=== PATIENT | male | born 1950 | race Caucasian/White ===

== ENCOUNTER → 2016-05-03 | Outpatient (CLI) | payer MEDICARE, OTHER ==
[~2016-05-03] MED LIST: DOCU-143 PO; HYDR-3812 PO; LORA2TAB PO; SILD100T PO
--- OUTSIDE RECORDS SUMMARY | 2016-05-03 10:06 | XMS REPORT | Continuity of Care Document ---
Author Author [facility] Organization [facility] Address Unknown Phone Unavailable Care Team Providers Care Electrical Helper Name Role Phone KEN DELEON MD PCP Insurance Providers Payer Name Policy Number Subscriber Name Relationship [employer] [id number] Demetri Cali 18 Self / Same As Patient Enter Insurance Name [id number] Demetri Cali 18 Self / Same As Patient Advance Directives Directive Response Recorded Date/Time Advance Directives No 10/06/15 12:44pm Health Care Power of Video Producer No 10/06/15 12:44pm Organ Donor No 10/06/15 12:44pm Resuscitation Status Full Code 10/06/15 12:44pm Problems No problem information available. Medications Current Home Medications Medication Dose Units Route Directions Days/Qty Instructions Start Date Lorazepam 2 Mg 3 Mg Oral Bedtime 10/06/15 Sildenafil Citrate 100 Mg 100 Mg Oral As Needed 10/06/15 Social History Social History Problem Response Recorded Date/Time Alcohol Use Occasionally Uses 10/06/2015 12:44pm Recreational Drug Use No 10/06/2015 12:44pm Recent Foreign Travel No 10/06/2015 12:44pm Recent Infectious Disease Exposure No 10/06/2015 12:44pm Hospitalization with Isolation Denies 10/06/2015 12:44pm Sexually Transmitted Disease No 10/06/2015 12:44pm HIV/AIDS No 10/06/2015 12:44pm Smoking Status Never a Smoker 10/06/2015 12:44pm Do you dip or chew tobacco? No 04/26/2015 7:47am Sexually Transmitted Disease No 10/06/2015 12:44pm Hospitalization with Isolation Denies 10/06/2015 12:44pm Query Response Start Date Stop Date Smoking Status Never a Smoker Hospital Discharge Instructions No hospital discharge instructions. Plan of Care Discharge Date 10/06/15 1:13pm Prescriptions See Medication Section Functional Status No functional status results. Allergies, Adverse Reactions, Alerts Allergen Type Severity Reaction Status Last Updated Penicillins ([id number]) Allergy Unknown EXTREME FEVER Active 10/06/15 Immunizations No immunization records. Vital Signs Acute Vital Signs Vital Response Date/Time Pulse Rate (adult) 64 bpm (60 - 90) 10/06/2015 12:44pm Respiratory Rate 16 bpm (12 - 24) 10/06/2015 12:44pm O2 Sat by Pulse Oximetry 97 % (88 - 100) 10/06/2015 12:44pm Blood Pressure 123/63 mm Hg 10/06/2015 12:44pm Blood Pressure Mean 83 mm Hg 10/06/2015 12:44pm Pain Numeric Pain Scale 2 10/06/2015 12:44pm Height (Feet) 6 feet 10/06/2015 12:44pm Height (Inches) 2.00 inches 10/06/2015 12:44pm Height (Calculated Centimeters) 187.878060 cm 10/06/2015 12:44pm Weight (Pounds) 163 pounds 10/06/2015 12:44pm Weight (Ounces) 3.0 oz 10/06/2015 12:44pm Weight (Calculated Grams) 64434.606 gm 10/06/2015 12:44pm Weight (Calculated Kilograms) 74.797390 kilograms 10/06/2015 12:44pm Calculated BMI 18.83 10/06/2015 12:44pm Results No known relevant diagnostic tests, laboratory data and/or discharge summary. Procedures No known history of procedures. Encounters Encounter Location Arrival/Admit Date Discharge/Depart Date Attending Provider Registered Clinic [facility] 10/06/15 12:36pm JORGE BAILEY DO
--- NOTE | 2016-05-04 08:10 | ECHOCARDIOGRAPHY REPORT ---
PROCEDURE PHYSICIAN: MEME ARAUJO DATE OF PROCEDURE: 05/03/2016 TWO DIMENSIONAL ECHOCARDIOGRAM REPORT PRIMARY PHYSICIAN: OTHER PHYSICIAN: REFERRING PHYSICIAN: Dr. Mendoza ORDERING PHYSICIAN: INDICATION FOR THE PROCEDURE: 1. Abnormal EKG. 2. Hypertension. MEASUREMENTS DERIVED VALUES LV DIAMETER (LAX) NORMALS NORMALS Diastolic 5 (3.6-5.2) Eject. Fract. 60% (60%+/-6%) Systolic (2.3-3.9) Diastolic Vol. % Shortening (0.22-0.42) Systolic Vol. Aortic Root IVS THICKNESS Diastolic 1.1 (0.6-1.1) LVPW THICKNESS Diastolic 1 (0.6-1.1) LA DIAMETER Systolic 3.2 (2.1-3.7) FINDINGS: 1. Technical quality is good. 2. The left ventricle is normal in size with normal contractility. Systolic function appeared to be normal. Estimated ejection fraction 60%. 3. The left atrium is normal in size. No clot or thrombus were seen within the left atrium. 4. The right atrium and right ventricle are normal in size. No clot or thrombus were seen within the right side. 5. Mitral valve is normal in morphology with mild mitral regurgitation noted by color Doppler flow. No mitral valve prolapse. No mitral valve stenosis. 6. Aortic valve is trileaflet with normal opening and closing pattern. 7. No significant aortic stenosis or regurgitation was seen. 8. Tricuspid valve is normal in morphology with mild tricuspid regurgitation noted by color Doppler flow. Doppler across tricuspid valve estimated pulmonary artery pressure of 33+ right atrial pressure. 9. Pulmonic valve is functioning normally. 10. No pericardial effusion. IN CONCLUSION: 1. Normal left ventricular size and systolic function. Estimated ejection fraction 60%. 2. Mild mitral and tricuspid regurgitation. 3. Estimated pulmonary artery pressure of 40 mmHg. Job ID: [id number] Dictated Date: 05/03/2016 17:02:43 Physician Office Nurse Date: 05/04/2016 08:07:25 / [email or web address]
== END ==
LOC: CARD 10:03
PROVIDERS: ATTEND Internal Medicine Cardiovascular Disease
DX: I10 Essential (primary) hypertension (principal); R94.31 Abnormal electrocardiogram [ECG] [EKG]; N52.9 Male erectile dysfunction, unspecified; Z82.49 Family history of ischemic heart disease and other diseases of the circulatory system; Z87.891 Personal history of nicotine dependence
CPT/HCPCS: 93017; 93306

== ENCOUNTER → 2016-06-08 | Outpatient (CLI) | payer MEDICARE, OTHER ==
--- NOTE | 2016-06-08 18:14 | Diagnostic Imaging Report ---
INDICATION: Right inguinal pain. COMPARISON: None. DISCUSSION: Limited targeted sonographic evaluation of the right inguinal region was performed. No underlying sonographic abnormality identified. No abnormal mass or fluid collection. No evidence of an inguinal hernia. IMPRESSION: 1. No sonographic abnormality identified within the right inguinal region. Dictated by: Dictated on workstation # [id number]
== END ==
LOC: RAD 14:02
PROVIDERS: ATTEND Nurse Practitioner Family
DX: R10.9 Unspecified abdominal pain (principal)
CPT/HCPCS: 76881

== ENCOUNTER 2016-06-26 17:47 | Emergency (ER) | payer MEDICARE, OTHER ==
[~2016-06-26] VITALS: Ht 188 cm; Wt 74.8 kg
--- NOTE | 2016-06-26 18:07 | ED Upper Extremity ---
General Chief Complaint: Upper Extremity Stated Complaint: R HAND INJ Source: patient, RN notes reviewed Exam Limitations: no limitations History of Present Illness Time seen by provider: 18:07 Initial Comments Patient slipped on a wet step and tried to catch himself and wound up catching his hand on a nail in the wall inflicting a 5 cm laceration to the medial border of his right hand. Denies any other injuries. Onset: just prior to arrival Pain/Injury Location: right hand Method of Injury: incised Modifying Factors: Improves With Other (none) Allergies and Home Medications Allergies Coded Allergies: Penicillins (Verified Allergy, Unknown, EXTREME FEVER, 10/06/15) Home Medications Lorazepam 2 Mg Tablet, 3 MG PO HS, (Reported) Constitutional: see HPI Skin: see HPI, other (laceration right hand) All Other Systems Reviewed Negative Unless Noted: Yes (Negative excepted noted.) Past Fezulth-Pvgtan-Rtanva Hx Patient Social History Type Used: Cigarettes Recent Foreign Travel: No Contact w/Someone Who Travel: No Surgeries HX Surgeries: Yes (BILAT ING HERNIA, CYSTS REMOVED) Respiratory Hx Respiratory Disorders: No Cardiovascular Hx Cardiac Disorders: No Neurological Hx Neurological Disorders: No Reproductive System Sexually Transmitted Disease: No HIV/AIDS: No Genitourinary Hx Genitourinary Disorders: Yes (PROSTATE SWELLING-TAKING HOMEOPATHIC REMEDY) Genitourinary Disorders: Prostate Problems Gastrointestinal Hx Gastrointestinal Disorders: Yes (INGUINAL HERNIA) Musculoskeletal Hx Musculoskeletal Disorders: No Endocrine Hx Endocrine Disorders: No HEENT HX ENT Disorders: Yes (READING GLASSES) Loss of Vision: Bilateral Hearing Impairment: Denies Cancer Hx Cancer: No Psychosocial Hx Psychiatric Problems: Yes (INSOMNIA) Behavioral Health Disorders: Anxiety Integumentary HX Skin/Integumentary Disorder: No Blood Transfusions Hx Blood Disorders: No Adverse Reaction to a Blood Tr: No Physical Exam Vital Signs Vital Sign - Last 12Hours 06/26/16 18:00 Temp 98.1 Pulse 75 Resp 18 B/P (MAP) 159/75 Pulse Ox 96 Capillary Refill : General Appearance: WD/WN Cardiovascular: regular rate, rhythm Respiratory: no respiratory distress Hand: normal ROM, Right, laceration Neurologic/Tendon: normal sensation, normal motor functions, normal tendon functions Neurologic/Psychiatric: no motor/sensory deficits, alert, normal mood/affect, oriented x 3 Skin: warm/dry, other (5 cm subq, linear laceration to the lateral border of his right hand. Bleeding controlled.) Laceration Repair : Wound Location: Upper Extremities (right hand) Wound's Depth, Shape: linear, sub Q Wound Explored: no foreign body removed Betadine Prep?: No Anesthesia: 1% Lidocaine Volume Anesthetic (ccs): 5 Suture: Ethlion Suture Size: 4-0 Number of Sutures: 7 Sterile Dressing Applied?: Yes Progress/Results/Core Measures Results/Orders My Orders Orders - SHAMA DUNBAR DO Lidocaine 1% Injection (Xylocaine 1% Inj (06/26/16 18:15) Tetanus/Diphtheria Inj (Adult) (Tenivac (06/26/16 18:15) Lidocaine 1% Injection (Xylocaine 1% Inj (06/26/16 18:09) Dipht,Pertuss(Acell),Tet Adult (Boostrix (06/26/16 18:09) Wound Dressing-Ed (06/26/16 18:34) Medications Given in ED Current Medications Medications Dose Ordered Sig/Lenin Route Start Time Stop Time Status Last Admin Dose Admin Diphtheria/ Tetanus/Acell Pertussis 0.5 ml STK-MED ONCE IM 06/26/16 18:09 06/26/16 18:13 DC 06/26/16 18:17 0.5 ML Lidocaine HCl 20 ml STK-MED ONCE .ROUTE 06/26/16 18:09 06/26/16 18:13 DC 06/26/16 18:17 20 ML Vital Signs/I&O Vital Sign - Last 12Hours 06/26/16 18:00 Temp 98.1 Pulse 75 Resp 18 B/P (MAP) 159/75 Pulse Ox 96 Departure Impression Impression: Primary Impression: Laceration of hand Disposition: 01 HOME, SELF-CARE Condition: Improved Departure-Patient Inst. Decision time for Depature: 18:35 Referrals: KEN DELEON MD (PCP/Family) Primary Care Physician Patient Instructions: Laceration Repair With Stitches (DC) Add. Discharge Instructions: All discharge instructions reviewed with patient and/or family. Voiced understanding. NEED TO HAVE YOUR SUTURES REMOVED IN 10 DAYS. SHAMA DUNBAR DO June 26, 2016 18:07
[2016-06-26] MEDS ORDERED: LIDOCAINE 1% INJ 20 ML (XYLOCAINE) VIAL ONE (18:09)
[2016-06-26] MEDS ORDERED: TETANUS,DIPTH,PERTUSS P/F (BOOSTRIX) 0.5 ML VIAL IM ONE (18:09)
[2016-06-26] MEDS ORDERED: TETANUS & DIPHTHERIA TOX,ADULT 0.5 ML (TENIVAC) IM ONE (18:15)
[2016-06-26] MEDS ORDERED: LIDOCAINE 1% INJ 20 ML (XYLOCAINE) VIAL INJ ONE (18:15)
[2016-06-26 18:59] VITALS: BP 159/75
== END 2016-06-26 18:58 | disposition home or self-care (01) ==
LOC: EDUNIT# 17:47 → ER 17:48
DX: S61.411A Laceration without foreign body of right hand, initial encounter (principal); Z23 Encounter for immunization; W45.0XXA Nail entering through skin, initial encounter; Y99.8 Other external cause status
CPT/HCPCS: 12002; 90471; 90715

== ENCOUNTER 2016-07-07 00:44 | Emergency (ER) | payer MEDICARE, OTHER ==
[~2016-07-07] VITALS: Ht 188 cm; Wt 72.6 kg
[2016-07-07] MEDS ORDERED: ASPIRIN 81 MG CHEW (CHILDREN'S ASA) PO ONE (01:00)
[2016-07-07] MEDS ORDERED: RX-NITROGLYCERIN 0.4 MG TAB BTL 25'S SL PRN (01:00)
[2016-07-07 01:03] LABS: BASOPHILS % (AUTO) 0 % (0-10); EOSINOPHILS # (AUTO) 0.1 10^3/uL (0.0-0.3); EOSINOPHILS % (AUTO) 2 % (0-10); LYMPHOCYTES # (AUTO) 0.7 X 10^3 (1.0-4.0); LYMPHOCYTES % (AUTO) 10 % (12-44); MEAN CORPUSCULAR HEMOGLOBIN 31 PG (25-34); MEAN CORPUSCULAR HGB CONC 32 G/DL (32-36); MEAN CORPUSCULAR VOLUME 97 FL (80-99); MEAN PLATELET VOLUME 9.3 FL (7.4-10.4); MONOCYTES # (AUTO) 0.7 X 10^3 (0.0-1.0); MONOCYTES % (AUTO) 10 % (0-12); NEUTROPHILS # (AUTO) 5.5 X 10^3 (1.8-7.8); NEUTROPHILS % (AUTO) 78 % (42-75); PLATELET COUNT 184 10^3/uL (130-400); RED BLOOD COUNT 4.43 10^6/uL (4.35-5.85); RED CELL DISTRIBUTION WIDTH 13.1 % (10.0-14.5)
[2016-07-07 01:11] LABS: INR 1.1 (0.8-1.4); PROTHROMBIN TIME PATIENT 14.2 SEC (12.2-14.7)
[2016-07-07 01:14] VITALS: BP 127/60
[2016-07-07 01:22] LABS: ALANINE AMINOTRANSFERASE 10 U/L (0-55); ALBUMIN 3.8 G/DL (3.2-4.5); ANION GAP 9 MMOL/L (5-14); ASPARTATE AMINO TRANSFERASE 12 U/L (5-34); BILIRUBIN,TOTAL 1.3 MG/DL (0.1-1.0); BLOOD UREA NITROGEN 21 MG/DL (7-18); BUN/CREATININE RATIO 23; CALCIUM 8.5 MG/DL (8.5-10.1); CARBON DIOXIDE 26 MMOL/L (21-32); CHLORIDE 109 MMOL/L (98-107); CREATININE SERUM 0.93 MG/DL (0.60-1.30); GFR ESTIMATED > 60; GLUCOSE 106 MG/DL (70-105); MAGNESIUM 2.3 MG/DL (1.8-2.4); POTASSIUM 3.4 MMOL/L (3.6-5.0); SODIUM 144 MMOL/L (135-145); TOTAL PROTEIN 5.9 G/DL (6.4-8.2)
--- NOTE | 2016-07-07 01:24 | ED Chest Pain ---
General Chief Complaint: Chest Pain Stated Complaint: CHEST PAIN Nursing Triage Note: substernal chest pain x45min. Nursing Sepsis Screen: No Definite Risk Source: patient, old records Exam Limitations: no limitations History of Present Illness Time seen by provider: 00:48 Initial Comments This 65-year-old gentleman presents to the emergency room with complaints of chest pain that woke him around midnight. The pain is described as an aching across his mid chest. It was initially 8/10 at home and has now subsided to about 4/10. He reports recent problems with vomiting over the last few days, presumably from a viral gastroenteritis. Today he primarily rested and drink plenty of clear liquids. He slept much of the day. He reports pain is worse with lying flat. He notes a recent echocardiogram and stress test performed by Dr. Milligan about 2 months ago. He denies any history of cardiopulmonary disease. He has no significant associated symptoms. He took aspirin 81 mg about 30 minutes prior to arrival. Allergies and Home Medications Allergies Coded Allergies: Penicillins (Verified Allergy, Unknown, EXTREME FEVER, 10/06/15) Home Medications Lorazepam 2 Mg Tablet, 3 MG PO HS, (Reported) Review of Systems Constitutional: no symptoms reported EENTM: No Symptoms Reported Respiratory: No Symptoms Reported Cardiovascular: See HPI Gastrointestinal: See HPI Genitourinary: No Symptoms Reported Musculoskeletal: no symptoms reported Skin: no symptoms reported Psychiatric/Neurological: No Symptoms Reported Endocrine: No Symptoms Reported Past Ffsnrtx-Ijkbmy-Wsiwvv Hx Patient Social History Alcohol Use: Rarely Uses Recreational Drug Use: No Smoking Status: Former Smoker Type Used: Cigarettes Recent Foreign Travel: No Contact w/Someone Who Travel: No Recent Infectious Disease Expo: No Recent Hopitalizations: No Immunizations Up To Date Tetanus Booster (TDap): More than 5yrs Seasonal Allergies Seasonal Allergies: No Surgeries HX Surgeries: Yes (BILAT ING HERNIA, CYSTS REMOVED) Surgeries: Abdominal, Tonsillectomy Respiratory Hx Respiratory Disorders: No Cardiovascular Hx Cardiac Disorders: No Neurological Hx Neurological Disorders: No Reproductive System Sexually Transmitted Disease: No HIV/AIDS: No Genitourinary Hx Genitourinary Disorders: Yes (PROSTATE SWELLING-TAKING HOMEOPATHIC REMEDY) Genitourinary Disorders: Prostate Problems Gastrointestinal Hx Gastrointestinal Disorders: Yes (INGUINAL HERNIA) Musculoskeletal Hx Musculoskeletal Disorders: No Endocrine Hx Endocrine Disorders: No HEENT HX ENT Disorders: Yes (READING GLASSES) Loss of Vision: Bilateral Hearing Impairment: Denies, Hard of Hearing Cancer Hx Cancer: No Psychosocial Hx Psychiatric Problems: Yes (INSOMNIA) Behavioral Health Disorders: Sleep Difficulties, Anxiety Integumentary HX Skin/Integumentary Disorder: No Blood Transfusions Hx Blood Disorders: No Adverse Reaction to a Blood Tr: No Physical Exam Vital Signs Vital Sign - Last 12Hours 07/07/16 07/07/16 00:57 01:00 Temp 97.1 Pulse 56 Resp 18 B/P (MAP) 143/65 Pulse Ox 97 O2 Delivery Room Air Capillary Refill : Less Than 3 Seconds General Appearance: No Apparent Distress, WD/WN, Thin HEENT: PERRL/EOMI, Normal ENT Inspection, Pharynx Normal Neck: Normal Inspection Respiratory: Chest Non Tender, Lungs Clear, Normal Breath Sounds, No Accessory Muscle Use, No Respiratory Distress Cardiovascular: Regular Rate, Rhythm, No Edema, No Murmur Gastrointestinal: Normal Bowel Sounds, Non Tender, Soft Extremity: Normal Inspection, No Pedal Edema Neurologic/Psychiatric: Alert, Oriented x3, No Motor/Sensory Deficits, Normal Mood/Affect, regional sales engineer II-XII Norm as Tested Skin: Normal Color, Warm/Dry Laceration Repair : Suture Size: 4-0 Progress/Results/Core Measures Results/Orders Lab Results Laboratory Tests Test 07/07/16 00:50 07/07/16 04:45 Range/Units White Blood Count 7.0 4.3-11.0 10^3/uL Red Blood Count 4.43 4.35-5.85 10^6/uL Hemoglobin 13.9 13.3-17.7 G/DL Hematocrit 43 40-54 % Mean Corpuscular Volume 97 80-99 FL Mean Corpuscular Hemoglobin 31 25-34 PG Mean Corpuscular Hemoglobin Concent 32 32-36 G/DL Red Cell Distribution Width 13.1 10.0-14.5 % Platelet Count 184 130-400 10^3/uL Mean Platelet Volume 9.3 7.4-10.4 FL Neutrophils (%) (Auto) 78 H 42-75 % Lymphocytes (%) (Auto) 10 L 12-44 % Monocytes (%) (Auto) 10 0-12 % Eosinophils (%) (Auto) 2 0-10 % Basophils (%) (Auto) 0 0-10 % Neutrophils # (Auto) 5.5 1.8-7.8 X 10^3 Lymphocytes # (Auto) 0.7 L 1.0-4.0 X 10^3 Monocytes # (Auto) 0.7 0.0-1.0 X 10^3 Eosinophils # (Auto) 0.1 0.0-0.3 10^3/uL Basophils # (Auto) 0.0 0.0-0.1 10^3/uL Prothrombin Time 14.2 12.2-14.7 SEC INR Comment 1.1 0.8-1.4 Activated Partial Thromboplast Time 33 24-35 SEC Sodium Level 144 135-145 MMOL/L Potassium Level 3.4 L 3.6-5.0 MMOL/L Chloride Level 109 H 98-107 MMOL/L Carbon Dioxide Level 26 21-32 MMOL/L Anion Gap 9 5-14 MMOL/L Blood Urea Nitrogen 21 H 7-18 MG/DL Creatinine 0.93 0.60-1.30 MG/DL Estimat Glomerular Filtration Rate > 60 BUN/Creatinine Ratio 23 Glucose Level 106 H 70-105 MG/DL Calcium Level 8.5 8.5-10.1 MG/DL Magnesium Level 2.3 1.8-2.4 MG/DL Total Bilirubin 1.3 H 0.1-1.0 MG/DL Aspartate Amino Transf (AST/SGOT) 12 5-34 U/L Alanine Aminotransferase (ALT/SGPT) 10 0-55 U/L Alkaline Phosphatase 47 40-136 U/L Myoglobin 42.6 10.0-92.0 NG/ML Troponin I < 0.30 < 0.30 <0.30 NG/ML Total Protein 5.9 L 6.4-8.2 G/DL Albumin 3.8 3.2-4.5 G/DL My Orders Orders - ARNOLD BUSTILLO MD Cbc With Automated Diff (07/07/16 01:00) Magnesium (07/07/16 01:00) Chest 1 View, Ap/Pa Only (07/07/16 01:00) Ekg Tracing (07/07/16 01:00) Cardiac Profile 1 (07/07/16 01:00) Comprehensive Metabolic Panel (07/07/16 01:00) Myoglobin Serum (07/07/16 01:00) Protime With Inr (07/07/16 01:00) Partial Thromboplastin Time (07/07/16 01:00) O2 (07/07/16 01:00) Monitor-Rhythm Ecg Trace Only (07/07/16 01:00) Lipid Panel (07/08/16 06:00) Aspirin Chewable Tablet (Baby Aspirin Ch (07/07/16 01:00) Rx-Nitroglycerin Sl Tabs (Rx-Nitrostat S (07/07/16 01:00) Saline Lock/Iv-Start (07/07/16 01:00) Troponin I (07/07/16 02:13) Medications Given in ED Current Medications Medications Dose Ordered Sig/Lenin Route Start Time Stop Time Status Last Admin Dose Admin Aspirin 243 mg ONCE ONCE PO 07/07/16 01:00 07/07/16 01:02 DC 07/07/16 01:05 243 MG Nitroglycerin 0.4 mg PRN PRN SL 07/07/16 01:00 07/07/16 01:05 0.4 MG Vital Signs/I&O Vital Sign - Last 12Hours 07/07/16 07/07/16 07/07/16 07/07/16 00:57 01:00 01:05 01:10 Temp 97.1 97.1 Pulse 56 Resp 18 B/P (MAP) 143/65 Pulse Ox 97 97 O2 Delivery Room Air Room Air Room Air 07/07/16 07/07/16 07/07/16 07/07/16 01:14 02:09 03:05 04:12 Pulse 67 56 55 50 Resp 15 27 16 18 B/P (MAP) 127/60 116/60 102/56 103/45 Pulse Ox 95 96 97 96 O2 Delivery Room Air Room Air Room Air Room Air Blood Pressure Mean: 82 Progress Note #1: Time: 01:21 Progress Note Patient reports his pain at its worst was about 8/10. By the time of arrival it was about 4/10. He did receive aspirin and nitroglycerin. He reports pain was already starting to dissipate at about 2/10 when he took the nitroglycerin and completely resolved shortly after taking nitroglycerin. He now reports no pain in the chest and he has a minimal 1/10 discomfort in the epigastric area without tenderness on repeat exam. Chart was reviewed and he was found to have an exercise stress test performed in April of this year with nondiagnostic EKG changes and hypertensive response to exercise. No ischemic changes were noted. Frequent PVCs were observed. Echocardiogram was also performed in April and showed ejection fraction of 60 percent with normal contractility. Pulmonary artery pressure was 40. Progress Note #2: Time: 02:00 Progress Note Patient is pain-free. Workup is relatively unremarkable. Case was reviewed with Dr. Celaya who believes patient should at a minimum have a 4 hour troponin rule out versus admission for observation. Options discussed with patient. He prefers to do the 4 hour troponin rule out. Progress Note #3: Time: 05:49 Progress Note Repeat troponin was negative. Patient denies any further pain. ECG Initial ECG Impression Date: July 07, 2016 Initial ECG Impression Time: 00:50 Initial ECG Rate: 57 Initial ECG Rhythm: Normal Sinus Comment Normal sinus rhythm with artifact. No ST elevation or depression was observed. No abnormal intervals or axis deviation. No prior EKGs were available for comparison. Diagnostic Imaging Diagonstic Imaging: Xray Plain Films/CT/US/NM/MRI: chest Comments Chest x-ray viewed by me. Report not yet available. No acute abnormalities appreciated by the ER physician. Departure Impression Impression: Primary Impression: Atypical chest pain Disposition: HOME, SELF-CARE Condition: Improved Departure-Patient Inst. Decision time for Depature: 05:50 Referrals: KEN DELEON MD (PCP/Family) Primary Care Physician Patient Instructions: Chest Pain (DC) Add. Discharge Instructions: Call Dr. Milligan's office this morning to schedule follow-up. Return to emergency room if you have recurrent chest pain or other worsening symptoms develop. All discharge instructions reviewed with patient and/or family. Voiced understanding. Copy Copies To 1: MEME MILLIGAN MD Copies To 2: KEN DELEON MD, JOSHUA T MD July 07, 2016 01:24
[2016-07-07 01:29] LABS: MYOGLOBIN SERUM 42.6 NG/ML (10.0-92.0)
[2016-07-07 02:09] VITALS: BP 116/60
[2016-07-07 03:05] VITALS: BP 102/56
[2016-07-07 04:12] VITALS: BP 103/45
[2016-07-07 05:58] VITALS: BP 107/45
--- NOTE | 2016-07-07 07:01 | Diagnostic Imaging Report ---
INDICATION: Chest pain with onset 45 minutes ago. COMPARISON STUDIES: None FINDINGS: Frontal view of the chest demonstrates the lungs to be clear. The heart size and vascularity are normal. There are no pleural effusions. Some tiny symmetric pulmonary nodules are consistent with the patient's nipples. There is some calcification of the aorta. IMPRESSION: There are no acute findings. Dictated by: Dictated on workstation # [id number]
== END 2016-07-07 05:54 | disposition home or self-care (01) ==
LOC: EDUNIT# 00:44 → ER 00:45
DX: R07.89 Other chest pain (principal); Z87.891 Personal history of nicotine dependence
CPT/HCPCS: 36415; 71010; 80053; 83735; 83874; 84484; 85025; 85610; 85730; 93005; 93041

== ENCOUNTER → 2017-04-18 | Outpatient (CLI) | payer MEDICARE, OTHER ==
[~2017-04-18] MED LIST changes: +ACHD5005 PO; -HYDR-3812 PO
--- NOTE | 2017-04-18 12:25 | Diagnostic Imaging Report ---
INDICATION: Shoulder pain. COMPARISON: None. FINDINGS: Three views of the right shoulder were obtained. There is no fracture, dislocation, or other acute bony abnormality identified. The soft tissues appear unremarkable. No radiopaque foreign bodies identified. The visualized portions of the right lung are clear. IMPRESSION: No acute fractures or dislocations of the right shoulder. Dictated by: Dictated on workstation # [id number]
== END ==
LOC: RAD 11:47
PROVIDERS: ATTEND Nurse Practitioner Family
DX: M25.511 Pain in right shoulder (principal)
CPT/HCPCS: 73030

== ENCOUNTER → 2017-04-27 | Outpatient (CLI) | payer MEDICARE, OTHER ==
--- NOTE | 2017-04-27 12:00 | Diagnostic Imaging Report ---
PROCEDURE: MRI right joint upper extremity without contrast. Technique: Multiplanar, multisequence MR imaging of the right shoulder was performed without contrast. Comparison: Right shoulder radiographs of 04/18/2017. Indication: Shoulder pain for approximately one year. Findings: Rotator cuff: Marked tendinopathy of supraspinatus and infraspinatus. There is superimposed low-grade partial-thickness bursal sided tearing of the anterior aspect of the supraspinatus. Subscapularis tendinopathy is also present with partial-thickness tearing of the superior deep fibers. Teres minor is normal. No rotator cuff muscle atrophy. Glenoid labrum: By non-arthrogram imaging, the glenoid labrum appears intact. No para-labral cyst. Long head of biceps: Long head of biceps is dislocated medially secondary to overlying subscapularis/transverse humeral ligament tear. The intracapsular segment of the long head of biceps remains intact. Bones and cartilage: Humeral head is normal in morphology without fracture. Subcortical cysts within the greater tuberosity are compatible with overlying rotator cuff pathology. No glenohumeral chondromalacia. Mild hypertrophic degenerative change of the acromioclavicular joint including inferior projecting osteophytes into the subacromial space. Soft tissues: No glenohumeral joint effusion. No MRI findings to suggest adhesive capsulitis. No fluid or inflammatory like signal within the subacromial/subdeltoid space to indicate bursitis. IMPRESSION: 1. Tendinopathy of the supraspinatus and infraspinatus is present. There are superimposed focal low-grade partial-thickness tear of the anterior bursal fibers of supraspinatus. 2. Subscapularis tendinopathy with partial-thickness tearing of the deep insertional fibers. 3. Medial dislocation of the long head of the biceps from the bicipital groove. The intracapsular segment remains intact. Dictated by: Dictated on workstation # [id number]
== END ==
LOC: RAD 10:40
PROVIDERS: ATTEND Nurse Practitioner Family
DX: M75.111 Incomplete rotator cuff tear or rupture of right shoulder, not specified as traumatic (principal); M67.813 Other specified disorders of tendon, right shoulder
CPT/HCPCS: 73221

== ENCOUNTER 2018-04-15 10:33 | Outpatient (RCR) | payer MEDICARE, OTHER | END 2018-04-16 | disposition home or self-care (01) | LOC: CR 10:33 | PROVIDERS: ATTEND Internal Medicine Cardiovascular Disease | DX: Z48.812 Encounter for surgical aftercare following surgery on the circulatory system (principal); Z95.1 Presence of aortocoronary bypass graft | CPT/HCPCS: 93798 ==

== ENCOUNTER 2018-05-03 10:13 | Outpatient (RCR) | payer MEDICARE, OTHER ==
[~2018-05-03 10:13] MED LIST changes: +P EP PO; +QUIN324C4 PO
== END 2018-07-16 | disposition home or self-care (01) ==
LOC: CR 10:13
PROVIDERS: ATTEND Internal Medicine Cardiovascular Disease
DX: Z48.812 Encounter for surgical aftercare following surgery on the circulatory system (principal); Z95.1 Presence of aortocoronary bypass graft
CPT/HCPCS: 93798

== ENCOUNTER → 2018-12-30 | Outpatient (CLI) | payer MEDICARE, OTHER ==
[~2018-12-30] VITALS: Ht 185 cm; Wt 90.0 kg
[~2018-12-30] MED LIST changes: +CATHETER FLUSH 10 ML SYR IV PRN
[2018-12-30 09:21] VITALS: BP 142/82
[2018-12-30 09:32] VITALS: BP 197/94
--- NOTE | 2018-12-30 14:21 | STRESS TEST ---
DATE OF SERVICE: 12/30/2018 EXERCISE MYOVIEW STRESS TEST REPORT REFERRING PHYSICIAN: Dr. Mendoza. Baseline heart rate is 58, baseline blood pressure 153/82. Baseline EKG is sinus rhythm with no ischemic changes. In summary, the patient was injected with 10.36 mCi of technetium-99 Myoview and the resting images were obtained. Then, the patient started exercising with a baseline heart rate, blood pressure and EKG mentioned above. The patient was able to exercise for 10 minutes on standard Jimi protocol. At peak stress level, he was injected with 31.4 mCi of technetium-99 Myoview. With peak exercise level, EKG was showing nondiagnostic changes. Blood pressure was 206/92. During recovery, heart rate and blood pressure returned to baseline. EKG returned to baseline. The resting and stress images were reviewed and compared in the short axis, horizontal long axis, and vertical long axis views. Review of the images showed diaphragmatic attenuation with fixed defect involving the whole inferior wall with no significant reversibility. SSS is 13, SDS 1, TID value 1.14. On the gated images, the left ventricle appeared to be normal size with normal contractility. Calculated ejection fraction 53%. IN CONCLUSION: 1. Excellent exercise tolerance for a total of 10 minutes on standard Jimi protocol, total of 11.7 METS achieving 90% of maximum expected heart rate. 2. Hypertensive response to exercise with peak blood pressure 206/92 returned to baseline during recovery. 3. Minimal nondiagnostic EKG changes with exercise returned to baseline during recovery. 4. Diaphragmatic attenuation with fixed defect involving the whole inferior wall with no significant reversibility. 5. Normal left ventricular size with normal contractility, inferior wall is rosaura normally. Calculated ejection fraction 53%. Job ID: [id number] DocumentID: [id number] Dictated Date: 12/30/2018 12:05:28 Loan Servicing Officer Date: 12/30/2018 14:21:53 Dictated By: MEME ARAUJO MD
== END ==
LOC: CARD 07:17
PROVIDERS: ATTEND Physician Assistant
DX: I25.10 Atherosclerotic heart disease of native coronary artery without angina pectoris (principal); I10 Essential (primary) hypertension; E78.2 Mixed hyperlipidemia; R00.2 Palpitations
CPT/HCPCS: 78452; 93017; 93306

== ENCOUNTER → 2019-01-03 | Outpatient (CLI) | payer MEDICARE, OTHER ==
[~2019-01-03] MED LIST changes: -CATHETER FLUSH 10 ML SYR IV PRN
--- NOTE | 2019-01-03 17:22 | Diagnostic Imaging Report ---
EXAMINATION: Magnetic resonance imaging of the left shoulder without contrast. DATE: January 03, 2019. COMPARISON: None. HISTORY: 68-year-old male, left shoulder pain. TECHNIQUE: Magnetic Resonance Imaging sequences were performed of the shoulder without contrast. FINDINGS: ROTATOR CUFF, LIGAMENTS, TENDONS, AND MUSCLES: There is an 8 mm wide approximately 50% partial-thickness bursal sided tendon tear of infraspinatus at its anterior aspect with additional infraspinatus tendinopathy. There is subscapularis tendinopathy with an estimated 8 mm wide less than 25% partial articular sided tear of supraspinatus. The teres minor tendon is intact. There is an interstitial split tear of the subscapularis tendon. There is normal rotator cuff muscle bulk and signal. LONG HEAD OF BICEPS: There is long head of biceps tendinopathy. The biceps labral attachment is intact. The long head of biceps tendon is normally positioned within the bicipital groove. GLENOHUMERAL JOINT: The humeral head is well positioned relative to the glenoid. The labrum is grossly intact. There is no identified paralabral cyst. The articular cartilage is grossly intact. There is no joint effusion. ACROMIOCLAVICULAR JOINT: The acromioclavicular joint is normally aligned. The coracoclavicular and coracoacromial ligaments are intact. There are mild acromioclavicular degenerative changes without large undersurface osteophyte. BONE: The bones all have normal configuration. There is degenerative related marrow edema adjacent to the acromioclavicular joint. There is no acute fracture, bone contusion, or evidence of osteonecrosis. BURSAE AND SOFT TISSUES: The bursae and soft tissue surrounding the shoulder are unremarkable. IMPRESSION: 1. 8 mm wide approximately 25% or less partial articular sided tear of supraspinatus. 8 mm wide approximately 50% partial-thickness articular sided tear of infraspinatus. Interstitial split tear of the subscapularis tendon. No fatty muscle atrophy. 2. Long head of biceps tendinopathy. 3. Mild acromioclavicular degenerative changes without undersurface osteophyte. 4. Grossly intact labrum and unremarkable additional glenohumeral joint assessment. 5. No acute fracture, bone contusion or evidence of osteonecrosis. Dictated on workstation # [id number]
== END ==
LOC: RAD 13:05
PROVIDERS: ATTEND Family Medicine
DX: M75.112 Incomplete rotator cuff tear or rupture of left shoulder, not specified as traumatic (principal); M67.814 Other specified disorders of tendon, left shoulder; M19.012 Primary osteoarthritis, left shoulder
CPT/HCPCS: 73221

== ENCOUNTER 2019-09-22 05:34 | Outpatient (RCR) | payer MEDICARE, OTHER ==
[~2019-09-22] VITALS: Ht 187 cm; Wt 80.9 kg
[~2019-09-22 05:34] MED LIST changes: +ASPI-586 PO; +LISI2.5T PO; +LORA-407 PO; +METO100T12 PO
== END 2019-09-22 10:23 | disposition home or self-care (01) ==
LOC: PREOP 05:34
PROVIDERS: ATTEND Surgery
DX: Z01.812 Encounter for preprocedural laboratory examination (principal); K40.90 Unilateral inguinal hernia, without obstruction or gangrene, not specified as recurrent; Z20.828 Contact with and (suspected) exposure to other viral communicable diseases
CPT/HCPCS: 87635

== ENCOUNTER 2019-09-25 08:38 | Day surgery (SDC) | payer MEDICARE, OTHER ==
[~2019-09-25] VITALS: Ht 188 cm; Wt 80.9 kg
[2019-09-25] VITALS (11 sets, daily range): BP systolic 128–185; BP diastolic 63–88
[2019-09-25] MEDS ORDERED: CLINDAMYCIN 600 MG/50 ML IVPB 50 ML IV ONE (09:00)
[2019-09-25] MEDS: LACTATED RINGERS 1,000 ML IV PRN ×2 (09:03→11:23)
[2019-09-25] MEDS ORDERED: ONDANSETRON 4 MG/2 ML (SDV) Z0FRAN ONE (09:09)
[2019-09-25] MEDS ORDERED: MIDAZOLAM 2 MG/2 ML (VERSED) VIAL ONE (09:09)
[2019-09-25] MEDS ORDERED: LIDOCAINE PF 2% 5 ML (XYLOCAINE) VIAL ONE (09:09)
[2019-09-25] MEDS ORDERED: ROCURONIUM 10 MG/ML 5 ML SYRINGE IV ONE (09:09)
[2019-09-25] MEDS ORDERED: proPOfol 200 MG/20 ML (DIPRIVAN) VIAL IV ONE (09:09)
[2019-09-25] MEDS ORDERED: fentaNYL INJECTION 100 MCG/2 ML AMP ONE (09:10)
[2019-09-25] MEDS ORDERED: BUP/EPI 0.5% 1:200,000 (MARCAINE) 10ML VIAL IJ ONE ×2 (09:12→09:33)
[2019-09-25] MEDS ORDERED: NEOSTIGMINE 3 MG/3 ML VIAL ONE (09:13)
[2019-09-25] MEDS ORDERED: SEVOFLURANE (ULTANE) 15 ML INHAL SOLN ONE ×4 (09:13→11:21)
[2019-09-25] MEDS ORDERED: GLYCOPYRROLATE 0.2 MG/ML (ROBINUL) 2 ML VIAL ONE ×2 (09:13→11:21)
[2019-09-25 09:17] LABS: BASOPHILS % (AUTO) 0 % (0-10); EOSINOPHILS # (AUTO) 0.2 10^3/uL (0.0-0.3); EOSINOPHILS % (AUTO) 3 % (0-10); HEMATOCRIT 44 % (40-54); HEMOGLOBIN 14.7 G/DL (13.3-17.7); LYMPHOCYTES # (AUTO) 1.4 X 10^3 (1.0-4.0); LYMPHOCYTES % (AUTO) 21 % (12-44); MEAN CORPUSCULAR HEMOGLOBIN 32 PG (25-34); MEAN CORPUSCULAR HGB CONC 34 G/DL (32-36); MEAN CORPUSCULAR VOLUME 94 FL (80-99); MEAN PLATELET VOLUME 9.9 FL (7.4-10.4); MONOCYTES # (AUTO) 0.5 X 10^3 (0.0-1.0); MONOCYTES % (AUTO) 8 % (0-12); NEUTROPHILS # (AUTO) 4.5 X 10^3 (1.8-7.8); NEUTROPHILS % (AUTO) 68 % (42-75); PLATELET COUNT 210 10^3/uL (130-400); RED CELL DISTRIBUTION WIDTH 12.9 % (10.0-14.5); WHITE BLOOD COUNT 6.7 10^3/uL (4.3-11.0)
[2019-09-25] MEDS ORDERED: CATHETER FLUSH 10 ML SYR IV PRN (09:30)
--- NOTE | 2019-09-25 09:33 | Progress Note-Pre Operative ---
Pre-Operative Progress Note H&P Reviewed The H&P was reviewed, patient examined and no changes noted. Date Seen by Provider: Sep 25, 2019 Time Seen by Provider: 09:15 Date H&P Reviewed: Sep 25, 2019 Time H&P Reviewed: 09:15 Pre-Operative Diagnosis: recurrent right inguinal hernia JOHNIE DAVIS MD Sep 25, 2019 09:33
[2019-09-25] MEDS ORDERED: HYDR-3817 PO ×2 (09:35)
--- NOTE | 2019-09-25 09:35 | Discharge Inst-Surgical ---
D/C Lap Instructions-SUSAN New, Converted, or Re-Newed RX: RX on Chart Follow Up Appt in 2 weeks Activity as tolerated No driving for 24 hours No driving while on pain medications Incentive Spirometry use every 2 hours while awake Regular Diet Symptoms to Report: Fever over 101 degree F, Nausea/Vomiting Infection Signs and Symptoms to report: Increased redness, Foul odor of wound, Increased drainage Bathing instructions: May shower Operative Area Clean/Dry; Keep incision clean/dry If any problems/questions: Contact your physician or go to Emergency Room JOHNIE DAVIS MD Sep 25, 2019 09:35
[2019-09-25] MEDS ORDERED: ACETAMINOPHEN 325 MG TABLET PO PRN (09:45)
[2019-09-25] MEDS ORDERED: morphine INJ 10 MG/ML 1ML (SYR OR VIAL) IVP PRN ×2 (09:45)
[2019-09-25] MEDS ORDERED: ONDANSETRON 4 MG/2 ML (SDV) Z0FRAN IVP PRN ×2 (09:45→11:45)
[2019-09-25] MEDS ORDERED: oxyCODONE/APAP 5/325MG (PERCOCET 5) TABLET PO PRN (09:45)
--- OUTSIDE RECORDS SUMMARY | 2019-09-25 10:11 | XMS REPORT | CCD ---
Author Author Demetri Oconnell Organization [facility] Address [address] [place] [address] Phone Care Team Providers Care Gravity Prospecting Observer Helper Name Role Phone PP Unavailable CCM Unavailable Summary Purpose Interface Exchange Insurance Providers Payer name Policy type / Coverage type Covered libertarian ID Effective Begin Date Effective End Date WPS Medicare Part B 22 [id number] 2015 Unknown [employer] [place] [id number] 2015 Unknown Family history Sister Diagnosis Age At Onset Breast cancer Unknown Son Diagnosis Age At Onset No Known Diseases N/A Daughter Diagnosis Age At Onset No Known Diseases N/A Daughter Diagnosis Age At Onset No Known Diseases N/A Father Diagnosis Age At Onset Heart Attack Unknown Daughter Diagnosis Age At Onset No Known Diseases N/A Brother Diagnosis Age At Onset No Known Diseases N/A Mother Diagnosis Age At Onset Hypertension Unknown Cancer Unknown Arthritis Unknown Hyperlipidemia Unknown Grandmother Diagnosis Age At Onset Stroke Unknown Son Diagnosis Age At Onset No Known Diseases N/A Social History Social History Element Codes Description Effective Dates 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 ICD-10: I25.10 Active 12/31/2017 Unknown Essential (primary) hypertension ICD-9: 401.1 ICD-10: I10 Active 12/31/2017 Unknown Mixed hyperlipidemia ICD-9: 272.2 ICD-10: E78.2 Active 09/17/2018 Unknown Pain in left foot ICD-9: 729.5 ICD-10: M79.672 Active 09/17/2018 Unknown Pain in left shoulder ICD-9: 719.41 ICD-10: M25.512 Active 09/17/2018 Unknown Pain in right shoulder ICD-9: 719.41 ICD-10: M25.511 Active 04/18/2017 Unknown Encounter for genera l adult medical examination with abnormal findings ICD-9: V70.0 ICD-10: Z00.01 Active 12/06/2016 Unknown Other insomnia ICD-9: 780.52 ICD-10: G47.09 Active 03/05/2016 Unknown Restless legs syndrome ICD-9: 333.94 ICD-10: G25.81 Active 03/05/2016 Unknown Encounter for screen ing for malignant neoplasm of prostate ICD-9: V76.44 ICD-10: Z12.5 Active 04/18/2017 Unknown Encounter for screen ing for disorder due to exposure to contaminants ICD-9: V82.5 ICD-10: Z13.88 Active 12/04/2016 Unknown Other insomnia ICD-9: 327.09 ICD-10: G47.09 Active 05/19/2015 Unknown Right upper quadrant pain ICD-9: 789.01 ICD-10: R10.11 Active 12/04/2016 Unknown Unspecified jaundice ICD-9: 782.4 ICD-10: R17 Active 12/04/2016 Unknown Unilateral inguinal hernia, without obstruction or gangrene, recurrent ICD-9: 550.91 ICD-10: K40.91 Active 10/03/2015 Unknown Male erectile disorder ICD-9: 607.84 ICD-10: F52.21 Active 06/15/2015 Unknown Encounter for genera l adult medical examination without abnormal findings ICD-9: V70.0 ICD-10: Z00.00 Active 03/29/2015 Unknown Conjunctival hemorrh age, right eye ICD-9: 372.72 ICD-10: H11.31 Active 12/06/2014 Unknown Other seborrheic ker atosis ICD-9: 702.19 ICD-10: L82.1 Active 12/06/2014 Unknown Eczema, dyshidrotic ICD- 9: 705.81 Active 02/23/2014 Unknown Right hip pain ICD-9: 719.45 Active 02/23/2014 Unknown Erectile dysfunction ICD-9: 607.84 Active 09/02/2013 Unknown IMPACTED CERUMEN ICD-9: 380.4 Active 09/02/2013 Unknown INSOMNIA NOS ICD-9: 780.52 Active 09/02/2013 Unknown Erectile dysfunction Unknown Active 09/01/2013 Unknown Restless leg syndrome Unknown Active 09/01/2013 Unknown Special screening fo r malignant neoplasms, colon ICD-9: V76.51 Active 09/01/2013 Unknown Problems Condition Codes Effectiv e Dates Condition Status Atherosclerotic hear t disease of [place] coronary artery without angina pectoris ICD-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 ICD-10: I25.10 12/31/2017 Active Essential (primary) hypertension ICD-9: 401.1 ICD-10: I10 12/31/2017 Active Mixed hyperlipidemia ICD-9: 272.2 ICD-10: E78.2 09/17/2018 Active Pain in left foot ICD-9: 729.5 ICD-10: M79.672 09/17/2018 Active Pain in left shoulder ICD-9: 719.41 ICD-10: M25.512 09/17/2018 Active Pain in right shoulder ICD-9: 719.41 ICD-10: M25.511 04/18/2017 Active Encounter for genera l adult medical examination with abnormal findings ICD-9: V70.0 ICD-10: Z00.01 12/06/2016 Active Other insomnia ICD-9: 780.52 ICD-10: G47.09 03/05/2016 Active Restless legs syndrome ICD-9: 333.94 ICD-10: G25.81 03/05/2016 Active Encounter for screen ing for malignant neoplasm of prostate ICD-9: V76.44 ICD-10: Z12.5 04/18/2017 Active Encounter for screen ing for disorder due to exposure to contaminants ICD-9: V82.5 ICD-10: Z13.88 12/04/2016 Active Other insomnia ICD-9: 327.09 ICD-10: G47.09 05/19/2015 Active Right upper quadrant pain ICD-9: 789.01 ICD-10: R10.11 12/04/2016 Active Unspecified jaundice ICD-9: 782.4 ICD-10: R17 12/04/2016 Active Unilateral inguinal hernia, without obstruction or gangrene, recurrent ICD-9: 550.91 ICD-10: K40.91 10/03/2015 Active Male erectile disorder ICD-9: 607.84 ICD-10: F52.21 06/15/2015 Active Encounter for genera l adult medical examination without abnormal findings ICD-9: V70.0 ICD-10: Z00.00 03/29/2015 Active Conjunctival hemorrh age, right eye ICD-9: 372.72 ICD-10: H11.31 12/06/2014 Active Other seborrheic ker atosis ICD-9: 702.19 ICD-10: L82.1 12/06/2014 Active Eczema, dyshidrotic ICD- 9: 705.81 02/23/2014 Active Right hip pain ICD-9: 719.45 02/23/2014 Active Erectile dysfunction ICD-9: 607.84 09/02/2013 Active IMPACTED CERUMEN ICD-9: 380.4 09/02/2013 Active INSOMNIA NOS ICD-9: 780.52 09/02/2013 Active Erectile dysfunction Unknown 09/01/2013 Active Restless leg syndrome Unknown 09/01/2013 Active Special screening fo r malignant neoplasms, colon ICD-9: V76.51 09/01/2013 Active Medications Medication Codes Instruc tions Start Date Stop Date Sta tus Fill Instructions diclofenac 1 % topic al gel RxNorm: 438660 2 Gram(s) TOP TID use on left shoulder and left achilles 09/17/2018 11/15/2018 Active lorazepam 2 mg tablet RxNorm: 777894 1/2-1 Tablet(s) PO QHS as needed insomni a 05/01/2018 10/27/2018 Ac tive lorazepam 2 mg tablet RxNorm: 475991 1/2-1 Tablet(s) PO QHS as needed insomni a 09/13/2017 03/10/2018 In active lorazepam 2 mg tablet RxNorm: 889295 1/2-1 Tablet(s) PO QHS as needed insomni a 05/03/2017 12/30/2017 In active lorazepam 2 mg tablet RxNorm: 435361 1/2-1 Tablet(s) PO QHS as needed insomni a 12/04/2016 12/30/2017 In active lorazepam 2 mg tablet RxNorm: 289124 1 Tablet(s) PO as needed agitation 03/06/2016 10/29/2016 In active Ambien CR 6.25 mg ta blet,extended release RxNorm: 715582 1 Tablet(s) PO daily 03/06/2016 09/16/2018 In active Ambien CR 6.25 mg ta blet,extended release RxNorm: 387130 Tablet(s) PO 03/06/2016 05/28/2016 In active Ambien CR 6.25 mg ta blet,extended release RxNorm: 538735 1 Tablet(s) PO daily 03/06/2016 03/05/2016 In active Cialis 20 mg tablet RxNorm: 445146 1 Tablet(s) PO PRN sexual activity 02/17/2016 12/05/2016 In active ID [id number] Cialis 20 mg tablet RxNorm: 570631 1 Tablet(s) PO PRN sexual activity 12/14/2015 02/16/2016 In active ID [id number] Viagra 100 mg tablet RxNorm: 221018 Tablet(s) as needed 1 TABLET(S) PO QDAY PRN 3MONTH SUPPLY WITH 1 REFILLS TO SUZY RX 12/10/2015 12/13/2015 Inactive [PACO INGS FOR NON-COVERED DRUGS -- BIN:923991, PCN: ASPROD1, Group: XXXXX, ID# [id number], Questions: . THIS IS NOT INSURANCE.] Cialis 20 mg tablet RxNorm: 412934 1 Tablet(s) PO PRN sexual activity 10/11/2015 12/13/2015 In active lorazepam 2 mg tablet RxNorm: 072889 1 Tablet(s) PO QHS as needed insomnia 10/06/2015 02/02/2016 In active Viagra 100 mg tablet RxNorm: 303966 Tablet(s) as needed 1 TABLET(S) PO QDAY PRN 3MONTH SUPPLY WITH 3 REFILLS TO SUZY RX 06/25/2015 10/10/2015 Inactive [PACO INGS FOR NON-COVERED DRUGS -- BIN:802787, PCN: ASPROD1, Group: XXXXX, ID# [id number], Questions: . THIS IS NOT INSURANCE.] lorazepam 2 mg tablet RxNorm: 479794 Tablet(s) PO 05/20/2015 10/05/2015 Inactive Xanax 1 mg tablet RxNorm: 534505 1 Tablet(s) PO HS PRN 03/23/2015 10/03/2015 Inactive [SAVINGS FOR UNINSURED PATIENTS -- BIN:0 04020, PCN: ASPROD1, Group: [id number], ID# [id number], Process claim through [employer], for questions: . THIS IS NOT INSURANCE.] alprazolam 1 mg tablet RxNorm: 538927 1 Tablet(s) PO QHS as needed TAKE 1 TABL ET BY MOUTH EVERY NIGHT AT BEDTIME NEEDED 12/01/2014 01/28/2015 Inactive (Res ponse to an electronic controlled substance refill request - RxReferenceNumber: [id number]|1|0|1) Viagra 100 mg tablet RxNorm: 330047 Tablet(s) as needed 1 TABLET(S) PO QDAY PRN 11/19/2014 12/18/2014 In active [SAVINGS FOR NON-COVERED DRUGS -- BIN:00 3585, PCN: ASPROD1, Group: XXXXX, ID# [id number], Questions: . THIS IS NOT INSURANCE.] alprazolam 1 mg tablet RxNorm: 033738 1 Tablet(s) PO QHS as needed TAKE 1 TABL ET BY MOUTH EVERY NIGHT AT BEDTIME NEEDED 10/09/2014 11/30/2014 Inactive (Res ponse to an electronic controlled substance refill request - RxReferenceNumber: [id number]|1|0|1) alprazolam 1 mg tablet RxNorm: 941654 1 Tablet(s) PO qd PRN 06/23/2014 06/22/2014 Inactive [SAVINGS FOR NON-COVERED DRUGS -- BIN:00 3585, PCN: ASPROD1, Group: XXXXX, ID# [id number], Questions: . THIS IS NOT INSURANCE.] alprazolam 1 mg tablet RxNorm: 174733 TAKE 1 TABLET BY MOUTH EVERY NIGHT AT BE DTIME NEEDED 06/23/2014 07/22/2014 Inactive (Response to an electronic controlled substance refill request - [facility] [id number]|1|0|1) Viagra 100 mg tablet RxNorm: 655104 Tablet(s) as needed 1 TABLET(S) PO QDAY PRN 05/20/2014 06/18/2014 In active [SAVINGS FOR NON-COVERED DRUGS -- BIN:00 3585, PCN: ASPROD1, Group: XXXXX, ID# [id number], Questions: . THIS IS NOT INSURANCE.] alprazolam 1 mg tablet RxNorm: 035966 1 Tablet(s) PO qd PRN 04/27/2014 06/22/2014 Inactive [SAVINGS FOR NON-COVERED DRUGS -- BIN:00 3585, PCN: ASPROD1, Group: XXXXX, ID# [id number], Questions: . THIS IS NOT INSURANCE.] Voltaren 1 % topical gel RxNorm: 617964 4 Gram(s) TOP QID 02/23/2014 10/03/2015 Inactive [SAVINGS FOR UNINSURED PATIENTS -- BIN:660432, PCN: ASPROD1, Group: [id number], ID# [id number], Process claim through [employer], for questions: . THIS IS NOT INSURANCE.] triamcinolone aceton caty 0.1 % topical cream RxNorm: 3384747 1 Application TOP BI D 02/23/2014 03/08/2014 In active hands Xanax 1 mg tablet RxNorm: 783038 1 Tablet(s) PO HS PRN 02/23/2014 03/22/2015 Inactive [SAVINGS FOR UNINSURED PATIENTS -- BIN:0 02101, PCN: ASPROD1, Group: AME08, ID# [id number], Process claim through [employer], for questions: . THIS IS NOT INSURANCE.] Viagra 100 mg tablet RxNorm: 737359 1 TABLET(S) PO QDAY PRN 01/26/2014 05/19/2014 Inactive [SAVINGS FOR UNINSURED PATIENTS -- BIN:0 49332, PCN: ASPROD1, Group: AME08, ID# [id number], Process claim through [employer], for questions: . THIS IS NOT INSURANCE.] Viagra 100 mg tablet RxNorm: 207172 1 Tablet(s) PO QDAY PRN 01/26/2014 02/24/2014 Inactive [SAVINGS FOR UNINSURED PATIENTS -- BIN:0 40882, PCN: ASPROD1, Group: AME08, ID# [id number], Process claim through [employer], for questions: . THIS IS NOT INSURANCE.] Viagra 100 mg tablet RxNorm: 438363 1 Tablet(s) PO QDAY PRN 11/10/2013 12/08/2013 Inactive [SAVINGS FOR UNINSURED PATIENTS -- BIN:0 47676, PCN: ASPROD1, Group: AME08, ID# [id number], Process claim through [employer], for questions: . THIS IS NOT INSURANCE.] Viagra 50 mg tablet RxNorm: 402441 1-2 Tablet(s) PO QDAY PRN 11/07/2013 11/06/2013 Inactive Viagra 50 mg tablet RxNorm: 025278 1-2 Tablet(s) PO QDAY PRN 11/07/2013 11/09/2013 Inactive [SAVINGS FOR UNINSURED PATIENTS -- BIN:0 67926, PCN: ASPROD1, Group: AME08, ID# [id number], Process claim through [employer], for questions: . THIS IS NOT INSURANCE.] sildenafil 50 mg tablet RxNorm: 205520 1 Tablet(s) PO daily as needed 10/16/2013 11/14/2013 In active [SAVINGS FOR UNINSURED PATIENTS -- BIN:0 28851, PCN: ASPROD1, Group: AME08, ID# [id number], Process claim through [employer], for questions: . THIS IS NOT INSURANCE.] sildenafil 50 mg tablet RxNorm: 845725 1 Tablet(s) PO daily as needed 10/16/2013 10/15/2013 In active AndroGel 20.25 mg/1. 25 gram (1.62 %) transdermal gel pump RxNorm: 1783996 2 pumps TD daily 09/08/2013 03/06/2014 Inactive [SAVINGS FOR UNINSURED SIDNEY ENTS -- BIN:758848, PCN: ASPROD1, Group: AME08, ID# [id number], Process claim through [employer], for questions: . THIS IS NOT INSURANCE.] AndroGel 20.25 mg/1. 25 gram (1.62 %) transdermal gel pump RxNorm: 1747013 2 pumps TD daily 09/08/2013 09/07/2013 Inactive aspirin 325 mg tablet RxNorm: 826505 1 Tablet(s) PO daily No Start Date Active atorvastatin 40 mg t ablet RxNorm: 070337 1 Tablet(s) PO QHS No Start Date Active metoprolol succinate ER 25 mg tablet,extended release 24 hr RxNorm: 153142 1/2 Tablet(s) PO daily No Start Date Active lisinopril 2.5 mg ta blet RxNorm: 585835 1 Tablet(s) PO daily No Start Date Active clopidogrel 75 mg ta blet RxNorm: 338881 1 Tablet(s) PO daily No Start Date Active alprazolam 1 mg tablet RxNorm: 505622 Tablet(s) PO PRN No Start Date 04/26/2014 Inactive Benadryl 25 mg capsule RxNorm: 1386741 2 Capsule(s) PO QPM No Start Date 10/03/2015 Inactive [facility] 2.5 mg-60 mg tablet RxNorm: 1129083 1 Tablet(s) PO Q6 as needed (do not exceed 4 tablets in 24 hours No Start Date 12/30/2017 Inactive Cialis 20 mg tablet RxNorm: 020056 1 Tablet(s) PO PRN No Start Date 10/03/2015 Inactive Medication Administered No Medication Administered data Immunizations Vaccine Codes Date Status Tetanus, Diptheria, Pertussis CVX: 113 03/28/2003 completed Tetanus/Diptheria CVX: 113 03/28/2003 completed Assessments Condition Codes Effectiv e Dates Pain in left foot ICD-10: M79.672 ICD-9: 729.5 09/17/2018 Mixed hyperlipidemia ICD-10: E78.2 ICD-9: 272.2 09/17/2018 Pain in left shoulder ICD-10: M25.51 2 ICD-9: 719.41 09/17/2018 Essential (primary) hypertension ICD -10: I10 ICD-9: 401.1 09/17/2018 Atherosclerotic heart disease of [place] coronary artery without angina pectoris ICD-10: I25.10 ICD-9: 414.00 09/17/2018 Encounter for general adult medical exam ination with abnormal findings ICD-10: Z00.01 ICD-9: V70.0 01/01/2018 Other insomnia ICD-10: G47.09 ICD-9: 780.52 09/18/2017 Encounter for screening for malignant neoplasm of pros raines ICD-10: Z12.5 ICD-9: V76.44 04/18/2017 Pain in right shoulder ICD-10: M25.5 11 ICD-9: 719.41 04/18/2017 Other insomnia ICD-10: G47.09 ICD-9: 327.09 12/04/2016 Unspecified jaundice ICD-10: R17 ICD-9: 782.4 12/04/2016 Encounter for screening for disorder due to exposure to contaminants ICD-10: Z13.88 ICD-9: V82.5 12/04/2016 Right upper quadrant pain ICD-10: R1 0.11 ICD-9: 789.01 12/04/2016 Unilateral inguinal hernia, without obst ruction or gangrene, recurrent ICD-10: K40.91 ICD-9: 550.91 06/07/2016 Restless legs syndrome ICD-10: G25.8 1 ICD-9: 333.94 03/23/2016 Male erectile disorder ICD-10: F52.2 1 ICD-9: 607.84 03/23/2016 Encounter for general adult medical exam ination without abnormal findings ICD-10: Z00.00 ICD-9: V70.0 03/30/2015 Conjunctival hemorrhage, right eye I CD-10: H11.31 ICD-9: 372.72 12/07/2014 Other seborrheic keratosis ICD-10: L 82.1 ICD-9: 702.19 12/07/2014 Right hip pain ICD-9: 719.45 02/23/2014 Eczema, dyshidrotic ICD-9: 705.81 02/23/2014 Insomnia ICD-9: 780.52 1 Erectile dysfunction ICD-9: 607.84 02/23/2014 IMPACTED CERUMEN ICD-9: 380.4 09/02/2013 Special screening for malignant neoplasms, colon ICD-9: V76.51 09/01/2013 Reason For Visit Reason For Visit Effective Dates Notes earache 09/17/2018 Annual Medicare Wellness Exam 01/01/2018 Hospital Follow Up 12/31/2017 insomnia 09/18/2017 shoulder pain 04/18/2017 Annual Medicare Wellness Exam 12/06/2016 medication follow up 12/04/2016 hernia 06/07/2016 well man exam (65+ years) 03/23/2016 insomnia 03/06/2016 hernia 10/04/2015 insomnia 06/16/2015 insomnia 05/20/2015 medication follow up 05/06/2015 Annual Medicare Wellness Exam 03/30/2015 eye erythema 12/07/2014 pruritus 02/23/2014 hand s skin lesion 09/01/2013 Results Observation Observation Code Item Item Code Result Date Test(s) Not Perfromed [id number] Test(s) Not Performed Test(s) Not Performed. See Below: 09/24/2018 Test(s) Not Perfromed [id number] TEST NAME PSA, Screen 9 Test(s) Not Perfromed [id number] Rejection Reason Previous PSA 08-01-2018 09/24/2018 Test(s) Not Perfromed [id number] COMMENT Doctor's office contacted fo r new code, sample frozen 09/24/2018 Test(s) Not Perfromed UFG1160 Leather Sprayer Betito Crocker 08/28 Lipid Ord30 CHOL 123 mg/dL 03/28/2018 Lipid Ord30 HDL 44.0 mg/dl 03/28/2018 Lipid Ord30 TRIG 85 mg/dL 03/28/2018 Lipid Ord30 LDL 62 mg/dL 03/28/2018 Lipid Ord30 C/HDL 2.8 Ratio 03/28/2018 Comp Metabolic Exm480 NA 144 mEq/L 03/28/2018 Comp Metabolic Rlx202 K 4.3 mEq/L 03/28/2018 Comp Metabolic Ioj658 CL 108 mEq/L 03/28/2018 Comp Metabolic Nbo528 CO2 29.0 mEq/L 03/28/2018 Comp Metabolic Axi859 AN ION GAP 11 03/28/2018 Comp Metabolic Zpm449 GL UCOSE 91 mg/dL 03/28/2018 Comp Metabolic Hgp160 Cr eat 1.2 mg/dL 03/28/2018 Comp Metabolic Rtx501 eG FR 65 ml/min/1.73m2 03/28 Comp Metabolic Xoc652 BUN 25 mg/dL 03/28/2018 Comp Metabolic Opf570 B/ C Ratio 21.0 Ratio 03/28/2018 Comp Metabolic Puw059 CA LCIUM 9.2 mg/dL 03/28/2018 Comp Metabolic Awb316 AL K PHOS 64 U/L 03/28/2018 Comp Metabolic Zbx578 T(SGOT) 14 U/L 03/28/2018 Comp Metabolic Cck461 AL T(SGPT) 11 U/L 03/28/2018 Comp Metabolic Fqt658 BI LI T 0.6 mg/dL 03/28/2018 Comp Metabolic Oym739 AL BUMIN 4.0 g/dL 03/28/2018 Comp Metabolic Icj118 TP RO 6.2 g/dL 03/28/2018 Comp Metabolic Lpy133 GL OB 2.2 g/dL 03/28/2018 Comp Metabolic Pge964 A/ G Ratio 1.8 Ratio 03/28/2018 Comp Metabolic Adf652 Os mo 291 mOsmo 03/28/2018 Total Psa Ord10 PSA 5.71 ng/mL 04/18/2017 Heavy Metals Profile Ii Blood 186902 LEAD, BLOOD . 12/11/2016 Heavy Metals Profile Ii Blood 268810 LEAD, BLOOD <2.0 ug/dL 12/11/2016 Heavy Metals Profile Ii Blood [id number] Continued Results 12/11/2016 Heavy Metals Profile Ii Blood 983139 MERCURY, BLOOD . 12/11/2016 Heavy Metals Profile Ii Blood 645474 MERCURY, BLOOD <3 ug/L 12/11/2016 Heavy Metals Profile Ii Blood 110429 ARSENIC, BLOOD . 12/11/2016 Heavy Metals Profile Ii Blood 665638 ARSENIC, BLOOD <10.0 ug/L 12/11/2016 Comp Metabolic Acz926 NA 141 mEq/L 12/04/2016 Comp Metabolic Cnk189 K 3.7 mEq/L 12/04/2016 Comp Metabolic Fax512 CL 104 mEq/L 12/04/2016 Comp Metabolic Pyn127 CO2 29.0 mEq/L 12/04/2016 Comp Metabolic Tqx093 AN ION GAP 12 12/04/2016 Comp Metabolic Czd957 GL UCOSE 130 mg/dL 12/04/2016 Comp Metabolic Sec340 Cr eat 1.0 mg/dL 12/04/2016 Comp Metabolic Hiv081 eG FR 77 ml/min/1.73m2 12/04 Comp Metabolic Seh597 BUN 19 mg/dL 12/04/2016 Comp Metabolic Aak039 B/ C Ratio 18.4 Ratio 12/04/2016 Comp Metabolic Sfy223 CA LCIUM 9.3 mg/dL 12/04/2016 Comp Metabolic Ygv585 AL K PHOS 56 U/L 12/04/2016 Comp Metabolic Wsv873 T(SGOT) 14 U/L 12/04/2016 Comp Metabolic Tlk963 AL T(SGPT) 10 U/L 12/04/2016 Comp Metabolic Pqf139 BI LI T 1.1 mg/dL 12/04/2016 Comp Metabolic Ytu790 AL BUMIN 4.1 g/dL 12/04/2016 Comp Metabolic Sjj518 TP RO 6.3 g/dL 12/04/2016 Comp Metabolic Mnh886 GL OB 2.2 g/dL 12/04/2016 Comp Metabolic Cnx884 A/ G Ratio 1.9 Ratio 12/04/2016 Comp Metabolic Tvk859 Os mo 285 mOsmo 12/04/2016 Cbc With Differential Ord2 WBC 8.88 K/ul 12/04/2016 Cbc With Differential Ord2 RBC 4.67 M/ul 12/04/2016 Cbc With Differential Ord2 HGB 14.8 g/dl 12/04/2016 Cbc With Differential Ord2 HCT 44.8 % 12/04/2016 Cbc With Differential Ord2 Neut% 71.5 % 12/04/2016 Cbc With Differential Ord2 MCV 95.9 fl 12/04/2016 Cbc With Differential Ord2 Lymph% 19.3 % 12/04/2016 Cbc With Differential Ord2 MCH 31.7 pg 12/04/2016 Cbc With Differential Ord2 [place]% 6.1 % 12/04/2016 Cbc With Differential Ord2 MCHC 33.0 pg 12/04/2016 Cbc With Differential Ord2 Eos% 2.9 % 12/04/2016 Cbc With Differential Ord2 PLT 255 K/ul 12/04/2016 Cbc With Differential Ord2 Baso% 0.2 % 12/04/2016 Cbc With Differential Ord2 RDW 13.1 % 12/04/2016 Cbc With Differential Ord2 Neut ABS# 6.35 K/ul 12/04/2016 Cbc With Differential Ord2 Lymph ABS# 1.71 K/ul 12/04/2016 Cbc With Differential Ord2 [place] ABS# 0.5 K/ul 12/04/2016 Cbc With Differential Ord2 Eos ABS# 0.3 K/ul 12/04/2016 Cbc With Differential Ord2 Baso ABS# 0.0 K/ul 12/04/2016 B12 Izu183 B12 444.00 pg/ml 03/31/2015 Lipid Ord30 CHOL 199 mg/dL 03/31/2015 Lipid Ord30 HDL 45.0 mg/dl 03/31/2015 Lipid Ord30 TRIG 126 mg/dL 03/31/2015 Lipid Ord30 LDL 129 mg/dL 03/31/2015 Lipid Ord30 C/HDL 4.4 Ratio 03/31/2015 Testosterone Mmh428 Testo 259.94 ng/dL 03/31/2015 Tsh Ord6 hTSH II 2.18 uIU/mL 03/31/2015 Cbc With Differential Ord2 WBC 6.83 K/ul 03/31/2015 Cbc With Differential Ord2 RBC 4.68 M/ul 03/31/2015 Cbc With Differential Ord2 HGB 14.5 g/dl 03/31/2015 Cbc With Differential Ord2 HCT 45.3 % 03/31/2015 Cbc With Differential Ord2 Neut% 57.1 % 03/31/2015 Cbc With Differential Ord2 MCV 96.8 fl 03/31/2015 Cbc With Differential Ord2 Lymph% 28.4 % 03/31/2015 Cbc With Differential Ord2 MCH 31.0 pg 03/31/2015 Cbc With Differential Ord2 [place]% 10.2 % 03/31/2015 Cbc With Differential Ord2 MCHC 32.0 pg 03/31/2015 Cbc With Differential Ord2 Eos% 4.2 % 03/31/2015 Cbc With Differential Ord2 PLT 241 K/ul 03/31/2015 Cbc With Differential Ord2 Baso% 0.1 % 03/31/2015 Cbc With Differential Ord2 RDW 13.8 % 03/31/2015 Cbc With Differential Ord2 Neut ABS# 3.89 K/ul 03/31/2015 Cbc With Differential Ord2 Lymph ABS# 1.94 K/ul 03/31/2015 Cbc With Differential Ord2 [place] ABS# 0.7 K/ul 03/31/2015 Cbc With Differential Ord2 Eos ABS# 0.3 K/ul 03/31/2015 Cbc With Differential Ord2 Baso ABS# 0.0 K/ul 03/31/2015 Cbc With Differential Ord2 New Analyzer Notice Please note new ref ranges s tarting 03-10-2015 due to implemntation of new five part differential hematolgy analyzer. 03/31/2015 Comp Metabolic Too856 NA 143 mEq/L 03/31/2015 Comp Metabolic Drz928 K 3.9 mEq/L 03/31/2015 Comp Metabolic Lee498 CL 109 mEq/L 03/31/2015 Comp Metabolic Iwd513 CO2 29.0 mEq/L 03/31/2015 Comp Metabolic Cci847 AN ION GAP 9 03/31/2015 Comp Metabolic Vzj692 GL UCOSE 94 mg/dL 03/31/2015 Comp Metabolic Hlx634 Cr eat 0.9 mg/dL 03/31/2015 Comp Metabolic Omh329 eG FR 86 ml/min/1.73m2 03/31 Comp Metabolic Alm020 BUN 22 mg/dL 03/31/2015 Comp Metabolic Xre364 B/ C Ratio 23.4 Ratio 03/31/2015 Comp Metabolic Lqw895 CA LCIUM 8.8 mg/dL 03/31/2015 Comp Metabolic Esg067 AL K PHOS 54 U/L 03/31/2015 Comp Metabolic Awi248 T(SGOT) 12 U/L 03/31/2015 Comp Metabolic Jjy299 AL T(SGPT) 7 U/L 03/31/2015 Comp Metabolic Qgq231 BI LI T 0.7 mg/dL 03/31/2015 Comp Metabolic Vcv947 AL BUMIN 4.0 g/dL 03/31/2015 Comp Metabolic Izk023 TP RO 6.1 g/dL 03/31/2015 Comp Metabolic Ney050 GL OB 2.1 g/dL 03/31/2015 Comp Metabolic Tji025 A/ G Ratio 1.9 Ratio 03/31/2015 Comp Metabolic Zqw634 Os mo 288 mOsmo 03/31/2015 TESTOS TO [id number] TESTOS TO 252 NG/DL 09/03/2013 ICT OCCULT 4522068 ICT O CCULT NEG 09/02/2013 CBC 5806758 WBC 7.2 10e9/L 09/02/2013 CBC 5809624 RBC 4.74 10e12/L 09/02/2013 CBC 8163348 HGB 14.8 g/dL 09/02/2013 CBC 1966500 HCT DET 44.2 % 09/02/2013 CBC 4275059 MCV 93.2 fL 09/02/2013 CBC 2548173 MCH 31.2 pg 09/02/2013 CBC 7579577 MCHC 33.5 g/dL 09/02/2013 CBC 6485474 PLT 224 10e9/L 09/02/2013 CBC 0443751 MPV 9.9 fL 09/02/2013 CBC 5630926 HAYDE % 60.5 % 09/02/2013 CBC 7146305 LY % 26.8 % 09/02/2013 CBC [id number] MON % 9.0 % 09/02/2013 CBC [id number] EOS % 3.3 % 09/02/2013 CBC [id number] BASO % 0.4 % 09/02/2013 CBC [id number] RDW 13.1 % 09/02/2013 CBC [id number] ABS HAYDE 4.36 10e9/L 09/02/2013 CBC [id number] ABS LYMPH 1.93 10e9/L 09/02/2013 CBC [id number] ABS MONO 0.65 10e9/L 09/02/2013 CBC [id number] ABS EOS 0.24 10e9/L 09/02/2013 CBC [id number] ABS BASO 0.03 10e9/L 09/02/2013 CBC [id number] RDW-SD 43.1 fL 09/02/2013 GFR CALC [id number] GFR AA >60 ML/MIN 09/02/2013 GFR CALC [id number] GFR NON -AA >60 ML/MIN 09/02/2013 LIPID GRP HDL TE ST 48 MG/DL 09/02/2013 LIPID GRP TRIG 134 MG/DL 09/02/2013 LIPID GRP TEST L DL 151 MG/DL 09/02/2013 LIPID GRP CHOL 226 MG/DL 09/02/2013 LIPID GRP RCHOL/ HDL 4.71 RATIO 09/02/2013 CHEM 14 [id number] AST 13 U/L 09/02/2013 CHEM 14 [id number] ALT 9 IU/L 09/02/2013 CHEM 14 [id number] BUN 23 MG/DL 09/02/2013 CHEM 14 [id number] ALBUMIN 4.1 GM/DL 09/02/2013 CHEM 14 [id number] CHLORIDE 109 MMOL/L 09/02/2013 CHEM 14 [id number] BILI TOT 1.0 MG/DL 09/02/2013 CHEM 14 [id number] ALK PHOS 55 U/L 09/02/2013 CHEM 14 [id number] SODIUM 142 MMOL/L 09/02/2013 CHEM 14 [id number] CREATINI NE 0.91 MG/DL 09/02/2013 CHEM 14 [id number] CALCIUM 9.3 MG/DL 09/02/2013 CHEM 14 [id number] POTASSIUM 3.9 MMOL/L 09/02/2013 CHEM 14 [id number] PROT TOT 6.2 GM/DL 09/02/2013 CHEM 14 [id number] GLUCOSE 95 MG/DL 09/02/2013 CHEM 14 [id number] BICARB 28 MMOL/L 09/02/2013 CHEM 14 [id number] ANION GAP 5 MEQ/L 09/02/2013 TSH [id number] TSH 2.262 uIU/ML 09/02/2013 PSA EQ [id number] PSA EQ 3.20 NG/ML 09/02/2013 Review of Systems System Result Effective Dates Constitutional No recent illness 09/17/2018 Constitutional No night sweats 09/17/2018 Constitutional No chills 09/17/2018 Constitutional No diaphoresis 09/17/2018 Constitutional No fatigue 09/17/2018 Constitutional No fever 09/17/2018 Constitutional insomnia 09/17/2018 Constitutional No malaise 09/17/2018 Eyes No eye discharge Eyes No eye erythema Ears/Nose/Throat/Neck No dizziness 09/17/2018 Ears/Nose/Throat/Neck No dysphagia 09/17/2018 Ears/Nose/Throat/Neck No headache 09/17/2018 Ears/Nose/Throat/Neck No nasal allergies 09/17/2018 Ears/Nose/Throat/Neck No nasal discharge 09/17/2018 Cardiovascular No chest pain/pressure 09/17/2018 Cardiovascular No dyspnea 09/17/2018 Cardiovascular No edema 09/17/2018 Respiratory No productive sputum 09/17/2018 Respiratory No chest congestion 09/17/2018 Respiratory No cough Respiratory No dyspnea 0 09/17/2018 Gastrointestinal No abdominal pain 09/17/2018 Gastrointestinal No constipation 09/17/2018 Gastrointestinal No diarrhea 09/17/2018 Genitourinary/Nephrology No dysuria 09/17/2018 Dermatologic No rash Dermatologic sores 09/17 Neurologic No alteration of consciousness 09/17/2018 Psychiatric No anxiety 0 09/17/2018 Psychiatric No depression 09/17/2018 Musculoskeletal shoulder pain 09/17/2018 Musculoskeletal stiffness 09/17/2018 Musculoskeletal arthralgia(s) 09/17/2018 Musculoskeletal joint complaint 09/17/2018 Constitutional No recent illness 01/01/2018 Constitutional No night sweats 01/01/2018 Constitutional No chills 01/01/2018 Constitutional No diaphoresis 01/01/2018 Constitutional No fatigue 01/01/2018 Constitutional No fever 01/01/2018 Constitutional insomnia 01/01/2018 Constitutional No malaise 01/01/2018 Eyes No eye discharge Eyes No eye erythema 07/2017 Ears/Nose/Throat/Neck No dizziness 01/01/2018 Ears/Nose/Throat/Neck No dysphagia 01/01/2018 Ears/Nose/Throat/Neck No headache 01/01/2018 Ears/Nose/Throat/Neck No nasal allergies 01/01/2018 Ears/Nose/Throat/Neck No nasal discharge 01/01/2018 Cardiovascular No chest pain/pressure 01/01/2018 Cardiovascular No dyspnea 01/01/2018 Cardiovascular No edema 01/01/2018 Respiratory No productive sputum 01/01/2018 Respiratory No chest congestion 01/01/2018 Respiratory No cough 07/2017 Respiratory No dyspnea 1 03/03/2017 Gastrointestinal No abdominal pain 01/01/2018 Gastrointestinal No constipation 01/01/2018 Gastrointestinal No diarrhea 01/01/2018 Genitourinary/Nephrology No dysuria 01/01/2018 Neurologic No alteration of consciousness 01/01/2018 Psychiatric No anxiety 1 03/03/2017 Psychiatric No depression 01/01/2018 Musculoskeletal No joint complaint 01/01/2018 Dermatologic No rash 07/2017 Constitutional No recent illness 12/31/2017 Constitutional No night sweats 12/31/2017 Constitutional No chills 12/31/2017 Constitutional No diaphoresis 12/31/2017 Constitutional No fatigue 12/31/2017 Constitutional No fever 12/31/2017 Constitutional insomnia 12/31/2017 Constitutional No malaise 12/31/2017 Eyes No eye discharge Eyes No eye erythema 06/2017 Ears/Nose/Throat/Neck No dizziness 12/31/2017 Ears/Nose/Throat/Neck No dysphagia 12/31/2017 Ears/Nose/Throat/Neck No headache 12/31/2017 Ears/Nose/Throat/Neck No nasal allergies 12/31/2017 Ears/Nose/Throat/Neck No nasal discharge 12/31/2017 Cardiovascular No chest pain/pressure 12/31/2017 Cardiovascular No dyspnea 12/31/2017 Cardiovascular No edema 12/31/2017 Respiratory No productive sputum 12/31/2017 Respiratory No chest congestion 12/31/2017 Respiratory No cough 06/2017 Respiratory No dyspnea 1 03/02/2017 Gastrointestinal No abdominal pain 12/31/2017 Gastrointestinal No constipation 12/31/2017 Gastrointestinal No diarrhea 12/31/2017 Genitourinary/Nephrology No dysuria 12/31/2017 Dermatologic No rash 06/2017 Dermatologic sores 12/31 Neurologic No alteration of consciousness 12/31/2017 Psychiatric No anxiety 1 03/02/2017 Psychiatric No depression 12/31/2017 Constitutional No recent illness 09/18/2017 Constitutional No chills 09/18/2017 Constitutional No diaphoresis 09/18/2017 Constitutional No fever 09/18/2017 Constitutional insomnia 09/18/2017 Eyes No eye discharge Eyes No eye erythema Ears/Nose/Throat/Neck No nasal allergies 09/18/2017 Ears/Nose/Throat/Neck No nasal discharge 09/18/2017 Cardiovascular No chest pain/pressure 09/18/2017 Cardiovascular No dyspnea 09/18/2017 Respiratory No cough Respiratory No dyspnea 0 09/18/2017 Gastrointestinal No abdominal pain 09/18/2017 Gastrointestinal No constipation 09/18/2017 Gastrointestinal No diarrhea 09/18/2017 Dermatologic No rash Neurologic No alteration of consciousness 09/18/2017 Neurologic No mental status change 09/18/2017 Musculoskeletal joint complaint 09/18/2017 Constitutional No recent illness 04/18/2017 Constitutional No chills 04/18/2017 Constitutional No fever 04/18/2017 Eyes No eye erythema Ears/Nose/Throat/Neck No nasal discharge 04/18/2017 Cardiovascular No chest pain/pressure 04/18/2017 Cardiovascular No dyspnea 04/18/2017 Respiratory No cough Respiratory No dyspnea 0 04/18/2017 Neurologic No alteration of consciousness 04/18/2017 Neurologic No mental status change 04/18/2017 Musculoskeletal shoulder pain 04/18/2017 Constitutional insomnia 04/18/2017 Constitutional No recent illness 12/06/2016 Constitutional No chills 12/06/2016 Constitutional No diaphoresis 12/06/2016 Constitutional No fever 12/06/2016 Eyes No eye erythema 12/2016 Ears/Nose/Throat/Neck No nasal discharge 12/06/2016 Cardiovascular No chest pain/pressure 12/06/2016 Cardiovascular No dyspnea 12/06/2016 Respiratory No cough 12/2016 Respiratory No dyspnea 1 Neurologic No alteration of consciousness 12/06/2016 Neurologic No mental status change 12/06/2016 Constitutional No recent illness 12/04/2016 Constitutional No night sweats 12/04/2016 Constitutional No chills 12/04/2016 Constitutional No diaphoresis 12/04/2016 Constitutional No fatigue 12/04/2016 Constitutional No fever 12/04/2016 Constitutional insomnia 12/04/2016 Constitutional No malaise 12/04/2016 Eyes No eye discharge Eyes No eye erythema 10/2016 Ears/Nose/Throat/Neck No dental pain 12/04/2016 Ears/Nose/Throat/Neck No dizziness 12/04/2016 Ears/Nose/Throat/Neck No dysphagia 12/04/2016 Ears/Nose/Throat/Neck No headache 12/04/2016 Ears/Nose/Throat/Neck No hoarseness 12/04/2016 Ears/Nose/Throat/Neck No nasal allergies 12/04/2016 Ears/Nose/Throat/Neck No nasal discharge 12/04/2016 Ears/Nose/Throat/Neck No postnasal drip 12/04/2016 Cardiovascular No chest pain/pressure 12/04/2016 Cardiovascular No dyspnea 12/04/2016 Cardiovascular No edema 12/04/2016 Respiratory No productive sputum 12/04/2016 Respiratory No chest congestion 12/04/2016 Respiratory No cough 10/2016 Respiratory No dyspnea 1 Gastrointestinal No abdominal pain 12/04/2016 Gastrointestinal No constipation 12/04/2016 Gastrointestinal No diarrhea 12/04/2016 Gastrointestinal No gastroesophageal reflu x 12/04/2016 Gastrointestinal No nausea 12/04/2016 Genitourinary/Nephrology No dysuria 12/04/2016 Dermatologic No rash 10/2016 Dermatologic No sores Neurologic No alteration of consciousness 12/04/2016 Psychiatric No anxiety 1 Psychiatric No depression 12/04/2016 Constitutional No recent illness 06/07/2016 Constitutional No chills 06/07/2016 Constitutional No diaphoresis 06/07/2016 Constitutional fatigue 0 06/07/2016 Constitutional No fever 06/07/2016 Constitutional insomnia 06/07/2016 Eyes No eye discharge Eyes No eye erythema 01/2017 Cardiovascular No chest pain/pressure 06/07/2016 Gastrointestinal abdominal pain 06/07/2016 Gastrointestinal No constipation 06/07/2016 Gastrointestinal No diarrhea 06/07/2016 Musculoskeletal No joint complaint 06/07/2016 Neurologic No alteration of consciousness 06/07/2016 Ears/Nose/Throat/Neck No nasal discharge 06/07/2016 Respiratory No dyspnea 0 06/07/2016 Neurologic No mental status change 06/07/2016 Constitutional No recent illness 03/23/2016 Constitutional No night sweats 03/23/2016 Constitutional No chills 03/23/2016 Constitutional No diaphoresis 03/23/2016 Constitutional No fatigue 03/23/2016 Constitutional No fever 03/23/2016 Constitutional insomnia 03/23/2016 Constitutional No malaise 03/23/2016 Eyes No eye discharge Eyes No eye erythema Ears/Nose/Throat/Neck No dental pain 03/23/2016 Ears/Nose/Throat/Neck No dizziness 03/23/2016 Ears/Nose/Throat/Neck No dysphagia 03/23/2016 Ears/Nose/Throat/Neck No headache 03/23/2016 Ears/Nose/Throat/Neck No hoarseness 03/23/2016 Ears/Nose/Throat/Neck No nasal allergies 03/23/2016 Ears/Nose/Throat/Neck No nasal discharge 03/23/2016 Ears/Nose/Throat/Neck No postnasal drip 03/23/2016 Cardiovascular No chest pain/pressure 03/23/2016 Cardiovascular No dyspnea 03/23/2016 Cardiovascular No edema 03/23/2016 Respiratory No productive sputum 03/23/2016 Respiratory No chest congestion 03/23/2016 Respiratory No cough Respiratory No dyspnea 0 03/23/2016 Gastrointestinal No abdominal pain 03/23/2016 Gastrointestinal No constipation 03/23/2016 Gastrointestinal No diarrhea 03/23/2016 Gastrointestinal No gastroesophageal reflu x 03/23/2016 Gastrointestinal No nausea 03/23/2016 Genitourinary/Nephrology No dysuria 03/23/2016 Dermatologic No rash Dermatologic No sores Neurologic No alteration of consciousness 03/23/2016 Psychiatric No anxiety 0 03/23/2016 Psychiatric No depression 03/23/2016 Constitutional No chills 03/06/2016 Constitutional No diaphoresis 03/06/2016 Constitutional No fever 03/06/2016 Constitutional insomnia 03/06/2016 Eyes No eye discharge Eyes No eye erythema 10/2016 Ears/Nose/Throat/Neck No nasal allergies 03/06/2016 Ears/Nose/Throat/Neck No nasal discharge 03/06/2016 Cardiovascular No chest pain/pressure 03/06/2016 Cardiovascular No dyspnea 03/06/2016 Respiratory No cough 10/2016 Respiratory No dyspnea 0 03/06/2016 Gastrointestinal No abdominal pain 03/06/2016 Gastrointestinal No constipation 03/06/2016 Gastrointestinal No diarrhea 03/06/2016 Dermatologic No rash 10/2016 Neurologic No alteration of consciousness 03/06/2016 Constitutional No recent illness 03/06/2016 Neurologic No mental status change 03/06/2016 Gastrointestinal abdominal pain 10/04/2015 Gastrointestinal No constipation 10/04/2015 Gastrointestinal No diarrhea 10/04/2015 Constitutional No recent illness 10/04/2015 Constitutional No anorexia 10/04/2015 Constitutional No night sweats 10/04/2015 Constitutional No diaphoresis 10/04/2015 Constitutional No chills 10/04/2015 Constitutional fatigue 0 10/04/2015 Constitutional No fever 10/04/2015 Constitutional insomnia 10/04/2015 Constitutional No malaise 10/04/2015 Constitutional No weight gain 10/04/2015 Constitutional weight loss 10/04/2015 Eyes No eye discharge Eyes No eye erythema 09/2015 Ears/Nose/Throat/Neck No dizziness 10/04/2015 Ears/Nose/Throat/Neck No headache 10/04/2015 Cardiovascular No chest pain/pressure 10/04/2015 Respiratory No productive sputum 10/04/2015 Genitourinary/Nephrology No dysuria 10/04/2015 Musculoskeletal No joint complaint 10/04/2015 Dermatologic No rash 09/2015 Dermatologic No sores Neurologic No alteration of consciousness 10/04/2015 Constitutional No chills 06/16/2015 Constitutional No diaphoresis 06/16/2015 Constitutional fatigue 0 06/16/2015 Constitutional No fever 06/16/2015 Constitutional insomnia 06/16/2015 Constitutional No malaise 06/16/2015 Eyes No eye discharge Eyes No eye erythema Ears/Nose/Throat/Neck No nasal allergies 06/16/2015 Ears/Nose/Throat/Neck No nasal discharge 06/16/2015 Ears/Nose/Throat/Neck No postnasal drip 06/16/2015 Cardiovascular No chest pain/pressure 06/16/2015 Cardiovascular No dyspnea 06/16/2015 Cardiovascular No edema 06/16/2015 Respiratory No productive sputum 06/16/2015 Respiratory No chest congestion 06/16/2015 Respiratory No cough Gastrointestinal No abdominal pain 06/16/2015 Gastrointestinal No constipation 06/16/2015 Gastrointestinal No diarrhea 06/16/2015 Gastrointestinal No nausea 06/16/2015 Gastrointestinal No vomiting 06/16/2015 Genitourinary/Nephrology No dysuria 06/16/2015 Neurologic No alteration of consciousness 06/16/2015 Psychiatric anxiety 05/28 Psychiatric depression 0 06/16/2015 Dermatologic No rash Constitutional No chills 05/20/2015 Constitutional No diaphoresis 05/20/2015 Constitutional No fatigue 05/20/2015 Constitutional No fever 05/20/2015 Constitutional No malaise 05/20/2015 Eyes No eye discharge Eyes No eye erythema Ears/Nose/Throat/Neck No nasal allergies 05/20/2015 Ears/Nose/Throat/Neck No nasal discharge 05/20/2015 Ears/Nose/Throat/Neck No postnasal drip 05/20/2015 Cardiovascular No chest pain/pressure 05/20/2015 Cardiovascular No dyspnea 05/20/2015 Cardiovascular No edema 05/20/2015 Respiratory No productive sputum 05/20/2015 Respiratory No chest congestion 05/20/2015 Respiratory No cough Respiratory No dyspnea 0 05/20/2015 Gastrointestinal No abdominal pain 05/20/2015 Gastrointestinal No constipation 05/20/2015 Gastrointestinal No diarrhea 05/20/2015 Gastrointestinal No nausea 05/20/2015 Genitourinary/Nephrology No dysuria 05/20/2015 Dermatologic No rash Dermatologic No sores Neurologic No alteration of consciousness 05/20/2015 Psychiatric No anxiety 0 05/20/2015 Psychiatric No depression 05/20/2015 Constitutional insomnia 05/20/2015 Gastrointestinal No vomiting 05/20/2015 Constitutional No chills 05/06/2015 Constitutional No diaphoresis 05/06/2015 Constitutional No fatigue 05/06/2015 Constitutional No fever 05/06/2015 Constitutional insomnia 05/06/2015 Constitutional No malaise 05/06/2015 Eyes No eye discharge Eyes No eye erythema 11/2015 Ears/Nose/Throat/Neck No nasal allergies 05/06/2015 Ears/Nose/Throat/Neck No nasal discharge 05/06/2015 Ears/Nose/Throat/Neck No postnasal drip 05/06/2015 Cardiovascular No chest pain/pressure 05/06/2015 Cardiovascular No dyspnea 05/06/2015 Cardiovascular No edema 05/06/2015 Respiratory No productive sputum 05/06/2015 Respiratory No cough 11/2015 Respiratory No dyspnea 0 05/06/2015 Gastrointestinal No abdominal pain 05/06/2015 Gastrointestinal No constipation 05/06/2015 Gastrointestinal No diarrhea 05/06/2015 Gastrointestinal No nausea 05/06/2015 Gastrointestinal No vomiting 05/06/2015 Genitourinary/Nephrology No dysuria 05/06/2015 Dermatologic No rash 11/2015 Dermatologic No sores Neurologic No alteration of consciousness 05/06/2015 Respiratory No chest congestion 05/06/2015 Neurologic No mental status change 05/06/2015 Constitutional No recent illness 03/30/2015 Constitutional No night sweats 03/30/2015 Constitutional No chills 03/30/2015 Constitutional No diaphoresis 03/30/2015 Constitutional No malaise 03/30/2015 Constitutional insomnia 03/30/2015 Constitutional No fever 03/30/2015 Constitutional No fatigue 03/30/2015 Eyes No eye discharge Eyes No eye erythema 03/2015 Ears/Nose/Throat/Neck No dizziness 03/30/2015 Ears/Nose/Throat/Neck No headache 03/30/2015 Ears/Nose/Throat/Neck No dysphagia 03/30/2015 Ears/Nose/Throat/Neck No dental pain 03/30/2015 Ears/Nose/Throat/Neck No hoarseness 03/30/2015 Ears/Nose/Throat/Neck No nasal allergies 03/30/2015 Ears/Nose/Throat/Neck No nasal discharge 03/30/2015 Ears/Nose/Throat/Neck No postnasal drip 03/30/2015 Cardiovascular No chest pain/pressure 03/30/2015 Cardiovascular No dyspnea 03/30/2015 Cardiovascular No edema 03/30/2015 Respiratory No chest congestion 03/30/2015 Respiratory No cough 03/2015 Respiratory No productive sputum 03/30/2015 Respiratory No dyspnea 0 03/30/2015 Gastrointestinal No abdominal pain 03/30/2015 Gastrointestinal No constipation 03/30/2015 Gastrointestinal No diarrhea 03/30/2015 Gastrointestinal No gastroesophageal reflu x 03/30/2015 Gastrointestinal No nausea 03/30/2015 Genitourinary/Nephrology No dysuria 03/30/2015 Dermatologic No rash 03/2015 Dermatologic No sores Neurologic No alteration of consciousness 03/30/2015 Psychiatric No anxiety 0 03/30/2015 Psychiatric No depression 03/30/2015 Constitutional No recent illness 12/07/2014 Constitutional No anorexia 12/07/2014 Constitutional No night sweats 12/07/2014 Constitutional No chills 12/07/2014 Constitutional No diaphoresis 12/07/2014 Constitutional No fatigue 12/07/2014 Constitutional No fever 12/07/2014 Constitutional No malaise 12/07/2014 Constitutional No weight loss 12/07/2014 Constitutional No weight gain 12/07/2014 Eyes No eye discharge Eyes No eye erythema 01/2015 Ears/Nose/Throat/Neck No dizziness 12/07/2014 Ears/Nose/Throat/Neck No headache 12/07/2014 Cardiovascular No chest pain/pressure 12/07/2014 Respiratory No cough 01/2015 Gastrointestinal No abdominal pain 12/07/2014 Gastrointestinal No constipation 12/07/2014 Gastrointestinal No diarrhea 12/07/2014 Genitourinary/Nephrology No dysuria 12/07/2014 Neurologic No alteration of consciousness 12/07/2014 Psychiatric No depression 12/07/2014 Constitutional No recent illness 02/23/2014 Constitutional No anorexia 02/23/2014 Constitutional No diaphoresis 02/23/2014 Constitutional No chills 02/23/2014 Constitutional No night sweats 02/23/2014 Constitutional No fatigue 02/23/2014 Constitutional No fever 02/23/2014 Constitutional insomnia 02/23/2014 Constitutional No weight loss 02/23/2014 Constitutional No malaise 02/23/2014 Constitutional No weight gain 02/23/2014 Eyes No eye discharge Eyes No eye erythema Ears/Nose/Throat/Neck No dizziness 02/23/2014 Ears/Nose/Throat/Neck No headache 02/23/2014 Cardiovascular No chest pain/pressure 02/23/2014 Respiratory No cough Gastrointestinal No abdominal pain 02/23/2014 Gastrointestinal No constipation 02/23/2014 Gastrointestinal No diarrhea 02/23/2014 Genitourinary/Nephrology No dysuria 02/23/2014 Musculoskeletal joint complaint 02/23/2014 Dermatologic rash 2013 Dermatologic sores 02/23 Neurologic No alteration of consciousness 02/23/2014 Psychiatric No depression 02/23/2014 Psychiatric anxiety 01/27 Constitutional No recent illness 09/01/2013 Constitutional No anorexia 09/01/2013 Constitutional No night sweats 09/01/2013 Constitutional No chills 09/01/2013 Constitutional No diaphoresis 09/01/2013 Constitutional fatigue 0 09/01/2013 Constitutional No fever 09/01/2013 Constitutional insomnia 09/01/2013 Constitutional No malaise 09/01/2013 Constitutional No weight loss 09/01/2013 Constitutional No weight gain 09/01/2013 Eyes No eye discharge Eyes No eye erythema 08/2013 Ears/Nose/Throat/Neck No dizziness 09/01/2013 Ears/Nose/Throat/Neck No headache 09/01/2013 Ears/Nose/Throat/Neck No nasal discharge 09/01/2013 Ears/Nose/Throat/Neck nasal allergies 09/01/2013 Cardiovascular No chest pain/pressure 09/01/2013 Cardiovascular No dyspnea 09/01/2013 Cardiovascular No edema 09/01/2013 Respiratory No productive sputum 09/01/2013 Respiratory No cough 08/2013 Respiratory No chest congestion 09/01/2013 Gastrointestinal No abdominal pain 09/01/2013 Gastrointestinal No vomiting 09/01/2013 Gastrointestinal No nausea 09/01/2013 Gastrointestinal No constipation 09/01/2013 Gastrointestinal No diarrhea 09/01/2013 Genitourinary/Nephrology No dysuria 09/01/2013 Genitourinary/Nephrology urinary ret ention/hesitancy 09/01/2013 Musculoskeletal No joint complaint 09/01/2013 Dermatologic No rash 08/2013 Genitourinary/Nephrology nocturia 09/01/2013 Neurologic No alteration of consciousness 09/01/2013 Psychiatric anxiety /0 08/2013 Psychiatric No depression 09/01/2013 Endocrine No weight gain 09/01/2013 Endocrine No weakness Hematologic/Lymphatic No abnormal bl eeding and bruising 09/01/2013 Allergy/Immunology No food allergy 09/01/2013 Physical Exam Exam Name System Name It em Name Status Result Effective Dates Notes Full Exam - General 1994 Constitutional general appearance Overall: well developed 09/17/2018 None Full Exam - General 1994 Constitutional general appearance Overall: in no acute distress 09/17/2018 None Full Exam - General 1994 Constitutional general appearance Overall: well nourished 09/17/2018 None Full Exam - General 1994 Eyes conjunctiva/eyelids Overall: conjunctiva clear 09/17/2018 None Full Exam - General 1994 Eyes conjunctiva/eyelids Overall: cornea clear 09/17/2018 None Full Exam - General 1994 Eyes conjunctiva/eyelids Overall: eyelids normal 09/17/2018 None Full Exam - General 1994 Eyes pupils and irises Overall: pupils equal, round, reactive to light and accomodation 09/17/2018 None Full Exam - General 1994 Ears/Nose/Throat otoscopic exam Overall: external auditory canals clear 09/17/2018 None Full Exam - General 1994 Ears/Nose/Throat otoscopic exam Overall: tympanic membranes clear 09/17/2018 None Full Exam - General 1994 Ears/Nose/Throat oral cavity/pharynx/larynx Overall: oral mucosa clear 09/17/2018 None Full Exam - General 1994 Ears/Nose/Throat oral cavity/pharynx/larynx Overall: oropharyngeal mucosa clear 09/17/2018 None Full Exam - General 1994 Ears/Nose/Throat oral cavity/pharynx/larynx Overall: no masses 09/17/2018 None Full Exam - General 1994 Respiratory auscultation Overall: breath sounds clear bilaterally 09/17/2018 None Full Exam - General 1994 Respiratory respiratory effort/rhythm Overall: no retractions 09/17/2018 None Full Exam - General 1994 Respiratory respiratory effort/rhythm Overall: normal rate 09/17/2018 None Full Exam - General 1994 Cardiovascular extremities Overall: no clubbing 09/17/2018 None Full Exam - General 1994 Cardiovascular auscultation of heart Overall: regular rate 09/17/2018 None Full Exam - General 1994 Cardiovascular auscultation of heart Overall: normal heart sounds 09/17/2018 None Full Exam - General 1994 Abdomen abdominal exam Overall: no tenderness 09/17/2018 None Full Exam - General 1994 Abdomen abdominal exam Overall: normal bowel sounds 09/17/2018 None Full Exam - General 1994 Musculoskeletal gait and station Overall: normal gait 09/17/2018 None Full Exam - General 1994 Musculoskeletal gait and station Overall: normal station 09/17/2018 None Full Exam - General 1994 Integument inspection of skin Location: chest 09/17/2018 in center of chest - heal ing skin lesion Full Exam - General 1994 Integument inspection of skin Location: right leg 09/17/2018 harvest sites on right me dial leg - healing well except for lowest apex of scar with small open site Full Exam - General 1994 Neurologic cranial nerves Overall: crainial nerves 2 - 12 grossly intact 09/17/2018 None Full Exam - General 1994 Psychiatric orientation/consciousness Overall: oriented to person, place and time 09/17/2018 None Full Exam - General 1994 Musculoskeletal lower extremity Overall: knee benign 09/17/2018 None Full Exam - General 1994 Musculoskeletal lower extremity Overall: ankle benign 09/17/2018 None Full Exam - General 1994 Musculoskeletal lower extremity Overall: foot benign 09/17/2018 None Full Exam - General 1994 Constitutional general appearance Overall: well developed 01/01/2018 None Full Exam - General 1994 Constitutional general appearance Overall: in no acute distress 01/01/2018 None Full Exam - General 1994 Constitutional general appearance Overall: well nourished 01/01/2018 None Full Exam - General 1994 Eyes conjunctiva/eyelids Overall: conjunctiva clear 01/01/2018 None Full Exam - General 1994 Eyes conjunctiva/eyelids Overall: cornea clear 01/01/2018 None Full Exam - General 1994 Eyes conjunctiva/eyelids Overall: eyelids normal 01/01/2018 None Full Exam - General 1994 Eyes pupils and irises Overall: pupils equal, round, reactive to light and accomodation 01/01/2018 None Full Exam - General 1994 Respiratory auscultation Overall: breath sounds clear bilaterally 01/01/2018 None Full Exam - General 1994 Respiratory respiratory effort/rhythm Overall: no retractions 01/01/2018 None Full Exam - General 1994 Respiratory respiratory effort/rhythm Overall: normal rate 01/01/2018 None Full Exam - General 1994 Cardiovascular extremities Overall: no clubbing 01/01/2018 None Full Exam - General 1994 Cardiovascular auscultation of heart Overall: regular rate 01/01/2018 None Full Exam - General 1994 Cardiovascular auscultation of heart Overall: normal heart sounds 01/01/2018 None Full Exam - General 1994 Abdomen abdominal exam Overall: no tenderness 01/01/2018 None Full Exam - General 1994 Abdomen abdominal exam Overall: normal bowel sounds 01/01/2018 None Full Exam - General 1994 Musculoskeletal gait and station Overall: normal gait 01/01/2018 None Full Exam - General 1994 Musculoskeletal gait and station Overall: normal station 01/01/2018 None Full Exam - General 1994 Integument inspection of skin Location: chest 01/01/2018 in center of chest - heal ing skin lesion Full Exam - General 1994 Neurologic cranial nerves Overall: crainial nerves 2 - 12 grossly intact 01/01/2018 None Full Exam - General 1994 Psychiatric orientation/consciousness Overall: oriented to person, place and time 01/01/2018 None Full Exam - General 1994 Constitutional general appearance Overall: well developed 12/31/2017 None Full Exam - General 1994 Constitutional general appearance Overall: in no acute distress 12/31/2017 None Full Exam - General 1994 Constitutional general appearance Overall: well nourished 12/31/2017 None Full Exam - General 1994 Eyes conjunctiva/eyelids Overall: conjunctiva clear 12/31/2017 None Full Exam - General 1994 Eyes conjunctiva/eyelids Overall: cornea clear 12/31/2017 None Full Exam - General 1994 Eyes conjunctiva/eyelids Overall: eyelids normal 12/31/2017 None Full Exam - General 1994 Eyes pupils and irises Overall: pupils equal, round, reactive to light and accomodation 12/31/2017 None Full Exam - General 1994 Ears/Nose/Throat otoscopic exam Overall: external auditory canals clear 12/31/2017 None Full Exam - General 1994 Ears/Nose/Throat otoscopic exam Overall: tympanic membranes clear 12/31/2017 None Full Exam - General 1994 Ears/Nose/Throat oral cavity/pharynx/larynx Overall: oral mucosa clear 12/31/2017 None Full Exam - General 1994 Ears/Nose/Throat oral cavity/pharynx/larynx Overall: oropharyngeal mucosa clear 12/31/2017 None Full Exam - General 1994 Ears/Nose/Throat oral cavity/pharynx/larynx Overall: no masses 12/31/2017 None Full Exam - General 1994 Respiratory auscultation Overall: breath sounds clear bilaterally 12/31/2017 None Full Exam - General 1994 Respiratory respiratory effort/rhythm Overall: no retractions 12/31/2017 None Full Exam - General 1994 Respiratory respiratory effort/rhythm Overall: normal rate 12/31/2017 None Full Exam - General 1994 Cardiovascular extremities Overall: no clubbing 12/31/2017 None Full Exam - General 1994 Cardiovascular auscultation of heart Overall: regular rate 12/31/2017 None Full Exam - General 1994 Cardiovascular auscultation of heart Overall: normal heart sounds 12/31/2017 None Full Exam - General 1994 Abdomen abdominal exam Overall: no tenderness 12/31/2017 None Full Exam - General 1994 Abdomen abdominal exam Overall: normal bowel sounds 12/31/2017 None Full Exam - General 1994 Musculoskeletal gait and station Overall: normal gait 12/31/2017 None Full Exam - General 1994 Musculoskeletal gait and station Overall: normal station 12/31/2017 None Full Exam - General 1994 Neurologic cranial nerves Overall: crainial nerves 2 - 12 grossly intact 12/31/2017 None Full Exam - General 1994 Psychiatric orientation/consciousness Overall: oriented to person, place and time 12/31/2017 None Full Exam - General 1994 Integument inspection of skin Location: chest 12/31/2017 in center of chest - heal ing skin lesion Full Exam - General 1994 Integument inspection of skin Location: right leg 12/31/2017 harvest sites on right me dial leg - healing well except for lowest apex of scar with small open site Full Exam - General 1994 Constitutional general appearance Overall: well developed 09/18/2017 None Full Exam - General 1994 Constitutional general appearance Overall: in no acute distress 09/18/2017 None Full Exam - General 1994 Constitutional general appearance Overall: well nourished 09/18/2017 None Full Exam - General 1994 Eyes conjunctiva/eyelids Overall: conjunctiva clear 09/18/2017 None Full Exam - General 1994 Eyes conjunctiva/eyelids Overall: eyelids normal 09/18/2017 None Full Exam - General 1994 Ears/Nose/Throat lips/teeth/gingiva Overall: benign lips 09/18/2017 None Full Exam - General 1994 Respiratory respiratory effort/rhythm Overall: no retractions 09/18/2017 None Full Exam - General 1994 Respiratory respiratory effort/rhythm Overall: normal rate 09/18/2017 None Full Exam - General 1994 Cardiovascular extremities Overall: no clubbing 09/18/2017 None Full Exam - General 1994 Musculoskeletal gait and station Overall: normal gait 09/18/2017 None Full Exam - General 1994 Musculoskeletal gait and station Overall: normal station 09/18/2017 None Full Exam - General 1994 Musculoskeletal head and neck Overall: head atraumatic 09/18/2017 None Full Exam - General 1994 Neurologic cranial nerves Overall: crainial nerves 2 - 12 grossly intact 09/18/2017 None Full Exam - General 1994 Psychiatric orientation/consciousness Overall: oriented to person, place and time 09/18/2017 None Full Exam - General 1994 Psychiatric mood and affect Overall: normal mood and affect 09/18/2017 None Full Exam - General 1994 Psychiatric appearance Overall: well-groomed, good eye contact 09/18/2017 None Full Exam - General 1994 Eyes conjunctiva/eyelids Overall: cornea clear 09/18/2017 None Full Exam - General 1994 Respiratory auscultation Overall: breath sounds clear bilaterally 09/18/2017 None Full Exam - General 1994 Cardiovascular auscultation of heart Overall: regular rate 09/18/2017 None Full Exam - General 1994 Cardiovascular auscultation of heart Overall: normal heart sounds 09/18/2017 None Full Exam - Orthopedics Constitutional general appearance Overall: well nourished 04/18/2017 None Full Exam - Orthopedics Constitutional general appearance Overall: well developed 04/18/2017 None Full Exam - Orthopedics Constitutional general appearance Overall: in no acute distress 04/18/2017 None Full Exam - Orthopedics Eyes conjunctiva/eyelids Overall: conjunctiva clear 04/18/2017 None Full Exam - Orthopedics Eyes conjunctiva/eyelids Overall: eyelids normal 04/18/2017 None Full Exam - Orthopedics Ears/Nose/Throat lips/teeth/gingiva Overall: benign lips 04/18/2017 None Full Exam - Orthopedics Ears/Nose/Throat oral cavity/pharynx/larynx Overall: oral mucosa clear 04/18/2017 None Full Exam - Orthopedics Respiratory respiratory effort/rhythm Overall: no retractions 04/18/2017 None Full Exam - Orthopedics Respiratory respiratory effort/rhythm Overall: normal rate 04/18/2017 None Full Exam - Orthopedics Psychiatric orientation/consciousness Overall: oriented to person, place and time 04/18/2017 None Full Exam - Orthopedics Psychiatric mood and affect Overall: normal mood and affect 04/18/2017 None Full Exam - Orthopedics Psychiatric appearance Overall: well-groomed, good eye contact 04/18/2017 None Full Exam - Orthopedics MS: head/neck insp & palp - H/N Overall: head atraumatic 04/18/2017 None Full Exam - Orthopedics MS: right up per extremity insp & palp - RUE Shoulder: normal appearance 04/18/2017 None Full Exam - Orthopedics MS: right up per extremity insp & palp - RUE Shoulder: tenderness @ subacromial space 04/18/2017 None Full Exam - Orthopedics MS: right up per extremity insp & palp - RUE Shoulder: tenderness @ biceps tendon 04/18/2017 None Full Exam - Orthopedics MS: right up per extremity range of motion - RUE Shoulder: pain with flexion 04/18/2017 None Full Exam - Orthopedics MS: right up per extremity range of motion - RUE Shoulder: pain with extension 04/18/2017 None Full Exam - Orthopedics MS: right up per extremity range of motion - RUE Shoulder: pain with abduction 04/18/2017 None Full Exam - Orthopedics MS: right up per extremity range of motion - RUE Shoulder: pain with adduction 04/18/2017 None Full Exam - General 1994 Constitutional general appearance Overall: well developed 12/06/2016 None Full Exam - General 1994 Constitutional general appearance Overall: in no acute distress 12/06/2016 None Full Exam - General 1994 Constitutional general appearance Overall: well nourished 12/06/2016 None Full Exam - General 1994 Eyes conjunctiva/eyelids Overall: conjunctiva clear 12/06/2016 None Full Exam - General 1994 Eyes conjunctiva/eyelids Overall: eyelids normal 12/06/2016 None Full Exam - General 1994 Ears/Nose/Throat lips/teeth/gingiva Overall: benign lips 12/06/2016 None Full Exam - General 1994 Respiratory respiratory effort/rhythm Overall: no retractions 12/06/2016 None Full Exam - General 1994 Respiratory respiratory effort/rhythm Overall: normal rate 12/06/2016 None Full Exam - General 1994 Musculoskeletal head and neck Overall: head atraumatic 12/06/2016 None Full Exam - General 1994 Neurologic cranial nerves Overall: crainial nerves 2 - 12 grossly intact 12/06/2016 None Full Exam - General 1994 Psychiatric orientation/consciousness Overall: oriented to person, place and time 12/06/2016 None Full Exam - General 1994 Psychiatric mood and affect Overall: normal mood and affect 12/06/2016 None Full Exam - General 1994 Psychiatric appearance Overall: well-groomed, good eye contact 12/06/2016 None Full Exam - General 1994 Constitutional general appearance Overall: well developed 12/04/2016 None Full Exam - General 1994 Constitutional general appearance Overall: in no acute distress 12/04/2016 None Full Exam - General 1994 Constitutional general appearance Overall: well nourished 12/04/2016 None Full Exam - General 1994 Eyes conjunctiva/eyelids Overall: conjunctiva clear 12/04/2016 None Full Exam - General 1994 Eyes conjunctiva/eyelids Overall: cornea clear 12/04/2016 None Full Exam - General 1994 Eyes conjunctiva/eyelids Overall: eyelids normal 12/04/2016 None Full Exam - General 1994 Eyes pupils and irises Overall: pupils equal, round, reactive to light and accomodation 12/04/2016 None Full Exam - General 1994 Ears/Nose/Throat otoscopic exam Overall: external auditory canals clear 12/04/2016 None Full Exam - General 1994 Ears/Nose/Throat otoscopic exam Overall: tympanic membranes clear 12/04/2016 None Full Exam - General 1994 Ears/Nose/Throat oral cavity/pharynx/larynx Overall: oral mucosa clear 12/04/2016 None Full Exam - General 1994 Ears/Nose/Throat oral cavity/pharynx/larynx Overall: oropharyngeal mucosa clear 12/04/2016 None Full Exam - General 1994 Ears/Nose/Throat oral cavity/pharynx/larynx Overall: no masses 12/04/2016 None Full Exam - General 1994 Respiratory auscultation Overall: breath sounds clear bilaterally 12/04/2016 None Full Exam - General 1994 Respiratory respiratory effort/rhythm Overall: no retractions 12/04/2016 None Full Exam - General 1994 Respiratory respiratory effort/rhythm Overall: normal rate 12/04/2016 None Full Exam - General 1994 Cardiovascular extremities Overall: no clubbing 12/04/2016 None Full Exam - General 1994 Cardiovascular auscultation of heart Overall: regular rate 12/04/2016 None Full Exam - General 1994 Cardiovascular auscultation of heart Overall: normal heart sounds 12/04/2016 None Full Exam - General 1994 Abdomen abdominal exam Overall: no tenderness 12/04/2016 None Full Exam - General 1994 Abdomen abdominal exam Overall: normal bowel sounds 12/04/2016 None Full Exam - General 1994 Lymphatic neck nodes Overall: anterior cervical chain benign 12/04/2016 None Full Exam - General 1994 Lymphatic neck nodes Overall: posterior cervical chain benign 12/04/2016 None Full Exam - General 1994 Musculoskeletal gait and station Overall: normal gait 12/04/2016 None Full Exam - General 1994 Musculoskeletal gait and station Overall: normal station 12/04/2016 None Full Exam - General 1994 Integument inspection of skin Overall: few scattered moles, no gross abnormalities 12/04/2016 None Full Exam - General 1994 Neurologic deep tendon reflexes Overall: deep tendon reflexes intact 12/04/2016 None Full Exam - General 1994 Neurologic cranial nerves Overall: crainial nerves 2 - 12 grossly intact 12/04/2016 None Full Exam - General 1994 Psychiatric orientation/consciousness Overall: oriented to person, place and time 12/04/2016 None Full Exam - General 1994 Constitutional general appearance Overall: well developed 06/07/2016 None Full Exam - General 1994 Constitutional general appearance Overall: in no acute distress 06/07/2016 None Full Exam - General 1994 Constitutional general appearance Overall: well nourished 06/07/2016 None Full Exam - General 1994 Eyes conjunctiva/eyelids Overall: conjunctiva clear 06/07/2016 None Full Exam - General 1994 Eyes conjunctiva/eyelids Overall: eyelids normal 06/07/2016 None Full Exam - General 1994 Ears/Nose/Throat lips/teeth/gingiva Overall: benign lips 06/07/2016 None Full Exam - General 1994 Respiratory respiratory effort/rhythm Overall: no retractions 06/07/2016 None Full Exam - General 1994 Respiratory respiratory effort/rhythm Overall: normal rate 06/07/2016 None Full Exam - General 1994 Abdomen abdominal exam Overall: no tenderness 06/07/2016 None Full Exam - General 1994 Abdomen abdominal exam Overall: normal bowel sounds 06/07/2016 None Full Exam - General 1994 Abdomen hernia exam Inguinal hernia present: tender 06/07/2016 no obvious hernia, patien t mildly tender to palpation Full Exam - General 1994 Musculoskeletal gait and station Overall: normal gait 06/07/2016 None Full Exam - General 1994 Musculoskeletal gait and station Overall: normal station 06/07/2016 None Full Exam - General 1994 Neurologic cranial nerves Overall: crainial nerves 2 - 12 grossly intact 06/07/2016 None Full Exam - General 1994 Psychiatric orientation/consciousness Overall: oriented to person, place and time 06/07/2016 None Full Exam - General 1994 Psychiatric mood and affect Overall: normal mood and affect 06/07/2016 None Full Exam - General 1994 Constitutional general appearance Overall: well developed 03/23/2016 None Full Exam - General 1994 Constitutional general appearance Overall: in no acute distress 03/23/2016 None Full Exam - General 1994 Constitutional general appearance Overall: well nourished 03/23/2016 None Full Exam - General 1994 Eyes conjunctiva/eyelids Overall: conjunctiva clear 03/23/2016 None Full Exam - General 1994 Eyes conjunctiva/eyelids Overall: cornea clear 03/23/2016 None Full Exam - General 1994 Eyes conjunctiva/eyelids Overall: eyelids normal 03/23/2016 None Full Exam - General 1994 Eyes pupils and irises Overall: pupils equal, round, reactive to light and accomodation 03/23/2016 None Full Exam - General 1994 Ears/Nose/Throat otoscopic exam Overall: external auditory canals clear 03/23/2016 None Full Exam - General 1994 Ears/Nose/Throat otoscopic exam Overall: tympanic membranes clear 03/23/2016 None Full Exam - General 1994 Ears/Nose/Throat oral cavity/pharynx/larynx Overall: oral mucosa clear 03/23/2016 None Full Exam - General 1994 Ears/Nose/Throat oral cavity/pharynx/larynx Overall: oropharyngeal mucosa clear 03/23/2016 None Full Exam - General 1994 Ears/Nose/Throat oral cavity/pharynx/larynx Overall: no masses 03/23/2016 None Full Exam - General 1994 Respiratory auscultation Overall: breath sounds clear bilaterally 03/23/2016 None Full Exam - General 1994 Respiratory respiratory effort/rhythm Overall: no retractions 03/23/2016 None Full Exam - General 1994 Respiratory respiratory effort/rhythm Overall: normal rate 03/23/2016 None Full Exam - General 1994 Cardiovascular extremities Overall: no clubbing 03/23/2016 None Full Exam - General 1994 Cardiovascular auscultation of heart Overall: regular rate 03/23/2016 None Full Exam - General 1994 Cardiovascular auscultation of heart Overall: normal heart sounds 03/23/2016 None Full Exam - General 1994 Abdomen abdominal exam Overall: no tenderness 03/23/2016 None Full Exam - General 1994 Abdomen abdominal exam Overall: normal bowel sounds 03/23/2016 None Full Exam - General 1994 Lymphatic neck nodes Overall: anterior cervical chain benign 03/23/2016 None Full Exam - General 1994 Lymphatic neck nodes Overall: posterior cervical chain benign 03/23/2016 None Full Exam - General 1994 Musculoskeletal gait and station Overall: normal gait 03/23/2016 None Full Exam - General 1995 Musculoskeletal gait and station Overall: normal station 03/23/2016 None Full Exam - General 1994 Integument inspection of skin Overall: few scattered moles, no gross abnormalities 03/23/2016 None Full Exam - General 1995 Neurologic deep tendon reflexes Overall: deep tendon reflexes intact 03/23/2016 None Full Exam - General 1995 Neurologic cranial nerves Overall: crainial nerves 2 - 12 grossly intact 03/23/2016 None Full Exam - General 1994 Psychiatric orientation/consciousness Overall: oriented to person, place and time 03/23/2016 None Full Exam - General 1995 Constitutional general appearance Overall: well developed 03/06/2016 None Full Exam - General 1995 Constitutional general appearance Overall: in no acute distress 03/06/2016 None Full Exam - General 1995 Constitutional general appearance Overall: well nourished 03/06/2016 None Full Exam - General 1994 Eyes conjunctiva/eyelids Overall: conjunctiva clear 03/06/2016 None Full Exam - General 1994 Eyes conjunctiva/eyelids Overall: eyelids normal 03/06/2016 None Full Exam - General 1994 Eyes pupils and irises Overall: pupils equal, round, reactive to light and accomodation 03/06/2016 None Full Exam - General 1994 Ears/Nose/Throat lips/teeth/gingiva Overall: benign lips 03/06/2016 None Full Exam - General 1994 Respiratory respiratory effort/rhythm Overall: no retractions 03/06/2016 None Full Exam - General 1994 Respiratory respiratory effort/rhythm Overall: normal rate 03/06/2016 None Full Exam - General 1994 Cardiovascular extremities Overall: no clubbing 03/06/2016 None Full Exam - General 1994 Musculoskeletal gait and station Overall: normal gait 03/06/2016 None Full Exam - General 1994 Musculoskeletal gait and station Overall: normal station 03/06/2016 None Full Exam - General 1994 Neurologic cranial nerves Overall: crainial nerves 2 - 12 grossly intact 03/06/2016 None Full Exam - General 1994 Psychiatric orientation/consciousness Overall: oriented to person, place and time 03/06/2016 None Full Exam - General 1994 Psychiatric mood and affect Overall: normal mood and affect 03/06/2016 None Full Exam - General 1994 Musculoskeletal head and neck Overall: head atraumatic 03/06/2016 None Full Exam - General 1994 Psychiatric appearance Overall: well-groomed, good eye contact 03/06/2016 None Full Exam - General 1994 Constitutional general appearance Overall: well developed 10/04/2015 None Full Exam - General 1994 Constitutional general appearance Overall: in no acute distress 10/04/2015 None Full Exam - General 1994 Constitutional general appearance Overall: well nourished 10/04/2015 None Full Exam - General 1994 Eyes conjunctiva/eyelids Overall: conjunctiva clear 10/04/2015 None Full Exam - General 1994 Eyes conjunctiva/eyelids Overall: cornea clear 10/04/2015 None Full Exam - General 1994 Eyes conjunctiva/eyelids Overall: eyelids normal 10/04/2015 None Full Exam - General 1994 Eyes pupils and irises Overall: pupils equal, round, reactive to light and accomodation 10/04/2015 None Full Exam - General 1994 Ears/Nose/Throat lips/teeth/gingiva Overall: benign lips 10/04/2015 None Full Exam - General 1994 Respiratory respiratory effort/rhythm Overall: no retractions 10/04/2015 None Full Exam - General 1994 Respiratory respiratory effort/rhythm Overall: normal rate 10/04/2015 None Full Exam - General 1994 Musculoskeletal gait and station Overall: normal gait 10/04/2015 None Full Exam - General 1994 Musculoskeletal gait and station Overall: normal station 10/04/2015 None Full Exam - General 1994 Neurologic cranial nerves Overall: crainial nerves 2 - 12 grossly intact 10/04/2015 None Full Exam - General 1994 Psychiatric orientation/consciousness Overall: oriented to person, place and time 10/04/2015 None Full Exam - General 1994 Psychiatric mood and affect Overall: normal mood and affect 10/04/2015 None Full Exam - General 1994 Abdomen abdominal exam Overall: no tenderness 10/04/2015 None Full Exam - General 1994 Abdomen abdominal exam Overall: normal bowel sounds 10/04/2015 None Full Exam - General 1994 Abdomen hernia exam Inguinal hernia present: tender 10/04/2015 small defect palpated, no obvious hernia, patient tender to palpation Full Exam - General 1994 Constitutional general appearance Overall: well developed 06/16/2015 None Full Exam - General 1994 Constitutional general appearance Overall: in no acute distress 06/16/2015 None Full Exam - General 1994 Constitutional general appearance Overall: well nourished 06/16/2015 None Full Exam - General 1994 Eyes conjunctiva/eyelids Overall: conjunctiva clear 06/16/2015 None Full Exam - General 1994 Eyes conjunctiva/eyelids Overall: cornea clear 06/16/2015 None Full Exam - General 1994 Eyes conjunctiva/eyelids Overall: eyelids normal 06/16/2015 None Full Exam - General 1994 Eyes pupils and irises Overall: pupils equal, round, reactive to light and accomodation 06/16/2015 None Full Exam - General 1994 Ears/Nose/Throat lips/teeth/gingiva Overall: benign lips 06/16/2015 None Full Exam - General 1994 Respiratory respiratory effort/rhythm Overall: no retractions 06/16/2015 None Full Exam - General 1994 Respiratory respiratory effort/rhythm Overall: normal rate 06/16/2015 None Full Exam - General 1994 Musculoskeletal gait and station Overall: normal gait 06/16/2015 None Full Exam - General 1994 Musculoskeletal gait and station Overall: normal station 06/16/2015 None Full Exam - General 1994 Neurologic cranial nerves Overall: crainial nerves 2 - 12 grossly intact 06/16/2015 None Full Exam - General 1994 Psychiatric orientation/consciousness Overall: oriented to person, place and time 06/16/2015 None Full Exam - General 1994 Psychiatric mood and affect Overall: normal mood and affect 06/16/2015 None Full Exam - General 1994 Constitutional general appearance Overall: well developed 05/20/2015 None Full Exam - General 1994 Constitutional general appearance Overall: in no acute distress 05/20/2015 None Full Exam - General 1994 Constitutional general appearance Overall: well nourished 05/20/2015 None Full Exam - General 1994 Eyes conjunctiva/eyelids Overall: conjunctiva clear 05/20/2015 None Full Exam - General 1994 Eyes conjunctiva/eyelids Overall: cornea clear 05/20/2015 None Full Exam - General 1994 Eyes conjunctiva/eyelids Overall: eyelids normal 05/20/2015 None Full Exam - General 1994 Eyes pupils and irises Overall: pupils equal, round, reactive to light and accomodation 05/20/2015 None Full Exam - General 1994 Respiratory respiratory effort/rhythm Overall: no retractions 05/20/2015 None Full Exam - General 1994 Respiratory respiratory effort/rhythm Overall: normal rate 05/20/2015 None Full Exam - General 1994 Cardiovascular extremities Overall: no clubbing 05/20/2015 None Full Exam - General 1994 Musculoskeletal gait and station Overall: normal gait 05/20/2015 None Full Exam - General 1994 Musculoskeletal gait and station Overall: normal station 05/20/2015 None Full Exam - General 1994 Integument inspection of skin Overall: few scattered moles, no gross abnormalities 05/20/2015 None Full Exam - General 1994 Neurologic cranial nerves Overall: crainial nerves 2 - 12 grossly intact 05/20/2015 None Full Exam - General 1994 Psychiatric orientation/consciousness Overall: oriented to person, place and time 05/20/2015 None Full Exam - General 1994 Ears/Nose/Throat lips/teeth/gingiva Overall: benign lips 05/20/2015 None Full Exam - General 1994 Psychiatric mood and affect Overall: normal mood and affect 05/20/2015 None Full Exam - General 1994 Constitutional general appearance Overall: well developed 05/06/2015 None Full Exam - General 1994 Constitutional general appearance Overall: in no acute distress 05/06/2015 None Full Exam - General 1994 Constitutional general appearance Overall: well nourished 05/06/2015 None Full Exam - General 1994 Eyes conjunctiva/eyelids Overall: conjunctiva clear 05/06/2015 None Full Exam - General 1994 Eyes conjunctiva/eyelids Overall: cornea clear 05/06/2015 None Full Exam - General 1994 Eyes conjunctiva/eyelids Overall: eyelids normal 05/06/2015 None Full Exam - General 1994 Eyes pupils and irises Overall: pupils equal, round, reactive to light and accomodation 05/06/2015 None Full Exam - General 1994 Ears/Nose/Throat lips/teeth/gingiva Overall: benign lips 05/06/2015 None Full Exam - General 1994 Respiratory respiratory effort/rhythm Overall: no retractions 05/06/2015 None Full Exam - General 1994 Respiratory respiratory effort/rhythm Overall: normal rate 05/06/2015 None Full Exam - General 1994 Cardiovascular extremities Overall: no clubbing 05/06/2015 None Full Exam - General 1994 Musculoskeletal gait and station Overall: normal gait 05/06/2015 None Full Exam - General 1994 Musculoskeletal gait and station Overall: normal station 05/06/2015 None Full Exam - General 1994 Integument inspection of skin Overall: few scattered moles, no gross abnormalities 05/06/2015 None Full Exam - General 1994 Neurologic cranial nerves Overall: crainial nerves 2 - 12 grossly intact 05/06/2015 None Full Exam - General 1994 Psychiatric orientation/consciousness Overall: oriented to person, place and time 05/06/2015 None Full Exam - General 1994 Psychiatric mood and affect Overall: normal mood and affect 05/06/2015 None Full Exam - General 1994 Constitutional general appearance Overall: well developed 03/30/2015 None Full Exam - General 1994 Constitutional general appearance Overall: in no acute distress 03/30/2015 None Full Exam - General 1994 Constitutional general appearance Overall: well nourished 03/30/2015 None Full Exam - General 1994 Eyes pupils and irises Overall: pupils equal, round, reactive to light and accomodation 03/30/2015 None Full Exam - General 1994 Ears/Nose/Throat otoscopic exam Overall: external auditory canals clear 03/30/2015 None Full Exam - General 1994 Ears/Nose/Throat otoscopic exam Overall: tympanic membranes clear 03/30/2015 None Full Exam - General 1994 Ears/Nose/Throat oral cavity/pharynx/larynx Overall: oral mucosa clear 03/30/2015 None Full Exam - General 1994 Ears/Nose/Throat oral cavity/pharynx/larynx Overall: oropharyngeal mucosa clear 03/30/2015 None Full Exam - General 1994 Ears/Nose/Throat oral cavity/pharynx/larynx Overall: no masses 03/30/2015 None Full Exam - General 1994 Respiratory auscultation Overall: breath sounds clear bilaterally 03/30/2015 None Full Exam - General 1994 Respiratory respiratory effort/rhythm Overall: no retractions 03/30/2015 None Full Exam - General 1994 Respiratory respiratory effort/rhythm Overall: normal rate 03/30/2015 None Full Exam - General 1994 Cardiovascular extremities Overall: no clubbing 03/30/2015 None Full Exam - General 1994 Cardiovascular auscultation of heart Overall: regular rate 03/30/2015 None Full Exam - General 1994 Cardiovascular auscultation of heart Overall: normal heart sounds 03/30/2015 None Full Exam - General 1994 Abdomen abdominal exam Overall: no tenderness 03/30/2015 None Full Exam - General 1994 Abdomen abdominal exam Overall: normal bowel sounds 03/30/2015 None Full Exam - General 1994 Musculoskeletal gait and station Overall: normal gait 03/30/2015 None Full Exam - General 1994 Musculoskeletal gait and station Overall: normal station 03/30/2015 None Full Exam - General 1994 Neurologic deep tendon reflexes Overall: deep tendon reflexes intact 03/30/2015 None Full Exam - General 1994 Neurologic cranial nerves Overall: crainial nerves 2 - 12 grossly intact 03/30/2015 None Full Exam - General 1994 Psychiatric orientation/consciousness Overall: oriented to person, place and time 03/30/2015 None Full Exam - General 1994 Eyes conjunctiva/eyelids Overall: conjunctiva clear 03/30/2015 None Full Exam - General 1994 Eyes conjunctiva/eyelids Overall: cornea clear 03/30/2015 None Full Exam - General 1994 Eyes conjunctiva/eyelids Overall: eyelids normal 03/30/2015 None Full Exam - General 1994 Lymphatic neck nodes Overall: anterior cervical chain benign 03/30/2015 None Full Exam - General 1994 Lymphatic neck nodes Overall: posterior cervical chain benign 03/30/2015 None Full Exam - General 1994 Integument inspection of skin Overall: few scattered moles, no gross abnormalities 03/30/2015 None Full Exam - General 1994 Constitutional general appearance Overall: well developed 12/07/2014 None Full Exam - General 1994 Constitutional general appearance Overall: in no acute distress 12/07/2014 None Full Exam - General 1994 Constitutional general appearance Overall: well nourished 12/07/2014 None Full Exam - General 1994 Eyes pupils and irises Overall: pupils equal, round, reactive to light and accomodation 12/07/2014 None Full Exam - General 1994 Ears/Nose/Throat otoscopic exam Overall: external auditory canals clear 12/07/2014 None Full Exam - General 1994 Ears/Nose/Throat otoscopic exam Overall: tympanic membranes clear 12/07/2014 None Full Exam - General 1994 Ears/Nose/Throat oral cavity/pharynx/larynx Overall: oral mucosa clear 12/07/2014 None Full Exam - General 1994 Ears/Nose/Throat oral cavity/pharynx/larynx Overall: oropharyngeal mucosa clear 12/07/2014 None Full Exam - General 1994 Ears/Nose/Throat oral cavity/pharynx/larynx Overall: no masses 12/07/2014 None Full Exam - General 1994 Respiratory auscultation Overall: breath sounds clear bilaterally 12/07/2014 None Full Exam - General 1994 Respiratory respiratory effort/rhythm Overall: no retractions 12/07/2014 None Full Exam - General 1994 Respiratory respiratory effort/rhythm Overall: normal rate 12/07/2014 None Full Exam - General 1994 Cardiovascular extremities Overall: no clubbing 12/07/2014 None Full Exam - General 1994 Cardiovascular auscultation of heart Overall: regular rate 12/07/2014 None Full Exam - General 1994 Cardiovascular auscultation of heart Overall: normal heart sounds 12/07/2014 None Full Exam - General 1994 Cardiovascular auscultation of heart Overall: no murmurs 12/07/2014 None Full Exam - General 1994 Abdomen abdominal exam Overall: no tenderness 12/07/2014 None Full Exam - General 1994 Abdomen abdominal exam Overall: normal bowel sounds 12/07/2014 None Full Exam - General 1994 Musculoskeletal gait and station Overall: normal gait 12/07/2014 None Full Exam - General 1994 Musculoskeletal gait and station Overall: normal station 12/07/2014 None Full Exam - General 1994 Neurologic deep tendon reflexes Overall: deep tendon reflexes intact 12/07/2014 None Full Exam - General 1994 Neurologic cranial nerves Overall: crainial nerves 2 - 12 grossly intact 12/07/2014 None Full Exam - General 1994 Psychiatric orientation/consciousness Overall: oriented to person, place and time 12/07/2014 None Full Exam - General 1994 Eyes conjunctiva/eyelids Conjunctiva: subconjunctival hemorrhage 12/07/2014 Visual Acuity normal. Full Exam - General 1994 Eyes conjunctiva/eyelids Eyelid: benign 12/07/2014 None Full Exam - General 1994 Constitutional general appearance Overall: well developed 02/23/2014 None Full Exam - General 1994 Constitutional general appearance Overall: in no acute distress 02/23/2014 None Full Exam - General 1994 Constitutional general appearance Overall: well nourished 02/23/2014 None Full Exam - General 1994 Eyes conjunctiva/eyelids Overall: conjunctiva clear 02/23/2014 None Full Exam - General 1994 Eyes conjunctiva/eyelids Overall: cornea clear 02/23/2014 None Full Exam - General 1994 Eyes conjunctiva/eyelids Overall: eyelids normal 02/23/2014 None Full Exam - General 1994 Eyes pupils and irises Overall: pupils equal, round, reactive to light and accomodation 02/23/2014 None Full Exam - General 1994 Ears/Nose/Throat otoscopic exam Overall: external auditory canals clear 02/23/2014 None Full Exam - General 1994 Ears/Nose/Throat otoscopic exam Overall: tympanic membranes clear 02/23/2014 None Full Exam - General 1994 Ears/Nose/Throat oral cavity/pharynx/larynx Overall: oral mucosa clear 02/23/2014 None Full Exam - General 1994 Ears/Nose/Throat oral cavity/pharynx/larynx Overall: oropharyngeal mucosa clear 02/23/2014 None Full Exam - General 1994 Ears/Nose/Throat oral cavity/pharynx/larynx Overall: no masses 02/23/2014 None Full Exam - General 1994 Respiratory auscultation Overall: breath sounds clear bilaterally 02/23/2014 None Full Exam - General 1994 Respiratory respiratory effort/rhythm Overall: no retractions 02/23/2014 None Full Exam - General 1994 Respiratory respiratory effort/rhythm Overall: normal rate 02/23/2014 None Full Exam - General 1994 Cardiovascular extremities Overall: no clubbing 02/23/2014 None Full Exam - General 1994 Cardiovascular auscultation of heart Overall: regular rate 02/23/2014 None Full Exam - General 1994 Cardiovascular auscultation of heart Overall: normal heart sounds 02/23/2014 None Full Exam - General 1994 Cardiovascular auscultation of heart Overall: no murmurs 02/23/2014 None Full Exam - General 1994 Abdomen abdominal exam Overall: no tenderness 02/23/2014 None Full Exam - General 1994 Abdomen abdominal exam Overall: normal bowel sounds 02/23/2014 None Full Exam - General 1994 Musculoskeletal gait and station Overall: normal gait 02/23/2014 None Full Exam - General 1994 Musculoskeletal gait and station Overall: normal station 02/23/2014 None Full Exam - General 1994 Neurologic deep tendon reflexes Overall: deep tendon reflexes intact 02/23/2014 None Full Exam - General 1994 Neurologic cranial nerves Overall: crainial nerves 2 - 12 grossly intact 02/23/2014 None Full Exam - General 1994 Psychiatric orientation/consciousness Overall: oriented to person, place and time 02/23/2014 None Full Exam - General 1994 Integument inspection of skin Location: left hand 02/23/2014 None Full Exam - General 1994 Integument inspection of skin Location: right hand 02/23/2014 excoriation Full Exam - General 1994 Constitutional general appearance Overall: well developed 09/01/2013 None Full Exam - General 1994 Constitutional general appearance Overall: in no acute distress 09/01/2013 None Full Exam - General 1994 Constitutional general appearance Overall: well nourished 09/01/2013 None Full Exam - General 1994 Psychiatric orientation/consciousness Overall: oriented to person, place and time 09/01/2013 None Full Exam - General 1994 Neurologic cranial nerves Overall: crainial nerves 2 - 12 grossly intact 09/01/2013 None Full Exam - General 1994 Neurologic deep tendon reflexes Overall: deep tendon reflexes intact 09/01/2013 None Full Exam - General 1994 Integument inspection of skin Location: face 09/01/2013 above left eyebrow Full Exam - General 1994 Integument inspection of skin Rash/Lesions: papule 09/01/2013 None Full Exam - General 1994 Musculoskeletal gait and station Overall: normal gait 09/01/2013 None Full Exam - General 1994 Musculoskeletal gait and station Overall: normal station 09/01/2013 None Full Exam - General 1994 Abdomen abdominal exam Overall: no tenderness 09/01/2013 None Full Exam - General 1994 Abdomen abdominal exam Overall: normal bowel sounds 09/01/2013 None Full Exam - General 1994 Cardiovascular extremities Overall: no clubbing 09/01/2013 None Full Exam - General 1994 Cardiovascular auscultation of heart Overall: regular rate 09/01/2013 None Full Exam - General 1994 Cardiovascular auscultation of heart Overall: normal heart sounds 09/01/2013 None Full Exam - General 1994 Cardiovascular auscultation of heart Overall: no murmurs 09/01/2013 None Full Exam - General 1994 Respiratory auscultation Overall: breath sounds clear bilaterally 09/01/2013 None Full Exam - General 1994 Respiratory respiratory effort/rhythm Overall: normal rate 09/01/2013 None Full Exam - General 1994 Respiratory respiratory effort/rhythm Overall: no retractions 09/01/2013 None Full Exam - General 1994 Ears/Nose/Throat otoscopic exam Overall: tympanic membranes clear 09/01/2013 None Full Exam - General 1994 Ears/Nose/Throat otoscopic exam Overall: external auditory canals clear 09/01/2013 None Full Exam - General 1994 Ears/Nose/Throat oral cavity/pharynx/larynx Overall: oropharyngeal mucosa clear 09/01/2013 None Full Exam - General 1994 Ears/Nose/Throat oral cavity/pharynx/larynx Overall: no masses 09/01/2013 None Full Exam - General 1994 Ears/Nose/Throat oral cavity/pharynx/larynx Overall: oral mucosa clear 09/01/2013 None Full Exam - General 1994 Eyes conjunctiva/eyelids Overall: conjunctiva clear 09/01/2013 None Full Exam - General 1994 Eyes conjunctiva/eyelids Overall: eyelids normal 09/01/2013 None Full Exam - General 1994 Eyes conjunctiva/eyelids Overall: cornea clear 09/01/2013 None Full Exam - General 1994 Eyes pupils and irises Overall: pupils equal, round, reactive to light and accomodation 09/01/2013 None Procedures Procedure Codes Date PPPS, SUBSEQ VISIT CPT- 4: G0439 01/01/2018 PPPS, SUBSEQ VISIT CPT- 4: G0439 12/06/2016 INITIAL PREVENTIVE EXAM CPT-4: G0402 03/30/2015 PSA EQ (ASSAY OF PSA TOTAL) CPT-4: 33949 09/02/2013 TSH (ASSAY THYROID S MARIELENA HORMONE) CPT-4: 61146 09/02/2013 CBC (COMPLETE CBC W/ AUTO DIFF WBC) CPT-4: 60793 09/02/2013 CHEM 14 (COMPREHEN M ETABOLIC PANEL) CPT-4: 64141 09/02/2013 LIPID GRP (LIPID PANEL) CPT-4: 61389 09/02/2013 REMOVE IMPACTED EAR WAX UNI CPT-4: 84491 09/02/2013 Vital Signs Date Vital 09/17/2018 Blood Pressure 1: 140/80 Code: 8480-6 BMI: 26.1 Code: 61920-1 Heart Rate 1: 62 bpm Height: 6'1" SpO2: 98% Weight: 198 lbs 01/01/2018 Blood Pressure 1: 140/66 Code: 8480-6 BMI: 23.4 Code: 03821-4 Heart Rate 1: 68 bpm Height: 6'1" SpO2: 98% Waist Measure (cm): 81 cm Weight: 177 lbs 12/31/2017 Blood Pressure 1: 142/76 Code: 8480-6 BMI: 23.9 Code: 94479-1 Heart Rate 1: 68 bpm Height: 6'1" SpO2: 99% Weight: 181 lbs 09/18/2017 Blood Pressure 1: 128/72 Code: 8480-6 Heart Rate 1: 86 bpm Height: SpO2: 98% Weight: 04/18/2017 Blood Pressure 1: 148/78 Code: 8480-6 BMI: 23.4 Code: 99847-0 Heart Rate 1: 87 bpm Height: 6'1" SpO2: 98% Weight: 177 lbs 12/06/2016 Blood Pressure 1: 134/72 Code: 8480-6 BMI: 22.0 Code: 92909-0 Heart Rate 1: 60 bpm Height: 6'1" SpO2: 98% Waist Measure (cm): 81 cm Weight: 167 lbs 12/04/2016 Blood Pressure 1: 136/70 Code: 8480-6 BMI: 22.0 Code: 30867-0 Heart Rate 1: 59 bpm Height: 6'1" SpO2: 97% Weight: 167 lbs 06/07/2016 Blood Pressure 1: 126/64 Code: 8480-6 BMI: 20.4 Code: 58205-2 Heart Rate 1: 57 bpm Height: 6'1" SpO2: 97% Temperature: 37.1 (C ) / 98.8 (F) Weight: 155 lbs 03/23/2016 Blood Pressure 1: 132/74 Code: 8480-6 BMI: 22.0 Code: 68976-2 Heart Rate 1: 63 bpm Height: 6'1" SpO2: 98% Weight: 167 lbs 03/06/2016 Blood Pressure 1: 148/86 Code: 8480-6 BMI: 22.0 Code: 74315-5 Heart Rate 1: 62 bpm Height: 6'1" SpO2: 97% Weight: 167 lbs 10/04/2015 Blood Pressure 1: 150/82 Code: 8480-6 BMI: 22.2 Code: 42554-0 Heart Rate 1: 55 bpm Height: 6'1" SpO2: 98% Weight: 168 lbs 06/16/2015 Blood Pressure 1: 152/80 Code: 8480-6 BMI: 24.0 Code: 45417-1 Heart Rate 1: 60 bpm Height: 6'1" SpO2: 97% Weight: 182 lbs 05/20/2015 Blood Pressure 1: 152/78 Code: 8480-6 BMI: 24.3 Code: 65104-5 Heart Rate 1: 68 bpm Height: 6'1" SpO2: 98% Weight: 184 lbs 05/06/2015 Blood Pressure 1: 142/60 Code: 8480-6 BMI: 23.9 Code: 00646-4 Heart Rate 1: 58 bpm Height: 6'1" SpO2: 96% Weight: 181 lbs 03/30/2015 Blood Pressure 1: 138/52 Code: 8480-6 BMI: 24.4 Code: 48208-8 Heart Rate 1: 71 bpm Height: 6'1" SpO2: 95% Weight: 185 lbs 12/07/2014 Blood Pressure 1: 132/68 Code: 8480-6 Heart Rate 1: 60 bpm SpO2: 98% Weight: 185 lbs 02/23/2014 Blood Pressure 1: 128/68 Code: 8480-6 BMI: 25.6 Code: 07414-4 Heart Rate 1: 84 bpm Height: 6'1" Weight: 194 lbs 09/01/2013 Blood Pressure 1: 124/62 Code: 8480-6 BMI: 24.2 Code: 06406-7 Heart Rate 1: 64 bpm Height: 6'1" Weight: 183 lbs 6 oz Functional Status No Functional Status data History of Present Illness Symptom Name Status Resu lt Effective Date Notes Location left ear 09/17/2018 None Onset of Symptom _ day s ago 09/17/2018 None Location on the left s [place]oulder 09/17/2018 None Quality intermittent 09/17/2018 None Pertinent Findings los s of range of motion 09/17/2018 None Pertinent Findings los s of strength 09/17/2018 None Annual Medicare Wellness Exam Alcohol Use drinks <1 days per week 01/01/2018 None Annual Medicare Wellness Exam Alcohol Use drinks 1 drinks per day 01/01/2018 None Annual Medicare Wellness Exam Alcohol Use more than 5 drinks on one occasion no 01/01/2018 None Annual Medicare Wellness Exam Aspirin Use yes 01/01/2018 None Annual Medicare Wellness Exam Blood Glucose (self reported) don't know 01/01/2018 No ne Annual Medicare Wellness Exam Blood Glucose (self reported) desireable (below 100) 01/01/2018 None Annual Medicare Wellness Exam Blood Pressure (self reported) borderline (120/80 - 139/89) 018 None Annual Medicare Wellness Exam Choles terol (self reported) desireable (below 200) 01/01/2018 None Annual Medicare Wellness Exam Hemagl obin A-1C (self reported) never checked 01/01/2018 None Annual Medicare Wellness Exam Descri be Your Health excellent 01/01/2018 Non e Annual Medicare Wellness Exam Exerci se Habits exercises 6-7 days per week 01/01/2018 None Annual Medicare Wellness Exam Exerci se Habits exercises 30-40 minutes per day 01/01/2018 None Annual Medicare Wellness Exam Hours of Sleep 8 01/01/2018 None Annual Medicare Wellness Exam Intera ction with Friends yes 01/01/2018 None Annual Medicare Wellness Exam Life S atisfaction very satisfied 01/01/2018 None Annual Medicare Wellness Exam Motor Vehicle Safety always fastens seat belt: yes 2017 None Annual Medicare Wellness Exam Motor Vehicle Safety drives after drinking: no 01/01/2018 None Annual Medicare Wellness Exam Motor Vehicle Safety rides with someone who has been drinking: no 01/01/2018 None Annual Medicare Wellness Exam Smokin g and Tobacco Use non smoker 01/01/2018 No ne Annual Medicare Wellness Exam Sun Exposure protects skin when outdoors: no 01/01/2018 None Annual Medicare Wellness Exam Depres megan (last 6 months) almost never 01/01/2018 None Annual Medicare Wellness Exam Depres megan or Hopelessness almost never 01/01/2018 None Annual Medicare Wellness Exam Intere sts & Pleasure almost never 01/01/2018 None Annual Medicare Wellness Exam Mike taylor Stress usually rommel effectively 01/01/2018 None Annual Medicare Wellness Exam Stress almost never 01/01/2018 None Annual Medicare Wellness Exam Social & Emotional Support always 01/01/2018 None Annual Medicare Wellness Exam Nutrition servings of fried food / high fat foods per day: 0-1 01/01/2018 None Annual Medicare Wellness Exam Nutrition servings of high fiber / whole grain per day: 2 01/01/2018 None Annual Medicare Wellness Exam Nutrition servings of vegetables / fruit per day: 2 01/01/2018 None Hospital Follow Up _ 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 Hospital Follow Up Quality acute 12/31/2017 None Hospital Follow Up Quality improving 12/31/2017 None Hospital Follow Up Pertinent Findings pain 12/31/2017 None Hospital Follow Up Severity moderate 12/31/2017 None insomnia Quality chronic 09/18/2017 None insomnia Quality worseni ng 09/18/2017 None insomnia Onset and Resolution ongoing 09/18/2017 None insomnia Alleviating Factors medication 09/18/2017 None insomnia Pertinent Findings Denies dyspnea 09/18/2017 None insomnia Pertinent Findings Denies fever 09/18/2017 None shoulder pain Location d iffusely 04/18/2017 None shoulder pain Quality ac shahnaz 04/18/2017 None shoulder pain Quality co nstant 04/18/2017 None shoulder pain Quality sh yann 04/18/2017 None shoulder pain Quality wo rsening 04/18/2017 None shoulder pain Onset and Resolution ongoing 04/18/2017 None shoulder pain Onset of Symptom 1 years ago 04/18/2017 None shoulder pain Frequency of Episodes daily 04/18/2017 None shoulder pain Frequency of Episodes non- positional night pain 04/18/2017 None Annual Medicare Wellness Exam Alcohol Use does not drink any alcohol 12/06/2016 None Annual Medicare Wellness Exam Aspirin Use no 12/06/2016 None Annual Medicare Wellness Exam Blood Glucose (self reported) don't know 12/06/2016 No ne Annual Medicare Wellness Exam Blood Pressure (self reported) borderline (120/80 - 139/89) 017 None Annual Medicare Wellness Exam Choles terol (self reported) desireable (below 200) 12/06/2016 None Annual Medicare Wellness Exam Depres megan (last 6 months) almost never 12/06/2016 None Annual Medicare Wellness Exam Depres megan or Hopelessness almost never 12/06/2016 None Annual Medicare Wellness Exam Descri be Your Health good 12/06/2016 None Annual Medicare Wellness Exam Exerci se Habits exercises 5 days per week 12/06/2016 None Annual Medicare Wellness Exam Exerci se Habits exercises 30 minutes per day 12/06/2016 None Annual Medicare Wellness Exam Handli ng Stress usually rommel effectively 12/06/2016 None Annual Medicare Wellness Exam Hemagl obin A-1C (self reported) don't know 12/06/2016 No ne Annual Medicare Wellness Exam Hours of Sleep 6 12/06/2016 None Annual Medicare Wellness Exam Intera ction with Friends yes 12/06/2016 None Annual Medicare Wellness Exam Intere sts & Pleasure some of the time 12/06/2016 None Annual Medicare Wellness Exam Life S atisfaction satisfied 12/06/2016 Non e Annual Medicare Wellness Exam Motor Vehicle Safety always fastens seat belt: y 12/07/19 17 None Annual Medicare Wellness Exam Motor Vehicle Safety drives after drinking: n 12/06/2016 None Annual Medicare Wellness Exam Motor Vehicle Safety rides with someone who has been drinking: n 12/06/2016 None Annual Medicare Wellness Exam Nutrition servings of fried food / high fat foods per day: 1 12/06/2016 None Annual Medicare Wellness Exam Nutrition servings of high fiber / whole grain per day: 2 12/06/2016 None Annual Medicare Wellness Exam Nutrition servings of vegetables / fruit per day: 5 12/06/2016 None Annual Medicare Wellness Exam Smokin g and Tobacco Use non smoker 12/06/2016 No ne Annual Medicare Wellness Exam Social & Emotional Support always 12/06/2016 None Annual Medicare Wellness Exam Stress some of the time 12/06/2016 None Annual Medicare Wellness Exam Sun Exposure protects skin when outdoors: y 12/06/2016 None medication follow up Location oral intake 12/04/2016 None jaundice Location in the sclera 12/04/2016 None jaundice Quality acute 12/04/2016 None jaundice Onset and Resolution sudden in onset 12/04/2016 None jaundice Severity mild 12/04/2016 None jaundice Pertinent Findings Denies bloating 12/04/2016 None jaundice Pertinent Findings Denies dark urine 12/04/2016 None jaundice Pertinent Findings Denies early satiety 12/04/2016 None jaundice Pertinent Findings feeding well 12/04/2016 None jaundice Pertinent Findings Denies feeding poorly 12/04/2016 None jaundice Pertinent Findings Denies lethargy 12/04/2016 None jaundice Pertinent Findings good urine output 12/04/2016 None jaundice Pertinent Findings normal stooling pattern 12/04/2016 None jaundice Pertinent Findings Denies nausea 12/04/2016 None jaundice Pertinent Findings Denies weight loss 12/04/2016 None hernia Location in the r ight inguinal canal 06/07/2016 None hernia Onset and Resolution sudden in onset 06/07/2016 None hernia Onset of Symptom 1 days ago 06/07/2016 None hernia Severity mild 06/07/2016 None hernia Frequency of Episodes decreasing 06/07/2016 None hernia Alleviating Factors rest 06/07/2016 and pushing it back in hernia Pertinent Findings Denies has bloody stools 06/07/2016 None hernia Pertinent Findings Denies decreased energy 06/07/2016 None hernia Pertinent Findings Denies emesis 06/07/2016 None hernia Pertinent Findings Denies fever 06/07/2016 None hernia Pertinent Findings pelvic pain 06/07/2016 None hernia Pertinent Findings Denies back pain 06/07/2016 None hernia Pertinent Findings Denies bladder pain 06/07/2016 None hernia Triggers activity 06/07/2016 None well man exam (65+ years) Control none 03/23/2016 None well man exam (65+ years) Nutrition and Exercise normal weight 03/23/2016 None well man exam (65+ years) Nutrition and Exercise balanced nutrition 03/23/2016 None well man exam (65+ years) Lifestyle satisfactory work/custodial experience 03/23/2016 None well man exam (65+ years) Lifestyle normal sleep patterns 03/23/2016 None insomnia Quality chronic 03/06/2016 None insomnia Quality worseni ng 03/06/2016 None insomnia Onset and Resolution ongoing 03/06/2016 None insomnia Alleviating Factors medication 03/06/2016 None insomnia Pertinent Findings Denies dyspnea 03/06/2016 None insomnia Pertinent Findings Denies fever 03/06/2016 None hernia Location in the r ight inguinal canal 10/04/2015 None hernia Onset and Resolution ongoing 10/04/2015 None hernia Onset and Resolution sudden in onset 10/04/2015 None hernia Onset of Symptom 1 days ago 10/04/2015 None hernia Severity mild 10/04/2015 None hernia Frequency of Episodes decreasing 10/04/2015 None hernia Triggers no known associated factors 10/04/2015 has been lifting hernia Alleviating Factors rest 10/04/2015 and pushing it back in hernia Pertinent Findings Denies has bloody stools 10/04/2015 None hernia Pertinent Findings Denies decreased energy 10/04/2015 None hernia Pertinent Findings Denies emesis 10/04/2015 None hernia Pertinent Findings Denies fever 10/04/2015 None insomnia Quality constant 06/16/2015 None insomnia Quality difficu lty falling asleep 06/16/2015 None insomnia Quality disrupt ed sleep 06/16/2015 None insomnia Onset and Resolution ongoing 06/16/2015 None insomnia Frequency of Episodes daily 06/16/2015 None insomnia Quality chronic 05/20/2015 None insomnia Quality disrupt ed sleep 05/20/2015 None insomnia Quality early a wakening 05/20/2015 None insomnia Quality difficu lty falling asleep 05/20/2015 None insomnia Onset and Resolution ongoing 05/20/2015 None insomnia Severity modera te 05/20/2015 None insomnia Severity severe 05/20/2015 None insomnia Triggers no kno wn associated factors 05/20/2015 None insomnia Alleviating Factors medication 05/20/2015 None insomnia Pertinent Findings Denies dyspnea 05/20/2015 None insomnia Pertinent Findings Denies fever 05/20/2015 None insomnia Pertinent Findings Denies nocturia 05/20/2015 None medication follow up Additional Comments medication use 05/06/2015 None medication follow up Location oral intake 05/06/2015 None Annual Medicare Wellness Exam Alcohol Use drinks 1 days per week 03/30/2015 None Annual Medicare Wellness Exam Aspirin Use no 03/30/2015 None Annual Medicare Wellness Exam Blood Glucose (self reported) don't know 03/30/2015 No ne Annual Medicare Wellness Exam Blood Pressure (self reported) don't know 03/30/2015 No ne Annual Medicare Wellness Exam Choles terol (self reported) desireable (below 200) 03/30/2015 None Annual Medicare Wellness Exam Depres megan (last 6 months) almost never 03/30/2015 None Annual Medicare Wellness Exam Depres megan or Hopelessness almost never 03/30/2015 None Annual Medicare Wellness Exam Descri be Your Health very good 03/30/2015 Non e Annual Medicare Wellness Exam Exerci se Habits exercises 7 days per week 03/30/2015 None Annual Medicare Wellness Exam Exerci se Habits exercises 30 minutes per day 03/30/2015 None Annual Medicare Wellness Exam Handli ng Stress usually rommel effectively 03/30/2015 None Annual Medicare Wellness Exam Hemagl obin A-1C (self reported) don't know 03/30/2015 No ne Annual Medicare Wellness Exam Hours of Sleep 6 03/30/2015 None Annual Medicare Wellness Exam Intera ction with Friends yes 03/30/2015 None Annual Medicare Wellness Exam Intere sts & Pleasure daily 03/30/2015 None Annual Medicare Wellness Exam Life S atisfaction very satisfied 03/30/2015 None Annual Medicare Wellness Exam Motor Vehicle Safety always fastens seat belt: _ 03/30/19 16 None Annual Medicare Wellness Exam Nutrition servings of fried food / high fat foods per day: 1 03/30/2015 None Annual Medicare Wellness Exam Nutrition servings of high fiber / whole grain per day: 3 03/30/2015 None Annual Medicare Wellness Exam Nutrition servings of vegetables / fruit per day: 2 03/30/2015 None Annual Medicare Wellness Exam Smokin g and Tobacco Use non smoker 03/30/2015 No ne Annual Medicare Wellness Exam Social & Emotional Support always 03/30/2015 None Annual Medicare Wellness Exam Stress some of the time 03/30/2015 None Annual Medicare Wellness Exam Sun Exposure protects skin when outdoors: no 03/30/2015 None eye erythema Triggers no known associated factors 12/07/2014 None eye erythema Pertinent Findings Denies fever 12/07/2014 None eye erythema Pertinent Findings Denies eye swelling 12/07/2014 None eye erythema Location in the right conjunctiva 12/07/2014 None eye erythema Quality acu te 12/07/2014 None eye erythema Onset and Resolution sudden in onset 12/07/2014 None eye erythema Timing of Episodes upon awakening 12/07/2014 None eye erythema Pertinent Findings Denies eye discharge 12/07/2014 None eye erythema Pertinent Findings Denies eye pressure 12/07/2014 None eye erythema Pertinent Findings Denies eye tearing 12/07/2014 None eye erythema Pertinent Findings Denies eyelid erythema 12/07/2014 None eye erythema Pertinent Findings Denies eyelid swelling 12/07/2014 None eye erythema Pertinent Findings Denies periorbital erythema 12/07/2014 None eye erythema Pertinent Findings Denies photophobia 12/07/2014 None eye erythema Pertinent Findings Denies use of eye drops 12/07/2014 None eye erythema Pertinent Findings Denies vomiting 12/07/2014 None eye erythema Pertinent Findings Denies extremity swelling 12/07/2014 None pruritus Onset of Symptom 2 months ago 02/23/2014 None pruritus Location-Extremities on both hands 02/23/2014 None pruritus Pertinent Findings itching 02/23/2014 None back pain Location lumba r-sacral spine 02/23/2014 None back pain Quality aching 02/23/2014 None back pain Onset of Symptom 1 days ago 02/23/2014 None back pain Pertinent Findings Denies extremity numbness 02/23/2014 None back pain Pertinent Findings Denies extremity weakness 02/23/2014 None insomnia Quality disrupt ed sleep 02/23/2014 None pruritus Location-Major on the hands 02/23/2014 None pruritus Quality acute 02/23/2014 None pruritus Onset and Resolution ongoing 02/23/2014 None pruritus Limitation on Activities does not limit activities 02/23/2014 None pruritus Severity modera te 02/23/2014 None pruritus Severity mild 02/23/2014 None pruritus Prior Treatments previously untreated 02/23/2014 None pruritus Triggers no kno wn triggers 02/23/2014 None pruritus Alleviating Factors no alleviating factors 02/23/2014 None skin lesion Quality scab bed 09/01/2013 None skin lesion Quality non- tender 09/01/2013 None skin lesion Location in multiple areas 09/01/2013 left eyebrow and top of s calp sexual dysfunction Quality chronic 09/01/2013 erectile dysfunction skin lesion Onset and Resolution ongoing 09/01/2013 None skin lesion Onset of Symptom during adulthood 09/01/2013 None skin lesion Severity mild 09/01/2013 None skin lesion Frequency of Episodes unchanged 09/01/2013 None sexual dysfunction Onset and Resolution ongoing 09/01/2013 None sexual dysfunction Onset of Symptom _ years ago 09/01/2013 None sexual dysfunction Severity moderate 09/01/2013 None sexual dysfunction Limitation on Activitie s moderately limits activities 09/01/2013 None sexual dysfunction Frequency of Episodes increasing 09/01/2013 None sexual dysfunction Alleviating Factors medication 09/01/2013 tried cialis as needed but didn't help long enough Advance Directives No Advance Directive data Encounters Encounter Performer Loca tion Codes Date [phone]) [id number] EST. 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 PATIENT, LEVEL IV Diagnosis: Other insomnia[ICD10: G47.09] Melissa Mendoza MD, [facility] CPT-4: 98564 09/18/2017 23880 EST. PATIENT, LEVEL III Diagnosis: Pain in right shoulder[ICD10: M25.511] Diagnosis: Encounter for screening for malignant neoplasm of prostate[ICD10: Z12.5] Melissa Mendoza MD, [facility] CPT-4: 02351 04/18/2017 ([id number]) [id number] EST. P ATIENT, LEVEL III Diagnosis: Other insomnia[ICD10: G47.09] Diagnosis: Encounter for screening for disorder due to exposure to contaminants[ICD10: Z13.88] Diagnosis: Unspecified jaundice[ICD10: R17] Diagnosis: Right upper quadrant pain[ICD10: R10.11] Kathie Mendoza MD, [facility] CPT-4: 78585 12/04/2016 74962 EST. PATIENT, LEVEL IV Diagnosis: Unilateral inguinal hernia, without obstruction or gangrene, recurrent[ICD10: K40.91] Melissa Mendoza MD, [facility] CPT-4: 01336 06/07/2016 ([id number]) 29525 EST. P ATIENT, LEVEL III Diagnosis: Male erectile disorder[ICD10: F52.21] Diagnosis: Restless legs syndrome[ICD10: G25.81] Gloria Mendoza MD, [facility] CPT-4: 00400 03/23/2016 43586 EST. PATIENT, LEVEL IV Diagnosis: Other insomnia[ICD10: G47.09] Diagnosis: Restless legs syndrome[ICD10: G25.81] Melissa Mendoza MD, [facility] CPT- 4: 62771 03/06/2016 ([id number] EST. P ATIENT, LEVEL III Diagnosis: Unilateral inguinal hernia, without obstruction or gangrene, recurrent[ICD10: K40.91] Kathie Mendoza MD, [facility] CPT-4: 93653 10/04/2015 [id number] EST. PATIENT, LEVEL III Diagnosis: Other insomnia[ICD10: G47.09] Diagnosis: Male erectile disorder[ICD10: F52.21] Melissa Mendoza MD, [facility] CPT- 4: 86141 06/16/2015 [id number] EST. PATIENT, LEVEL IV Diagnosis: Other insomnia[ICD10: G47.09] Melissa Mendoza MD, [facility] CPT-4: 68915 05/20/2015 [id number] EST. PATIENT, LEVEL III Diagnosis: Other insomnia[ICD10: G47.09] Melissa Mendoza MD, [facility] CPT-4: 31414 05/06/2015 11907 EST. PATIENT, LEVEL III Diagnosis: Conjunctival hemorrhage, right eye[ICD10: H11.31] Diagnosis: Other seborrheic keratosis[ICD10: L82.1] Gloria Mendoza MD, [facility] CPT-4: 81472 12/07/2014 ([id number]) 66630 EST. P ATIENT, LEVEL IV Diagnosis: Eczema, dyshidrotic[ICD9: 705.81] Diagnosis: Right hip pain[ICD9: 719.45] Diagnosis: Insomnia[ICD9: 780.52] Diagnosis: Erectile dysfunction[ICD9: 607.84] Kathie Mendoza MD, [facility] CPT-4: 79555 02/23/2014 Office outpatient ne w 30 minutes Diagnosis: Erectile dysfunction[ICD9: 607.84] Diagnosis: INSOMNIA NOS[ICD9: 780.52] Diagnosis: Special screening for malignant neoplasms, colon[ICD9: V76.51] Kathie Mendoza MD, [facility] CPT-4: 06402 09/01/2013 Plan of Care Planned Activity Notes C odes Status Date Visit Plan: Hypertension - well con trolled - continue with current medications, continue with no added salt diet. Pt has been encouraged to exercise daily. The pt has been advised to call the office if there are any acute concerns about change in blood pressure readings at home. Hyperlipidemia - pt has been counseled about appropriate diet, exercise, and need for low fat food choices. I have discussed the need for the patient to take medications as prescribed. If the patient has negative side effects from the medication, they are to CALL the office and not abruptly discontinue the medication without discussion with a practitioner in the office. We will check labs in 3-6 months for follow up on the patient's chronic medical problem and to assure normal liver response to medications. Left shoulder pain, Left heel and ankle/Achilles pain - rx for voltaren gel sent to the pharmacy. CAD - keep appts with cardiology for routine testing/stress testing. Hx of Elevated PSA - he was referred to Dr. Hernandez - He reports that he has been seeing an naturopathic doctor - and his PSA is over 6 - he states that he is to have repeat labs soon - I have requested a copy [place] [facility] [place] to be sent to the office so t hat we can review. 09/17/2018 Appointment: Gloria Mendoza WPtel: [address] [place], [place] [id number] (15 min) Moderate 09/17/2018 Patient Education: Patient Medication Summary Completed 09/17/2018 Patient Education: Cholesterol Management Completed 09/17/2018 Visit Plan: Medicare Exam - today w e discussed the patients past history, immunizations, preventative exams/evaluations - colonoscopy, fecal occult blood testing, routine labs for renal function, glucose, cholesterol, osteoporosis evaluations, cardiovascular testing and cancer screenings. We have also discussed mental health and the signs/symptoms of depression. The patient was advised of home safety evaluations and the need to make sure that as the aging process continues, we need to be aware of different ways to make the home a safer place to reside. The patient has also been counseled that exercise is necessary - and of utmost importance as we age to help decrease fall risk and to maintain independence in the home. Today we discussed the need for the patient to create paperwork for Advanced directives as well as for the patient to provide this office with a copy of her DOPA paperwork for health care surrogate. 01/01/2018 Appointment: [facility]connell [facility]el[facility] [address] [phone] [facility] - Annual Wellness Visit 01/01/2018 Patient Education: Patient Medication Summary Completed 01/01/2018 Visit Plan: Hypertension - corby love - continue with current medications, continue with no added salt diet. Pt has been encouraged to exercise daily. The pt has been advised to call the office if there are any acute concerns about change in blood pressure readings at home. CAD - continue with plavix, aspirin and statin therapy. Pt reports that he had an episode of afib while in the hospital in [place] - continue with amiodarone at this time. 12/31/2017 Appointment: Gloria Mendoza WPtel: [facility] (15 min) Moderate 12/31/2017 Patient Education: Patient Medication Summary Completed 12/31/2017 Appointment: Melissa Johnson WPtel: [facility] [facility] - Annual Wellness Visit 12/12/2017 Visit Plan: Insomnia - Pt has been advised to increase the light in the house during the day, and start dimming the lights during the evening hours. Pt has been advised to cut out caffeine after 5pm. Daytime nap ping worsens night time insomnia. 09/18/2017 Patient Education: Patient Medication Summary Completed 09/18/2017 Visit Plan: Right shoulder pain - o ngoing x 1 year - will order x-ray - The pt is to use prn antiinflammatories to manage acute pain. The patient is to call the office if the pain is worsening or does not improve. 04/18/2017 Appointment: Melissa Johnson [facility]Ptel[facility] [address] [facility] (15 min) Moderate 04/18/2017 Patient Education: Patient Medication Summary Completed 04/18/2017 Visit Plan: Medicare Exam - today w e discussed the patients past history, immunizations, preventative exams/evaluations - colonoscopy, fecal occult blood testing, routine labs for renal function, glucose, cholesterol, osteoporosis evaluations, cardiovascular testing and cancer screenings. We have also discussed mental health and the signs/symptoms of depression. The patient was advised of home safety evaluations and the need to make sure that as the aging process continues, we need to be aware of different ways to make the home a safer place to reside. The patient has also been counseled that exercise is necessary - and of utmost importance as we age to help decrease fall risk and to maintain independece in the home. Today we discussed the need for the patient to create paperwork for Advanced directives as well as for the patient to provide this office with a copy of her DOPA paperwork for health care surrogate. 12/06/2016 Visit Plan: Medicare Exam - today w e discussed the patients past history, immunizations, preventative exams/evaluations - colonoscopy, fecal occult blood testing, routine labs for renal function, glucose, cholesterol, osteoporosis evaluations, cardiovascular testing and cancer screenings. We have also discussed mental health and the signs/symptoms of depression. The patient was advised of home safety evaluations and the need to make sure that as the aging process continues, we need to be aware of different ways to make the home a safer place to reside. The patient has also been counseled that exercise is necessary - and of utmost importance as we age to help decrease fall risk and to maintain independece in the home. Today we discussed the need for the patient to create paperwork for Advanced directives as well as for the patient to provide this office with a copy of her DOPA paperwork for health care surrogate. 12/06/2016 Visit Plan: Medicare Exam - today w e discussed the patients past history, immunizations, preventative exams/evaluations - colonoscopy, fecal occult blood testing, routine labs for renal function, glucose, cholesterol, osteoporosis evaluations, cardiovascular testing and cancer screenings. We have also discussed mental health and the signs/symptoms of depression. The patient was advised of home safety evaluations and the need to make sure that as the aging process continues, we need to be aware of different ways to make the home a safer place to reside. The patient has also been counseled that exercise is necessary - and of utmost importance as we age to help decrease fall risk and to maintain independece in the home. Today we discussed the need for the patient to create paperwork for Advanced directives as well as for the patient to provide this office with a copy of her DOPA paperwork for health care surrogate. 12/06/2016 Appointment: Melissa Johnson WPtel: [address] [place], [place] [id number] [facility] - Annual Wellness Visit 12/06/2016 Patient Education: Patient Medication Summary Completed 12/06/2016 Visit Plan: Rdqgpcts-sosnmpv-rvmnpw lorazepam for prn use History of exposure to heavy metals-possible slight yellowing of the eyes- intermittent RUQ pain-will check labs -consider hepatitis panel/liver/gallbladd er ultrasound if symptoms persist or worsen 12/04/2016 Appointment: Kathie Oconnell WPtel: [address] [phone] [place] (30 min) Complex 12/04/2016 Patient Education: Patient Medication Summary Completed 12/04/2016 Appointment: Gloria Mendoza WPtel: [facility] [place] (15 min) Moderate 11/08/2016 Visit Plan: Right inguinal pain - p ost hernia repair - will order US - pt is to notify clinic if symptoms change, or with any acute concerns. 06/07/2016 Appointment: Melissa Johnson WPtel: [facility] [place] (30 min) Complex 06/07/2016 Patient Education: Patient Medication Summary Completed 06/07/2016 Visit Plan: Restless Leg Syndrome - improved symptoms - I have recommended pt to start on a low dose of iron two to three times a week - to take with orange juice. Pt is to alert me if the symptoms do not improve. Impotence - refilled cialis 03/23/2016 Appointment: Gloria Mendoza WPtel: [facility] [place] (15 min) Moderate 03/23/2016 Appointment: Gloria Mendoza WPtel: [facility] [place] (15 min) Moderate 03/23/2016 Patient Education: Patient Medication Summary Completed 03/23/2016 Visit Plan: Insomnia - Pt has been advised to increase the light in the house during the day, and start dimming the lights during the evening hours. Pt has been advised to cut out caffeine after 5pm. Daytime nappin g worsens night time insomnia. Restless Leg Syndrome - Pt is to alert me if the symptoms do not improve and we will start on a medication such as mirapex or requip. 03/06/2016 Appointment: Melissa Johnson WPtel: [address] [place], [place] [id number] (30 min) Complex 03/06/2016 Patient Education: Patient Medication Summary Completed 03/06/2016 Visit Plan: Inguinal hernia-refer t o Dr Esteban for evaluation 10/04/2015 Appointment: Kathie Oconnell WPtel: [phone] (30 min) Complex 10/04/2015 Patient Education: Patient Medication Summary Completed 10/04/2015 Care Plan: Referral Order SNOMED-CT : [id number] Pending 10/04/2015 Referral: Tremaine Hernandez WPtel[facility] [address] [id number] [place] Referral Initiated 06/28/2015 Visit Plan: Insomnia - Pt has been advised to increase the light in the house during the day, and start dimming the lights during the evening hours. Pt has been advised to cut out caffeine after 5pm. Daytime nappin g worsens night time insomnia. Chronic Depression and anxiety - the pt has symptoms of chronic anxiety and depression that have been fairly well controlled since the last office visit. The pt has expected periods of exacerbation with abatement of the symptoms with change in situational exposure. No change in current medications. 06/16/2015 Appointment: Kathie Oconnell WPtel: [phone] (30 min) Complex 06/16/2015 Patient Education: Patient Medication Summary Completed 06/16/2015 Care Plan: Referral Order SNOMED-CT : [id number] Pending 06/16/2015 Visit Plan: Insomnia - Pt has been advised to increase the light in the house during the day, and start dimming the lights during the evening hours. Pt has been advised to cut out caffeine after 5pm. Daytime nap ping worsens night time insomnia. 05/20/2015 Appointment: (15 min) Moderate 05/20/2015 Patient Education: Patient Medication Summary Completed 05/20/2015 Visit Plan: Insomnia - Will send RX , Pt has been advised to increase the light in the house during the day, and start dimming the lights during the evening hours. Pt has been advised to cut out caffeine after 5pm. Daytime napping worsens night time insomnia. 05/06/2015 Appointment: (30 min) Complex 05/06/2015 Patient Education: Patient Medication Summary Completed 05/06/2015 Visit Plan: Welcome to Medicare Exa m - today we discussed the patients past history, immunizations, preventative exams/evaluations - colonoscopy, fecal occult blood testing, routine labs for renal function, gluc ose, cholesterol, osteoporosis evaluations, cardiovascular testing and cancer screenings. We have also discussed mental health and the signs/symptoms of depression. The patient was advised of home safety evaluations and the need to make sure that as the aging process continues, we need to be aware of different ways to make the home a safer place to reside. The patient has also been counseled that exercise is necessary - and of utmost importance as we age to help decrease fall risk and to maintain independece in the home. 03/30/2015 Patient Education: Patient Medication Summary Completed 03/30/2015 Visit Plan: subconjunctival hemmorh age - Stop supplements and herbals remedies for at least 7 days. Seborrheic keratosis - use neosporin on and wash with wash cloth daily. Notify clinic if other symptoms, vision changes, pain or other concerns. 12/07/2014 Appointment: (15 min) Moderate 12/07/2014 Patient Education: Patient Medication Summary Completed 12/07/2014 Visit Plan: Dyshidrotic eczema-disc ussed natural and expected course of this diagnosis and to alert me if symptoms do not follow expected course, or if any worse. Rx sent to patient's pharmacy and instructed on use. Patient verbalized understanding of plan. Insomnia - Pt has been advised to increase the light in the house during the day, and start dimming the lights during the evening hours. Pt has been advised to cut out caffeine after 5pm. Daytime napping worsens night time insomnia. ED-refill viagra Right hip/pelvic pain-xray hip and pelvis-start voltaren gel QID-okay to use tylenol as needed. 02/23/2014 Patient Education: Patient Medication Summary Completed 02/23/2014 Appointment: [id number] [facility]/02/2013 Patient Education: Patient Medication Summary Completed 09/02/2013 Visit Plan: Erectile dysfunction-di scussed with patient-plan to check labs including testosterone-samples of viagra provided and instructed on use. Insomnia - Pt has been advised to increase the light in the house during the day, and start dimming the lights during the evening hours. Pt has been advised to cut out caffeine after 5pm. Daytime napping worsens night time insomnia. Cvfepc-enynuwva-qsxxryhfl removal if becomes irritated 09/01/2013 Appointment: New Patient 09/01/2013 Patient Education: Patient Medication Summary Completed 09/01/2013 Referral: Tremaine Hernandez WPtel: [id number] [id number] Initiated Instructions Comment Pt has been advised to increase the light in the house during the day, and start dimming the lights during the evening hours. Pt has been advised to cut out caffeine after 5pm. Daytime napping worsens night time insomnia. . Insomnia - Pt has been advised to incr ease the light in the house during the day, and start dimming the lights during the evening hours. Pt has been advised to cut out caffeine after 5pm. Daytime napping worsens night time insomnia. . Insomnia - Pt has been advised to increase the light in the house during the day, and start dimming the lights during the evening hours. Pt has been advised to cut out caffeine after 5pm. Daytime napping worsens night time insomnia. Restless Leg Syndrome - Pt is to alert me if the symptoms do not improve and we will start on a medication such as mirapex or requip. . Welcome to Medicar e Exam - today we discussed the patients past history, immunizations, preventative exams/evaluations - colonoscopy, fecal occult blood testing, routine labs for renal function, glucose, cholesterol, osteoporosis evaluations, cardiovascular testing and cancer screenings. We have also discussed mental health and the signs/symptoms of depression. The patient was advised of home safety evaluations and the need to make sure that as the aging process continues, we need to be aware of different ways to make the home a safer place to reside. The patient has also been counseled that exercise is necessary - and of utmost importance as we age to help decrease fall risk and to maintain independece in the home. . Hypertension - wel l controlled - continue with current medications, continue with no added salt diet. Pt has been encouraged to exercise daily. The pt has been advised to call the office if there are any acute concerns about change in blood pressure readings at home. Hyperlipidemia - pt has been counseled about appropriate diet, exercise, and need for low fat food choices. I have discussed the need for the patient to take medications as prescribed. If the patient has negative side effects from the medication, they are to CALL the office and not abruptly discontinue the medication without discussion with a practitioner in the office. We will check labs in 3-6 months for follow up on the patient's chronic medical problem and to assure normal liver response to medications. Left shoulder pain, Left heel and ankle/Achilles pain - rx for voltaren gel sent to the pharmacy. CAD - keep appts with cardiology for routine testing/stress testing. Hx of Elevated PSA - he was referred to Dr. Hernandez - He reports that he has been seeing an naturopathic doctor - and his PSA is over 6 - he states that he is to have repeat labs soon - I have requested a copy [place] [facility] [place] to be sent to the office so that we can review. . Medicare Exam - to day we discussed the patients past history, immunizations, preventative exams/evaluations - colonoscopy, fecal occult blood testing, routine labs for renal function, glucose, cholesterol, osteoporosis evaluations, cardiovascular testing and cancer screenings. We have also discussed mental health and the signs/symptoms of depression. The patient was advised of home safety evaluations and the need to make sure that as the aging process continues, we need to be aware of different ways to make the home a safer place to reside. The patient has also been counseled that exercise is necessary - and of utmost importance as we age to help decrease fall risk and to maintain independece in the home. Today we discussed the need for the patient to create paperwork for Advanced directives as well as for the patient to provide this office with a copy of her DOPA paperwork for health care surrogate. . Medicare Exam - to day we discussed the patients past history, immunizations, preventative exams/evaluations - colonoscopy, fecal occult blood testing, routine labs for renal function, glucose, cholesterol, osteoporosis evaluations, cardiovascular testing and cancer screenings. We have also discussed mental health and the signs/symptoms of depression. The patient was advised of home safety evaluations and the need to make sure that as the aging process continues, we need to be aware of different ways to make the home a safer place to reside. The patient has also been counseled that exercise is necessary - and of utmost importance as we age to help decrease fall risk and to maintain independece in the home. Today we discussed the need for the patient to create paperwork for Advanced directives as well as for the patient to provide this office with a copy of her DOPA paperwork for health care surrogate. . Medicare Exam - to day we discussed the patients past history, immunizations, preventative exams/evaluations - colonoscopy, fecal occult blood testing, routine labs for renal function, glucose, cholesterol, osteoporosis evaluations, cardiovascular testing and cancer screenings. We have also discussed mental health and the signs/symptoms of depression. The patient was advised of home safety evaluations and the need to make sure that as the aging process continues, we need to be aware of different ways to make the home a safer place to reside. The patient has also been counseled that exercise is necessary - and of utmost importance as we age to help decrease fall risk and to maintain independece in the home. Today we discussed the need for the patient to create paperwork for Advanced directives as well as for the patient to provide this office with a copy of her DOPA paperwork for health care surrogate. . Medicare Exam - to day we discussed the patients past history, immunizations, preventative exams/evaluations - colonoscopy, fecal occult blood testing, routine labs for renal function, glucose, cholesterol, osteoporosis evaluations, cardiovascular testing and cancer screenings. We have also discussed mental health and the signs/symptoms of depression. The patient was advised of home safety evaluations and the need to make sure that as the aging process continues, we need to be aware of different ways to make the home a safer place to reside. The patient has also been counseled that exercise is necessary - and of utmost importance as we age to help decrease fall risk and to maintain independence in the home. Today we discussed the need for the patient to create paperwork for Advanced directives as well as for the patient to provide this office with a copy of her DOPA paperwork for health care surrogate. . Restless Leg Syndr ome - improved symptoms - I have recommended pt to start on a low dose of iron two to three times a week - to take with orange juice. Pt is to alert me if the symptoms do not improve. Impotence - refilled cialis Pt has been advised to increase the light in the house during the day, and start dimming the lights during the evening hours. Pt has been advised to cut out caffeine after 5pm. Daytime napping worsens night time insomnia. . Insomnia - Will send RX, Pt has been a dvised to increase the light in the house during the day, and start dimming the lights during the evening hours. Pt has been advised to cut out caffeine after 5pm. Daytime napping worsens night time insomnia. [facility] . Dyshidrotic eczema-discussed natural a nd expected course of this diagnosis and to alert me if symptoms do not follow expected course, or if any worse. Rx sent to patient's pharmacy and instructed on use. Patient verbalized understanding of plan. Insomnia - Pt has been advised to increase the light in the house during the day, and start dimming the lights during the evening hours. Pt has been advised to cut out caffeine after 5pm. Daytime napping worsens night time insomnia. ED-refill viagra Right hip/pelvic pain-xray hip and pelvis-start voltaren gel QID-okay to use tylenol as needed. . Insomnia - Pt has been advised to increase the light in the house during the day, and start dimming the lights during the evening hours. Pt has been advised to cut out caffeine after 5pm. Daytime napping worsens night time insomnia. . Insomnia - Pt has been advised to increase the light in the house during the day, and start dimming the lights during the evening hours. Pt has been advised to cut out caffeine after 5pm. Daytime napping worsens night time insomnia. Chronic Depression and anxiety - the pt has symptoms of chronic anxiety and depression that have been fairly well controlled since the last office visit. The pt has expected periods of exacerbation with abatement of the symptoms with change in situational exposure. No change in current medications. . Erectile dysfuncti on-discussed with patient-plan to check labs including testosterone-samples of viagra provided and instructed on use. Insomnia - Pt has been advised to increase the light in the house during the day, and start dimming the lights during the evening hours. Pt has been advised to cut out caffeine after 5pm. Daytime napping worsens night time insomnia. Mebfqd-wgfyrecu-ywwhaqagb removal if becomes irritated Refer to Dr Esteban Appt October 05 at 9:00am . Inguinal hernia-refer to Dr Esteban for evaluation if the blood pressur e is below 110 on the top number - hold the lisinopril for that morning dose. sternal wires are not magnetic make sure you have coated aspirin you will be on the aspirin for at least 6 months - cardiology will determine final length of time on aspirin let Dr. Milligan decide if he wants you to stop the amiodarone . Hypertension - well controlled - boo nue with current medications, continue with no added salt diet. Pt has been encouraged to exercise daily. The pt has been advised to call the office if there are any acute concerns about change in blood pressure readings at home. CAD - continue with plavix, aspirin and statin therapy. Pt reports that he had an episode of afib while in the hospital in [place] - continue with amiodarone at this time. ibuprofen 800mg thre e times a day x 4 days - take with food get x-ray - after x-ray will order MRI . Right shoulder pain - ongoing x 1 year - will order x-ray - The pt is to use prn antiinflammatories to manage acute pain. The patient is to call the office if the pain is worsening or does not improve. . subconjunctival he mmorhage - Stop supplements and herbals remedies for at least 7 days. Seborrheic keratosis - use neosporin on and wash with wash cloth daily. Notify clinic if other symptoms, vision changes, pain or other concerns. . Right inguinal navdeep n - post hernia repair - will order US - pt is to notify clinic if symptoms change, or with any acute concerns. . Cqpvqbym-edrlepi-h efill lorazepam for prn use History of exposure to heavy metals-possible slight yellowing of the eyes- intermittent RUQ pain-will check labs -consider hepatitis panel/liver/gallbladder ultrasound if symptoms persist or worsen
--- OUTSIDE RECORDS SUMMARY | 2019-09-25 10:12 | XMS REPORT | CCD ---
Author Author Demetri Oconnell Organization [facility] Address [address] [place] [address] Phone Care Team Providers Care Mortgage Loan Coordinator Name Role Phone PP Unavailable CCM Unavailable Summary Purpose Interface Exchange Insurance Providers Payer name Policy type / Coverage type Covered alliance party ID Effective Begin Date Effective End Date WPS Medicare Part B 22 [id number] 2015 Unknown [employer] [id number] 2015 Unknown Family history Sister Diagnosis Age [...] Unknown Curre ntly employed Re[employer] at [employer] 10/04/2015 Marital status Unknown D ivorced 09/01/[address]: 8558567 Former smoker quit 1972 09/01/2013 Alcohol history [...] Resolved Date 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 [...] Condition Status 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 [...] diclofenac 1 % topic al gel RxNorm: 814337 2 Gram(s) TOP TID use on left shoulder and left achilles 09/17/2018 11/15/2018 Active lorazepam 2 mg tablet RxNorm: 181565 1/2-1 Tablet(s) PO QHS as needed insomni a 05/01/2018 10/27/2018 Ac tive lorazepam 2 mg tablet RxNorm: 866015 1/2-1 Tablet(s) PO QHS as needed insomni a 09/13/2017 03/10/2018 In active lorazepam 2 mg tablet RxNorm: 176193 1/2-1 Tablet(s) PO QHS as needed insomni a 05/03/2017 12/30/2017 In active lorazepam 2 mg tablet RxNorm: 535785 1/2-1 Tablet(s) PO QHS as needed insomni a 12/04/2016 12/30/2017 In active lorazepam 2 mg tablet RxNorm: 145905 1 Tablet(s) PO as needed agitation 03/06/2016 10/29/2016 In active Ambien CR 6.25 mg ta blet,extended release RxNorm: 322763 1 Tablet(s) PO daily 03/06/2016 09/16/2018 In active Ambien CR 6.25 mg ta blet,extended release RxNorm: 015821 Tablet(s) PO 03/06/2016 05/28/2016 In active Ambien CR 6.25 mg ta blet,extended release RxNorm: 810874 1 Tablet(s) PO daily 03/06/2016 03/05/2016 In active Cialis 20 mg tablet RxNorm: 294085 1 Tablet(s) PO PRN sexual activity 02/17/2016 12/05/2016 In active ID [id number] Cialis 20 mg tablet RxNorm: 153986 1 Tablet(s) PO PRN sexual activity 12/14/2015 02/16/2016 In active ID [id number] Viagra 100 mg tablet RxNorm: 790074 Tablet(s) as needed 1 TABLET(S) PO QDAY PRN 3MONTH SUPPLY WITH 1 REFILLS TO [facility]ZY RX 12/10/2015 12/13/2015 Inactive [PACO INGS FOR NON-COVERED DRUGS -- BIN:569171, PCN: ASPROD1, Group: XXXXX, ID# [id number], Questions: . THIS IS NOT INSURANCE.] Cialis 20 mg tablet RxNorm: 616585 1 Tablet(s) PO PRN sexual activity 10/11/2015 12/13/2015 In active lorazepam 2 mg tablet RxNorm: 121771 1 Tablet(s) PO QHS as needed insomnia 10/06/2015 02/02/2016 In active Viagra 100 mg tablet RxNorm: 273766 Tablet(s) as needed 1 TABLET(S) PO QDAY PRN 3MONTH SUPPLY WITH 3 REFILLS TO SUZY RX 06/25/2015 10/10/2015 Inactive [PACO INGS FOR NON-COVERED DRUGS -- BIN:554655, PCN: ASPROD1, Group: XXXXX, ID# [id number], Questions: . THIS IS NOT INSURANCE.] lorazepam 2 mg tablet RxNorm: 893645 Tablet(s) PO 05/20/2015 10/05/2015 Inactive Xanax 1 mg tablet RxNorm: 352116 1 Tablet(s) PO HS PRN 03/23/2015 10/03/2015 Inactive [SAVINGS FOR UNINSURED PATIENTS -- BIN:0 98408, PCN: ASPROD1, Group: AME08, ID# [id number], Process claim through [employer], for questions: . THIS IS NOT INSURANCE.] alprazolam 1 mg tablet RxNorm: 840646 1 Tablet(s) PO QHS as needed TAKE 1 TABL ET BY MOUTH EVERY NIGHT AT BEDTIME NEEDED 12/01/2014 01/28/2015 Inactive (Res ponse to an electronic controlled substance refill request - RxReferenceNumber: [id number]|1|0|1) Viagra 100 mg tablet RxNorm: 456240 Tablet(s) as needed 1 TABLET(S) PO QDAY PRN 11/19/2014 12/18/2014 In active [SAVINGS FOR NON-COVERED DRUGS -- BIN:00 3585, PCN: ASPROD1, Group: XXXXX, ID# [id number], Questions: . THIS IS NOT INSURANCE.] alprazolam 1 mg tablet RxNorm: 965009 1 Tablet(s) PO QHS as needed TAKE 1 TABL ET BY MOUTH EVERY NIGHT AT BEDTIME NEEDED 10/09/2014 11/30/2014 Inactive (Res ponse to an electronic controlled substance refill request - RxReferenceNumber: [id number]|1|0|1) alprazolam 1 mg tablet RxNorm: 131462 1 Tablet(s) PO qd PRN 06/23/2014 06/22/2014 Inactive [SAVINGS FOR NON-COVERED DRUGS -- BIN:00 3585, PCN: ASPROD1, Group: XXXXX, ID# [id number], Questions: . THIS IS NOT INSURANCE.] alprazolam 1 mg tablet RxNorm: 007517 TAKE 1 TABLET BY MOUTH EVERY NIGHT AT BE DTIME NEEDED 06/23/2014 07/22/2014 Inactive (Response to an electronic controlled substance refill request - [id number]|1|0|1) Viagra 100 mg tablet RxNorm: 889938 Tablet(s) as needed 1 TABLET(S) PO QDAY PRN 05/20/2014 06/18/2014 In active [SAVINGS FOR NON-COVERED DRUGS -- BIN:00 3585, PCN: ASPROD1, Group: XXXXX, ID# [id number], Questions: . THIS IS NOT INSURANCE.] alprazolam 1 mg tablet RxNorm: 543786 1 Tablet(s) PO qd PRN 04/27/2014 06/22/2014 Inactive [SAVINGS FOR NON-COVERED DRUGS -- BIN:00 3585, PCN: ASPROD1, Group: XXXXX, ID# [id number], Questions: . THIS IS NOT INSURANCE.] Voltaren 1 % topical gel RxNorm: 402903 4 Gram(s) TOP QID 02/23/2014 10/03/2015 Inactive [SAVINGS FOR UNINSURED PATIENTS -- BIN:933127, PCN: ASPROD1, Group: AME08, ID# [id number], Process claim through [employer], for questions: . THIS IS NOT INSURANCE.] triamcinolone aceton caty 0.1 % topical cream RxNorm: 9374705 1 Application TOP BI D 02/23/2014 03/08/2014 In active hands Xanax 1 mg tablet RxNorm: 377516 1 Tablet(s) PO HS PRN 02/23/2014 03/22/2015 Inactive [SAVINGS FOR UNINSURED PATIENTS -- BIN:0 63418, PCN: ASPROD1, Group: AME08, ID# [id number], Process claim through [employer], for questions: . THIS IS NOT INSURANCE.] Viagra 100 mg tablet RxNorm: 698409 1 TABLET(S) PO QDAY PRN 01/26/2014 05/19/2014 Inactive [SAVINGS FOR UNINSURED PATIENTS -- BIN:0 11772, PCN: ASPROD1, Group: AME08, ID# [id number], Process claim through [employer], for questions: . THIS IS NOT INSURANCE.] Viagra 100 mg tablet RxNorm: 128691 1 Tablet(s) PO QDAY PRN 01/26/2014 02/24/2014 Inactive [SAVINGS FOR UNINSURED PATIENTS -- BIN:0 09874, PCN: ASPROD1, Group: AME08, ID# [id number], Process claim through [employer], for questions: . THIS IS NOT INSURANCE.] Viagra 100 mg tablet RxNorm: 571776 1 Tablet(s) PO QDAY PRN 11/10/2013 12/08/2013 Inactive [SAVINGS FOR UNINSURED PATIENTS -- BIN:0 10738, PCN: ASPROD1, Group: AME08, ID# [id number], Process claim through [employer], for questions: . THIS IS NOT INSURANCE.] Viagra 50 mg tablet RxNorm: 375749 1-2 Tablet(s) PO QDAY PRN 11/07/2013 11/06/2013 Inactive Viagra 50 mg tablet RxNorm: 474587 1-2 Tablet(s) PO QDAY PRN 11/07/2013 11/09/2013 Inactive [SAVINGS FOR UNINSURED PATIENTS -- BIN:0 79898, PCN: ASPROD1, Group: AME08, ID# [id number], Process claim through [employer], for questions: . THIS IS NOT INSURANCE.] sildenafil 50 mg tablet RxNorm: 949833 1 Tablet(s) PO daily as needed 10/16/2013 11/14/2013 In active [SAVINGS FOR UNINSURED PATIENTS -- BIN:0 88075, PCN: ASPROD1, Group: AME08, ID# [id number], Process claim through [employer], for questions: . THIS IS NOT INSURANCE.] sildenafil 50 mg tablet RxNorm: 003053 1 Tablet(s) PO daily as needed 10/16/2013 10/15/2013 In active AndroGel 20.25 mg/1. 25 gram (1.62 %) transdermal gel pump RxNorm: 4855361 2 pumps TD daily 09/08/2013 03/06/2014 Inactive [SAVINGS FOR UNINSURED SIDNEY ENTS -- BIN:376231, PCN: ASPROD1, Group: AME08, ID# [id number], Process claim through [employer], for questions: . THIS IS NOT INSURANCE.] AndroGel 20.25 mg/1. 25 gram (1.62 %) transdermal gel pump RxNorm: 1493511 2 pumps TD daily 09/08/2013 09/07/2013 Inactive aspirin 325 mg tablet RxNorm: 395715 1 Tablet(s) PO daily No Start Date Active atorvastatin 40 mg t ablet RxNorm: 512750 1 Tablet(s) PO QHS No Start Date Active metoprolol succinate ER 25 mg tablet,extended release 24 hr RxNorm: 631441 1/2 Tablet(s) PO daily No Start Date Active lisinopril 2.5 mg ta blet RxNorm: 824835 1 Tablet(s) PO daily No Start Date Active clopidogrel 75 mg ta blet RxNorm: 672260 1 Tablet(s) PO daily No Start Date Active alprazolam 1 mg tablet RxNorm: 986792 Tablet(s) PO PRN No Start Date 04/26/2014 Inactive Benadryl 25 mg capsule RxNorm: 8961475 2 Capsule(s) PO QPM No Start Date 10/03/2015 Inactive [facility] 2.5 mg-60 mg tablet RxNorm: 7986305 1 Tablet(s) PO Q6 as needed (do not exceed 4 tablets in 24 hours No Start Date 12/30/2017 Inactive Cialis 20 mg tablet RxNorm: 287666 1 Tablet(s) PO PRN No Start Date [...] ICD-9: 401.1 09/17/2018 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 [...] Observation Code Item Item Code Result Date Lipid Ord30 CHOL 123 mg/dL 03/28/2018 Lipid Ord30 HDL 44.0 mg/dl 03/28/2018 Lipid Ord30 TRIG 85 mg/dL 03/28/2018 Lipid Ord30 LDL 62 mg/dL 03/28/2018 Lipid Ord30 C/HDL 2.8 Ratio 03/28/2018 Comp Metabolic Nbc830 NA 144 mEq/L 03/28/2018 Comp Metabolic Voi973 K 4.3 mEq/L 03/28/2018 Comp Metabolic Dwk909 CL 108 mEq/L 03/28/2018 Comp Metabolic Xpf502 CO2 29.0 mEq/L 03/28/2018 Comp Metabolic Int291 AN ION GAP 11 03/28/2018 Comp Metabolic Kdc750 GL UCOSE 91 mg/dL 03/28/2018 Comp Metabolic Bnn207 Cr eat 1.2 mg/dL 03/28/2018 Comp Metabolic Vjb585 eG FR 65 ml/min/1.73m2 03/28 Comp Metabolic Apl091 BUN 25 mg/dL 03/28/2018 Comp Metabolic Tho649 B/ C Ratio 21.0 Ratio 03/28/2018 Comp Metabolic Pjd837 CA LCIUM 9.2 mg/dL 03/28/2018 Comp Metabolic Are850 AL K PHOS 64 U/L 03/28/2018 Comp Metabolic Dtb087 T(SGOT) 14 U/L 03/28/2018 Comp Metabolic Jrp376 AL T(SGPT) 11 U/L 03/28/2018 Comp Metabolic Gjs111 BI LI T 0.6 mg/dL 03/28/2018 Comp Metabolic Vkv184 AL BUMIN 4.0 g/dL 03/28/2018 Comp Metabolic Nts359 TP RO 6.2 g/dL 03/28/2018 Comp Metabolic Bhk473 GL OB 2.2 g/dL 03/28/2018 Comp Metabolic Ypu397 A/ G Ratio 1.8 Ratio 03/28/2018 Comp Metabolic Wld346 Os mo 291 mOsmo 03/28/2018 Total Psa Ord10 PSA 5.71 ng/mL 04/18/2017 Heavy Metals Profile Ii Blood 596423 LEAD, BLOOD . 12/11/2016 Heavy Metals Profile Ii Blood 042063 LEAD, BLOOD <2.0 ug/dL 12/11/2016 Heavy Metals Profile Ii Blood 517523 Continued Results 12/11/2016 Heavy Metals Profile Ii Blood 072391 MERCURY, BLOOD . 12/11/2016 Heavy Metals Profile Ii Blood 492811 MERCURY, BLOOD <3 ug/L 12/11/2016 Heavy Metals Profile Ii Blood 817042 ARSENIC, BLOOD . 12/11/2016 Heavy Metals Profile Ii Blood 188820 ARSENIC, BLOOD <10.0 ug/L 12/11/2016 Comp Metabolic Kdj012 NA 141 mEq/L 12/04/2016 Comp Metabolic Ill561 K 3.7 mEq/L 12/04/2016 Comp Metabolic Fai599 CL 104 mEq/L 12/04/2016 Comp Metabolic Dym639 CO2 29.0 mEq/L 12/04/2016 Comp Metabolic Yrp025 AN ION GAP 12 12/04/2016 Comp Metabolic Ysy195 GL UCOSE 130 mg/dL 12/04/2016 Comp Metabolic Hks172 Cr eat 1.0 mg/dL 12/04/2016 Comp Metabolic Hxc134 eG FR 77 ml/min/1.73m2 12/04 Comp Metabolic Zwu914 BUN 19 mg/dL 12/04/2016 Comp Metabolic Puw911 B/ C Ratio 18.4 Ratio 12/04/2016 Comp Metabolic Fqd273 CA LCIUM 9.3 mg/dL 12/04/2016 Comp Metabolic Tfm880 AL K PHOS 56 U/L 12/04/2016 Comp Metabolic Ohm804 T(SGOT) 14 U/L 12/04/2016 Comp Metabolic Xqk188 AL T(SGPT) 10 U/L 12/04/2016 Comp Metabolic Zoi091 BI LI T 1.1 mg/dL 12/04/2016 Comp Metabolic Dbd434 AL BUMIN 4.1 g/dL 12/04/2016 Comp Metabolic Wkv970 TP RO 6.3 g/dL 12/04/2016 Comp Metabolic Psj419 GL OB 2.2 g/dL 12/04/2016 Comp Metabolic Qdl402 A/ G Ratio 1.9 Ratio 12/04/2016 Comp Metabolic Srm665 Os mo 285 mOsmo 12/04/2016 Cbc With [...] 31.7 pg 12/04/2016 Cbc With Differential Ord2 [place]% 6.1 % 12/04/2016 Cbc With Differential Ord2 [...] 1.71 K/ul 12/04/2016 Cbc With Differential Ord2 [place] ABS# 0.5 K/ul 12/04/2016 Cbc With Differential Ord2 Eos ABS# 0.3 K/ul 12/04/2016 Cbc With Differential Ord2 Baso ABS# 0.0 K/ul 12/04/2016 B12 Has719 B12 444.00 pg/ml 03/31/2015 Lipid Ord30 CHOL 199 mg/dL 03/31/2015 Lipid Ord30 HDL 45.0 mg/dl 03/31/2015 Lipid Ord30 TRIG 126 mg/dL 03/31/2015 Lipid Ord30 LDL 129 mg/dL 03/31/2015 Lipid Ord30 C/HDL 4.4 Ratio 03/31/2015 Testosterone Kvy639 Testo 259.94 ng/dL 03/31/2015 Tsh Ord6 hTSH [...] 31.0 pg 03/31/2015 Cbc With Differential Ord2 [place]% 10.2 % 03/31/2015 Cbc With Differential Ord2 [...] 1.94 K/ul 03/31/2015 Cbc With Differential Ord2 [place] ABS# 0.7 K/ul 03/31/2015 Cbc With Differential Ord2 Eos ABS# 0.3 K/ul 03/31/2015 Cbc With Differential Ord2 Baso ABS# 0.0 K/ul 03/31/2015 Cbc With Differential Ord2 New Analyzer Notice Please note new ref ranges s tarting 03-10-2015 due to implemntation of new five part differential hematolgy analyzer. 03/31/2015 Comp Metabolic Txc596 NA 143 mEq/L 03/31/2015 Comp Metabolic Ueb272 K 3.9 mEq/L 03/31/2015 Comp Metabolic Xsx024 CL 109 mEq/L 03/31/2015 Comp Metabolic Ccl532 CO2 29.0 mEq/L 03/31/2015 Comp Metabolic Mef279 AN ION GAP 9 03/31/2015 Comp Metabolic Mox962 GL UCOSE 94 mg/dL 03/31/2015 Comp Metabolic Uru189 Cr eat 0.9 mg/dL 03/31/2015 Comp Metabolic Obn655 eG FR 86 ml/min/1.73m2 03/31 Comp Metabolic Xxu249 BUN 22 mg/dL 03/31/2015 Comp Metabolic Zmv684 B/ C Ratio 23.4 Ratio 03/31/2015 Comp Metabolic Ewm668 CA LCIUM 8.8 mg/dL 03/31/2015 Comp Metabolic Zpk878 AL K PHOS 54 U/L 03/31/2015 Comp Metabolic Frp559 T(SGOT) 12 U/L 03/31/2015 Comp Metabolic Qmg373 AL T(SGPT) 7 U/L 03/31/2015 Comp Metabolic Npb091 BI LI T 0.7 mg/dL 03/31/2015 Comp Metabolic Pvy222 AL BUMIN 4.0 g/dL 03/31/2015 Comp Metabolic Skz472 TP RO 6.1 g/dL 03/31/2015 Comp Metabolic Pen874 GL OB 2.1 g/dL 03/31/2015 Comp Metabolic Rkj876 A/ G Ratio 1.9 Ratio 03/31/2015 Comp Metabolic Wuu402 Os mo 288 mOsmo 03/31/2015 TESTOS TO 8336319 TESTOS TO 252 NG/DL 09/03/2013 ICT OCCULT 2514014 ICT O CCULT NEG 09/02/2013 CBC 8948060 WBC 7.2 10e9/L 09/02/2013 CBC 4158834 RBC 4.74 10e12/L 09/02/2013 CBC 1472467 HGB 14.8 g/dL 09/02/2013 CBC 0270874 HCT DET 44.2 % 09/02/2013 CBC 7368183 MCV 93.2 fL 09/02/2013 CBC 3697918 MCH 31.2 pg 09/02/2013 CBC 4123289 MCHC 33.5 g/dL 09/02/2013 CBC 2824547 PLT 224 10e9/L 09/02/2013 CBC 7539950 MPV 9.9 fL 09/02/2013 CBC 3318330 HAYDE % 60.5 % 09/02/2013 CBC 9385308 LY % 26.8 % 09/02/2013 CBC 3438155 MON % 9.0 % 09/02/2013 CBC 3264251 EOS % 3.3 % 09/02/2013 CBC 3325267 BASO % 0.4 % 09/02/2013 CBC 6993903 RDW 13.1 % 09/02/2013 CBC 2900497 ABS HAYDE 4.36 10e9/L 09/02/2013 CBC 2810174 ABS LYMPH 1.93 10e9/L 09/02/2013 CBC 8888843 ABS MONO 0.65 10e9/L 09/02/2013 CBC 1225447 ABS EOS 0.24 10e9/L 09/02/2013 CBC 3586502 ABS BASO 0.03 10e9/L 09/02/2013 CBC 7278348 RDW-SD 43.1 fL 09/02/2013 GFR CALC 7505690 GFR AA >60 ML/MIN 09/02/2013 GFR CALC 3984972 GFR NON -AA >60 ML/MIN 09/02/2013 LIPID GRP HDL TE ST 48 MG/DL 09/02/2013 LIPID GRP TRIG 134 MG/DL 09/02/2013 LIPID GRP 2012733 TEST L DL 151 MG/DL 09/02/2013 LIPID GRP CHOL 226 MG/DL 09/02/2013 LIPID GRP RCHOL/ HDL 4.71 RATIO 09/02/2013 CHEM 14 7331966 AST 13 U/L 09/02/2013 CHEM 14 0259276 ALT 9 IU/L 09/02/2013 CHEM 14 9066708 BUN 23 MG/DL 09/02/2013 CHEM 14 8561764 ALBUMIN 4.1 GM/DL 09/02/2013 CHEM 14 9981860 CHLORIDE 109 MMOL/L 09/02/2013 CHEM 14 0740376 BILI TOT 1.0 MG/DL 09/02/2013 CHEM 14 5077461 ALK PHOS 55 U/L 09/02/2013 CHEM 14 0858127 SODIUM 142 MMOL/L 09/02/2013 CHEM 14 7386549 CREATINI NE 0.91 MG/DL 09/02/2013 CHEM 14 9970761 CALCIUM 9.3 MG/DL 09/02/2013 CHEM 14 1055240 POTASSIUM 3.9 MMOL/L 09/02/2013 CHEM 14 6656453 PROT TOT 6.2 GM/DL 09/02/2013 CHEM 14 2618504 GLUCOSE 95 MG/DL 09/02/2013 CHEM 14 2168296 BICARB 28 MMOL/L 09/02/2013 CHEM 14 8627830 ANION GAP 5 MEQ/L 09/02/2013 TSH 2449490 TSH 2.262 uIU/ML 09/02/2013 PSA EQ 20110422 [...] No alteration of consciousness 09/01/2013 Psychiatric anxiety 08/2013 Psychiatric No depression 09/01/2013 Endocrine No [...] gait 03/23/2016 None Full Exam - General 1994 Musculoskeletal gait and station Overall: normal station 03/23/2016 None Full Exam - General 1994 Integument inspection of skin Overall: few scattered moles, no gross abnormalities 03/23/2016 None Full Exam - General 1994 Neurologic deep tendon reflexes Overall: deep tendon reflexes intact 03/23/2016 None Full Exam - General 1994 Neurologic cranial nerves Overall: crainial nerves 2 - 12 grossly intact 03/23/2016 None Full Exam - General 1994 Psychiatric orientation/consciousness Overall: oriented to person, place and time 03/23/2016 None Full Exam - General 1994 Constitutional general appearance Overall: well developed 03/06/2016 None Full Exam - General 1994 Constitutional general appearance Overall: in no acute distress 03/06/2016 None Full Exam - General 1995 Constitutional general appearance Overall: well nourished 03/06/2016 None Full Exam - General 1995 Eyes conjunctiva/eyelids Overall: conjunctiva clear 03/06/2016 None Full Exam - General 1995 Eyes conjunctiva/eyelids Overall: eyelids normal 03/06/2016 None Full Exam - General 1994 Eyes pupils and irises Overall: pupils equal, round, reactive to light and accomodation 03/06/2016 None Full Exam - General 1994 Ears/Nose/Throat lips/teeth/gingiva Overall: benign lips 03/06/2016 None Full Exam - General 1994 Respiratory respiratory effort/rhythm Overall: no retractions 03/06/2016 None Full Exam - General 1995 Respiratory respiratory effort/rhythm Overall: normal rate 03/06/2016 [...] murmurs 02/23/2014 None Full Exam - General 1995 Abdomen abdominal exam Overall: no tenderness 02/23/2014 None Full Exam - General 1995 Abdomen abdominal exam Overall: normal bowel sounds 02/23/2014 None Full Exam - General 1995 Musculoskeletal gait and station Overall: normal gait 02/23/2014 None Full Exam - General 1995 Musculoskeletal gait and station Overall: normal station 02/23/2014 None Full Exam - General 1995 Neurologic deep tendon reflexes Overall: deep tendon reflexes intact 02/23/2014 None Full Exam - General 1994 Neurologic cranial nerves Overall: crainial nerves 2 - 12 grossly intact 02/23/2014 None Full Exam - General 1994 Psychiatric orientation/consciousness Overall: oriented to person, place and time 02/23/2014 None Full Exam - General 1995 Integument inspection of skin Location: left hand 02/23/2014 None Full Exam - General 1995 Integument inspection of skin Location: right hand [...] PSA EQ (ASSAY OF PSA TOTAL) CPT-4: 34459 09/02/2013 TSH (ASSAY THYROID S MARIELENA HORMONE) CPT-4: 56626 09/02/2013 CBC (COMPLETE CBC W/ AUTO DIFF WBC) CPT-4: 75926 09/02/2013 CHEM 14 (COMPREHEN M ETABOLIC PANEL) CPT-4: 59590 09/02/2013 LIPID GRP (LIPID PANEL) CPT-4: 13901 09/02/2013 REMOVE IMPACTED EAR WAX UNI CPT-4: 17748 09/02/2013 Vital Signs Date Vital 09/17/2018 Blood Pressure 1: 140/80 Code: 8480-6 BMI: 26.1 Code: 22671-0 Heart Rate 1: 62 bpm Height: 6'1" SpO2: 98% Weight: 198 lbs 01/01/2018 Blood Pressure 1: 140/66 Code: 8480-6 BMI: 23.4 Code: 66220-8 Heart Rate 1: 68 bpm Height: 6'1" SpO2: 98% Waist Measure (cm): 81 cm Weight: 177 lbs 12/31/2017 Blood Pressure 1: 142/76 Code: 8480-6 BMI: 23.9 Code: 17378-0 Heart Rate 1: 68 bpm Height: 6'1" SpO2: 99% Weight: 181 lbs 09/18/2017 Blood Pressure 1: 128/72 Code: 8480-6 Heart Rate 1: 86 bpm Height: SpO2: 98% Weight: 04/18/2017 Blood Pressure 1: 148/78 Code: 8480-6 BMI: 23.4 Code: 22433-5 Heart Rate 1: 87 bpm Height: 6'1" SpO2: 98% Weight: 177 lbs 12/06/2016 Blood Pressure 1: 134/72 Code: 8480-6 BMI: 22.0 Code: 52640-2 Heart Rate 1: 60 bpm Height: 6'1" SpO2: 98% Waist Measure (cm): 81 cm Weight: 167 lbs 12/04/2016 Blood Pressure 1: 136/70 Code: 8480-6 BMI: 22.0 Code: 40268-6 Heart Rate 1: 59 bpm Height: 6'1" SpO2: 97% Weight: 167 lbs 06/07/2016 Blood Pressure 1: 126/64 Code: 8480-6 BMI: 20.4 Code: 60305-3 Heart Rate 1: 57 bpm Height: 6'1" SpO2: 97% Temperature: 37.1 (C ) / 98.8 (F) Weight: 155 lbs 03/23/2016 Blood Pressure 1: 132/74 Code: 8480-6 BMI: 22.0 Code: 18233-8 Heart Rate 1: 63 bpm Height: 6'1" SpO2: 98% Weight: 167 lbs 03/06/2016 Blood Pressure 1: 148/86 Code: 8480-6 BMI: 22.0 Code: 96164-5 Heart Rate 1: 62 bpm Height: 6'1" SpO2: 97% Weight: 167 lbs 10/04/2015 Blood Pressure 1: 150/82 Code: 8480-6 BMI: 22.2 Code: 16789-5 Heart Rate 1: 55 bpm Height: 6'1" SpO2: 98% Weight: 168 lbs 06/16/2015 Blood Pressure 1: 152/80 Code: 8480-6 BMI: 24.0 Code: 22413-4 Heart Rate 1: 60 bpm Height: 6'1" SpO2: 97% Weight: 182 lbs 05/20/2015 Blood Pressure 1: 152/78 Code: 8480-6 BMI: 24.3 Code: 47741-4 Heart Rate 1: 68 bpm Height: 6'1" SpO2: 98% Weight: 184 lbs 05/06/2015 Blood Pressure 1: 142/60 Code: 8480-6 BMI: 23.9 Code: 69765-5 Heart Rate 1: 58 bpm Height: 6'1" SpO2: 96% Weight: 181 lbs 03/30/2015 Blood Pressure 1: 138/52 Code: 8480-6 BMI: 24.4 Code: 45907-9 Heart Rate 1: 71 bpm Height: 6'1" SpO2: 95% Weight: 185 lbs 12/07/2014 Blood Pressure 1: 132/68 Code: 8480-6 Heart Rate 1: 60 bpm SpO2: 98% Weight: 185 lbs 02/23/2014 Blood Pressure 1: 128/68 Code: 8480-6 BMI: 25.6 Code: 43975-2 Heart Rate 1: 84 bpm Height: 6'1" Weight: 194 lbs 09/01/2013 Blood Pressure 1: 124/62 Code: 8480-6 BMI: 24.2 Code: 58480-7 Heart Rate 1: 64 bpm Height: 6'1" [...] never 01/01/2018 None Annual Medicare Wellness Exam Handli ng Stress usually rommel effectively 01/01/2018 None Annual [...] well man exam (65+ years) Lifestyle satisfactory work/fdc experience 03/23/2016 None well man exam (65+ [...] Encounters Encounter Performer Loca tion Codes Date ([id number]) 38988 EST. 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 PATIENT, LEVEL IV Diagnosis: Other insomnia[ICD10: G47.09] Melissa Mendoza MD, [facility] CPT-4: 77166 09/18/2017 76830 EST. PATIENT, LEVEL III Diagnosis: Pain in right shoulder[ICD10: M25.511] Diagnosis: Encounter for screening for malignant neoplasm of prostate[ICD10: Z12.5] Melissa Mendoza MD, [facility] CPT-4: 52715 04/18/2017 ([id number]) 65019 EST. P ATIENT, LEVEL III Diagnosis: Other insomnia[ICD10: G47.09] Diagnosis: Encounter for screening for disorder due to exposure to contaminants[ICD10: Z13.88] Diagnosis: Unspecified jaundice[ICD10: R17] Diagnosis: Right upper quadrant pain[ICD10: R10.11] Kathie Mendoza MD, [facility] CPT-4: 00307 12/04/2016 20839 EST. PATIENT, LEVEL IV Diagnosis: Unilateral inguinal hernia, without obstruction or gangrene, recurrent[ICD10: K40.91] Melissa Mendoza MD, [facility] CPT-4: 19270 06/07/2016 ([id number]) 70332 EST. P ATIENT, LEVEL III Diagnosis: Male erectile disorder[ICD10: F52.21] Diagnosis: Restless legs syndrome[ICD10: G25.81] Gloria Mendoza MD, [facility] CPT-4: 71338 03/23/2016 55806 EST. PATIENT, LEVEL IV Diagnosis: Other insomnia[ICD10: G47.09] Diagnosis: Restless legs syndrome[ICD10: G25.81] Melissa Mendoza MD, [facility] CPT- 4: 10087 03/06/2016 ([id number]) [id number] EST. P ATIENT, LEVEL III Diagnosis: Unilateral inguinal hernia, without obstruction or gangrene, recurrent[ICD10: K40.91] Kathie Mendoza MD, [facility] CPT-4: 17161 10/04/2015 [id number] EST. PATIENT, LEVEL III Diagnosis: Other insomnia[ICD10: G47.09] Diagnosis: Male erectile disorder[ICD10: F52.21] Melissa Mendoza MD, [facility] CPT- 4: 84022 06/16/2015 [id number] EST. PATIENT, LEVEL IV Diagnosis: Other insomnia[ICD10: G47.09] Melissa Mendoza MD, [facility] CPT-4: 49337 05/20/2015 [id number] EST. PATIENT, LEVEL III Diagnosis: Other insomnia[ICD10: G47.09] Melissa Mendoza MD, [facility] CPT-4: 17857 05/06/2015 40590 EST. PATIENT, LEVEL III Diagnosis: Conjunctival hemorrhage, right eye[ICD10: H11.31] Diagnosis: Other seborrheic keratosis[ICD10: L82.1] Gloria Mendoza MD, [facility] CPT-4: 30658 12/07/2014 ([id number]) 70941 EST. P ATIENT, LEVEL IV Diagnosis: Eczema, dyshidrotic[ICD9: 705.81] Diagnosis: Right hip pain[ICD9: 719.45] Diagnosis: Insomnia[ICD9: 780.52] Diagnosis: Erectile dysfunction[ICD9: 607.84] Kathie Mendoza MD, M [facility] CPT-4: 59078 02/23/2014 Office outpatient ne w 30 minutes Diagnosis: Erectile dysfunction[ICD9: 607.84] Diagnosis: INSOMNIA NOS[ICD9: 780.52] Diagnosis: Special screening for malignant neoplasms, colon[ICD9: V76.51] Kathie Mendoza MD, [facility] CPT-4: 00342 09/01/2013 Plan of Care Planned Activity Notes [...] requested a copy of his labs from [facility] lab to be sent to the office so t hat we can review. 09/17/2018 Patient Education: Patient Medication Summary Completed [...] care surrogate. 01/01/2018 Appointment: Kathie Oconnell WPtel: [phone] [facility] - Annual Wellness Visit 01/01/2018 Patient Education: Patient Medication Summary Completed 01/01/2018 Visit Plan: Hypertension - well con trolled [...] of afib while in the hospital in [place] - continue with amiodarone at this time. 12/31/2017 Appointment: [facility]endo[facility]el[phone] [facility] (15 min) Moderate 12/31/2017 Patient Education: Patient Medication Summary Completed 12/31/2017 Appointment: Melissa Johnson WPtel: [phone] [facility] [facility] - Annual Wellness Visit 12/12/2017 Visit Plan: [...] not improve. 04/18/2017 Appointment: Melissa Johnson WPtel: [phone] [facility] (15 min) Moderate 04/18/2017 Patient Education: Patient [...] care surrogate. 12/06/2016 Appointment: Melissa Johnson WPtel: [facility] [facility] - Annual Wellness Visit 12/06/2016 Patient Education: Patient Medication Summary Completed 12/06/2016 Visit Plan: Foxzpdfv-rmqrtcc-xozwmq lorazepam for prn use History of exposure to heavy metals-possible slight yellowing of the eyes- intermittent RUQ pain-will check labs -consider hepatitis panel/liver/gallbladd er ultrasound if symptoms persist or worsen 12/04/2016 Appointment: Kathie Oconnell WPtel[facility] [phone] [facility] [place] (30 min) Complex 12/04/2016 Patient Education: Patient Medication Summary Completed 12/04/2016 Appointment: Gloria Mendoza WPtel: [address] [place] [address] [place] (15 min) Moderate 11/08/2016 Visit Plan: Right inguinal pain - p ost hernia repair - will order US - pt is to notify clinic if symptoms change, or with any acute concerns. 06/07/2016 Appointment: Melissa Johnson [facility]Ptel: [phone] [facility] [place] (30 min) Complex 06/07/2016 Patient [...] refilled cialis 03/23/2016 Appointment: [facility]endoza [facility]el: [phone] [facility] [place] (15 min) Moderate 03/23/2016 Appointment: Gloria Mendoza WPtel: [facility]5 [facility] [place] (15 min) Moderate 03/23/2016 Patient Education: [...] or requip. 03/06/2016 Appointment: Melissa Johnson [facility]Ptel: [phone] [facility] [place] (30 min) Complex 03/06/2016 Patient Education: Patient Medication Summary Completed 03/06/2016 Visit Plan: Inguinal hernia-refer t josé miguel Esteban for evaluation 10/04/2015 Appointment: Kathie Oconnell WPtel: [phone] [phone] [place] (30 min) Complex 10/04/2015 Patient Education: Patient Medication Summary Completed 10/04/2015 Care Plan: Referral Order SNOMED-CT : [id number] Pending 10/04/2015 Referral: Tremaine Hernandez [phone] Referral Initiated 06/28/2015 Visit Plan: Insomnia - [...] current medications. 06/16/2015 Appointment: Kathie Oconnell WPtel: [phone] [facility] (30 min) Complex 06/16/2015 Patient Education: Patient Medication Summary Completed 06/16/2015 Care Plan: Referral Order SNOMED-CT : [id number] Pending 06/16/2015 Visit Plan: Insomnia - Pt [...] Completed 05/06/2015 Visit Plan: Welcome to Medicare Beny m - today we discussed the patients [...] Summary Completed 02/23/2014 Appointment: Gloria Mendoza [facility]Ptel: [phone] [facility] [place] Lab Draw 09/02/2013 Patient Education: Patient Medication [...] 5pm. Daytime napping worsens night time insomnia. Uptskv-avxyvyjj-ohmirbogv removal if becomes irritated 09/01/2013 Appointment: New Patient 09/01/2013 Patient Education: Patient Medication Summary Completed 09/01/2013 Referral: Tremaine Hernandez WPtel: [phone] [facility] [place] Referral Initiated Instructions Comment Pt has been [...] requested a copy of his labs from [facility] lab to be sent to the office [...] 5pm. Daytime napping worsens night time insomnia. Xiivji-soqqmebi-facivcdxu removal if becomes irritated Refer to Dr [...] of afib while in the hospital in [place] - continue with amiodarone at this time. [...] change, or with any acute concerns. . Ljacrxzl-nlljszh-q efill lorazepam for prn use History of exposure to heavy metals-possible slight yellowing of the eyes- intermittent RUQ pain-will check labs -consider hepatitis panel/liver/gallbladder ultrasound if symptoms persist or worsen
--- OUTSIDE RECORDS SUMMARY | 2019-09-25 10:14 | XMS REPORT | CCD ---
Author Author Demetri Oconnell Organization [facility] Address [address] [place] [address] Phone Care Team Providers Care Wad Impregnator Name Role Phone PP Unavailable CCM Unavailable Summary Purpose Interface Exchange Insurance Providers Payer name Policy type / Coverage type Covered republican ID Effective Begin Date Effective End Date WPS Medicare Part B 22 [id number] 2015 Unknown [employer] [place] [id number] 2015 Unknown Family history Sister Diagnosis Age [...] Unknown Curre ntly employed Re[employer] at [employer] 10/04/2015 Marital status Unknown D ivorced 09/01/[address]: 0119520 Former smoker quit 1972 09/01/2013 Alcohol history [...] Codes Condition Status Onset Date Resolved Date Encounter for lobito l adult medical examination with abnormal findings ICD-9: V70.0 ICD-10: Z00.01 Active 12/06/2016 Unknown 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 ICD-10: I25.10 Active 12/31/2017 Unknown Essential (primary) hypertension ICD-9: 401.1 ICD-10: I10 Active 12/31/2017 Unknown Other insomnia ICD-9: 780.52 ICD-10: G47.09 Active 03/05/2016 Unknown Restless legs syndrome ICD-9: 333.94 ICD-10: G25.81 Active 03/05/2016 Unknown Encounter for screen ing for malignant neoplasm of prostate ICD-9: V76.44 ICD-10: Z12.5 Active 04/18/2017 Unknown Pain in right shoulder ICD-9: 719.41 ICD-10: M25.511 Active 04/18/2017 Unknown Encounter for screen ing [...] Condition Codes Effectiv e Dates Condition Status Encounter for genera l adult medical examination with abnormal findings ICD-9: V70.0 ICD-10: Z00.01 12/06/2016 Active 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 ICD-10: I25.10 12/31/2017 Active Essential (primary) hypertension ICD-9: 401.1 ICD-10: I10 12/31/2017 Active Other insomnia ICD-9: 780.52 ICD-10: G47.09 03/05/2016 Active Restless legs syndrome ICD-9: 333.94 ICD-10: G25.81 03/05/2016 Active Encounter for screen ing for malignant neoplasm of prostate ICD-9: V76.44 ICD-10: Z12.5 04/18/2017 Active Pain in right shoulder ICD-9: 719.41 ICD-10: M25.511 04/18/2017 Active Encounter for screen ing for [...] Date Stop Date Sta tus Fill Instructions lorazepam 2 mg tablet RxNorm: 055588 1/2-1 Tablet(s) PO QHS as needed insomni a 05/01/2018 10/27/2018 Ac tive lorazepam 2 mg tablet RxNorm: 993450 1/2-1 Tablet(s) PO QHS as needed insomni a 09/13/2017 03/10/2018 In active lorazepam 2 mg tablet RxNorm: 173342 1/2-1 Tablet(s) PO QHS as needed insomni a 05/03/2017 12/30/2017 In active lorazepam 2 mg tablet RxNorm: 432135 1/2-1 Tablet(s) PO QHS as needed insomni a 12/04/2016 12/30/2017 In active Ambien CR 6.25 mg ta blet,extended release RxNorm: 325148 1 Tablet(s) PO daily 03/06/2016 04/04/2016 In active lorazepam 2 mg tablet RxNorm: 398625 1 Tablet(s) PO as needed agitation 03/06/2016 10/29/2016 In active Ambien CR 6.25 mg ta blet,extended release RxNorm: 915603 Tablet(s) PO 03/06/2016 05/28/2016 In active Ambien CR 6.25 mg ta blet,extended release RxNorm: 453072 1 Tablet(s) PO daily 03/06/2016 03/05/2016 In active Cialis 20 mg tablet RxNorm: 597359 1 Tablet(s) PO PRN sexual activity 02/17/2016 12/05/2016 In active ID [id number] Cialis 20 mg tablet RxNorm: 496294 1 Tablet(s) PO PRN sexual activity 12/14/2015 02/16/2016 In active ID [id number] Viagra 100 mg tablet RxNorm: 412955 Tablet(s) as needed 1 TABLET(S) PO QDAY PRN 3MONTH SUPPLY WITH 1 REFILLS TO [facility] RX 12/10/2015 12/13/2015 Inactive [PACO INGS FOR NON-COVERED DRUGS -- BIN:279529, PCN: ASPROD1, Group: XXXXX, ID# [id number], Questions: . THIS IS NOT INSURANCE.] Cialis 20 mg tablet RxNorm: 218803 1 Tablet(s) PO PRN sexual activity 10/11/2015 12/13/2015 In active lorazepam 2 mg tablet RxNorm: 703848 1 Tablet(s) PO QHS as needed insomnia 10/06/2015 02/02/2016 In active Viagra 100 mg tablet RxNorm: 455521 Tablet(s) as needed 1 TABLET(S) PO QDAY PRN 3MONTH SUPPLY WITH 3 REFILLS TO SUZ[facility] RX 06/25/2015 10/10/2015 Inactive [PACO INGS FOR NON-COVERED DRUGS -- BIN:473318, PCN: ASPROD1, Group: XXXXX, ID# [id number], Questions: . THIS IS NOT INSURANCE.] lorazepam 2 mg tablet RxNorm: 948484 Tablet(s) PO 05/20/2015 10/05/2015 Inactive Xanax 1 mg tablet RxNorm: 903099 1 Tablet(s) PO HS PRN 03/23/2015 10/03/2015 Inactive [SAVINGS FOR UNINSURED PATIENTS -- BIN:0 83788, PCN: ASPROD1, Group: AME08, ID# [id number], Process claim through [employer], for questions: . THIS IS NOT INSURANCE.] alprazolam 1 mg tablet RxNorm: 099753 1 Tablet(s) PO QHS as needed TAKE 1 TABL ET BY MOUTH EVERY NIGHT AT BEDTIME NEEDED 12/01/2014 01/28/2015 Inactive (Res ponse to an electronic controlled substance refill request - RxReferenceNumber: [id number]|1|0|1) Viagra 100 mg tablet RxNorm: 495969 Tablet(s) as needed 1 TABLET(S) PO QDAY PRN 11/19/2014 12/18/2014 In active [SAVINGS FOR NON-COVERED DRUGS -- BIN:00 3585, PCN: ASPROD1, Group: XXXXX, ID# [id number], Questions: . THIS IS NOT INSURANCE.] alprazolam 1 mg tablet RxNorm: 465087 1 Tablet(s) PO QHS as needed TAKE 1 TABL ET BY MOUTH EVERY NIGHT AT BEDTIME NEEDED 10/09/2014 11/30/2014 Inactive (Res ponse to an electronic controlled substance refill request - RxReferenceNumber: [id number]|1|0|1) alprazolam 1 mg tablet RxNorm: 013046 1 Tablet(s) PO qd PRN 06/23/2014 06/22/2014 Inactive [SAVINGS FOR NON-COVERED DRUGS -- BIN:00 3585, PCN: ASPROD1, Group: XXXXX, ID# [id number], Questions: . THIS IS NOT INSURANCE.] alprazolam 1 mg tablet RxNorm: 057033 TAKE 1 TABLET BY MOUTH EVERY NIGHT AT BE DTIME NEEDED 06/23/2014 07/22/2014 Inactive (Response to an electronic controlled substance refill request - RxReferenceNumber: [id number]|1|0|1) Viagra 100 mg tablet RxNorm: 245988 Tablet(s) as needed 1 TABLET(S) PO QDAY PRN 05/20/2014 06/18/2014 In active [SAVINGS FOR NON-COVERED DRUGS -- BIN:00 3585, PCN: ASPROD1, Group: XXXXX, ID# [id number], Questions: . THIS IS NOT INSURANCE.] alprazolam 1 mg tablet RxNorm: 449941 1 Tablet(s) PO qd PRN 04/27/2014 06/22/2014 Inactive [SAVINGS FOR NON-COVERED DRUGS -- BIN:00 3585, PCN: ASPROD1, Group: XXXXX, ID# [id number], Questions: . THIS IS NOT INSURANCE.] Voltaren 1 % topical gel RxNorm: 581461 4 Gram(s) TOP QID 02/23/2014 10/03/2015 Inactive [SAVINGS FOR UNINSURED PATIENTS -- BIN:335018, PCN: ASPROD1, Group: AME08, ID# [id number], Process claim through [employer], for questions: . THIS IS NOT INSURANCE.] triamcinolone aceton caty 0.1 % topical cream RxNorm: 6216033 1 Application TOP BI D 02/23/2014 03/08/2014 In active hands Xanax 1 mg tablet RxNorm: 966112 1 Tablet(s) PO HS PRN 02/23/2014 03/22/2015 Inactive [SAVINGS FOR UNINSURED PATIENTS -- BIN:0 36716, PCN: ASPROD1, Group: AME08, ID# [id number], Process claim through [employer], for questions: . THIS IS NOT INSURANCE.] Viagra 100 mg tablet RxNorm: 793274 1 TABLET(S) PO QDAY PRN 01/26/2014 05/19/2014 Inactive [SAVINGS FOR UNINSURED PATIENTS -- BIN:0 98733, PCN: ASPROD1, Group: AME08, ID# [id number], Process claim through [employer], for questions: . THIS IS NOT INSURANCE.] Viagra 100 mg tablet RxNorm: 907930 1 Tablet(s) PO QDAY PRN 01/26/2014 02/24/2014 Inactive [SAVINGS FOR UNINSURED PATIENTS -- BIN:0 63064, PCN: ASPROD1, Group: AME08, ID# [id number], Process claim through [employer], for questions: . THIS IS NOT INSURANCE.] Viagra 100 mg tablet RxNorm: 885664 1 Tablet(s) PO QDAY PRN 11/10/2013 12/08/2013 Inactive [SAVINGS FOR UNINSURED PATIENTS -- BIN:0 91764, PCN: ASPROD1, Group: AME08, ID# [id number], Process claim through [employer], for questions: . THIS IS NOT INSURANCE.] Viagra 50 mg tablet RxNorm: 533532 1-2 Tablet(s) PO QDAY PRN 11/07/2013 11/06/2013 Inactive Viagra 50 mg tablet RxNorm: 115188 1-2 Tablet(s) PO QDAY PRN 11/07/2013 11/09/2013 Inactive [SAVINGS FOR UNINSURED PATIENTS -- BIN:0 60476, PCN: ASPROD1, Group: AME08, ID# [id number], Process claim through [employer], for questions: . THIS IS NOT INSURANCE.] sildenafil 50 mg tablet RxNorm: 916061 1 Tablet(s) PO daily as needed 10/16/2013 11/14/2013 In active [SAVINGS FOR UNINSURED PATIENTS -- BIN:0 93984, PCN: ASPROD1, Group: AME08, ID# [id number], Process claim through [employer], for questions: . THIS IS NOT INSURANCE.] sildenafil 50 mg tablet RxNorm: 235975 1 Tablet(s) PO daily as needed 10/16/2013 10/15/2013 In active AndroGel 20.25 mg/1. 25 gram (1.62 %) transdermal gel pump RxNorm: 5669462 2 pumps TD daily 09/08/2013 03/06/2014 Inactive [SAVINGS FOR UNINSURED SIDNEY ENTS -- BIN:648206, PCN: ASPROD1, Group: AME08, ID# [id number], Process claim through [employer], for questions: . THIS IS NOT INSURANCE.] AndroGel 20.25 mg/1. 25 gram (1.62 %) transdermal gel pump RxNorm: 6066481 2 pumps TD daily 09/08/2013 09/07/2013 Inactive aspirin 325 mg tablet RxNorm: 054532 1 Tablet(s) PO daily No Start Date Active atorvastatin 40 mg t ablet RxNorm: 115450 1 Tablet(s) PO QHS No Start Date Active metoprolol succinate ER 25 mg tablet,extended release 24 hr RxNorm: 557616 1/2 Tablet(s) PO daily No Start Date Active lisinopril 2.5 mg ta blet RxNorm: 434666 1 Tablet(s) PO daily No Start Date Active clopidogrel 75 mg ta blet RxNorm: 990980 1 Tablet(s) PO daily No Start Date Active alprazolam 1 mg tablet RxNorm: 275534 Tablet(s) PO PRN No Start Date 04/26/2014 Inactive Benadryl 25 mg capsule RxNorm: 7141217 2 Capsule(s) PO QPM No Start Date 10/03/2015 Inactive [facility] 2.5 mg-60 mg tablet RxNorm: 5502674 1 Tablet(s) PO Q6 as needed (do not exceed 4 tablets in 24 hours No Start Date 12/30/2017 Inactive Cialis 20 mg tablet RxNorm: 694532 1 Tablet(s) PO PRN No Start Date 10/03/2015 Inactive Medication Administered No Medication Administered data Immunizations Vaccine Codes Date Status Tetanus, Diptheria, Pertussis CVX: 113 03/28/2003 completed Tetanus/Diptheria CVX: 113 03/28/2003 completed Assessments Condition Codes Effectiv e Dates Encounter for general adult medical exam ination with abnormal findings ICD-10: Z00.01 ICD-9: V70.0 01/01/2018 Essential (primary) hypertension ICD -10: I10 ICD-9: 401.1 12/31/2017 Atherosclerotic heart disease of [place] coronary artery without angina pectoris ICD-10: I25.10 ICD-9: 414.00 12/31/2017 Other insomnia ICD-10: G47.09 ICD-9: 780.52 09/18/2017 [...] Visit Reason For Visit Effective Dates Notes Annual Medicare Wellness Exam 01/01/2018 Hospital Follow [...] Ord30 C/HDL 2.8 Ratio 03/28/2018 Comp Metabolic Mnb879 NA 144 mEq/L 03/28/2018 Comp Metabolic Amk482 K 4.3 mEq/L 03/28/2018 Comp Metabolic Lau673 CL 108 mEq/L 03/28/2018 Comp Metabolic Ilw819 CO2 29.0 mEq/L 03/28/2018 Comp Metabolic Oyp813 AN ION GAP 11 03/28/2018 Comp Metabolic Mbd755 GL UCOSE 91 mg/dL 03/28/2018 Comp Metabolic Rsd839 Cr eat 1.2 mg/dL 03/28/2018 Comp Metabolic Awv729 eG FR 65 ml/min/1.73m2 03/28 Comp Metabolic Tfe145 BUN 25 mg/dL 03/28/2018 Comp Metabolic Akj720 B/ C Ratio 21.0 Ratio 03/28/2018 Comp Metabolic Pis136 CA LCIUM 9.2 mg/dL 03/28/2018 Comp Metabolic Ycs451 AL K PHOS 64 U/L 03/28/2018 Comp Metabolic Dzr568 T(SGOT) 14 U/L 03/28/2018 Comp Metabolic Rnr927 AL T(SGPT) 11 U/L 03/28/2018 Comp Metabolic Fvc051 BI LI T 0.6 mg/dL 03/28/2018 Comp Metabolic Bya924 AL BUMIN 4.0 g/dL 03/28/2018 Comp Metabolic Pys907 TP RO 6.2 g/dL 03/28/2018 Comp Metabolic Hsl786 GL OB 2.2 g/dL 03/28/2018 Comp Metabolic Rxk821 A/ G Ratio 1.8 Ratio 03/28/2018 Comp Metabolic Mgu698 Os mo 291 mOsmo 03/28/2018 Total Psa Ord10 PSA 5.71 ng/mL 04/18/2017 Heavy Metals Profile Ii Blood 703148 LEAD, BLOOD . 12/11/2016 Heavy Metals Profile Ii Blood 221407 LEAD, BLOOD <2.0 ug/dL 12/11/2016 Heavy Metals Profile Ii Blood 472615 Continued Results 12/11/2016 Heavy Metals Profile Ii Blood 932097 MERCURY, BLOOD . 12/11/2016 Heavy Metals Profile Ii Blood 654134 MERCURY, BLOOD <3 ug/L 12/11/2016 Heavy Metals Profile Ii Blood 080152 ARSENIC, BLOOD . 12/11/2016 Heavy Metals Profile Ii Blood 330561 ARSENIC, BLOOD <10.0 ug/L 12/11/2016 Comp Metabolic Nzu819 NA 141 mEq/L 12/04/2016 Comp Metabolic Xfq788 K 3.7 mEq/L 12/04/2016 Comp Metabolic Tmd024 CL 104 mEq/L 12/04/2016 Comp Metabolic Sgm614 CO2 29.0 mEq/L 12/04/2016 Comp Metabolic Mve087 AN ION GAP 12 12/04/2016 Comp Metabolic Jbf307 GL UCOSE 130 mg/dL 12/04/2016 Comp Metabolic Men573 Cr eat 1.0 mg/dL 12/04/2016 Comp Metabolic Hlx808 eG FR 77 ml/min/1.73m2 12/04 Comp Metabolic Sit312 BUN 19 mg/dL 12/04/2016 Comp Metabolic Vxb185 B/ C Ratio 18.4 Ratio 12/04/2016 Comp Metabolic Qkz267 CA LCIUM 9.3 mg/dL 12/04/2016 Comp Metabolic Sbb289 AL K PHOS 56 U/L 12/04/2016 Comp Metabolic Omo761 T(SGOT) 14 U/L 12/04/2016 Comp Metabolic Ziu867 AL T(SGPT) 10 U/L 12/04/2016 Comp Metabolic Xex866 BI LI T 1.1 mg/dL 12/04/2016 Comp Metabolic Wyi255 AL BUMIN 4.1 g/dL 12/04/2016 Comp Metabolic Ccf711 TP RO 6.3 g/dL 12/04/2016 Comp Metabolic Tan839 GL OB 2.2 g/dL 12/04/2016 Comp Metabolic Xfs836 A/ G Ratio 1.9 Ratio 12/04/2016 Comp Metabolic Yqw549 Os mo 285 mOsmo 12/04/2016 Cbc With [...] 31.7 pg 12/04/2016 Cbc With Differential Ord2 Frontier% 6.1 % 12/04/2016 Cbc With Differential Ord2 [...] 1.71 K/ul 12/04/2016 Cbc With Differential Ord2 Frontier ABS# 0.5 K/ul 12/04/2016 Cbc With Differential Ord2 Eos ABS# 0.3 K/ul 12/04/2016 Cbc With Differential Ord2 Baso ABS# 0.0 K/ul 12/04/2016 B12 Owm879 B12 444.00 pg/ml 03/31/2015 Lipid Ord30 CHOL 199 mg/dL 03/31/2015 Lipid Ord30 HDL 45.0 mg/dl 03/31/2015 Lipid Ord30 TRIG 126 mg/dL 03/31/2015 Lipid Ord30 LDL 129 mg/dL 03/31/2015 Lipid Ord30 C/HDL 4.4 Ratio 03/31/2015 Testosterone Xyz634 Testo 259.94 ng/dL 03/31/2015 Tsh Ord6 hTSH [...] 31.0 pg 03/31/2015 Cbc With Differential Ord2 Frontier% 10.2 % 03/31/2015 Cbc With Differential Ord2 [...] 1.94 K/ul 03/31/2015 Cbc With Differential Ord2 Frontier ABS# 0.7 K/ul 03/31/2015 Cbc With Differential Ord2 Eos ABS# 0.3 K/ul 03/31/2015 Cbc With Differential Ord2 Baso ABS# 0.0 K/ul 03/31/2015 Cbc With Differential Ord2 New Analyzer Notice Please note new ref ranges s tarting 03-10-2015 due to implemntation of new five part differential hematolgy analyzer. 03/31/2015 Comp Metabolic Hoj643 NA 143 mEq/L 03/31/2015 Comp Metabolic Qlr660 K 3.9 mEq/L 03/31/2015 Comp Metabolic Apa209 CL 109 mEq/L 03/31/2015 Comp Metabolic Kse921 CO2 29.0 mEq/L 03/31/2015 Comp Metabolic Bbg277 AN ION GAP 9 03/31/2015 Comp Metabolic Rdr063 GL UCOSE 94 mg/dL 03/31/2015 Comp Metabolic Hom416 Cr eat 0.9 mg/dL 03/31/2015 Comp Metabolic Dae223 eG FR 86 ml/min/1.73m2 03/31 Comp Metabolic Jjk864 BUN 22 mg/dL 03/31/2015 Comp Metabolic Qbq563 B/ C Ratio 23.4 Ratio 03/31/2015 Comp Metabolic Oyt027 CA LCIUM 8.8 mg/dL 03/31/2015 Comp Metabolic Kho863 AL K PHOS 54 U/L 03/31/2015 Comp Metabolic Hfr298 T(SGOT) 12 U/L 03/31/2015 Comp Metabolic Zxm372 AL T(SGPT) 7 U/L 03/31/2015 Comp Metabolic Fvd369 BI LI T 0.7 mg/dL 03/31/2015 Comp Metabolic Pql559 AL BUMIN 4.0 g/dL 03/31/2015 Comp Metabolic Luh389 TP RO 6.1 g/dL 03/31/2015 Comp Metabolic Eki764 GL OB 2.1 g/dL 03/31/2015 Comp Metabolic Xee906 A/ G Ratio 1.9 Ratio 03/31/2015 Comp Metabolic Iii024 Os mo 288 mOsmo 03/31/2015 TESTOS TO 5800180 TESTOS TO 252 NG/DL 09/03/2013 ICT OCCULT 0259612 ICT O CCULT NEG 09/02/2013 CBC 2996567 WBC 7.2 10e9/L 09/02/2013 CBC 6144416 RBC 4.74 10e12/L 09/02/2013 CBC 9181940 HGB 14.8 g/dL 09/02/2013 CBC 1560128 HCT DET 44.2 % 09/02/2013 CBC 8053482 MCV 93.2 fL 09/02/2013 CBC 6459440 MCH 31.2 pg 09/02/2013 CBC 8634838 MCHC 33.5 g/dL 09/02/2013 CBC 8042316 PLT 224 10e9/L 09/02/2013 CBC 6593307 MPV 9.9 fL 09/02/2013 CBC 3012888 HAYDE % 60.5 % 09/02/2013 CBC 4233896 LY % 26.8 % 09/02/2013 CBC 2763941 MON % 9.0 % 09/02/2013 CBC 4973587 EOS % 3.3 % 09/02/2013 CBC 0950552 BASO % 0.4 % 09/02/2013 CBC 9103732 RDW 13.1 % 09/02/2013 CBC 7075691 ABS HAYDE 4.36 10e9/L 09/02/2013 CBC 0303629 ABS LYMPH 1.93 10e9/L 09/02/2013 CBC 5684529 ABS MONO 0.65 10e9/L 09/02/2013 CBC 8695959 ABS EOS 0.24 10e9/L 09/02/2013 CBC 6861422 ABS BASO 0.03 10e9/L 09/02/2013 CBC 5879194 RDW-SD 43.1 fL 09/02/2013 GFR CALC 6105338 GFR AA >60 ML/MIN 09/02/2013 GFR CALC 3850048 GFR NON -AA >60 ML/MIN 09/02/2013 LIPID GRP HDL TE ST 48 MG/DL 09/02/2013 LIPID GRP TRIG 134 MG/DL 09/02/2013 LIPID GRP TEST L DL 151 MG/DL 09/02/2013 LIPID GRP CHOL 226 MG/DL 09/02/2013 LIPID GRP RCHOL/ HDL 4.71 RATIO 09/02/2013 CHEM 14 5127700 AST 13 U/L 09/02/2013 CHEM 14 3524136 ALT 9 IU/L 09/02/2013 CHEM 14 2743480 BUN 23 MG/DL 09/02/2013 CHEM 14 1475322 ALBUMIN 4.1 GM/DL 09/02/2013 CHEM 14 6611311 CHLORIDE 109 MMOL/L 09/02/2013 CHEM 14 8354856 BILI TOT 1.0 MG/DL 09/02/2013 CHEM 14 1445990 ALK PHOS 55 U/L 09/02/2013 CHEM 14 4091056 SODIUM 142 MMOL/L 09/02/2013 CHEM 14 0084312 CREATINI NE 0.91 MG/DL 09/02/2013 CHEM 14 8486956 CALCIUM 9.3 MG/DL 09/02/2013 CHEM 14 5901720 POTASSIUM 3.9 MMOL/L 09/02/2013 CHEM 14 1935390 PROT TOT 6.2 GM/DL 09/02/2013 CHEM 14 4739311 GLUCOSE 95 MG/DL 09/02/2013 CHEM 14 6550563 BICARB 28 MMOL/L 09/02/2013 CHEM 14 7082135 ANION GAP 5 MEQ/L 09/02/2013 TSH 1912345 TSH 2.262 uIU/ML 09/02/2013 PSA EQ 20110422 PSA EQ 3.20 NG/ML 09/02/2013 Review of Systems System Result Effective Dates Constitutional No recent illness 01/01/2018 Constitutional No [...] distress 03/06/2016 None Full Exam - General 1994 Constitutional general appearance Overall: well nourished 03/06/2016 [...] clear 09/01/2013 None Full Exam - General 1995 Eyes pupils and irises Overall: pupils equal, round, reactive to light and accomodation 09/01/2013 None Procedures Procedure Codes Date PPPS, SUBSEQ VISIT CPT- 4: G0439 01/01/2018 PPPS, SUBSEQ VISIT CPT- 4: G0439 12/06/2016 INITIAL PREVENTIVE EXAM CPT-4: G0402 03/30/2015 PSA EQ (ASSAY OF PSA TOTAL) CPT-4: 50625 09/02/2013 TSH (ASSAY THYROID S MARIELENA HORMONE) CPT-4: 64006 09/02/2013 CBC (COMPLETE CBC W/ AUTO DIFF WBC) CPT-4: 92011 09/02/2013 CHEM 14 (COMPREHEN M ETABOLIC PANEL) CPT-4: 36622 09/02/2013 LIPID GRP (LIPID PANEL) CPT-4: 13157 09/02/2013 REMOVE IMPACTED EAR WAX UNI CPT-4: 06976 09/02/2013 Vital Signs Date Vital 01/01/2018 Blood Pressure 1: 140/66 Code: 8480-6 BMI: 23.4 Code: 02301-7 Heart Rate 1: 68 bpm Height: 6'1" SpO2: 98% Waist Measure (cm): 81 cm Weight: 177 lbs 12/31/2017 Blood Pressure 1: 142/76 Code: 8480-6 BMI: 23.9 Code: 09223-4 Heart Rate 1: 68 bpm Height: 6'1" SpO2: 99% Weight: 181 lbs 09/18/2017 Blood Pressure 1: 128/72 Code: 8480-6 Heart Rate 1: 86 bpm Height: SpO2: 98% Weight: 04/18/2017 Blood Pressure 1: 148/78 Code: 8480-6 BMI: 23.4 Code: 90646-7 Heart Rate 1: 87 bpm Height: 6'1" SpO2: 98% Weight: 177 lbs 12/06/2016 Blood Pressure 1: 134/72 Code: 8480-6 BMI: 22.0 Code: 73015-0 Heart Rate 1: 60 bpm Height: 6'1" SpO2: 98% Waist Measure (cm): 81 cm Weight: 167 lbs 12/04/2016 Blood Pressure 1: 136/70 Code: 8480-6 BMI: 22.0 Code: 38481-9 Heart Rate 1: 59 bpm Height: 6'1" SpO2: 97% Weight: 167 lbs 06/07/2016 Blood Pressure 1: 126/64 Code: 8480-6 BMI: 20.4 Code: 99619-9 Heart Rate 1: 57 bpm Height: 6'1" SpO2: 97% Temperature: 37.1 (C ) / 98.8 (F) Weight: 155 lbs 03/23/2016 Blood Pressure 1: 132/74 Code: 8480-6 BMI: 22.0 Code: 49879-4 Heart Rate 1: 63 bpm Height: 6'1" SpO2: 98% Weight: 167 lbs 03/06/2016 Blood Pressure 1: 148/86 Code: 8480-6 BMI: 22.0 Code: 66206-4 Heart Rate 1: 62 bpm Height: 6'1" SpO2: 97% Weight: 167 lbs 10/04/2015 Blood Pressure 1: 150/82 Code: 8480-6 BMI: 22.2 Code: 23027-2 Heart Rate 1: 55 bpm Height: 6'1" SpO2: 98% Weight: 168 lbs 06/16/2015 Blood Pressure 1: 152/80 Code: 8480-6 BMI: 24.0 Code: 27324-5 Heart Rate 1: 60 bpm Height: 6'1" SpO2: 97% Weight: 182 lbs 05/20/2015 Blood Pressure 1: 152/78 Code: 8480-6 BMI: 24.3 Code: 25503-4 Heart Rate 1: 68 bpm Height: 6'1" SpO2: 98% Weight: 184 lbs 05/06/2015 Blood Pressure 1: 142/60 Code: 8480-6 BMI: 23.9 Code: 48845-2 Heart Rate 1: 58 bpm Height: 6'1" SpO2: 96% Weight: 181 lbs 03/30/2015 Blood Pressure 1: 138/52 Code: 8480-6 BMI: 24.4 Code: 60747-7 Heart Rate 1: 71 bpm Height: 6'1" SpO2: 95% Weight: 185 lbs 12/07/2014 Blood Pressure 1: 132/68 Code: 8480-6 Heart Rate 1: 60 bpm SpO2: 98% Weight: 185 lbs 02/23/2014 Blood Pressure 1: 128/68 Code: 8480-6 BMI: 25.6 Code: 97974-2 Heart Rate 1: 84 bpm Height: 6'1" Weight: 194 lbs 09/01/2013 Blood Pressure 1: 124/62 Code: 8480-6 BMI: 24.2 Code: 28330-2 Heart Rate 1: 64 bpm Height: 6'1" Weight: 183 lbs 6 oz Functional Status No Functional Status data History of Present Illness Symptom Name Status Resu lt Effective Date Notes Annual Medicare Wellness Exam Alcohol Use drinks [...] day 12/06/2016 None Annual Medicare Wellness Exam Handmegan ng Stress usually rommel effectively 12/06/2016 None [...] well man exam (65+ years) Lifestyle satisfactory work/jail experience 03/23/2016 None well man exam (65+ [...] Encounters Encounter Performer Loca tion Codes Date ([id number]) 26653 EST. P ATIENT, LEVEL IV Diagnosis: Essential (primary) hypertension[ICD10: I10] Diagnosis: Atherosclerotic heart disease of [place] coronary artery without angina pectoris[ICD10: I25.10] Gloria Mendoza MD, [facility] CPT-4: 54267 12/31/2017 99060 EST. PATIENT, LEVEL IV Diagnosis: Other insomnia[ICD10: G47.09] Melissa Mendoza MD, [facility] CPT-4: 82234 09/18/2017 77760 EST. PATIENT, LEVEL III Diagnosis: Pain in right shoulder[ICD10: M25.511] Diagnosis: Encounter for screening for malignant neoplasm of prostate[ICD10: Z12.5] Melissa Mendoza MD, [facility] CPT-4: 10924 04/18/2017 ([id number]) 35859 EST. P ATIENT, LEVEL III Diagnosis: Other insomnia[ICD10: G47.09] Diagnosis: Encounter for screening for disorder due to exposure to contaminants[ICD10: Z13.88] Diagnosis: Unspecified jaundice[ICD10: R17] Diagnosis: Right upper quadrant pain[ICD10: R10.11] Kathie Mendoza MD, [facility] CPT-4: 80930 12/04/2016 85952 EST. PATIENT, LEVEL IV Diagnosis: Unilateral inguinal hernia, without obstruction or gangrene, recurrent[ICD10: K40.91] Melissa Mendoza MD, [facility] CPT-4: 71391 06/07/2016 ([id number]) 31259 EST. P ATIENT, LEVEL III Diagnosis: Male erectile disorder[ICD10: F52.21] Diagnosis: Restless legs syndrome[ICD10: G25.81] Gloria Mendoza MD, [facility] CPT-4: 48854 03/23/2016 77579 EST. PATIENT, LEVEL IV Diagnosis: Other insomnia[ICD10: G47.09] Diagnosis: Restless legs syndrome[ICD10: G25.81] Melissa Mendoza MD, [facility] CPT- 4: 48358 03/06/2016 ([id number]) 78378 EST. P ATIENT, LEVEL III Diagnosis: Unilateral inguinal hernia, without obstruction or gangrene, recurrent[ICD10: K40.91] Kathie Mendoza MD, [facility] CPT-4: 33166 10/04/2015 20908 EST. PATIENT, LEVEL III Diagnosis: Other insomnia[ICD10: G47.09] Diagnosis: Male erectile disorder[ICD10: F52.21] Melissa Mendoza MD, [facility] CPT- 4: 62275 06/16/2015 56806 EST. PATIENT, LEVEL IV Diagnosis: Other insomnia[ICD10: G47.09] Melissa Mendoza MD, [facility] CPT-4: 88942 05/20/2015 90795 EST. PATIENT, LEVEL III Diagnosis: Other insomnia[ICD10: G47.09] Melissa Mendoza MD, [facility] CPT-4: 13621 05/06/2015 28714 EST. PATIENT, LEVEL III Diagnosis: Conjunctival hemorrhage, right eye[ICD10: H11.31] Diagnosis: Other seborrheic keratosis[ICD10: L82.1] Gloria Mendoza MD, [facility] CPT-4: 70713 12/07/2014 ([id number]) 29521 EST. P ATIENT, LEVEL IV Diagnosis: Eczema, dyshidrotic[ICD9: 705.81] Diagnosis: Right hip pain[ICD9: 719.45] Diagnosis: Insomnia[ICD9: 780.52] Diagnosis: Erectile dysfunction[ICD9: 607.84] Kathie Mendoza MD, [facility] CPT-4: 74621 02/23/2014 Office outpatient ne w 30 minutes Diagnosis: Erectile dysfunction[ICD9: 607.84] Diagnosis: INSOMNIA NOS[ICD9: 780.52] Diagnosis: Special screening for malignant neoplasms, colon[ICD9: V76.51] Kathie Mendoza MD, [facility] CPT-4: 22292 09/01/2013 Plan of Care Planned Activity Notes C odes Status Date Visit Plan: Medicare Exam - today w [...] for health care surrogate. 01/01/2018 Appointment: [facility] Oconnell[facility] [phone] [phone] [facility] - Annual Wellness Visit 01/01/2018 [...] of afib while in the hospital in [place] - continue with amiodarone at this time. 12/31/2017 Appointment: Gloria Mendoza WPtel: [facility] [id number] (15 min) Moderate 12/31/2017 Patient Education: Patient Medication Summary Completed 12/31/2017 Appointment: Melissa Johnson WPtel: [facility] [place] [id number] [facility] - Annual Wellness Visit 12/12/2017 [...] not improve. 04/18/2017 Appointment: [facility]el[phone] [facility] (15 min) Moderate 04/18/2017 Patient Education: Patient [...] care surrogate. 12/06/2016 Appointment: Melissa Johnson WPtel: [address] [place], [place] [id number] [place] [facility] - Annual Wellness Visit 12/06/2016 Patient Education: Patient Medication Summary Completed 12/06/2016 Visit Plan: Uopfsdoc-ajpyaib-qfzius lorazepam for prn use History of exposure to heavy metals-possible slight yellowing of the eyes- intermittent RUQ pain-will check labs -consider hepatitis panel/liver/gallbladd er ultrasound if symptoms persist or worsen 12/04/2016 Appointment: Kathie Oconnell WPtel: [facility] [phone] [place] (30 min) Complex 12/04/2016 Patient Education: Patient Medication Summary Completed 12/04/2016 Appointment: Gloria Mendoza WPtel: [address] [place], [place] [id number] [place] (15 min) Moderate 11/08/2016 Visit Plan: Right inguinal pain - p ost hernia repair - will order US - pt is to notify clinic if symptoms change, or with any acute concerns. 06/07/2016 Appointment: Melissa Johnson WPtel: [facility] [place] [place] (30 min) Complex 06/07/2016 Patient Education: [...] refilled cialis 03/23/2016 Appointment: Gloria Mendoza WPtel: [facility] [place] [place] (15 min) Moderate 03/23/2016 Appointment: Gloria Mendoza WPtel: [address] [place], [place] [id number] [place] (15 min) Moderate 03/23/2016 Patient Education: [...] requip. 03/06/2016 Appointment: Melissa Johnson WPtel: [phone] [facility] (30 min) Complex 03/06/2016 Patient Education: Patient Medication Summary Completed 03/06/2016 Visit Plan: Inguinal hernia-refer t josé miguel Esteban for evaluation 10/04/2015 Appointment: Kathie Oconnell WPtel: [facility] [phone] (30 min) Complex 10/04/2015 Patient Education: Patient Medication Summary Completed 10/04/2015 Care Plan: Referral Order SNOMED-CT : [id number] Pending 10/04/2015 Referral: Tremaine Hernandez WPtel: [phone] [facility] Referral Initiated 06/28/2015 Visit Plan: Insomnia - [...] current medications. 06/16/2015 Appointment: Kathie Oconnell WPtel: [facility] [phone] (30 min) Complex 06/16/2015 Patient Education: Patient Medication Summary Completed 06/16/2015 Care Plan: Referral Order SNOMED-CT : [id number] Pending 06/16/2015 Visit Plan: Insomnia - Pt [...] Completed 02/23/2014 Appointment: [facility]el[phone] [facility] [facility] 09/02/2013 Patient Education: Patient [...] 5pm. Daytime napping worsens night time insomnia. Zcvulk-emfhleog-hollvurxn removal if becomes irritated 09/01/2013 Appointment: New Patient 09/01/2013 Patient Education: Patient Medication Summary Completed 09/01/2013 Referral: Tremaine Hernandez [facility]el[facility] [phone] [id number] Ref[facility] Initiated Instructions Comment Pt has been [...] to maintain independece in the home. . Medicare Exam - to day we [...] 5pm. Daytime napping worsens night time insomnia. Nvbxfn-zpismfzy-uxkfgppzn removal if becomes irritated Refer to Dr [...] of afib while in the hospital in [place] - continue with amiodarone at this time. [...] change, or with any acute concerns. . Lbqrqkwf-gxsbreo-q efill lorazepam for prn use History of exposure to heavy metals-possible slight yellowing of the eyes- intermittent RUQ pain-will check labs -consider hepatitis panel/liver/gallbladder ultrasound if symptoms persist or worsen
--- OUTSIDE RECORDS SUMMARY | 2019-09-25 10:15 | XMS REPORT | CCD ---
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 Marital status Unknown D ivorced 09/01/[address]: 3870636 Former smoker quit 1972 09/01/2013 Alcohol history [...] 12/06/2016 Unknown 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 [...] 12/06/2016 Active 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 [...] Fill Instructions lorazepam 2 mg tablet RxNorm: 690259 1/2-1 Tablet(s) PO QHS as needed insomni a 09/13/2017 03/11/2018 In active lorazepam 2 mg tablet RxNorm: 013030 1/2-1 Tablet(s) PO QHS as needed insomni a 05/03/2017 12/30/2017 In active lorazepam 2 mg tablet RxNorm: 628062 1/2-1 Tablet(s) PO QHS as needed insomni a 12/04/2016 12/30/2017 In active Ambien CR 6.25 mg ta blet,extended release RxNorm: 535767 1 Tablet(s) PO daily 03/06/2016 04/04/2016 In active lorazepam 2 mg tablet RxNorm: 677805 1 Tablet(s) PO as needed agitation 03/06/2016 10/29/2016 In active Ambien CR 6.25 mg ta blet,extended release RxNorm: 862501 Tablet(s) PO 03/06/2016 05/28/2016 In active Ambien CR 6.25 mg ta blet,extended release RxNorm: 321973 1 Tablet(s) PO daily 03/06/2016 03/05/2016 In active Cialis 20 mg tablet RxNorm: 089236 1 Tablet(s) PO PRN sexual activity 02/17/2016 12/05/2016 In active ID [id number] Cialis 20 mg tablet RxNorm: 348455 1 Tablet(s) PO PRN sexual activity 12/14/2015 02/16/2016 In active ID [id number] Viagra 100 mg tablet RxNorm: 599939 Tablet(s) as needed 1 TABLET(S) PO QDAY PRN 3MONTH SUPPLY WITH 1 REFILLS TO SUZY RX 12/10/2015 12/13/2015 Inactive [PACO INGS FOR NON-COVERED DRUGS -- BIN:556472, PCN: ASPROD1, Group: XXXXX, ID# [id number], Questions: . THIS IS NOT INSURANCE.] Cialis 20 mg tablet RxNorm: 743619 1 Tablet(s) PO PRN sexual activity 10/11/2015 12/13/2015 In active lorazepam 2 mg tablet RxNorm: 923431 1 Tablet(s) PO QHS as needed insomnia 10/06/2015 02/02/2016 In active Viagra 100 mg tablet RxNorm: 211668 Tablet(s) as needed 1 TABLET(S) PO QDAY PRN 3MONTH SUPPLY WITH 3 REFILLS TO SUZY RX 06/25/2015 10/10/2015 Inactive [PACO INGS FOR NON-COVERED DRUGS -- BIN:022689, PCN: ASPROD1, Group: XXXXX, ID# [id number], Questions: . THIS IS NOT INSURANCE.] lorazepam 2 mg tablet RxNorm: 808399 Tablet(s) PO 05/20/2015 10/05/2015 Inactive Xanax 1 mg tablet RxNorm: 542659 1 Tablet(s) PO HS PRN 03/23/2015 10/03/2015 Inactive [SAVINGS FOR UNINSURED PATIENTS -- BIN:0 67304, PCN: ASPROD1, Group: AME08, ID# [id number], Process claim through [employer], for questions: . THIS IS NOT INSURANCE.] alprazolam 1 mg tablet RxNorm: 911471 1 Tablet(s) PO QHS as needed TAKE 1 TABL ET BY MOUTH EVERY NIGHT AT BEDTIME NEEDED 12/01/2014 01/28/2015 Inactive (Res ponse to an electronic controlled substance refill request - RxReferenceNumber: [id number]|1|0|1) Viagra 100 mg tablet RxNorm: 793524 Tablet(s) as needed 1 TABLET(S) PO QDAY PRN 11/19/2014 12/18/2014 In active [SAVINGS FOR NON-COVERED DRUGS -- BIN:00 3585, PCN: ASPROD1, Group: XXXXX, ID# [id number], Questions: . THIS IS NOT INSURANCE.] alprazolam 1 mg tablet RxNorm: 339676 1 Tablet(s) PO QHS as needed TAKE 1 TABL ET BY MOUTH EVERY NIGHT AT BEDTIME NEEDED 10/09/2014 11/30/2014 Inactive (Res ponse to an electronic controlled substance refill request - RxReferenceNumber: [id number]|1|0|1) alprazolam 1 mg tablet RxNorm: 294760 1 Tablet(s) PO qd PRN 06/23/2014 06/22/2014 Inactive [SAVINGS FOR NON-COVERED DRUGS -- BIN:00 3585, PCN: ASPROD1, Group: XXXXX, ID# [id number], Questions: . THIS IS NOT INSURANCE.] alprazolam 1 mg tablet RxNorm: 843020 TAKE 1 TABLET BY MOUTH EVERY NIGHT AT BE DTIME NEEDED 06/23/2014 07/22/2014 Inactive (Response to an electronic controlled substance refill request - RxReferenceNumber: [id number]|1|0|1) Viagra 100 mg tablet RxNorm: 998946 Tablet(s) as needed 1 TABLET(S) PO QDAY PRN 05/20/2014 06/18/2014 In active [SAVINGS FOR NON-COVERED DRUGS -- BIN:00 3585, PCN: ASPROD1, Group: XXXXX, ID# [id number], Questions: . THIS IS NOT INSURANCE.] alprazolam 1 mg tablet RxNorm: 247187 1 Tablet(s) PO qd PRN 04/27/2014 06/22/2014 Inactive [SAVINGS FOR NON-COVERED DRUGS -- BIN:00 3585, PCN: ASPROD1, Group: XXXXX, ID# [id number], Questions: . THIS IS NOT INSURANCE.] Voltaren 1 % topical gel RxNorm: 669991 4 Gram(s) TOP QID 02/23/2014 10/03/2015 Inactive [SAVINGS FOR UNINSURED PATIENTS -- BIN:581589, PCN: ASPROD1, Group: AME08, ID# [id number], Process claim through [employer], for questions: . THIS IS NOT INSURANCE.] triamcinolone aceton caty 0.1 % topical cream RxNorm: 1041425 1 Application TOP BI D 02/23/2014 03/08/2014 In active hands Xanax 1 mg tablet RxNorm: 878948 1 Tablet(s) PO HS PRN 02/23/2014 03/22/2015 Inactive [SAVINGS FOR UNINSURED PATIENTS -- BIN:0 86902, PCN: ASPROD1, Group: AME08, ID# [id number], Process claim through [employer], for questions: . THIS IS NOT INSURANCE.] Viagra 100 mg tablet RxNorm: 427066 1 TABLET(S) PO QDAY PRN 01/26/2014 05/19/2014 Inactive [SAVINGS FOR UNINSURED PATIENTS -- BIN:0 56790, PCN: ASPROD1, Group: AME08, ID# [id number], Process claim through [employer], for questions: . THIS IS NOT INSURANCE.] Viagra 100 mg tablet RxNorm: 009419 1 Tablet(s) PO QDAY PRN 01/26/2014 02/24/2014 Inactive [SAVINGS FOR UNINSURED PATIENTS -- BIN:0 75316, PCN: ASPROD1, Group: AME08, ID# [id number], Process claim through [employer], for questions: . THIS IS NOT INSURANCE.] Viagra 100 mg tablet RxNorm: 009174 1 Tablet(s) PO QDAY PRN 11/10/2013 12/08/2013 Inactive [SAVINGS FOR UNINSURED PATIENTS -- BIN:0 02210, PCN: ASPROD1, Group: AME08, ID# [id number], Process claim through [employer], for questions: . THIS IS NOT INSURANCE.] Viagra 50 mg tablet RxNorm: 030363 1-2 Tablet(s) PO QDAY PRN 11/07/2013 11/06/2013 Inactive Viagra 50 mg tablet RxNorm: 002373 1-2 Tablet(s) PO QDAY PRN 11/07/2013 11/09/2013 Inactive [SAVINGS FOR UNINSURED PATIENTS -- BIN:0 05498, PCN: ASPROD1, Group: AME08, ID# [id number], Process claim through [employer], for questions: . THIS IS NOT INSURANCE.] sildenafil 50 mg tablet RxNorm: 954840 1 Tablet(s) PO daily as needed 10/16/2013 11/14/2013 In active [SAVINGS FOR UNINSURED PATIENTS -- BIN:0 12367, PCN: ASPROD1, Group: AME08, ID# [id number], Process claim through [employer], for questions: . THIS IS NOT INSURANCE.] sildenafil 50 mg tablet RxNorm: 093297 1 Tablet(s) PO daily as needed 10/16/2013 10/15/2013 In active AndroGel 20.25 mg/1. 25 gram (1.62 %) transdermal gel pump RxNorm: 4196412 2 pumps TD daily 09/08/2013 03/06/2014 Inactive [SAVINGS FOR UNINSURED SIDNEY ENTS -- BIN:085499, PCN: ASPROD1, Group: AME08, ID# [id number], Process claim through [employer], for questions: . THIS IS NOT INSURANCE.] AndroGel 20.25 mg/1. 25 gram (1.62 %) transdermal gel pump RxNorm: 4272585 2 pumps TD daily 09/08/2013 09/07/2013 Inactive aspirin 325 mg tablet RxNorm: 482331 1 Tablet(s) PO daily No Start Date Active atorvastatin 40 mg t ablet RxNorm: 082388 1 Tablet(s) PO QHS No Start Date Active metoprolol succinate ER 25 mg tablet,extended release 24 hr RxNorm: 725311 1/2 Tablet(s) PO daily No Start Date Active lisinopril 2.5 mg ta blet RxNorm: 907889 1 Tablet(s) PO daily No Start Date Active clopidogrel 75 mg ta blet RxNorm: 547569 1 Tablet(s) PO daily No Start Date Active alprazolam 1 mg tablet RxNorm: 629136 Tablet(s) PO PRN No Start Date 04/26/2014 Inactive Benadryl 25 mg capsule RxNorm: 7423309 2 Capsule(s) PO QPM No Start Date 10/03/2015 Inactive [facility] 2.5 mg-60 mg tablet RxNorm: 4829162 1 Tablet(s) PO Q6 as needed (do not exceed 4 tablets in 24 hours No Start Date 12/30/2017 Inactive Cialis 20 mg tablet RxNorm: 307505 1 Tablet(s) PO PRN No Start Date [...] ICD-9: 401.1 12/31/2017 Atherosclerotic heart disease of [place] coronary artery without angina pectoris ICD-10: I25.10 [...] Ord30 C/HDL 2.8 Ratio 03/28/2018 Comp Metabolic Avw992 NA 144 mEq/L 03/28/2018 Comp Metabolic Vvf305 K 4.3 mEq/L 03/28/2018 Comp Metabolic Grt770 CL 108 mEq/L 03/28/2018 Comp Metabolic Lco615 CO2 29.0 mEq/L 03/28/2018 Comp Metabolic Zup447 AN ION GAP 11 03/28/2018 Comp Metabolic Naz897 GL UCOSE 91 mg/dL 03/28/2018 Comp Metabolic Ioq313 Cr eat 1.2 mg/dL 03/28/2018 Comp Metabolic Yya776 eG FR 65 ml/min/1.73m2 03/28 Comp Metabolic Gma597 BUN 25 mg/dL 03/28/2018 Comp Metabolic Zfd502 B/ C Ratio 21.0 Ratio 03/28/2018 Comp Metabolic Tbq892 CA LCIUM 9.2 mg/dL 03/28/2018 Comp Metabolic Edw809 AL K PHOS 64 U/L 03/28/2018 Comp Metabolic Jsl253 T(SGOT) 14 U/L 03/28/2018 Comp Metabolic Yps811 AL T(SGPT) 11 U/L 03/28/2018 Comp Metabolic Oed957 BI LI T 0.6 mg/dL 03/28/2018 Comp Metabolic Uej180 AL BUMIN 4.0 g/dL 03/28/2018 Comp Metabolic Tnu261 TP RO 6.2 g/dL 03/28/2018 Comp Metabolic Opc886 GL OB 2.2 g/dL 03/28/2018 Comp Metabolic Lpg038 A/ G Ratio 1.8 Ratio 03/28/2018 Comp Metabolic Izz681 Os mo 291 mOsmo 03/28/2018 Total Psa Ord10 PSA 5.71 ng/mL 04/18/2017 Heavy Metals Profile Ii Blood 315185 LEAD, BLOOD . 12/11/2016 Heavy Metals Profile Ii Blood 540543 LEAD, BLOOD <2.0 ug/dL 12/11/2016 Heavy Metals Profile Ii Blood 392459 Continued Results 12/11/2016 Heavy Metals Profile Ii Blood 172612 MERCURY, BLOOD . 12/11/2016 Heavy Metals Profile Ii Blood 249963 MERCURY, BLOOD <3 ug/L 12/11/2016 Heavy Metals Profile Ii Blood 738487 ARSENIC, BLOOD . 12/11/2016 Heavy Metals Profile Ii Blood 865658 ARSENIC, BLOOD <10.0 ug/L 12/11/2016 Comp Metabolic Zeq317 NA 141 mEq/L 12/04/2016 Comp Metabolic Jic886 K 3.7 mEq/L 12/04/2016 Comp Metabolic Swe327 CL 104 mEq/L 12/04/2016 Comp Metabolic Ssq061 CO2 29.0 mEq/L 12/04/2016 Comp Metabolic Pir180 AN ION GAP 12 12/04/2016 Comp Metabolic Ytx401 GL UCOSE 130 mg/dL 12/04/2016 Comp Metabolic Fde808 Cr eat 1.0 mg/dL 12/04/2016 Comp Metabolic Vdy433 eG FR 77 ml/min/1.73m2 12/04 Comp Metabolic Zur159 BUN 19 mg/dL 12/04/2016 Comp Metabolic Nkh385 B/ C Ratio 18.4 Ratio 12/04/2016 Comp Metabolic Nhc993 CA LCIUM 9.3 mg/dL 12/04/2016 Comp Metabolic Ume950 AL K PHOS 56 U/L 12/04/2016 Comp Metabolic Zhb014 T(SGOT) 14 U/L 12/04/2016 Comp Metabolic Bsc729 AL T(SGPT) 10 U/L 12/04/2016 Comp Metabolic Fxb285 BI LI T 1.1 mg/dL 12/04/2016 Comp Metabolic Dkw474 AL BUMIN 4.1 g/dL 12/04/2016 Comp Metabolic Kcx342 TP RO 6.3 g/dL 12/04/2016 Comp Metabolic Fnw228 GL OB 2.2 g/dL 12/04/2016 Comp Metabolic Mkq131 A/ G Ratio 1.9 Ratio 12/04/2016 Comp Metabolic Hns708 Os mo 285 mOsmo 12/04/2016 Cbc With [...] 31.7 pg 12/04/2016 Cbc With Differential Ord2 Whiteside% 6.1 % 12/04/2016 Cbc With Differential Ord2 [...] 1.71 K/ul 12/04/2016 Cbc With Differential Ord2 Whiteside ABS# 0.5 K/ul 12/04/2016 Cbc With Differential Ord2 Eos ABS# 0.3 K/ul 12/04/2016 Cbc With Differential Ord2 Baso ABS# 0.0 K/ul 12/04/2016 Testosterone Pme727 Testo 259.94 ng/dL 03/31/2015 Comp Metabolic Qij631 NA 143 mEq/L 03/31/2015 Comp Metabolic Mgr102 K 3.9 mEq/L 03/31/2015 Comp Metabolic Vmk946 CL 109 mEq/L 03/31/2015 Comp Metabolic Ayk550 CO2 29.0 mEq/L 03/31/2015 Comp Metabolic Bwb833 AN ION GAP 9 03/31/2015 Comp Metabolic Flu969 GL UCOSE 94 mg/dL 03/31/2015 Comp Metabolic Dii040 Cr eat 0.9 mg/dL 03/31/2015 Comp Metabolic Obn099 eG FR 86 ml/min/1.73m2 03/31 Comp Metabolic Zol196 BUN 22 mg/dL 03/31/2015 Comp Metabolic Xer822 B/ C Ratio 23.4 Ratio 03/31/2015 Comp Metabolic Ujs663 CA LCIUM 8.8 mg/dL 03/31/2015 Comp Metabolic Jps950 AL K PHOS 54 U/L 03/31/2015 Comp Metabolic Suy029 T(SGOT) 12 U/L 03/31/2015 Comp Metabolic Lui064 AL T(SGPT) 7 U/L 03/31/2015 Comp Metabolic Yvh197 BI LI T 0.7 mg/dL 03/31/2015 Comp Metabolic Tqt471 AL BUMIN 4.0 g/dL 03/31/2015 Comp Metabolic Quv111 TP RO 6.1 g/dL 03/31/2015 Comp Metabolic Tpp975 GL OB 2.1 g/dL 03/31/2015 Comp Metabolic Esv541 A/ G Ratio 1.9 Ratio 03/31/2015 Comp Metabolic Spw500 Os mo 288 mOsmo 03/31/2015 Cbc With Differential Ord2 WBC 6.83 [...] 31.0 pg 03/31/2015 Cbc With Differential Ord2 Whiteside% 10.2 % 03/31/2015 Cbc With Differential Ord2 [...] 1.94 K/ul 03/31/2015 Cbc With Differential Ord2 Whiteside ABS# 0.7 K/ul 03/31/2015 Cbc With Differential Ord2 Eos ABS# 0.3 K/ul 03/31/2015 Cbc With Differential Ord2 Baso ABS# 0.0 K/ul 03/31/2015 Cbc With Differential Ord2 New Analyzer Notice Please note new ref ranges s tarting 03-10-2015 due to implemntation of new five part differential hematolgy analyzer. 03/31/2015 Tsh Ord6 hTSH II 2.18 uIU/mL 03/31/2015 Lipid Ord30 CHOL 199 mg/dL 03/31/2015 Lipid Ord30 HDL 45.0 mg/dl 03/31/2015 Lipid Ord30 TRIG 126 mg/dL 03/31/2015 Lipid Ord30 LDL 129 mg/dL 03/31/2015 Lipid Ord30 C/HDL 4.4 Ratio 03/31/2015 B12 Kvy615 B12 444.00 pg/ml 03/31/2015 TESTOS TO 1928681 TESTOS TO 252 NG/DL 09/03/2013 ICT OCCULT 5930036 ICT O CCULT NEG 09/02/2013 CBC 5491356 WBC 7.2 10e9/L 09/02/2013 CBC 9709820 RBC 4.74 10e12/L 09/02/2013 CBC 3564368 HGB 14.8 g/dL 09/02/2013 CBC 6708684 HCT DET 44.2 % 09/02/2013 CBC 9438167 MCV 93.2 fL 09/02/2013 CBC 6854889 MCH 31.2 pg 09/02/2013 CBC 1557654 MCHC 33.5 g/dL 09/02/2013 CBC 7395344 PLT 224 10e9/L 09/02/2013 CBC 8306481 MPV 9.9 fL 09/02/2013 CBC 8797171 HAYDE % 60.5 % 09/02/2013 CBC 8045943 LY % 26.8 % 09/02/2013 CBC 0953209 MON % 9.0 % 09/02/2013 CBC 4635521 EOS % 3.3 % 09/02/2013 CBC 8000853 BASO % 0.4 % 09/02/2013 CBC 4421356 RDW 13.1 % 09/02/2013 CBC 2477679 ABS HAYDE 4.36 10e9/L 09/02/2013 CBC 6205719 ABS LYMPH 1.93 10e9/L 09/02/2013 CBC 6663994 ABS MONO 0.65 10e9/L 09/02/2013 CBC 7137016 ABS EOS 0.24 10e9/L 09/02/2013 CBC 3737296 ABS BASO 0.03 10e9/L 09/02/2013 CBC 0334441 RDW-SD 43.1 fL 09/02/2013 PSA EQ 5523703 PSA EQ 3.20 NG/ML 09/02/2013 TSH 2897908 TSH 2.262 uIU/ML 09/02/2013 CHEM 14 6889889 AST 13 U/L 09/02/2013 CHEM 14 2417655 ALT 9 IU/L 09/02/2013 CHEM 14 4826736 BUN 23 MG/DL 09/02/2013 CHEM 14 1181873 ALBUMIN 4.1 GM/DL 09/02/2013 CHEM 14 6561867 CHLORIDE 109 MMOL/L 09/02/2013 CHEM 14 2502663 BILI TOT 1.0 MG/DL 09/02/2013 CHEM 14 4344069 ALK PHOS 55 U/L 09/02/2013 CHEM 14 7860756 SODIUM 142 MMOL/L 09/02/2013 CHEM 14 8318914 CREATINI NE 0.91 MG/DL 09/02/2013 CHEM 14 7581328 CALCIUM 9.3 MG/DL 09/02/2013 CHEM 14 4284520 POTASSIUM 3.9 MMOL/L 09/02/2013 CHEM 14 5174849 PROT TOT 6.2 GM/DL 09/02/2013 CHEM 14 0051318 GLUCOSE 95 MG/DL 09/02/2013 CHEM 14 8358783 BICARB 28 MMOL/L 09/02/2013 CHEM 14 8572060 ANION GAP 5 MEQ/L 09/02/2013 LIPID GRP HDL TE ST 48 MG/DL 09/02/2013 LIPID GRP TRIG 134 MG/DL 09/02/2013 LIPID GRP TEST L DL 151 MG/DL 09/02/2013 LIPID GRP CHOL 226 MG/DL 09/02/2013 LIPID GRP RCHOL/ HDL 4.71 RATIO 09/02/2013 GFR CALC 4021895 GFR AA >60 ML/MIN 09/02/2013 GFR CALC 9732930 GFR NON -AA >60 ML/MIN 09/02/2013 Review of Systems System Result Effective [...] benign 03/23/2016 None Full Exam - General 1995 Lymphatic neck nodes Overall: posterior cervical chain benign 03/23/2016 None Full Exam - General 1995 Musculoskeletal gait and station Overall: normal gait 03/23/2016 None Full Exam - General 1994 Musculoskeletal gait and station Overall: normal station 03/23/2016 None Full Exam - General 1995 Integument inspection of skin Overall: few scattered [...] masses 09/01/2013 None Full Exam - General 1995 Ears/Nose/Throat oral cavity/pharynx/larynx Overall: oral mucosa clear [...] PSA EQ (ASSAY OF PSA TOTAL) CPT-4: 64492 09/02/2013 TSH (ASSAY THYROID S MARIELENA HORMONE) CPT-4: 00781 09/02/2013 CBC (COMPLETE CBC W/ AUTO DIFF WBC) CPT-4: 51771 09/02/2013 CHEM 14 (COMPREHEN M ETABOLIC PANEL) CPT-4: 90254 09/02/2013 LIPID GRP (LIPID PANEL) CPT-4: 87495 09/02/2013 REMOVE IMPACTED EAR WAX UNI CPT-4: 11181 09/02/2013 Vital Signs Date Vital 01/01/2018 Blood Pressure 1: 140/66 Code: 8480-6 BMI: 23.4 Code: 12134-9 Heart Rate 1: 68 bpm Height: 6'1" SpO2: 98% Waist Measure (cm): 81 cm Weight: 177 lbs 12/31/2017 Blood Pressure 1: 142/76 Code: 8480-6 BMI: 23.9 Code: 91101-0 Heart Rate 1: 68 bpm Height: 6'1" SpO2: 99% Weight: 181 lbs 09/18/2017 Blood Pressure 1: 128/72 Code: 8480-6 Heart Rate 1: 86 bpm Height: SpO2: 98% Weight: 04/18/2017 Blood Pressure 1: 148/78 Code: 8480-6 BMI: 23.4 Code: 81373-7 Heart Rate 1: 87 bpm Height: 6'1" SpO2: 98% Weight: 177 lbs 12/06/2016 Blood Pressure 1: 134/72 Code: 8480-6 BMI: 22.0 Code: 04982-4 Heart Rate 1: 60 bpm Height: 6'1" SpO2: 98% Waist Measure (cm): 81 cm Weight: 167 lbs 12/04/2016 Blood Pressure 1: 136/70 Code: 8480-6 BMI: 22.0 Code: 68897-8 Heart Rate 1: 59 bpm Height: 6'1" SpO2: 97% Weight: 167 lbs 06/07/2016 Blood Pressure 1: 126/64 Code: 8480-6 BMI: 20.4 Code: 77135-7 Heart Rate 1: 57 bpm Height: 6'1" SpO2: 97% Temperature: 37.1 (C ) / 98.8 (F) Weight: 155 lbs 03/23/2016 Blood Pressure 1: 132/74 Code: 8480-6 BMI: 22.0 Code: 92554-1 Heart Rate 1: 63 bpm Height: 6'1" SpO2: 98% Weight: 167 lbs 03/06/2016 Blood Pressure 1: 148/86 Code: 8480-6 BMI: 22.0 Code: 10952-8 Heart Rate 1: 62 bpm Height: 6'1" SpO2: 97% Weight: 167 lbs 10/04/2015 Blood Pressure 1: 150/82 Code: 8480-6 BMI: 22.2 Code: 06666-1 Heart Rate 1: 55 bpm Height: 6'1" SpO2: 98% Weight: 168 lbs 06/16/2015 Blood Pressure 1: 152/80 Code: 8480-6 BMI: 24.0 Code: 71640-9 Heart Rate 1: 60 bpm Height: 6'1" SpO2: 97% Weight: 182 lbs 05/20/2015 Blood Pressure 1: 152/78 Code: 8480-6 BMI: 24.3 Code: 95822-5 Heart Rate 1: 68 bpm Height: 6'1" SpO2: 98% Weight: 184 lbs 05/06/2015 Blood Pressure 1: 142/60 Code: 8480-6 BMI: 23.9 Code: 62762-1 Heart Rate 1: 58 bpm Height: 6'1" SpO2: 96% Weight: 181 lbs 03/30/2015 Blood Pressure 1: 138/52 Code: 8480-6 BMI: 24.4 Code: 78064-4 Heart Rate 1: 71 bpm Height: 6'1" SpO2: 95% Weight: 185 lbs 12/07/2014 Blood Pressure 1: 132/68 Code: 8480-6 Heart Rate 1: 60 bpm SpO2: 98% Weight: 185 lbs 02/23/2014 Blood Pressure 1: 128/68 Code: 8480-6 BMI: 25.6 Code: 75462-5 Heart Rate 1: 84 bpm Height: 6'1" Weight: 194 lbs 09/01/2013 Blood Pressure 1: 124/62 Code: 8480-6 BMI: 24.2 Code: 64540-1 Heart Rate 1: 64 bpm Height: 6'1" [...] well man exam (65+ years) Lifestyle satisfactory work/long-term experience 03/23/2016 None well man exam (65+ [...] Encounters Encounter Performer Loca tion Codes Date 95824 EST. 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 PATIENT, LEVEL IV Diagnosis: Other insomnia[ICD10: G47.09] [facility] CPT-4: 21379 09/18/2017 83784 EST. PATIENT, LEVEL III Diagnosis: Pain in right shoulder[ICD10: M25.511] Diagnosis: Encounter for screening for malignant neoplasm of prostate[ICD10: Z12.5] Melissa Mendoza MD, [facility] CPT-4: 02680 04/18/2017 ([id number]) 78811 EST. P ATIENT, LEVEL III Diagnosis: Other insomnia[ICD10: G47.09] Diagnosis: Encounter for screening for disorder due to exposure to contaminants[ICD10: Z13.88] Diagnosis: Unspecified jaundice[ICD10: R17] Diagnosis: Right upper quadrant pain[ICD10: R10.11] Kathie Mendoza MD, [facility] CPT-4: 65327 12/04/2016 70520 EST. PATIENT, LEVEL IV Diagnosis: Unilateral inguinal hernia, without obstruction or gangrene, recurrent[ICD10: K40.91] Melissa Mendoza MD, [facility] CPT-4: 03229 06/07/2016 ([id number]) 36832 EST. P ATIENT, LEVEL III Diagnosis: Male erectile disorder[ICD10: F52.21] Diagnosis: Restless legs syndrome[ICD10: G25.81] Gloria Mendoza MD, [facility] CPT-4: 14715 03/23/2016 97202 EST. PATIENT, LEVEL IV Diagnosis: Other insomnia[ICD10: G47.09] Diagnosis: Restless legs syndrome[ICD10: G25.81] Melissa Mendoza MD, [facility] CPT- 4: 91258 03/06/2016 ([id number]) 94249 EST. P ATIENT, LEVEL III Diagnosis: Unilateral inguinal hernia, without obstruction or gangrene, recurrent[ICD10: K40.91] Kathie Mendoza MD, [facility] CPT-4: 50620 10/04/2015 48583 EST. PATIENT, LEVEL III Diagnosis: Other insomnia[ICD10: G47.09] Diagnosis: Male erectile disorder[ICD10: F52.21] Melissa Mendoza MD, [facility] CPT- 4: 72289 06/16/2015 67281 EST. PATIENT, LEVEL IV Diagnosis: Other insomnia[ICD10: G47.09] Melissa Mendoza MD, [facility] CPT-4: 24852 05/20/2015 10176 EST. PATIENT, LEVEL III Diagnosis: Other insomnia[ICD10: G47.09] Melissa Mendoza MD, [facility] CPT-4: 06709 05/06/2015 10145 EST. PATIENT, LEVEL III Diagnosis: Conjunctival hemorrhage, right eye[ICD10: H11.31] Diagnosis: Other seborrheic keratosis[ICD10: L82.1] Gloria Mendoza MD, [facility] CPT-4: 26554 12/07/[id number]) 39673 EST. P ATIENT, LEVEL IV Diagnosis: Eczema, dyshidrotic[ICD9: 705.81] Diagnosis: Right hip pain[ICD9: 719.45] Diagnosis: Insomnia[ICD9: 780.52] Diagnosis: Erectile dysfunction[ICD9: 607.84] Kathie Mendoza MD, [facility] CPT-4: 39775 02/23/2014 Office outpatient ne w 30 minutes Diagnosis: Erectile dysfunction[ICD9: 607.84] Diagnosis: INSOMNIA NOS[ICD9: 780.52] Diagnosis: Special screening for malignant neoplasms, colon[ICD9: V76.51] Kathie Mendoza MD, [facility] CPT-4: 97134 09/01/2013 Plan of Care Planned Activity Notes [...] care surrogate. 01/01/2018 Appointment: Kathie Oconnell WPtel: [address] [place], [place] [phone] [facility] - Annual Wellness Visit 01/01/2018 Patient [...] of afib while in the hospital in [place] - continue with amiodarone at this time. 12/31/2017 Appointment: [facility] Mendo[facility] (15 min) Moderate 12/31/2017 Patient Education: Patient Medication Summary Completed 12/31/2017 Appointment: Melissa Johnson WPtel: [facility] [facility] - Annual Wellness Visit 12/12/2017 Visit [...] not improve. 04/18/2017 Appointment: Melissa Johnson WPtel[facility] (15 min) Moderate 04/18/2017 Patient Education: Patient [...] care surrogate. 12/06/2016 Appointment: Melissa Johnson WPtel: [address] [place], [place] [address] [facility] - Annual Wellness Visit 12/06/2016 Patient Education: Patient Medication Summary Completed 12/06/2016 Visit Plan: Wfkapthy-uckbnny-zylbvf lorazepam for prn use History of exposure to heavy metals-possible slight yellowing of the eyes- intermittent RUQ pain-will check labs -consider hepatitis panel/liver/gallbladd er ultrasound if symptoms persist or worsen 12/04/2016 Appointment: Kathie Oconnell WPtel: [phone] [phone] [place] (30 min) Complex 12/04/2016 Patient Education: Patient Medication Summary Completed 12/04/2016 Appointment: Gloria Mendoza WPtel: [phone] [facility] [place] (15 min) Moderate 11/08/2016 Visit Plan: Right inguinal pain - p ost hernia repair - will order US - pt is to notify clinic if symptoms change, or with any acute concerns. 06/07/2016 Appointment: Melissa Johnson WPtel: [phone] [facility] [place] (30 min) Complex 06/07/2016 Patient Education: [...] Gloria Mendoza WPtel: [facility] [place] (15 min) Moderate 03/23/2016 Appointment: Gloria Mendoza WPtel: [facility] [place] (15 min) Moderate 03/23/2016 Patient Education: [...] or requip. 03/06/2016 Appointment: Melissa Johnson WPtel: [phone] [facility] (30 min) Complex 03/06/2016 Patient Education: Patient Medication Summary Completed 03/06/2016 Visit Plan: Inguinal hernia-refer shad Esteban for evaluation 10/04/2015 Appointment: Kathie Oconnell WPtel: [phone] (30 min) Complex 10/04/2015 Patient Education: Patient Medication Summary Completed 10/04/2015 Care Plan: Referral Order SNOMED-CT : [id number] Pending 10/04/2015 Referral: Mayi Hernandezas WPtel: [phone] [id number] Referral Initiated 06/28/2015 Visit Plan: Insomnia - [...] Kathie Oconnell WPtel: [id number] (30 min) Complex 06/16/2015 Patient Education: Patient Medication Summary Completed 06/16/2015 Care Plan: Referral Order SNOMED-CT : [id number] Pending 06/16/2015 Visit Plan: Insomnia - Pt [...] Completed 02/23/2014 App[facility]ment: [id number] [facility] Draw 09/02/2013 Patient Education: Patient [...] 5pm. Daytime napping worsens night time insomnia. Tatpnu-ppvjkkxc-ldpgxsynr removal if becomes irritated 09/01/2013 Appointment: New Patient 09/01/2013 Patient Education: Patient Medication Summary Completed 09/01/2013 Referral: Tremaine Hernandez WPtel: [id number] [id number] [place] Referral Initiated Instructions Comment Pt has [...] 5pm. Daytime napping worsens night time insomnia. Vdaaec-ohqtbxwn-rcjnzstom removal if becomes irritated Refer to Dr [...] of afib while in the hospital in [place] - continue with amiodarone at this time. [...] change, or with any acute concerns. . Iipavepi-ptuadgw-r efill lorazepam for prn use History of exposure to heavy metals-possible slight yellowing of the eyes- intermittent RUQ pain-will check labs -consider hepatitis panel/liver/gallbladder ultrasound if symptoms persist or worsen
--- OUTSIDE RECORDS SUMMARY | 2019-09-25 10:16 | XMS REPORT | CCD ---
Author Author eDmetri Oconnell Organization [facility] Address [address] [place] [address] Phone Care Team Providers Care Disability Rater Name Role Phone PP Unavailable CCM Unavailable Summary Purpose Interface Exchange Insurance Providers Payer name Policy type / Coverage type Covered alliance party ID Effective Begin Date Effective End Date WPS Medicare Part B 22 [id number] 2015 Unknown [employer] [place] [id number] 2015 Unknown Family history Sister Diagnosis Age [...] Unknown Curre ntly employed [employer] 10/04/2015 Marital status Unknown D ivorced 09/01/[address]: 6714979 Former smoker quit 1972 09/01/2013 Alcohol history [...] 12/06/2016 Unknown 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 [...] 12/06/2016 Active 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 [...] Fill Instructions lorazepam 2 mg tablet RxNorm: 605415 1/2-1 Tablet(s) PO QHS as needed insomni a 09/13/2017 03/11/2018 In active lorazepam 2 mg tablet RxNorm: 955487 1/2-1 Tablet(s) PO QHS as needed insomni a 05/03/2017 12/30/2017 In active lorazepam 2 mg tablet RxNorm: 347869 1/2-1 Tablet(s) PO QHS as needed insomni a 12/04/2016 12/30/2017 In active Ambien CR 6.25 mg ta blet,extended release RxNorm: 146629 1 Tablet(s) PO daily 03/06/2016 04/04/2016 In active lorazepam 2 mg tablet RxNorm: 157302 1 Tablet(s) PO as needed agitation 03/06/2016 10/29/2016 In active Ambien CR 6.25 mg ta blet,extended release RxNorm: 778753 Tablet(s) PO 03/06/2016 05/28/2016 In active Ambien CR 6.25 mg ta blet,extended release RxNorm: 567067 1 Tablet(s) PO daily 03/06/2016 03/05/2016 In active Cialis 20 mg tablet RxNorm: 819643 1 Tablet(s) PO PRN sexual activity 02/17/2016 12/05/2016 In active ID [id number] Cialis 20 mg tablet RxNorm: 959282 1 Tablet(s) PO PRN sexual activity 12/14/2015 02/16/2016 In active ID [id number] Viagra 100 mg tablet RxNorm: 096297 Tablet(s) as needed 1 TABLET(S) PO QDAY PRN 3MONTH SUPPLY WITH 1 REFILLS TO SUZY RX 12/10/2015 12/13/2015 Inactive [PACO INGS FOR NON-COVERED DRUGS -- BIN:968106, PCN: ASPROD1, Group: XXXXX, ID# [id number], Questions: . THIS IS NOT INSURANCE.] Cialis 20 mg tablet RxNorm: 122693 1 Tablet(s) PO PRN sexual activity 10/11/2015 12/13/2015 In active lorazepam 2 mg tablet RxNorm: 008539 1 Tablet(s) PO QHS as needed insomnia 10/06/2015 02/02/2016 In active Viagra 100 mg tablet RxNorm: 710885 Tablet(s) as needed 1 TABLET(S) PO QDAY PRN 3MONTH SUPPLY WITH 3 REFILLS TO SUZY RX 06/25/2015 10/10/2015 Inactive [PACO INGS FOR NON-COVERED DRUGS -- BIN:239134, PCN: ASPROD1, Group: XXXXX, ID# [id number], Questions: . THIS IS NOT INSURANCE.] lorazepam 2 mg tablet RxNorm: 906175 Tablet(s) PO 05/20/2015 10/05/2015 Inactive Xanax 1 mg tablet RxNorm: 435338 1 Tablet(s) PO HS PRN 03/23/2015 10/03/2015 Inactive [SAVINGS FOR UNINSURED PATIENTS -- BIN:0 24512, PCN: ASPROD1, Group: AME08, ID# [id number], Process claim through Digiting, for questions: . THIS IS NOT INSURANCE.] alprazolam 1 mg tablet RxNorm: 723128 1 Tablet(s) PO QHS as needed TAKE 1 TABL ET BY MOUTH EVERY NIGHT AT BEDTIME NEEDED 12/01/2014 01/28/2015 Inactive (Res ponse to an electronic controlled substance refill request - RxReferenceNumber: [id number]|1|0|1) Viagra 100 mg tablet RxNorm: 514676 Tablet(s) as needed 1 TABLET(S) PO QDAY PRN 11/19/2014 12/18/2014 In active [SAVINGS FOR NON-COVERED DRUGS -- BIN:00 3585, PCN: ASPROD1, Group: XXXXX, ID# [id number], Questions: . THIS IS NOT INSURANCE.] alprazolam 1 mg tablet RxNorm: 458010 1 Tablet(s) PO QHS as needed TAKE 1 TABL ET BY MOUTH EVERY NIGHT AT BEDTIME NEEDED 10/09/2014 11/30/2014 Inactive (Res ponse to an electronic controlled substance refill request - RxReferenceNumber: [id number]|1|0|1) alprazolam 1 mg tablet RxNorm: 418780 1 Tablet(s) PO qd PRN 06/23/2014 06/22/2014 Inactive [SAVINGS FOR NON-COVERED DRUGS -- BIN:00 3585, PCN: ASPROD1, Group: XXXXX, ID# [id number], Questions: . THIS IS NOT INSURANCE.] alprazolam 1 mg tablet RxNorm: 776203 TAKE 1 TABLET BY MOUTH EVERY NIGHT AT BE DTIME NEEDED 06/23/2014 07/22/2014 Inactive (Response to an electronic controlled substance refill request - RxReferenceNumber: [id number]|1|0|1) Viagra 100 mg tablet RxNorm: 710510 Tablet(s) as needed 1 TABLET(S) PO QDAY PRN 05/20/2014 06/18/2014 In active [SAVINGS FOR NON-COVERED DRUGS -- BIN:00 3585, PCN: ASPROD1, Group: XXXXX, ID# [id number], Questions: . THIS IS NOT INSURANCE.] alprazolam 1 mg tablet RxNorm: 946387 1 Tablet(s) PO qd PRN 04/27/2014 06/22/2014 Inactive [SAVINGS FOR NON-COVERED DRUGS -- BIN:00 3585, PCN: ASPROD1, Group: XXXXX, ID# [id number], Questions: . THIS IS NOT INSURANCE.] Voltaren 1 % topical gel RxNorm: 656985 4 Gram(s) TOP QID 02/23/2014 10/03/2015 Inactive [SAVINGS FOR UNINSURED PATIENTS -- BIN:624910, PCN: ASPROD1, Group: AME08, ID# [id number], Process claim through MedImpact, for questions: . THIS IS NOT INSURANCE.] triamcinolone aceton caty 0.1 % topical cream RxNorm: 1804177 1 Application TOP BI D 02/23/2014 03/08/2014 In active hands Xanax 1 mg tablet RxNorm: 458146 1 Tablet(s) PO HS PRN 02/23/2014 03/22/2015 Inactive [SAVINGS FOR UNINSURED PATIENTS -- BIN:0 65264, PCN: ASPROD1, Group: AME08, ID# [id number], Process claim through MedImpact, for questions: . THIS IS NOT INSURANCE.] Viagra 100 mg tablet RxNorm: 114505 1 TABLET(S) PO QDAY PRN 01/26/2014 05/19/2014 Inactive [SAVINGS FOR UNINSURED PATIENTS -- BIN:0 33478, PCN: ASPROD1, Group: AME08, ID# [id number], Process claim through MedImpact, for questions: . THIS IS NOT INSURANCE.] Viagra 100 mg tablet RxNorm: 052148 1 Tablet(s) PO QDAY PRN 01/26/2014 02/24/2014 Inactive [SAVINGS FOR UNINSURED PATIENTS -- BIN:0 48275, PCN: ASPROD1, Group: AME08, ID# [id number], Process claim through MedImpact, for questions: . THIS IS NOT INSURANCE.] Viagra 100 mg tablet RxNorm: 175813 1 Tablet(s) PO QDAY PRN 11/10/2013 12/08/2013 Inactive [SAVINGS FOR UNINSURED PATIENTS -- BIN:0 56726, PCN: ASPROD1, Group: AME08, ID# [id number], Process claim through MedImpact, for questions: . THIS IS NOT INSURANCE.] Viagra 50 mg tablet RxNorm: 740986 1-2 Tablet(s) PO QDAY PRN 11/07/2013 11/06/2013 Inactive Viagra 50 mg tablet RxNorm: 228902 1-2 Tablet(s) PO QDAY PRN 11/07/2013 11/09/2013 Inactive [SAVINGS FOR UNINSURED PATIENTS -- BIN:0 62822, PCN: ASPROD1, Group: AME08, ID# [id number], Process claim through MedImpact, for questions: . THIS IS NOT INSURANCE.] sildenafil 50 mg tablet RxNorm: 629480 1 Tablet(s) PO daily as needed 10/16/2013 11/14/2013 In active [SAVINGS FOR UNINSURED PATIENTS -- BIN:0 13226, PCN: ASPROD1, Group: AME08, ID# [id number], Process claim through MedImpact, for questions: . THIS IS NOT INSURANCE.] sildenafil 50 mg tablet RxNorm: 091302 1 Tablet(s) PO daily as needed 10/16/2013 10/15/2013 In active AndroGel 20.25 mg/1. 25 gram (1.62 %) transdermal gel pump RxNorm: 9052230 2 pumps TD daily 09/08/2013 03/06/2014 Inactive [SAVINGS FOR UNINSURED SIDNEY ENTS -- BIN:926178, PCN: ASPROD1, Group: AME08, ID# [id number], Process claim through MedImpact, for questions: . THIS IS NOT INSURANCE.] AndroGel 20.25 mg/1. 25 gram (1.62 %) transdermal gel pump RxNorm: 4932643 2 pumps TD daily 09/08/2013 09/07/2013 Inactive aspirin 325 mg tablet RxNorm: 992539 1 Tablet(s) PO daily No Start Date Active atorvastatin 40 mg t ablet RxNorm: 724045 1 Tablet(s) PO QHS No Start Date Active metoprolol succinate ER 25 mg tablet,extended release 24 hr RxNorm: 979161 1/2 Tablet(s) PO daily No Start Date Active lisinopril 2.5 mg ta blet RxNorm: 413501 1 Tablet(s) PO daily No Start Date Active clopidogrel 75 mg ta blet RxNorm: 359612 1 Tablet(s) PO daily No Start Date Active alprazolam 1 mg tablet RxNorm: 953472 Tablet(s) PO PRN No Start Date 04/26/2014 Inactive Benadryl 25 mg capsule RxNorm: 0234295 2 Capsule(s) PO QPM No Start Date 10/03/2015 Inactive [facility] 2.5 mg-60 mg tablet RxNorm: 4270918 1 Tablet(s) PO Q6 as needed (do not exceed 4 tablets in 24 hours No Start Date 12/30/2017 Inactive Cialis 20 mg tablet RxNorm: 121241 1 Tablet(s) PO PRN No Start Date [...] ICD-9: 401.1 12/31/2017 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 ICD-9: 414.00 12/31/2017 Other insomnia ICD-10: G47.09 ICD-9: 780.52 09/18/2017 Pain in right shoulder ICD-10: M25.5 11 ICD-9: 719.41 04/18/2017 Encounter for screening for malignant neoplasm of pros raines ICD-10: Z12.5 ICD-9: V76.44 04/18/2017 Right upper quadrant pain ICD-10: R1 0.11 ICD-9: 789.01 12/04/2016 Unspecified jaundice ICD-10: R17 ICD-9: 782.4 12/04/2016 Encounter for screening for disorder due to exposure to contaminants ICD-10: Z13.88 ICD-9: V82.5 12/04/2016 Other insomnia ICD-10: G47.09 ICD-9: 327.09 12/04/2016 Unilateral inguinal hernia, without obst ruction or gangrene, recurrent ICD-10: K40.91 ICD-9: 550.91 06/07/2016 Male erectile disorder ICD-10: F52.2 1 ICD-9: 607.84 03/23/2016 Restless legs syndrome ICD-10: G25.8 1 ICD-9: 333.94 03/23/2016 Encounter for general adult medical exam ination without abnormal findings ICD-10: Z00.00 ICD-9: V70.0 03/30/2015 Other seborrheic keratosis ICD-10: L 82.1 ICD-9: 702.19 12/07/2014 Conjunctival hemorrhage, right eye I CD-10: H11.31 ICD-9: 372.72 12/07/2014 Right hip pain ICD-9: 719.45 02/23/2014 [...] Observation Code Item Item Code Result Date Comp Metabolic Vns946 NA 144 mEq/L 03/28/2018 Comp Metabolic Elc848 K 4.3 mEq/L 03/28/2018 Comp Metabolic Ekc454 CL 108 mEq/L 03/28/2018 Comp Metabolic Moz860 CO2 29.0 mEq/L 03/28/2018 Comp Metabolic Oco859 AN ION GAP 11 03/28/2018 Comp Metabolic Pgg000 GL UCOSE 91 mg/dL 03/28/2018 Comp Metabolic Krt191 Cr eat 1.2 mg/dL 03/28/2018 Comp Metabolic Agr248 eG FR 65 ml/min/1.73m2 03/28 Comp Metabolic Fdk794 BUN 25 mg/dL 03/28/2018 Comp Metabolic Fce373 B/ C Ratio 21.0 Ratio 03/28/2018 Comp Metabolic Qkt187 CA LCIUM 9.2 mg/dL 03/28/2018 Comp Metabolic Xyt531 AL K PHOS 64 U/L 03/28/2018 Comp Metabolic Zdx105 T(SGOT) 14 U/L 03/28/2018 Comp Metabolic Gsk799 AL T(SGPT) 11 U/L 03/28/2018 Comp Metabolic Auj475 BI LI T 0.6 mg/dL 03/28/2018 Comp Metabolic Zik555 AL BUMIN 4.0 g/dL 03/28/2018 Comp Metabolic Tsk242 TP RO 6.2 g/dL 03/28/2018 Comp Metabolic Npg508 GL OB 2.2 g/dL 03/28/2018 Comp Metabolic Oau305 A/ G Ratio 1.8 Ratio 03/28/2018 Comp Metabolic Eps426 Os mo 291 mOsmo 03/28/2018 Total Psa Ord10 PSA 5.71 ng/mL 04/18/2017 Heavy Metals Profile Ii Blood 827487 LEAD, BLOOD . 12/11/2016 Heavy Metals Profile Ii Blood 316282 LEAD, BLOOD <2.0 ug/dL 12/11/2016 Heavy Metals Profile Ii Blood 665993 Continued Results 12/11/2016 Heavy Metals Profile Ii Blood 675800 MERCURY, BLOOD . 12/11/2016 Heavy Metals Profile Ii Blood 106487 MERCURY, BLOOD <3 ug/L 12/11/2016 Heavy Metals Profile Ii Blood 333742 ARSENIC, BLOOD . 12/11/2016 Heavy Metals Profile Ii Blood 669116 ARSENIC, BLOOD <10.0 ug/L 12/11/2016 Comp Metabolic Oen848 NA 141 mEq/L 12/04/2016 Comp Metabolic Hwc458 K 3.7 mEq/L 12/04/2016 Comp Metabolic Poe653 CL 104 mEq/L 12/04/2016 Comp Metabolic Zbo352 CO2 29.0 mEq/L 12/04/2016 Comp Metabolic Tuv047 AN ION GAP 12 12/04/2016 Comp Metabolic Nfk609 GL UCOSE 130 mg/dL 12/04/2016 Comp Metabolic Eso230 Cr eat 1.0 mg/dL 12/04/2016 Comp Metabolic Lkh903 eG FR 77 ml/min/1.73m2 12/04 Comp Metabolic Aml269 BUN 19 mg/dL 12/04/2016 Comp Metabolic Htq040 B/ C Ratio 18.4 Ratio 12/04/2016 Comp Metabolic Enp617 CA LCIUM 9.3 mg/dL 12/04/2016 Comp Metabolic Rte391 AL K PHOS 56 U/L 12/04/2016 Comp Metabolic Cek117 T(SGOT) 14 U/L 12/04/2016 Comp Metabolic Fks996 AL T(SGPT) 10 U/L 12/04/2016 Comp Metabolic Xmu038 BI LI T 1.1 mg/dL 12/04/2016 Comp Metabolic Juh213 AL BUMIN 4.1 g/dL 12/04/2016 Comp Metabolic Sdf047 TP RO 6.3 g/dL 12/04/2016 Comp Metabolic Dex077 GL OB 2.2 g/dL 12/04/2016 Comp Metabolic Ynp026 A/ G Ratio 1.9 Ratio 12/04/2016 Comp Metabolic Yeo294 Os mo 285 mOsmo 12/04/2016 Cbc With [...] 19.3 % 12/04/2016 Cbc With Differential Ord2 Bertie% 6.1 % 12/04/2016 Cbc With Differential Ord2 MCH 31.7 pg 12/04/2016 Cbc With Differential Ord2 MCHC 33.0 pg 12/04/2016 Cbc With Differential Ord2 Eos% 2.9 % 12/04/2016 Cbc With Differential Ord2 Baso% 0.2 % 12/04/2016 Cbc With Differential Ord2 PLT 255 K/ul 12/04/2016 Cbc With Differential Ord2 Neut ABS# 6.35 K/ul 12/04/2016 Cbc With Differential Ord2 RDW 13.1 % 12/04/2016 Cbc With Differential Ord2 Lymph ABS# 1.71 K/ul 12/04/2016 Cbc With Differential Ord2 Bertie ABS# 0.5 K/ul 12/04/2016 Cbc With Differential Ord2 Eos ABS# 0.3 K/ul 12/04/2016 Cbc With Differential Ord2 Baso ABS# 0.0 K/ul 12/04/2016 B12 Pio103 B12 444.00 pg/ml 03/31/2015 Testosterone Jzu634 Testo 259.94 ng/dL 03/31/2015 Lipid Ord30 CHOL 199 mg/dL 03/31/2015 Lipid Ord30 HDL 45.0 mg/dl 03/31/2015 Lipid Ord30 TRIG 126 mg/dL 03/31/2015 Lipid Ord30 LDL 129 mg/dL 03/31/2015 Lipid Ord30 C/HDL 4.4 Ratio 03/31/2015 Comp Metabolic Vmo499 NA 143 mEq/L 03/31/2015 Comp Metabolic Gni717 K 3.9 mEq/L 03/31/2015 Comp Metabolic Dei793 CL 109 mEq/L 03/31/2015 Comp Metabolic Beq020 CO2 29.0 mEq/L 03/31/2015 Comp Metabolic Vhj179 AN ION GAP 9 03/31/2015 Comp Metabolic Ipw561 GL UCOSE 94 mg/dL 03/31/2015 Comp Metabolic Hlz223 Cr eat 0.9 mg/dL 03/31/2015 Comp Metabolic Hqj552 eG FR 86 ml/min/1.73m2 03/31 Comp Metabolic Vvx971 BUN 22 mg/dL 03/31/2015 Comp Metabolic Nhw009 B/ C Ratio 23.4 Ratio 03/31/2015 Comp Metabolic Uiw969 CA LCIUM 8.8 mg/dL 03/31/2015 Comp Metabolic Hpj358 AL K PHOS 54 U/L 03/31/2015 Comp Metabolic Eyx842 T(SGOT) 12 U/L 03/31/2015 Comp Metabolic Fjo354 AL T(SGPT) 7 U/L 03/31/2015 Comp Metabolic Ltl161 BI LI T 0.7 mg/dL 03/31/2015 Comp Metabolic Zsl191 AL BUMIN 4.0 g/dL 03/31/2015 Comp Metabolic Skl106 TP RO 6.1 g/dL 03/31/2015 Comp Metabolic Jjh484 GL OB 2.1 g/dL 03/31/2015 Comp Metabolic Vox431 A/ G Ratio 1.9 Ratio 03/31/2015 Comp Metabolic Xjs753 Os mo 288 mOsmo 03/31/2015 Cbc With [...] 28.4 % 03/31/2015 Cbc With Differential Ord2 Bertie% 10.2 % 03/31/2015 Cbc With Differential Ord2 MCH 31.0 pg 03/31/2015 Cbc With Differential Ord2 MCHC 32.0 pg 03/31/2015 Cbc With Differential Ord2 Eos% 4.2 % 03/31/2015 Cbc With Differential Ord2 PLT 241 K/ul 03/31/2015 Cbc With Differential Ord2 Baso% 0.1 % 03/31/2015 Cbc With Differential Ord2 RDW 13.8 % 03/31/2015 Cbc With Differential Ord2 Neut ABS# 3.89 K/ul 03/31/2015 Cbc With Differential Ord2 Lymph ABS# 1.94 K/ul 03/31/2015 Cbc With Differential Ord2 Bertie ABS# 0.7 K/ul 03/31/2015 Cbc With Differential Ord2 Eos ABS# 0.3 K/ul 03/31/2015 Cbc With Differential Ord2 Baso ABS# 0.0 K/ul 03/31/2015 Cbc With Differential Ord2 New Analyzer Notice Please note new ref ranges s tarting 03-10-2015 due to implemntation of new five part differential hematolgy analyzer. 03/31/2015 Tsh Ord6 hTSH II 2.18 uIU/mL 03/31/2015 TESTOS TO [id number] TESTOS TO 252 NG/DL 09/03/2013 ICT OCCULT 7743286 ICT O CCULT NEG 09/02/2013 TSH 0417067 TSH 2.262 uIU/ML 09/02/2013 CHEM 14 1492199 AST 13 U/L 09/02/2013 CHEM 14 1425716 ALT 9 IU/L 09/02/2013 CHEM 14 2716479 BUN 23 MG/DL 09/02/2013 CHEM 14 2721971 ALBUMIN 4.1 GM/DL 09/02/2013 CHEM 14 7938607 CHLORIDE 109 MMOL/L 09/02/2013 CHEM 14 6285219 BILI TOT 1.0 MG/DL 09/02/2013 CHEM 14 2685404 ALK PHOS 55 U/L 09/02/2013 CHEM 14 7516459 SODIUM 142 MMOL/L 09/02/2013 CHEM 14 7521685 CREATINI NE 0.91 MG/DL 09/02/2013 CHEM 14 6069582 CALCIUM 9.3 MG/DL 09/02/2013 CHEM 14 8447117 POTASSIUM 3.9 MMOL/L 09/02/2013 CHEM 14 5744944 PROT TOT 6.2 GM/DL 09/02/2013 CHEM 14 9314722 GLUCOSE 95 MG/DL 09/02/2013 CHEM 14 2422879 BICARB 28 MMOL/L 09/02/2013 CHEM 14 8183985 ANION GAP 5 MEQ/L 09/02/2013 CBC 7881281 WBC 7.2 10e9/L 09/02/2013 CBC 3462500 RBC 4.74 10e12/L 09/02/2013 CBC 6350171 HGB 14.8 g/dL 09/02/2013 CBC 4767120 HCT DET 44.2 % 09/02/2013 CBC 7683795 MCV 93.2 fL 09/02/2013 CBC 9377811 MCH 31.2 pg 09/02/2013 CBC 0770101 MCHC 33.5 g/dL 09/02/2013 CBC 2762804 PLT 224 10e9/L 09/02/2013 CBC 9667629 MPV 9.9 fL 09/02/2013 CBC 9325308 HAYDE % 60.5 % 09/02/2013 CBC 7160520 LY % 26.8 % 09/02/2013 CBC 8040628 MON % 9.0 % 09/02/2013 CBC 3800754 EOS % 3.3 % 09/02/2013 CBC 9130975 BASO % 0.4 % 09/02/2013 CBC 3546229 RDW 13.1 % 09/02/2013 CBC 0409800 ABS HAYDE 4.36 10e9/L 09/02/2013 CBC 9727557 ABS LYMPH 1.93 10e9/L 09/02/2013 CBC 6186157 ABS MONO 0.65 10e9/L 09/02/2013 CBC 6695873 ABS EOS 0.24 10e9/L 09/02/2013 CBC 9794673 ABS BASO 0.03 10e9/L 09/02/2013 CBC 9421142 RDW-SD 43.1 fL 09/02/2013 PSA EQ 8756786 PSA EQ 3.20 NG/ML 09/02/2013 GFR CALC 4014954 GFR AA >60 ML/MIN 09/02/2013 GFR CALC 8488456 GFR NON -AA >60 ML/MIN 09/02/2013 LIPID GRP HDL TE ST 48 MG/DL 09/02/2013 LIPID GRP TRIG 134 MG/DL 09/02/2013 LIPID GRP TEST L DL 151 MG/DL 09/02/2013 LIPID GRP CHOL 226 MG/DL 09/02/2013 LIPID GRP RCHOL/ HDL 4.71 RATIO 09/02/2013 Review of Systems System Result Effective [...] 03/23/2016 None Full Exam - General 1995 Psychiatric orientation/consciousness Overall: oriented to person, place [...] - General 1995 Ears/Nose/Throat oral cavity/pharynx/larynx Overall: no masses 09/01/2013 [...] PSA EQ (ASSAY OF PSA TOTAL) CPT-4: 84484 09/02/2013 TSH (ASSAY THYROID S MARIELENA HORMONE) CPT-4: 27946 09/02/2013 CBC (COMPLETE CBC W/ AUTO DIFF WBC) CPT-4: 84467 09/02/2013 CHEM 14 (COMPREHEN M ETABOLIC PANEL) CPT-4: 87080 09/02/2013 LIPID GRP (LIPID PANEL) CPT-4: 88346 09/02/2013 REMOVE IMPACTED EAR WAX UNI CPT-4: 18275 09/02/2013 Vital Signs Date Vital 01/01/2018 Blood Pressure 1: 140/66 Code: 8480-6 BMI: 23.4 Code: 48958-4 Heart Rate 1: 68 bpm Height: 6'1" SpO2: 98% Waist Measure (cm): 81 cm Weight: 177 lbs 12/31/2017 Blood Pressure 1: 142/76 Code: 8480-6 BMI: 23.9 Code: 63957-0 Heart Rate 1: 68 bpm Height: 6'1" SpO2: 99% Weight: 181 lbs 09/18/2017 Blood Pressure 1: 128/72 Code: 8480-6 Heart Rate 1: 86 bpm Height: SpO2: 98% Weight: 04/18/2017 Blood Pressure 1: 148/78 Code: 8480-6 BMI: 23.4 Code: 79478-1 Heart Rate 1: 87 bpm Height: 6'1" SpO2: 98% Weight: 177 lbs 12/06/2016 Blood Pressure 1: 134/72 Code: 8480-6 BMI: 22.0 Code: 34723-8 Heart Rate 1: 60 bpm Height: 6'1" SpO2: 98% Waist Measure (cm): 81 cm Weight: 167 lbs 12/04/2016 Blood Pressure 1: 136/70 Code: 8480-6 BMI: 22.0 Code: 27872-1 Heart Rate 1: 59 bpm Height: 6'1" SpO2: 97% Weight: 167 lbs 06/07/2016 Blood Pressure 1: 126/64 Code: 8480-6 BMI: 20.4 Code: 49472-2 Heart Rate 1: 57 bpm Height: 6'1" SpO2: 97% Temperature: 37.1 (C ) / 98.8 (F) Weight: 155 lbs 03/23/2016 Blood Pressure 1: 132/74 Code: 8480-6 BMI: 22.0 Code: 63449-7 Heart Rate 1: 63 bpm Height: 6'1" SpO2: 98% Weight: 167 lbs 03/06/2016 Blood Pressure 1: 148/86 Code: 8480-6 BMI: 22.0 Code: 85340-9 Heart Rate 1: 62 bpm Height: 6'1" SpO2: 97% Weight: 167 lbs 10/04/2015 Blood Pressure 1: 150/82 Code: 8480-6 BMI: 22.2 Code: 49317-8 Heart Rate 1: 55 bpm Height: 6'1" SpO2: 98% Weight: 168 lbs 06/16/2015 Blood Pressure 1: 152/80 Code: 8480-6 BMI: 24.0 Code: 44324-4 Heart Rate 1: 60 bpm Height: 6'1" SpO2: 97% Weight: 182 lbs 05/20/2015 Blood Pressure 1: 152/78 Code: 8480-6 BMI: 24.3 Code: 93182-4 Heart Rate 1: 68 bpm Height: 6'1" SpO2: 98% Weight: 184 lbs 05/06/2015 Blood Pressure 1: 142/60 Code: 8480-6 BMI: 23.9 Code: 91428-7 Heart Rate 1: 58 bpm Height: 6'1" SpO2: 96% Weight: 181 lbs 03/30/2015 Blood Pressure 1: 138/52 Code: 8480-6 BMI: 24.4 Code: 37178-5 Heart Rate 1: 71 bpm Height: 6'1" SpO2: 95% Weight: 185 lbs 12/07/2014 Blood Pressure 1: 132/68 Code: 8480-6 Heart Rate 1: 60 bpm SpO2: 98% Weight: 185 lbs 02/23/2014 Blood Pressure 1: 128/68 Code: 8480-6 BMI: 25.6 Code: 11580-8 Heart Rate 1: 84 bpm Height: 6'1" Weight: 194 lbs 09/01/2013 Blood Pressure 1: 124/62 Code: 8480-6 BMI: 24.2 Code: 91262-9 Heart Rate 1: 64 bpm Height: 6'1" [...] well man exam (65+ years) Lifestyle satisfactory work/fpc experience 03/23/2016 None well man exam (65+ [...] Encounters Encounter Performer Loca tion Codes Date ( 97636 EST. P ATIENT, LEVEL IV Diagnosis: Essential (primary) hypertension[ICD10: I10] Diagnosis: Atherosclerotic heart disease of [place] coronary artery without angina pectoris[ICD10: I25.10] Gloria Mendoza MD, [facility] CPT-4: 00196 12/31/2017 46770 EST. PATIENT, LEVEL IV Diagnosis: Other insomnia[ICD10: G47.09] [facility] CPT-4: 69659 09/18/2017 15602 EST. PATIENT, LEVEL III Diagnosis: Pain in right shoulder[ICD10: M25.511] Diagnosis: Encounter for screening for malignant neoplasm of prostate[ICD10: Z12.5] Melissa Mendoza MD, [facility] CPT-4: 21407 04/18/2017 86478 01508 EST. P ATIENT, LEVEL III Diagnosis: Other insomnia[ICD10: G47.09] Diagnosis: Encounter for screening for disorder due to exposure to contaminants[ICD10: Z13.88] Diagnosis: Unspecified jaundice[ICD10: R17] Diagnosis: Right upper quadrant pain[ICD10: R10.11] Kathie Mendoza MD, [facility] CPT-4: 10798 12/04/2016 58787 EST. PATIENT, LEVEL IV Diagnosis: Unilateral inguinal hernia, without obstruction or gangrene, recurrent[ICD10: K40.91] Melissa Mendoza MD, [facility] CPT-4: 03554 06/07/2016 ([id number]) 96953 EST. P ATIENT, LEVEL III Diagnosis: Male erectile disorder[ICD10: F52.21] Diagnosis: Restless legs syndrome[ICD10: G25.81] Gloria Mendoza MD, [facility] CPT-4: 67304 03/23/2016 16828 EST. PATIENT, LEVEL IV Diagnosis: Other insomnia[ICD10: G47.09] Diagnosis: Restless legs syndrome[ICD10: G25.81] Melissa Mendoza MD, [facility] CPT- 4: 64907 03/06/2016 ([id number]) 04278 EST. P ATIENT, LEVEL III Diagnosis: Unilateral inguinal hernia, without obstruction or gangrene, recurrent[ICD10: K40.91] Kathie Mendoza MD, [facility] CPT-4: 38359 10/04/2015 49734 EST. PATIENT, LEVEL III Diagnosis: Other insomnia[ICD10: G47.09] Diagnosis: Male erectile disorder[ICD10: F52.21] Melissa Mendoza MD, [facility] CPT- 4: 61159 06/16/2015 77691 EST. PATIENT, LEVEL IV Diagnosis: Other insomnia[ICD10: G47.09] Melissa Mendoza MD, [facility] CPT-4: 22344 05/20/2015 41192 EST. PATIENT, LEVEL III Diagnosis: Other insomnia[ICD10: G47.09] Melissa Mendoza MD, [facility] CPT-4: 44573 05/06/2015 75604 EST. PATIENT, LEVEL III Diagnosis: Conjunctival hemorrhage, right eye[ICD10: H11.31] Diagnosis: Other seborrheic keratosis[ICD10: L82.1] Gloria Mendoza MD, C CPT-4: 53105 12/07/2014 ([id number]) 27658 EST. P ATIENT, LEVEL IV Diagnosis: Eczema, dyshidrotic[ICD9: 705.81] Diagnosis: Right hip pain[ICD9: 719.45] Diagnosis: Insomnia[ICD9: 780.52] Diagnosis: Erectile dysfunction[ICD9: 607.84] Kathie Mendoza MD, [facility] CPT-4: 31096 02/23/2014 Office outpatient ne w 30 minutes Diagnosis: Erectile dysfunction[ICD9: 607.84] Diagnosis: INSOMNIA NOS[ICD9: 780.52] Diagnosis: Special screening for malignant neoplasms, colon[ICD9: V76.51] Kathie Mendoza MD, [facility] CPT-4: 50225 09/01/2013 Plan of Care Planned Activity Notes [...] care surrogate. 01/01/2018 Appointment: Kathie Oconnell WPtel: [address] [place], [place] [id number] [facility] - Annual Wellness Visit 01/01/2018 [...] of afib while in the hospital in [place] - continue with amiodarone at this time. 12/31/2017 Appointment: Gloria Mendoza WPtel: [phone] [id number] (15 min) Moderate 12/31/2017 Patient Education: Patient Medication Summary Completed 12/31/2017 Appointment: Melissa Johnson WPtel: [phone] [id number] [facility] - Annual Wellness Visit 12/12/2017 [...] not improve. 04/18/2017 Appointment: Melissa Johnson WPtel: [id number] (15 min) Moderate 04/18/2017 Patient Education: Patient [...] care surrogate. 12/06/2016 Appointment: [facility]el[id number] [facility] - Annual Wellness Visit 12/06/2016 Patient Education: Patient Medication Summary Completed 12/06/2016 Visit Plan: [id number]-[id number]-aghhpv lorazepam for prn use History of exposure to heavy metals-possible slight yellowing of the eyes- intermittent RUQ pain-will check labs -consider hepatitis panel/liver/gallbladd er ultrasound if symptoms persist or worsen 12/04/2016 Appointment: [facility] Oconnell [facility] [address] [phone] [place] ([place] min) Complex 12/04/2016 Patient Education: Patient Medication Summary Completed 12/04/2016 App[facility]ment: [facility] [facility] [place] (15 min) Moderate 11/08/2016 Visit Plan: Right inguinal pain - p ost hernia repair - will order US - pt is to notify clinic if symptoms change, or with any acute concerns. 06/07/2016 Appointment: Melissa Johnson WPtel: [facility] [place] (30 min) Complex 06/07/2016 Patient Education: [...] refilled cialis 03/23/2016 Appointment: Gloria Mendoza WPtel: [facility]5 [facility] [place] (15 min) Moderate 03/23/2016 Appointment: Gloria Mendoza WPtel: [address] [place], [place] [id number] [place] (15 min) Moderate 03/23/2016 Patient Education: [...] or requip. 03/06/2016 Appointment: Melissa Johnson WPtel[facility] [place] ([facility] [place] Complex 03/06/2016 Patient Education: Patient Medication Summary Completed 03/06/2016 Visit Plan: Inguinal hernia-refer t josé miguel Esteban for evaluation 10/04/2015 Appointment: Kathie Oconnelll: [address] [phone] (30 min) Complex 10/04/2015 Patient Education: Patient Medication Summary Completed 10/04/2015 Care Plan: Referral Order SNOMED-CT : [id number] Pending 10/04/2015 Referral: Tremaine Hernandez WPtel[facility] [address] [facility] [facility] Initiated 06/28/2015 Visit Plan: Insomnia - [...] current medications. 06/16/2015 Appointment: Kathie Oconnell WPtel: [phone] (30 min) Complex 06/16/2015 Patient Education: Patient Medication Summary Completed 06/16/2015 Care Plan: Referral Order SNOMED-CT : [id number] Pending 06/16/2015 Visit Plan: Insomnia - Pt [...] 05/06/2015 Visit Plan: Welcome to Medicare Beny jacobs - today we discussed the patients past [...] Summary Completed 02/23/2014 Appointment: Gloria Mendoza WPtel: [facility] [place] Lab Draw 09/02/2013 Patient Education: [...] 5pm. Daytime napping worsens night time insomnia. Idrwqm-vmndfgtd-mpjlxnryp removal if becomes irritated 09/01/2013 Appointment: New [...] 5pm. Daytime napping worsens night time insomnia. Lfmzkw-qqczpiim-bpcoxcyvf removal if becomes irritated Refer to Dr [...] of afib while in the hospital in [place] - continue with amiodarone at this time. [...] change, or with any acute concerns. . Bwvexcit-iodhniv-c efill lorazepam for prn use History of exposure to heavy metals-possible slight yellowing of the eyes- intermittent RUQ pain-will check labs -consider hepatitis panel/liver/gallbladder ultrasound if symptoms persist or worsen
--- OUTSIDE RECORDS SUMMARY | 2019-09-25 10:17 | XMS REPORT | CCD ---
Author Author Demetri Oconnell Organization [facility] Address [address] [place] [address] Phone Care Team Providers Care Township Clerk Name Role Phone PP Unavailable CCM Unavailable Summary Purpose Interface Exchange Insurance Providers Payer name Policy type / Coverage type Covered democrat ID Effective Begin Date Effective End Date WPS Medicare Part B 22 [id number] 2015 Unknown [employer] [place] [id number] 2015 Unknown Family history Sister Diagnosis Age [...] Unknown Curre ntly employed Re[id number] 10/04/2015 Marital status Unknown D ivorced 09/01/[address]: 2619755 Former smoker quit 1972 09/01/2013 Alcohol history [...] 12/06/2016 Unknown 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 [...] 12/06/2016 Active 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 [...] Fill Instructions lorazepam 2 mg tablet RxNorm: 843024 1/2-1 Tablet(s) PO QHS as needed insomni a 09/13/2017 03/11/2018 Ac tive lorazepam 2 mg tablet RxNorm: 793907 1/2-1 Tablet(s) PO QHS as needed insomni a 05/03/2017 12/30/2017 In active lorazepam 2 mg tablet RxNorm: 799184 1/2-1 Tablet(s) PO QHS as needed insomni a 12/04/2016 12/30/2017 In active Ambien CR 6.25 mg ta blet,extended release RxNorm: 829331 1 Tablet(s) PO daily 03/06/2016 04/04/2016 In active lorazepam 2 mg tablet RxNorm: 167512 1 Tablet(s) PO as needed agitation 03/06/2016 10/29/2016 In active Ambien CR 6.25 mg ta blet,extended release RxNorm: 143470 Tablet(s) PO 03/06/2016 05/28/2016 In active Ambien CR 6.25 mg ta blet,extended release RxNorm: 343917 1 Tablet(s) PO daily 03/06/2016 03/05/2016 In active Cialis 20 mg tablet RxNorm: 196216 1 Tablet(s) PO PRN sexual activity 02/17/2016 12/05/2016 In active ID [id number] Cialis 20 mg tablet RxNorm: 972359 1 Tablet(s) PO PRN sexual activity 12/14/2015 02/16/2016 In active ID [id number] Viagra 100 mg tablet RxNorm: 453086 Tablet(s) as needed 1 TABLET(S) PO QDAY PRN 3MONTH SUPPLY WITH 1 REFILLS TO [facility] RX 12/10/2015 12/13/2015 Inactive [PACO INGS FOR NON-COVERED DRUGS -- BIN:418416, PCN: ASPROD1, Group: XXXXX, ID# [id number], Questions: . THIS IS NOT INSURANCE.] Cialis 20 mg tablet RxNorm: 018782 1 Tablet(s) PO PRN sexual activity 10/11/2015 12/13/2015 In active lorazepam 2 mg tablet RxNorm: 634279 1 Tablet(s) PO QHS as needed insomnia 10/06/2015 02/02/2016 In active Viagra 100 mg tablet RxNorm: 892736 Tablet(s) as needed 1 TABLET(S) PO QDAY PRN 3MONTH SUPPLY WITH 3 REFILLS TO [facility] RX 06/25/2015 10/10/2015 Inactive [PACO INGS FOR NON-COVERED DRUGS -- BIN:164938, PCN: ASPROD1, Group: XXXXX, ID# [id number], Questions: . THIS IS NOT INSURANCE.] lorazepam 2 mg tablet RxNorm: 733042 Tablet(s) PO 05/20/2015 10/05/2015 Inactive Xanax 1 mg tablet RxNorm: 162475 1 Tablet(s) PO HS PRN 03/23/2015 10/03/2015 Inactive [SAVINGS FOR UNINSURED PATIENTS -- BIN:0 83533, PCN: ASPROD1, Group: AME08, ID# [id number], Process claim through AfterSteps, for questions: . THIS IS NOT INSURANCE.] alprazolam 1 mg tablet RxNorm: 039139 1 Tablet(s) PO QHS as needed TAKE 1 TABL ET BY MOUTH EVERY NIGHT AT BEDTIME NEEDED 12/01/2014 01/28/2015 Inactive (Res ponse to an electronic controlled substance refill request - RxReferenceNumber: [id number]|1|0|1) Viagra 100 mg tablet RxNorm: 267628 Tablet(s) as needed 1 TABLET(S) PO QDAY PRN 11/19/2014 12/18/2014 In active [SAVINGS FOR NON-COVERED DRUGS -- BIN:00 3585, PCN: ASPROD1, Group: XXXXX, ID# [id number], Questions: . THIS IS NOT INSURANCE.] alprazolam 1 mg tablet RxNorm: 336431 1 Tablet(s) PO QHS as needed TAKE 1 TABL ET BY MOUTH EVERY NIGHT AT BEDTIME NEEDED 10/09/2014 11/30/2014 Inactive (Res ponse to an electronic controlled substance refill request - RxReferenceNumber: [id number]|1|0|1) alprazolam 1 mg tablet RxNorm: 241692 1 Tablet(s) PO qd PRN 06/23/2014 06/22/2014 Inactive [SAVINGS FOR NON-COVERED DRUGS -- BIN:00 3585, PCN: ASPROD1, Group: XXXXX, ID# [id number], Questions: . THIS IS NOT INSURANCE.] alprazolam 1 mg tablet RxNorm: 601618 TAKE 1 TABLET BY MOUTH EVERY NIGHT AT BE DTIME NEEDED 06/23/2014 07/22/2014 Inactive (Response to an electronic controlled substance refill request - RxReferenceNumber: [id number]|1|0|1) Viagra 100 mg tablet RxNorm: 063583 Tablet(s) as needed 1 TABLET(S) PO QDAY PRN 05/20/2014 06/18/2014 In active [SAVINGS FOR NON-COVERED DRUGS -- BIN:00 3585, PCN: ASPROD1, Group: XXXXX, ID# [id number], Questions: . THIS IS NOT INSURANCE.] alprazolam 1 mg tablet RxNorm: 039505 1 Tablet(s) PO qd PRN 04/27/2014 06/22/2014 Inactive [SAVINGS FOR NON-COVERED DRUGS -- BIN:00 3585, PCN: ASPROD1, Group: XXXXX, ID# [id number], Questions: . THIS IS NOT INSURANCE.] Voltaren 1 % topical gel RxNorm: 855196 4 Gram(s) TOP QID 02/23/2014 10/03/2015 Inactive [SAVINGS FOR UNINSURED PATIENTS -- BIN:470735, PCN: ASPROD1, Group: AME08, ID# [id number], Process claim through MedImpact, for questions: . THIS IS NOT INSURANCE.] triamcinolone aceton caty 0.1 % topical cream RxNorm: 6121402 1 Application TOP BI D 02/23/2014 03/08/2014 In active hands Xanax 1 mg tablet RxNorm: 865581 1 Tablet(s) PO HS PRN 02/23/2014 03/22/2015 Inactive [SAVINGS FOR UNINSURED PATIENTS -- BIN:0 66150, PCN: ASPROD1, Group: AME08, ID# [id number], Process claim through MedImpact, for questions: . THIS IS NOT INSURANCE.] Viagra 100 mg tablet RxNorm: 996456 1 TABLET(S) PO QDAY PRN 01/26/2014 05/19/2014 Inactive [SAVINGS FOR UNINSURED PATIENTS -- BIN:0 44760, PCN: ASPROD1, Group: AME08, ID# [id number], Process claim through MedImpact, for questions: . THIS IS NOT INSURANCE.] Viagra 100 mg tablet RxNorm: 218561 1 Tablet(s) PO QDAY PRN 01/26/2014 02/24/2014 Inactive [SAVINGS FOR UNINSURED PATIENTS -- BIN:0 96015, PCN: ASPROD1, Group: AME08, ID# [id number], Process claim through MedImpact, for questions: . THIS IS NOT INSURANCE.] Viagra 100 mg tablet RxNorm: 926740 1 Tablet(s) PO QDAY PRN 11/10/2013 12/08/2013 Inactive [SAVINGS FOR UNINSURED PATIENTS -- BIN:0 46823, PCN: ASPROD1, Group: AME08, ID# [id number], Process claim through MedImpact, for questions: . THIS IS NOT INSURANCE.] Viagra 50 mg tablet RxNorm: 542604 1-2 Tablet(s) PO QDAY PRN 11/07/2013 11/06/2013 Inactive Viagra 50 mg tablet RxNorm: 453653 1-2 Tablet(s) PO QDAY PRN 11/07/2013 11/09/2013 Inactive [SAVINGS FOR UNINSURED PATIENTS -- BIN:0 86431, PCN: ASPROD1, Group: AME08, ID# [id number], Process claim through MedImpact, for questions: . THIS IS NOT INSURANCE.] sildenafil 50 mg tablet RxNorm: 524108 1 Tablet(s) PO daily as needed 10/16/2013 11/14/2013 In active [SAVINGS FOR UNINSURED PATIENTS -- BIN:0 40788, PCN: ASPROD1, Group: AME08, ID# [id number], Process claim through MedImpact, for questions: . THIS IS NOT INSURANCE.] sildenafil 50 mg tablet RxNorm: 470642 1 Tablet(s) PO daily as needed 10/16/2013 10/15/2013 In active AndroGel 20.25 mg/1. 25 gram (1.62 %) transdermal gel pump RxNorm: 0124838 2 pumps TD daily 09/08/2013 03/06/2014 Inactive [SAVINGS FOR UNINSURED SIDNEY ENTS -- BIN:406816, PCN: ASPROD1, Group: AME08, ID# [id number], Process claim through MedImpact, for questions: . THIS IS NOT INSURANCE.] AndroGel 20.25 mg/1. 25 gram (1.62 %) transdermal gel pump RxNorm: 3179569 2 pumps TD daily 09/08/2013 09/07/2013 Inactive aspirin 325 mg tablet RxNorm: 154065 1 Tablet(s) PO daily No Start Date Active atorvastatin 40 mg t ablet RxNorm: 468214 1 Tablet(s) PO QHS No Start Date Active metoprolol succinate ER 25 mg tablet,extended release 24 hr RxNorm: 775498 1/2 Tablet(s) PO daily No Start Date Active lisinopril 2.5 mg ta blet RxNorm: 307278 1 Tablet(s) PO daily No Start Date Active clopidogrel 75 mg ta blet RxNorm: 534616 1 Tablet(s) PO daily No Start Date Active alprazolam 1 mg tablet RxNorm: 271637 Tablet(s) PO PRN No Start Date 04/26/2014 Inactive Benadryl 25 mg capsule RxNorm: 8869352 2 Capsule(s) PO QPM No Start Date 10/03/2015 Inactive [facility] 2.5 mg-60 mg tablet RxNorm: 2403278 1 Tablet(s) PO Q6 as needed (do not exceed 4 tablets in 24 hours No Start Date 12/30/2017 Inactive Cialis 20 mg tablet RxNorm: 948352 1 Tablet(s) PO PRN No Start Date [...] ICD-9: 401.1 12/31/2017 Atherosclerotic heart disease of [place] coronary artery without angina pectoris ICD-10: I25.10 [...] Observation Code Item Item Code Result Date Total Psa Ord10 PSA 5.71 ng/mL 04/18/2017 Heavy Metals Profile Ii Blood 928648 LEAD, BLOOD . 12/11/2016 Heavy Metals Profile Ii Blood 025453 LEAD, BLOOD <2.0 ug/dL 12/11/2016 Heavy Metals Profile Ii Blood 911657 Continued Results 12/11/2016 Heavy Metals Profile Ii Blood 991610 MERCURY, BLOOD . 12/11/2016 Heavy Metals Profile Ii Blood 997687 MERCURY, BLOOD <3 ug/L 12/11/2016 Heavy Metals Profile Ii Blood 734743 ARSENIC, BLOOD . 12/11/2016 Heavy Metals Profile Ii Blood 024670 ARSENIC, BLOOD <10.0 ug/L 12/11/2016 Comp Metabolic Qqe101 NA 141 mEq/L 12/04/2016 Comp Metabolic Atb450 K 3.7 mEq/L 12/04/2016 Comp Metabolic Gvq812 CL 104 mEq/L 12/04/2016 Comp Metabolic Foo074 CO2 29.0 mEq/L 12/04/2016 Comp Metabolic Vff083 AN ION GAP 12 12/04/2016 Comp Metabolic Pga898 GL UCOSE 130 mg/dL 12/04/2016 Comp Metabolic Ail781 Cr eat 1.0 mg/dL 12/04/2016 Comp Metabolic Zjn053 eG FR 77 ml/min/1.73m2 12/04 Comp Metabolic Sue650 BUN 19 mg/dL 12/04/2016 Comp Metabolic Tzn299 B/ C Ratio 18.4 Ratio 12/04/2016 Comp Metabolic Mnb678 CA LCIUM 9.3 mg/dL 12/04/2016 Comp Metabolic Vtb591 AL K PHOS 56 U/L 12/04/2016 Comp Metabolic Cjy214 T(SGOT) 14 U/L 12/04/2016 Comp Metabolic Oqx308 AL T(SGPT) 10 U/L 12/04/2016 Comp Metabolic Wlf707 BI LI T 1.1 mg/dL 12/04/2016 Comp Metabolic Avo011 AL BUMIN 4.1 g/dL 12/04/2016 Comp Metabolic Rwm944 TP RO 6.3 g/dL 12/04/2016 Comp Metabolic Fny685 GL OB 2.2 g/dL 12/04/2016 Comp Metabolic Vgn411 A/ G Ratio 1.9 Ratio 12/04/2016 Comp Metabolic Zzu923 Os mo 285 mOsmo 12/04/2016 Cbc With Differential Ord2 WBC 8.88 K/ul 12/04/2016 Cbc With Differential Ord2 RBC 4.67 M/ul 12/04/2016 Cbc With Differential Ord2 HGB 14.8 g/dl 12/04/2016 Cbc With Differential Ord2 Neut% 71.5 % 12/04/2016 Cbc With Differential Ord2 HCT 44.8 % 12/04/2016 Cbc With Differential Ord2 MCV 95.9 fl 12/04/2016 Cbc With Differential Ord2 Lymph% 19.3 % 12/04/2016 Cbc With Differential Ord2 MCH 31.7 pg 12/04/2016 Cbc With Differential Ord2 [place]% 6.1 % 12/04/2016 Cbc With Differential Ord2 [...] 1.71 K/ul 12/04/2016 Cbc With Differential Ord2 [place] ABS# 0.5 K/ul 12/04/2016 Cbc With Differential Ord2 Eos ABS# 0.3 K/ul 12/04/2016 Cbc With Differential Ord2 Baso ABS# 0.0 K/ul 12/04/2016 B12 Ime515 B12 444.00 pg/ml 03/31/2015 Lipid Ord30 CHOL 199 mg/dL 03/31/2015 Lipid Ord30 HDL 45.0 mg/dl 03/31/2015 Lipid Ord30 TRIG 126 mg/dL 03/31/2015 Lipid Ord30 LDL 129 mg/dL 03/31/2015 Lipid Ord30 C/HDL 4.4 Ratio 03/31/2015 Testosterone Jjd129 Testo 259.94 ng/dL 03/31/2015 Tsh Ord6 hTSH II 2.18 uIU/mL 03/31/2015 Cbc With Differential Ord2 WBC 6.83 K/ul 03/31/2015 Cbc With Differential Ord2 RBC 4.68 M/ul 03/31/2015 Cbc With Differential Ord2 HGB 14.5 g/dl 03/31/2015 Cbc With Differential Ord2 HCT 45.3 % 03/31/2015 Cbc With Differential Ord2 Neut% 57.1 % 03/31/2015 Cbc With Differential Ord2 Lymph% 28.4 % 03/31/2015 Cbc With Differential Ord2 MCV 96.8 fl 03/31/2015 Cbc With Differential Ord2 [place]% 10.2 % 03/31/2015 Cbc With Differential Ord2 MCH 31.0 pg 03/31/2015 Cbc With Differential Ord2 Eos% 4.2 % 03/31/2015 Cbc With Differential Ord2 MCHC 32.0 pg 03/31/2015 Cbc With Differential Ord2 PLT 241 K/ul 03/31/2015 Cbc With Differential Ord2 Baso% 0.1 % 03/31/2015 Cbc With Differential Ord2 RDW 13.8 % 03/31/2015 Cbc With Differential Ord2 Neut ABS# 3.89 K/ul 03/31/2015 Cbc With Differential Ord2 Lymph ABS# 1.94 K/ul 03/31/2015 Cbc With Differential Ord2 [place] ABS# 0.7 K/ul 03/31/2015 Cbc With Differential Ord2 Eos ABS# 0.3 K/ul 03/31/2015 Cbc With Differential Ord2 Baso ABS# 0.0 K/ul 03/31/2015 Cbc With Differential Ord2 New Analyzer Notice Please note new ref ranges s tarting 03-10-2015 due to implemntation of new five part differential hematolgy analyzer. 03/31/2015 Comp Metabolic Gav236 NA 143 mEq/L 03/31/2015 Comp Metabolic Zog683 K 3.9 mEq/L 03/31/2015 Comp Metabolic Wiu228 CL 109 mEq/L 03/31/2015 Comp Metabolic Jhp854 CO2 29.0 mEq/L 03/31/2015 Comp Metabolic Ope276 AN ION GAP 9 03/31/2015 Comp Metabolic Ddp668 GL UCOSE 94 mg/dL 03/31/2015 Comp Metabolic Upf956 Cr eat 0.9 mg/dL 03/31/2015 Comp Metabolic Ufg236 eG FR 86 ml/min/1.73m2 03/31 Comp Metabolic Yzl612 BUN 22 mg/dL 03/31/2015 Comp Metabolic Toc360 B/ C Ratio 23.4 Ratio 03/31/2015 Comp Metabolic Vpi607 CA LCIUM 8.8 mg/dL 03/31/2015 Comp Metabolic Ozl363 AL K PHOS 54 U/L 03/31/2015 Comp Metabolic Ult649 T(SGOT) 12 U/L 03/31/2015 Comp Metabolic Swk893 AL T(SGPT) 7 U/L 03/31/2015 Comp Metabolic Fji828 BI LI T 0.7 mg/dL 03/31/2015 Comp Metabolic Mll602 AL BUMIN 4.0 g/dL 03/31/2015 Comp Metabolic Gxk534 TP RO 6.1 g/dL 03/31/2015 Comp Metabolic Fdz763 GL OB 2.1 g/dL 03/31/2015 Comp Metabolic Tlm997 A/ G Ratio 1.9 Ratio 03/31/2015 Comp Metabolic Ajt354 Os mo 288 mOsmo 03/31/2015 TESTOS TO 6067318 TESTOS TO 252 NG/DL 09/03/2013 ICT OCCULT 4581375 ICT O CCULT NEG 09/02/2013 CBC 9002852 WBC 7.2 10e9/L 09/02/2013 CBC 5641500 RBC 4.74 10e12/L 09/02/2013 CBC 4803860 HGB 14.8 g/dL 09/02/2013 CBC 5909213 HCT DET 44.2 % 09/02/2013 CBC 3335645 MCV 93.2 fL 09/02/2013 CBC 2124393 MCH 31.2 pg 09/02/2013 CBC 2900205 MCHC 33.5 g/dL 09/02/2013 CBC 0352505 PLT 224 10e9/L 09/02/2013 CBC 9971366 MPV 9.9 fL 09/02/2013 CBC 2224278 HAYDE % 60.5 % 09/02/2013 CBC 3042095 LY % 26.8 % 09/02/2013 CBC 7180893 MON % 9.0 % 09/02/2013 CBC 3856170 EOS % 3.3 % 09/02/2013 CBC 8197517 BASO % 0.4 % 09/02/2013 CBC 5557681 RDW 13.1 % 09/02/2013 CBC 2717659 ABS HAYDE 4.36 10e9/L 09/02/2013 CBC 2232045 ABS LYMPH 1.93 10e9/L 09/02/2013 CBC 5453655 ABS MONO 0.65 10e9/L 09/02/2013 CBC 0206068 ABS EOS 0.24 10e9/L 09/02/2013 CBC 1166725 ABS BASO 0.03 10e9/L 09/02/2013 CBC 1939109 RDW-SD 43.1 fL 09/02/2013 GFR CALC 5743948 GFR AA >60 ML/MIN 09/02/2013 GFR CALC 0901486 GFR NON -AA >60 ML/MIN 09/02/2013 LIPID GRP HDL TE ST 48 MG/DL 09/02/2013 LIPID GRP TRIG 134 MG/DL 09/02/2013 LIPID GRP 5752540 TEST L DL 151 MG/DL 09/02/2013 LIPID GRP 6892870 CHOL 226 MG/DL 09/02/2013 LIPID GRP RCHOL/ HDL 4.71 RATIO 09/02/2013 CHEM 14 6009034 AST 13 U/L 09/02/2013 CHEM 14 8513708 ALT 9 IU/L 09/02/2013 CHEM 14 8173475 BUN 23 MG/DL 09/02/2013 CHEM 14 3035697 ALBUMIN 4.1 GM/DL 09/02/2013 CHEM 14 8476335 CHLORIDE 109 MMOL/L 09/02/2013 CHEM 14 0789740 BILI TOT 1.0 MG/DL 09/02/2013 CHEM 14 7695395 ALK PHOS 55 U/L 09/02/2013 CHEM 14 5451479 SODIUM 142 MMOL/L 09/02/2013 CHEM 14 1207694 CREATINI NE 0.91 MG/DL 09/02/2013 CHEM 14 9704662 CALCIUM 9.3 MG/DL 09/02/2013 CHEM 14 0860935 POTASSIUM 3.9 MMOL/L 09/02/2013 CHEM 14 6620749 PROT TOT 6.2 GM/DL 09/02/2013 CHEM 14 7514876 GLUCOSE 95 MG/DL 09/02/2013 CHEM 14 5589589 BICARB 28 MMOL/L 09/02/2013 CHEM 14 1874793 ANION GAP 5 MEQ/L 09/02/2013 TSH 8664926 TSH 2.262 uIU/ML 09/02/2013 PSA EQ 20110422 [...] No alteration of consciousness 06/16/2015 Psychiatric anxiety 04/2 Psychiatric depression 0 06/16/2015 Dermatologic No rash [...] PSA EQ (ASSAY OF PSA TOTAL) CPT-4: 08356 09/02/2013 TSH (ASSAY THYROID S MARIELENA HORMONE) CPT-4: 39715 09/02/2013 CBC (COMPLETE CBC W/ AUTO DIFF WBC) CPT-4: 40318 09/02/2013 CHEM 14 (COMPREHEN M ETABOLIC PANEL) CPT-4: 59503 09/02/2013 LIPID GRP (LIPID PANEL) CPT-4: 11615 09/02/2013 REMOVE IMPACTED EAR WAX UNI CPT-4: 22618 09/02/2013 Vital Signs Date Vital 01/01/2018 Blood Pressure 1: 140/66 Code: 8480-6 BMI: 23.4 Code: 38086-8 Heart Rate 1: 68 bpm Height: 6'1" SpO2: 98% Waist Measure (cm): 81 cm Weight: 177 lbs 12/31/2017 Blood Pressure 1: 142/76 Code: 8480-6 BMI: 23.9 Code: 84132-1 Heart Rate 1: 68 bpm Height: 6'1" SpO2: 99% Weight: 181 lbs 09/18/2017 Blood Pressure 1: 128/72 Code: 8480-6 Heart Rate 1: 86 bpm Height: SpO2: 98% Weight: 04/18/2017 Blood Pressure 1: 148/78 Code: 8480-6 BMI: 23.4 Code: 20266-2 Heart Rate 1: 87 bpm Height: 6'1" SpO2: 98% Weight: 177 lbs 12/06/2016 Blood Pressure 1: 134/72 Code: 8480-6 BMI: 22.0 Code: 81771-3 Heart Rate 1: 60 bpm Height: 6'1" SpO2: 98% Waist Measure (cm): 81 cm Weight: 167 lbs 12/04/2016 Blood Pressure 1: 136/70 Code: 8480-6 BMI: 22.0 Code: 38373-6 Heart Rate 1: 59 bpm Height: 6'1" SpO2: 97% Weight: 167 lbs 06/07/2016 Blood Pressure 1: 126/64 Code: 8480-6 BMI: 20.4 Code: 62410-4 Heart Rate 1: 57 bpm Height: 6'1" SpO2: 97% Temperature: 37.1 (C ) / 98.8 (F) Weight: 155 lbs 03/23/2016 Blood Pressure 1: 132/74 Code: 8480-6 BMI: 22.0 Code: 51474-9 Heart Rate 1: 63 bpm Height: 6'1" SpO2: 98% Weight: 167 lbs 03/06/2016 Blood Pressure 1: 148/86 Code: 8480-6 BMI: 22.0 Code: 44639-4 Heart Rate 1: 62 bpm Height: 6'1" SpO2: 97% Weight: 167 lbs 10/04/2015 Blood Pressure 1: 150/82 Code: 8480-6 BMI: 22.2 Code: 51602-6 Heart Rate 1: 55 bpm Height: 6'1" SpO2: 98% Weight: 168 lbs 06/16/2015 Blood Pressure 1: 152/80 Code: 8480-6 BMI: 24.0 Code: 56398-6 Heart Rate 1: 60 bpm Height: 6'1" SpO2: 97% Weight: 182 lbs 05/20/2015 Blood Pressure 1: 152/78 Code: 8480-6 BMI: 24.3 Code: 27318-0 Heart Rate 1: 68 bpm Height: 6'1" SpO2: 98% Weight: 184 lbs 05/06/2015 Blood Pressure 1: 142/60 Code: 8480-6 BMI: 23.9 Code: 97156-0 Heart Rate 1: 58 bpm Height: 6'1" SpO2: 96% Weight: 181 lbs 03/30/2015 Blood Pressure 1: 138/52 Code: 8480-6 BMI: 24.4 Code: 69345-9 Heart Rate 1: 71 bpm Height: 6'1" SpO2: 95% Weight: 185 lbs 12/07/2014 Blood Pressure 1: 132/68 Code: 8480-6 Heart Rate 1: 60 bpm SpO2: 98% Weight: 185 lbs 02/23/2014 Blood Pressure 1: 128/68 Code: 8480-6 BMI: 25.6 Code: 51476-8 Heart Rate 1: 84 bpm Height: 6'1" Weight: 194 lbs 09/01/2013 Blood Pressure 1: 124/62 Code: 8480-6 BMI: 24.2 Code: 14049-7 Heart Rate 1: 64 bpm Height: 6'1" [...] well man exam (65+ years) Lifestyle satisfactory work/senior care experience 03/23/2016 None well man exam (65+ [...] Encounters Encounter Performer Loca tion Codes Date ([id number]) 16388 EST. 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 CPT-4: 25929 12/31/2017 44742 EST. PATIENT, LEVEL IV Diagnosis: Other insomnia[ICD10: G47.09] Melissa Mendoza MD, [facility] CPT-4: 35390 09/18/2017 95480 EST. PATIENT, LEVEL III Diagnosis: Pain in right shoulder[ICD10: M25.511] Diagnosis: Encounter for screening for malignant neoplasm of prostate[ICD10: Z12.5] Melissa Mendoza MD, [facility] CPT-4: 59376 04/18/2017 ([id number]) 99295 EST. P ATIENT, LEVEL III Diagnosis: Other insomnia[ICD10: G47.09] Diagnosis: Encounter for screening for disorder due to exposure to contaminants[ICD10: Z13.88] Diagnosis: Unspecified jaundice[ICD10: R17] Diagnosis: Right upper quadrant pain[ICD10: R10.11] Kathie Mendoza MD, [facility] CPT-4: 49544 12/04/2016 59030 EST. PATIENT, LEVEL IV Diagnosis: Unilateral inguinal hernia, without obstruction or gangrene, recurrent[ICD10: K40.91] Melissa Mendoza MD, [facility] CPT-4: 99362 06/07/2016 ([id number]) 53672 EST. P ATIENT, LEVEL III Diagnosis: Male erectile disorder[ICD10: F52.21] Diagnosis: Restless legs syndrome[ICD10: G25.81] Gloria Mendoza MD, [facility] CPT-4: 75092 03/23/2016 37720 EST. PATIENT, LEVEL IV Diagnosis: Other insomnia[ICD10: G47.09] Diagnosis: Restless legs syndrome[ICD10: G25.81] Melissa Mendoza MD, [facility] CPT- 4: 80782 03/06/2016 ([id number]) 63229 EST. P ATIENT, LEVEL III Diagnosis: Unilateral inguinal hernia, without obstruction or gangrene, recurrent[ICD10: K40.91] Kathie Mendoza MD, [facility] CPT-4: 71983 10/04/2015 40959 EST. PATIENT, LEVEL III Diagnosis: Other insomnia[ICD10: G47.09] Diagnosis: Male erectile disorder[ICD10: F52.21] Melissa Mendoza MD, [facility] CPT- 4: 81747 06/16/2015 74550 EST. PATIENT, LEVEL IV Diagnosis: Other insomnia[ICD10: G47.09] Melissa Mendoza MD, [facility] CPT-4: 81004 05/20/2015 93238 EST. PATIENT, LEVEL III Diagnosis: Other insomnia[ICD10: G47.09] Melissa Mendoza MD, [facility] CPT-4: 00802 05/06/2015 57847 EST. PATIENT, LEVEL III Diagnosis: Conjunctival hemorrhage, right eye[ICD10: H11.31] Diagnosis: Other seborrheic keratosis[ICD10: L82.1] Gloria Mendoza MD [facility] CPT-4: 25070 12/07/2014 ([id number]) 35485 EST. P ATIENT, LEVEL IV Diagnosis: Eczema, dyshidrotic[ICD9: 705.81] Diagnosis: Right hip pain[ICD9: 719.45] Diagnosis: Insomnia[ICD9: 780.52] Diagnosis: Erectile dysfunction[ICD9: 607.84] Kathie Mendoza MD, [facility] CPT-4: 81032 02/23/2014 Office outpatient ne w 30 minutes Diagnosis: Erectile dysfunction[ICD9: 607.84] Diagnosis: INSOMNIA NOS[ICD9: 780.52] Diagnosis: Special screening for malignant neoplasms, colon[ICD9: V76.51] Kathie Mendoza MD, [facility] CPT-4: 14184 09/01/2013 Plan of Care Planned Activity Notes [...] DOPA paperwork for health care surrogate. 01/01/2018 Patient Education: Patient Medication Summary Completed [...] of afib while in the hospital in [place] - continue with amiodarone at this time. 12/31/2017 Appointment: Gloria Mendoza WPtel: [facility] (15 min) Moderate 12/31/2017 Patient Education: Patient Medication Summary Completed 12/31/2017 Appointment: Melissa Johnson WPtel: [address] [place], [place] [phone] [facility] - Annual Wellness Visit 12/12/2017 Visit [...] not improve. 04/18/2017 Appointment: Melissa Johnson WPtel: [facility] (15 min) Moderate 04/18/2017 Patient Education: [...] care surrogate. 12/06/2016 App[facility]ment: [phone] [facility] [place] [facility] - Annual Wellness Visit 12/06/2016 Patient Education: Patient Medication Summary Completed 12/06/2016 Visit Plan: Ftxiepue-dwdlaif-gomrsc lorazepam for prn use History of exposure to heavy metals-possible slight yellowing of the eyes- intermittent RUQ pain-will check labs -consider hepatitis panel/liver/gallbladd er ultrasound if symptoms persist or worsen 12/04/2016 Appointment: Kathie Oconnell WPtel: [phone] [phone] [place] (30 min) Complex 12/04/2016 Patient Education: Patient Medication Summary Completed 12/04/2016 Appointment: [phone] [place] (15 min) Moderate 11/08/2016 Visit Plan: Right inguinal pain - p ost hernia repair - will order US - pt is to notify clinic if symptoms change, or with any acute concerns. 06/07/2016 App[facility]ment: [phone] [place] ([facility] min) Complex 06/07/2016 Patient [...] refilled cialis 03/23/2016 Appointment: [facility]Ptel[phone] [place] (15 min) Moderate 03/23/2016 Appointment: Gloria Mendoza WPtel: [facility] [place] (15 min) Moderate 03/23/2016 Patient Education: [...] requip. 03/06/2016 Appointment: Melissa Johnson WPtel: [phone] [facility] (30 min) Complex 03/06/2016 Patient Education: Patient Medication Summary Completed 03/06/2016 Visit Plan: Inguinal hernia-refer t josé miguel Esteban for evaluation 10/04/2015 Appointment: Kathie Oconnell WPtel: [phone] (30 min) Complex 10/04/2015 Patient Education: Patient Medication Summary Completed 10/04/2015 Care Plan: Referral Order SNOMED-CT : [id number] Pending 10/04/2015 Ref[facility]: [facility] [phone] [facility] Referral Initiated 06/28/2015 Visit Plan: Insomnia - [...] current medications. 06/16/2015 Appointment: Kathie Oconnell WPtel: [phone] (30 min) Complex 06/16/2015 Patient Education: Patient Medication Summary Completed 06/16/2015 Care Plan: Referral Order SNOMED-CT : [id number] Pending 06/16/2015 Visit Plan: Insomnia - Pt [...] Completed 05/06/2015 Visit Plan: Welcome to Medicare Ex m - today we discussed the patients [...] Completed 02/23/2014 Appointment: Gloria Mendoza [facility]el[id number] [id number] [facility] 09/02/2013 Patient Education: Patient Medication [...] 5pm. Daytime napping worsens night time insomnia. Dfvvtp-aogxymhr-uzecokuml removal if becomes irritated 09/01/2013 Appointment: New Patient 09/01/2013 Patient Education: Patient Medication Summary Completed 09/01/2013 Referral: Tremaine Hernandez WPtel[facility] [id number] [id number] Ref[facility] Initiated Instructions Comment Pt has been [...] 5pm. Daytime napping worsens night time insomnia. Lekqxu-ivisycoc-glhceipsq removal if becomes irritated Refer to Dr [...] of afib while in the hospital in [place] - continue with amiodarone at this time. [...] change, or with any acute concerns. . Axnomgex-xqhamuu-n efill lorazepam for prn use History of exposure to heavy metals-possible slight yellowing of the eyes- intermittent RUQ pain-will check labs -consider hepatitis panel/liver/gallbladder ultrasound if symptoms persist or worsen
--- OUTSIDE RECORDS SUMMARY | 2019-09-25 10:18 | XMS REPORT | CCD ---
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 Marital status Unknown D ivorced 09/01/[address]: 3321017 Former smoker quit 1972 09/01/2013 Alcohol history [...] Resolved Date 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.00 [...] ICD-9: V70.0 ICD-10: Z00.01 Active 12/06/2016 Unknown Encounter for screen ing for disorder [...] Condition Status 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.00 [...] findings ICD-9: V70.0 ICD-10: Z00.01 12/06/2016 Active Encounter for screen ing for disorder [...] Fill Instructions lorazepam 2 mg tablet RxNorm: 099290 1/2-1 Tablet(s) PO QHS as needed insomni a 09/13/2017 03/11/2018 Ac tive lorazepam 2 mg tablet RxNorm: 536393 1/2-1 Tablet(s) PO QHS as needed insomni a 05/03/2017 12/30/2017 In active lorazepam 2 mg tablet RxNorm: 140082 1/2-1 Tablet(s) PO QHS as needed insomni a 12/04/2016 12/30/2017 In active Ambien CR 6.25 mg ta blet,extended release RxNorm: 916400 1 Tablet(s) PO daily 03/06/2016 04/04/2016 In active lorazepam 2 mg tablet RxNorm: 109128 1 Tablet(s) PO as needed agitation 03/06/2016 10/29/2016 In active Ambien CR 6.25 mg ta blet,extended release RxNorm: 532558 Tablet(s) PO 03/06/2016 05/28/2016 In active Ambien CR 6.25 mg ta blet,extended release RxNorm: 345325 1 Tablet(s) PO daily 03/06/2016 03/05/2016 In active Cialis 20 mg tablet RxNorm: 817141 1 Tablet(s) PO PRN sexual activity 02/17/2016 12/05/2016 In active ID [id number] Cialis 20 mg tablet RxNorm: 778299 1 Tablet(s) PO PRN sexual activity 12/14/2015 02/16/2016 In active ID [id number] Viagra 100 mg tablet RxNorm: 215831 Tablet(s) as needed 1 TABLET(S) PO QDAY PRN 3MONTH SUPPLY WITH 1 REFILLS TO [facility]ZY RX 12/10/2015 12/13/2015 Inactive [PACO INGS FOR NON-COVERED DRUGS -- BIN:317429, PCN: ASPROD1, Group: XXXXX, ID# [id number], Questions: . THIS IS NOT INSURANCE.] Cialis 20 mg tablet RxNorm: 023015 1 Tablet(s) PO PRN sexual activity 10/11/2015 12/13/2015 In active lorazepam 2 mg tablet RxNorm: 066386 1 Tablet(s) PO QHS as needed insomnia 10/06/2015 02/02/2016 In active Viagra 100 mg tablet RxNorm: 945203 Tablet(s) as needed 1 TABLET(S) PO QDAY PRN 3MONTH SUPPLY WITH 3 REFILLS TO SUZY RX 06/25/2015 10/10/2015 Inactive [PACO INGS FOR NON-COVERED DRUGS -- BIN:037590, PCN: ASPROD1, Group: XXXXX, ID# [id number], Questions: . THIS IS NOT INSURANCE.] lorazepam 2 mg tablet RxNorm: 205527 Tablet(s) PO 05/20/2015 10/05/2015 Inactive Xanax 1 mg tablet RxNorm: 016763 1 Tablet(s) PO HS PRN 03/23/2015 10/03/2015 Inactive [SAVINGS FOR UNINSURED PATIENTS -- BIN:0 63810, PCN: ASPROD1, Group: AME08, ID# [id number], Process claim through [employer], for questions: . THIS IS NOT INSURANCE.] alprazolam 1 mg tablet RxNorm: 391888 1 Tablet(s) PO QHS as needed TAKE 1 TABL ET BY MOUTH EVERY NIGHT AT BEDTIME NEEDED 12/01/2014 01/28/2015 Inactive (Res ponse to an electronic controlled substance refill request - RxReferenceNumber: [id number]|1|0|1) Viagra 100 mg tablet RxNorm: 838365 Tablet(s) as needed 1 TABLET(S) PO QDAY PRN 11/19/2014 12/18/2014 In active [SAVINGS FOR NON-COVERED DRUGS -- BIN:00 3585, PCN: ASPROD1, Group: XXXXX, ID# [id number], Questions: . THIS IS NOT INSURANCE.] alprazolam 1 mg tablet RxNorm: 844344 1 Tablet(s) PO QHS as needed TAKE 1 TABL ET BY MOUTH EVERY NIGHT AT BEDTIME NEEDED 10/09/2014 11/30/2014 Inactive (Res ponse to an electronic controlled substance refill request - RxReferenceNumber: [id number]|1|0|1) alprazolam 1 mg tablet RxNorm: 945243 1 Tablet(s) PO qd PRN 06/23/2014 06/22/2014 Inactive [SAVINGS FOR NON-COVERED DRUGS -- BIN:00 3585, PCN: ASPROD1, Group: XXXXX, ID# [id number], Questions: . THIS IS NOT INSURANCE.] alprazolam 1 mg tablet RxNorm: 103883 TAKE 1 TABLET BY MOUTH EVERY NIGHT AT BE DTIME NEEDED 06/23/2014 07/22/2014 Inactive (Response to an electronic controlled substance refill request - RxReferenceNumber: [id number]|1|0|1) Viagra 100 mg tablet RxNorm: 064194 Tablet(s) as needed 1 TABLET(S) PO QDAY PRN 05/20/2014 06/18/2014 In active [SAVINGS FOR NON-COVERED DRUGS -- BIN:00 3585, PCN: ASPROD1, Group: XXXXX, ID# [id number], Questions: . THIS IS NOT INSURANCE.] alprazolam 1 mg tablet RxNorm: 735360 1 Tablet(s) PO qd PRN 04/27/2014 06/22/2014 Inactive [SAVINGS FOR NON-COVERED DRUGS -- BIN:00 3585, PCN: ASPROD1, Group: XXXXX, ID# [id number], Questions: . THIS IS NOT INSURANCE.] Voltaren 1 % topical gel RxNorm: 491578 4 Gram(s) TOP QID 02/23/2014 10/03/2015 Inactive [SAVINGS FOR UNINSURED PATIENTS -- BIN:855048, PCN: ASPROD1, Group: AME08, ID# [id number], Process claim through [employer], for questions: . THIS IS NOT INSURANCE.] triamcinolone aceton caty 0.1 % topical cream RxNorm: 1197712 1 Application TOP BI D 02/23/2014 03/08/2014 In active hands Xanax 1 mg tablet RxNorm: 289585 1 Tablet(s) PO HS PRN 02/23/2014 03/22/2015 Inactive [SAVINGS FOR UNINSURED PATIENTS -- BIN:0 61081, PCN: ASPROD1, Group: AME08, ID# [id number], Process claim through [employer], for questions: . THIS IS NOT INSURANCE.] Viagra 100 mg tablet RxNorm: 505843 1 TABLET(S) PO QDAY PRN 01/26/2014 05/19/2014 Inactive [SAVINGS FOR UNINSURED PATIENTS -- BIN:0 24730, PCN: ASPROD1, Group: AME08, ID# [id number], Process claim through [employer], for questions: . THIS IS NOT INSURANCE.] Viagra 100 mg tablet RxNorm: 414083 1 Tablet(s) PO QDAY PRN 01/26/2014 02/24/2014 Inactive [SAVINGS FOR UNINSURED PATIENTS -- BIN:0 15069, PCN: ASPROD1, Group: AME08, ID# [id number], Process claim through [employer], for questions: . THIS IS NOT INSURANCE.] Viagra 100 mg tablet RxNorm: 227904 1 Tablet(s) PO QDAY PRN 11/10/2013 12/08/2013 Inactive [SAVINGS FOR UNINSURED PATIENTS -- BIN:0 59158, PCN: ASPROD1, Group: AME08, ID# [id number], Process claim through [employer], for questions: . THIS IS NOT INSURANCE.] Viagra 50 mg tablet RxNorm: 727552 1-2 Tablet(s) PO QDAY PRN 11/07/2013 11/06/2013 Inactive Viagra 50 mg tablet RxNorm: 533634 1-2 Tablet(s) PO QDAY PRN 11/07/2013 11/09/2013 Inactive [SAVINGS FOR UNINSURED PATIENTS -- BIN:0 29750, PCN: ASPROD1, Group: AME08, ID# [id number], Process claim through [employer], for questions: . THIS IS NOT INSURANCE.] sildenafil 50 mg tablet RxNorm: 488420 1 Tablet(s) PO daily as needed 10/16/2013 11/14/2013 In active [SAVINGS FOR UNINSURED PATIENTS -- BIN:0 53801, PCN: ASPROD1, Group: AME08, ID# [id number], Process claim through [employer], for questions: . THIS IS NOT INSURANCE.] sildenafil 50 mg tablet RxNorm: 035695 1 Tablet(s) PO daily as needed 10/16/2013 10/15/2013 In active AndroGel 20.25 mg/1. 25 gram (1.62 %) transdermal gel pump RxNorm: 9841325 2 pumps TD daily 09/08/2013 03/06/2014 Inactive [SAVINGS FOR UNINSURED SIDNEY ENTS -- BIN:900051, PCN: ASPROD1, Group: AME08, ID# [id number], Process claim through [employer], for questions: . THIS IS NOT INSURANCE.] AndroGel 20.25 mg/1. 25 gram (1.62 %) transdermal gel pump RxNorm: 2601552 2 pumps TD daily 09/08/2013 09/07/2013 Inactive aspirin 325 mg tablet RxNorm: 728323 1 Tablet(s) PO daily No Start Date Active atorvastatin 40 mg t ablet RxNorm: 464603 1 Tablet(s) PO QHS No Start Date Active metoprolol succinate ER 25 mg tablet,extended release 24 hr RxNorm: 214491 1/2 Tablet(s) PO daily No Start Date Active lisinopril 2.5 mg ta blet RxNorm: 588370 1 Tablet(s) PO daily No Start Date Active clopidogrel 75 mg ta blet RxNorm: 155461 1 Tablet(s) PO daily No Start Date Active alprazolam 1 mg tablet RxNorm: 055254 Tablet(s) PO PRN No Start Date 04/26/2014 Inactive Benadryl 25 mg capsule RxNorm: 7788528 2 Capsule(s) PO QPM No Start Date 10/03/2015 Inactive [facility] 2.5 mg-60 mg tablet RxNorm: 0565427 1 Tablet(s) PO Q6 as needed (do not exceed 4 tablets in 24 hours No Start Date 12/30/2017 Inactive Cialis 20 mg tablet RxNorm: 569653 1 Tablet(s) PO PRN No Start Date 10/03/2015 Inactive Medication Administered No Medication Administered data Immunizations Vaccine Codes Date Status Tetanus, Diptheria, Pertussis CVX: 113 03/28/2003 completed Tetanus/Diptheria CVX: 113 03/28/2003 completed Assessments Condition Codes Effectiv e Dates Essential (primary) hypertension ICD -10: I10 ICD-9: 401.1 12/31/2017 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 12/11/2016 Heavy Metals Profile Ii Blood 684039 LEAD, BLOOD <2.0 ug/dL 12/11/2016 Heavy Metals Profile Ii Blood 695871 Continued Results 12/11/2016 Heavy Metals Profile Ii Blood 054064 MERCURY, BLOOD . 12/11/2016 Heavy Metals Profile Ii Blood 880421 MERCURY, BLOOD <3 ug/L 12/11/2016 Heavy Metals Profile Ii Blood 166263 ARSENIC, BLOOD . 12/11/2016 Heavy Metals Profile Ii Blood 630370 ARSENIC, BLOOD <10.0 ug/L 12/11/2016 Comp Metabolic Gdc310 NA 141 mEq/L 12/04/2016 Comp Metabolic Ptz923 K 3.7 mEq/L 12/04/2016 Comp Metabolic Wip393 CL 104 mEq/L 12/04/2016 Comp Metabolic Dvm156 CO2 29.0 mEq/L 12/04/2016 Comp Metabolic Jgz936 AN ION GAP 12 12/04/2016 Comp Metabolic Pwx978 GL UCOSE 130 mg/dL 12/04/2016 Comp Metabolic Ive424 Cr eat 1.0 mg/dL 12/04/2016 Comp Metabolic Ybr041 eG FR 77 ml/min/1.73m2 12/04 Comp Metabolic Pnu655 BUN 19 mg/dL 12/04/2016 Comp Metabolic Epy471 B/ C Ratio 18.4 Ratio 12/04/2016 Comp Metabolic Flv114 CA LCIUM 9.3 mg/dL 12/04/2016 Comp Metabolic Hrl520 AL K PHOS 56 U/L 12/04/2016 Comp Metabolic Oft835 T(SGOT) 14 U/L 12/04/2016 Comp Metabolic Ryc660 AL T(SGPT) 10 U/L 12/04/2016 Comp Metabolic Uhq704 BI LI T 1.1 mg/dL 12/04/2016 Comp Metabolic Evi149 AL BUMIN 4.1 g/dL 12/04/2016 Comp Metabolic Hnx821 TP RO 6.3 g/dL 12/04/2016 Comp Metabolic Mic752 GL OB 2.2 g/dL 12/04/2016 Comp Metabolic Jnc537 A/ G Ratio 1.9 Ratio 12/04/2016 Comp Metabolic Uqb492 Os mo 285 mOsmo 12/04/2016 Cbc With [...] 31.7 pg 12/04/2016 Cbc With Differential Ord2 Dukes% 6.1 % 12/04/2016 Cbc With Differential Ord2 [...] 1.71 K/ul 12/04/2016 Cbc With Differential Ord2 Dukes ABS# 0.5 K/ul 12/04/2016 Cbc With Differential Ord2 Eos ABS# 0.3 K/ul 12/04/2016 Cbc With Differential Ord2 Baso ABS# 0.0 K/ul 12/04/2016 B12 Kpr533 B12 444.00 pg/ml 03/31/2015 Lipid Ord30 CHOL 199 mg/dL 03/31/2015 Lipid Ord30 HDL 45.0 mg/dl 03/31/2015 Lipid Ord30 TRIG 126 mg/dL 03/31/2015 Lipid Ord30 LDL 129 mg/dL 03/31/2015 Lipid Ord30 C/HDL 4.4 Ratio 03/31/2015 Testosterone Imz462 Testo 259.94 ng/dL 03/31/2015 Tsh Ord6 hTSH [...] 96.8 fl 03/31/2015 Cbc With Differential Ord2 Dukes% 10.2 % 03/31/2015 Cbc With Differential Ord2 [...] 1.94 K/ul 03/31/2015 Cbc With Differential Ord2 Dukes ABS# 0.7 K/ul 03/31/2015 Cbc With Differential Ord2 Eos ABS# 0.3 K/ul 03/31/2015 Cbc With Differential Ord2 Baso ABS# 0.0 K/ul 03/31/2015 Cbc With Differential Ord2 New Analyzer Notice Please note new ref ranges s tarting 03-10-2015 due to implemntation of new five part differential hematolgy analyzer. 03/31/2015 Comp Metabolic Riz656 NA 143 mEq/L 03/31/2015 Comp Metabolic Yck176 K 3.9 mEq/L 03/31/2015 Comp Metabolic Iuy550 CL 109 mEq/L 03/31/2015 Comp Metabolic Xgg996 CO2 29.0 mEq/L 03/31/2015 Comp Metabolic Vbc680 AN ION GAP 9 03/31/2015 Comp Metabolic Txn229 GL UCOSE 94 mg/dL 03/31/2015 Comp Metabolic Cny106 Cr eat 0.9 mg/dL 03/31/2015 Comp Metabolic Ksg613 eG FR 86 ml/min/1.73m2 03/31 Comp Metabolic Zts192 BUN 22 mg/dL 03/31/2015 Comp Metabolic Hcl902 B/ C Ratio 23.4 Ratio 03/31/2015 Comp Metabolic Nyx445 CA LCIUM 8.8 mg/dL 03/31/2015 Comp Metabolic Zcy544 AL K PHOS 54 U/L 03/31/2015 Comp Metabolic Ykz292 T(SGOT) 12 U/L 03/31/2015 Comp Metabolic Xbj167 AL T(SGPT) 7 U/L 03/31/2015 Comp Metabolic Pqo735 BI LI T 0.7 mg/dL 03/31/2015 Comp Metabolic Qbb853 AL BUMIN 4.0 g/dL 03/31/2015 Comp Metabolic Sec260 TP RO 6.1 g/dL 03/31/2015 Comp Metabolic Aie287 GL OB 2.1 g/dL 03/31/2015 Comp Metabolic Iju278 A/ G Ratio 1.9 Ratio 03/31/2015 Comp Metabolic Iki751 Os mo 288 mOsmo 03/31/2015 TESTOS TO 7293588 TESTOS TO 252 NG/DL 09/03/2013 ICT OCCULT 0430458 ICT O CCULT NEG 09/02/2013 CBC 9165846 WBC 7.2 10e9/L 09/02/2013 CBC 0010690 RBC 4.74 10e12/L 09/02/2013 CBC 5135810 HGB 14.8 g/dL 09/02/2013 CBC 5766897 HCT DET 44.2 % 09/02/2013 CBC 4726220 MCV 93.2 fL 09/02/2013 CBC 1750329 MCH 31.2 pg 09/02/2013 CBC 2305473 MCHC 33.5 g/dL 09/02/2013 CBC 9262581 PLT 224 10e9/L 09/02/2013 CBC 5241325 MPV 9.9 fL 09/02/2013 CBC 4740721 HAYDE % 60.5 % 09/02/2013 CBC 1425480 LY % 26.8 % 09/02/2013 CBC 3661801 MON % 9.0 % 09/02/2013 CBC 1432346 EOS % 3.3 % 09/02/2013 CBC 1292773 BASO % 0.4 % 09/02/2013 CBC 5532253 RDW 13.1 % 09/02/2013 CBC 7009473 ABS HAYDE 4.36 10e9/L 09/02/2013 CBC 0732366 ABS LYMPH 1.93 10e9/L 09/02/2013 CBC 1760942 ABS MONO 0.65 10e9/L 09/02/2013 CBC 5038655 ABS EOS 0.24 10e9/L 09/02/2013 CBC 9429402 ABS BASO 0.03 10e9/L 09/02/2013 CBC 3862294 RDW-SD 43.1 fL 09/02/2013 GFR CALC 8355452 GFR AA >60 ML/MIN 09/02/2013 GFR CALC 3362525 GFR NON -AA >60 ML/MIN 09/02/2013 LIPID GRP HDL TE ST 48 MG/DL 09/02/2013 LIPID GRP TRIG 134 MG/DL 09/02/2013 LIPID GRP 5304361 TEST L DL 151 MG/DL 09/02/2013 LIPID GRP CHOL 226 MG/DL 09/02/2013 LIPID GRP 2638128 RCHOL/ HDL 4.71 RATIO 09/02/2013 CHEM 14 3363630 AST 13 U/L 09/02/2013 CHEM 14 8879503 ALT 9 IU/L 09/02/2013 CHEM 14 1638408 BUN 23 MG/DL 09/02/2013 CHEM 14 5239837 ALBUMIN 4.1 GM/DL 09/02/2013 CHEM 14 6172922 CHLORIDE 109 MMOL/L 09/02/2013 CHEM 14 3582632 BILI TOT 1.0 MG/DL 09/02/2013 CHEM 14 2565149 ALK PHOS 55 U/L 09/02/2013 CHEM 14 5373326 SODIUM 142 MMOL/L 09/02/2013 CHEM 14 5993217 CREATINI NE 0.91 MG/DL 09/02/2013 CHEM 14 3429839 CALCIUM 9.3 MG/DL 09/02/2013 CHEM 14 9946738 POTASSIUM 3.9 MMOL/L 09/02/2013 CHEM 14 4057014 PROT TOT 6.2 GM/DL 09/02/2013 CHEM 14 0779450 GLUCOSE 95 MG/DL 09/02/2013 CHEM 14 7901320 BICARB 28 MMOL/L 09/02/2013 CHEM 14 3964529 ANION GAP 5 MEQ/L 09/02/2013 TSH 4904548 TSH 2.262 uIU/ML 09/02/2013 PSA EQ 20110422 PSA EQ 3.20 NG/ML 09/02/2013 Review of Systems System Result Effective Dates Constitutional No recent illness 12/31/2017 Constitutional No [...] Date PPPS, SUBSEQ VISIT CPT- 4: G0439 12/06/2016 INITIAL PREVENTIVE EXAM CPT-4: G0402 03/30/2015 PSA EQ (ASSAY OF PSA TOTAL) CPT-4: 04533 09/02/2013 TSH (ASSAY THYROID S MARIELENA HORMONE) CPT-4: 56142 09/02/2013 CBC (COMPLETE CBC W/ AUTO DIFF WBC) CPT-4: 52904 09/02/2013 CHEM 14 (COMPREHEN M ETABOLIC PANEL) CPT-4: 14733 09/02/2013 LIPID GRP (LIPID PANEL) CPT-4: 53080 09/02/2013 REMOVE IMPACTED EAR WAX UNI CPT-4: 90327 09/02/2013 Vital Signs Date Vital 12/31/2017 Blood Pressure 1: 142/76 Code: 8480-6 BMI: 23.9 Code: 33275-4 Heart Rate 1: 68 bpm Height: 6'1" SpO2: 99% Weight: 181 lbs 09/18/2017 Blood Pressure 1: 128/72 Code: 8480-6 Heart Rate 1: 86 bpm Height: SpO2: 98% Weight: 04/18/2017 Blood Pressure 1: 148/78 Code: 8480-6 BMI: 23.4 Code: 50332-5 Heart Rate 1: 87 bpm Height: 6'1" SpO2: 98% Weight: 177 lbs 12/06/2016 Blood Pressure 1: 134/72 Code: 8480-6 BMI: 22.0 Code: 98352-0 Heart Rate 1: 60 bpm Height: 6'1" SpO2: 98% Waist Measure (cm): 81 cm Weight: 167 lbs 12/04/2016 Blood Pressure 1: 136/70 Code: 8480-6 BMI: 22.0 Code: 82659-5 Heart Rate 1: 59 bpm Height: 6'1" SpO2: 97% Weight: 167 lbs 06/07/2016 Blood Pressure 1: 126/64 Code: 8480-6 BMI: 20.4 Code: 10036-7 Heart Rate 1: 57 bpm Height: 6'1" SpO2: 97% Temperature: 37.1 (C ) / 98.8 (F) Weight: 155 lbs 03/23/2016 Blood Pressure 1: 132/74 Code: 8480-6 BMI: 22.0 Code: 10685-7 Heart Rate 1: 63 bpm Height: 6'1" SpO2: 98% Weight: 167 lbs 03/06/2016 Blood Pressure 1: 148/86 Code: 8480-6 BMI: 22.0 Code: 28249-1 Heart Rate 1: 62 bpm Height: 6'1" SpO2: 97% Weight: 167 lbs 10/04/2015 Blood Pressure 1: 150/82 Code: 8480-6 BMI: 22.2 Code: 95718-3 Heart Rate 1: 55 bpm Height: 6'1" SpO2: 98% Weight: 168 lbs 06/16/2015 Blood Pressure 1: 152/80 Code: 8480-6 BMI: 24.0 Code: 08989-1 Heart Rate 1: 60 bpm Height: 6'1" SpO2: 97% Weight: 182 lbs 05/20/2015 Blood Pressure 1: 152/78 Code: 8480-6 BMI: 24.3 Code: 25113-3 Heart Rate 1: 68 bpm Height: 6'1" SpO2: 98% Weight: 184 lbs 05/06/2015 Blood Pressure 1: 142/60 Code: 8480-6 BMI: 23.9 Code: 26762-8 Heart Rate 1: 58 bpm Height: 6'1" SpO2: 96% Weight: 181 lbs 03/30/2015 Blood Pressure 1: 138/52 Code: 8480-6 BMI: 24.4 Code: 73125-9 Heart Rate 1: 71 bpm Height: 6'1" SpO2: 95% Weight: 185 lbs 12/07/2014 Blood Pressure 1: 132/68 Code: 8480-6 Heart Rate 1: 60 bpm SpO2: 98% Weight: 185 lbs 02/23/2014 Blood Pressure 1: 128/68 Code: 8480-6 BMI: 25.6 Code: 48566-8 Heart Rate 1: 84 bpm Height: 6'1" Weight: 194 lbs 09/01/2013 Blood Pressure 1: 124/62 Code: 8480-6 BMI: 24.2 Code: 34117-7 Heart Rate 1: 64 bpm Height: 6'1" Weight: 183 lbs 6 oz Functional Status No Functional Status data History of Present Illness Symptom Name Status Resu lt Effective Date Notes Hospital Follow Up _ car diac disease [...] well man exam (65+ years) Lifestyle satisfactory 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 P ATIENT, LEVEL IV Diagnosis: Essential (primary) hypertension[ICD10: I10] Diagnosis: Atherosclerotic heart disease of [place] coronary artery without angina pectoris[ICD10: I25.10] Gloria Mendoza MD, [facility] CPT-4: 68336 12/31/2017 94225 EST. PATIENT, LEVEL IV Diagnosis: Other insomnia[ICD10: G47.09] Melissa Mendoza MD, [facility] CPT-4: 56329 09/18/2017 94049 EST. PATIENT, LEVEL III Diagnosis: Pain in right shoulder[ICD10: M25.511] Diagnosis: Encounter for screening for malignant neoplasm of prostate[ICD10: Z12.5] Melissa Mendoza MD, [facility] CPT-4: 00146 04/18/2017 ([id number]) 90938 EST. P ATIENT, LEVEL III Diagnosis: Other insomnia[ICD10: G47.09] Diagnosis: Encounter for screening for disorder due to exposure to contaminants[ICD10: Z13.88] Diagnosis: Unspecified jaundice[ICD10: R17] Diagnosis: Right upper quadrant pain[ICD10: R10.11] Kathie Mendoza MD, [facility] CPT-4: 01285 12/04/2016 25607 EST. PATIENT, LEVEL IV Diagnosis: Unilateral inguinal hernia, without obstruction or gangrene, recurrent[ICD10: K40.91] Melissa Mendoza MD, [facility] CPT-4: 88188 06/07/2016 ([id number]) 82146 EST. P ATIENT, LEVEL III Diagnosis: Male erectile disorder[ICD10: F52.21] Diagnosis: Restless legs syndrome[ICD10: G25.81] Gloria Mendoza MD, [facility] CPT-4: 05459 03/23/2016 49894 EST. PATIENT, LEVEL IV Diagnosis: Other insomnia[ICD10: G47.09] Diagnosis: Restless legs syndrome[ICD10: G25.81] Melissa Mendoza MD, [facility] CPT- 4: 13205 03/06/2016 ([id number]) 91206 EST. P ATIENT, LEVEL III Diagnosis: Unilateral inguinal hernia, without obstruction or gangrene, recurrent[ICD10: K40.91] Kathie Mendoza MD, [facility] CPT-4: 79121 10/04/2015 81110 EST. PATIENT, LEVEL III Diagnosis: Other insomnia[ICD10: G47.09] Diagnosis: Male erectile disorder[ICD10: F52.21] Melissa Mendoza MD, [facility] CPT- 4: 34979 06/16/2015 74826 EST. PATIENT, LEVEL IV Diagnosis: Other insomnia[ICD10: G47.09] Melissa Mendoza MD, [facility] CPT-4: 21272 05/20/2015 85444 EST. PATIENT, LEVEL III Diagnosis: Other insomnia[ICD10: G47.09] Melissa Mendoza MD, [facility] CPT-4: 01864 05/06/2015 78362 EST. PATIENT, LEVEL III Diagnosis: Conjunctival hemorrhage, right eye[ICD10: H11.31] Diagnosis: Other seborrheic keratosis[ICD10: L82.1] Gloria Mendoza MD, [facility] CPT-4: 78573 12/07/2014 ([id number]) 82078 EST. P ATIENT, LEVEL IV Diagnosis: Eczema, dyshidrotic[ICD9: 705.81] Diagnosis: Right hip pain[ICD9: 719.45] Diagnosis: Insomnia[ICD9: 780.52] Diagnosis: Erectile dysfunction[ICD9: 607.84] Kathie Mendoza MD, [facility] CPT-4: 68206 02/23/2014 Office outpatient ne w 30 minutes Diagnosis: Erectile dysfunction[ICD9: 607.84] Diagnosis: INSOMNIA NOS[ICD9: 780.52] Diagnosis: Special screening for malignant neoplasms, colon[ICD9: V76.51] Kathie Mendoza MD, [facility] CPT-4: 15475 09/01/2013 Plan of Care Planned Activity Notes [...] of afib while in the hospital in [place] - continue with amiodarone at this time. 12/31/2017 Patient Education: Patient Medication Summary Completed 12/31/2017 Appointment: Melissa Johnson WPtel: [phone] [facility] [facility] - Annual Wellness Visit 12/12/2017 Visit [...] improve. 04/18/2017 Appointment: Melissa Johnson WPtel: [phone] [facility] (15 min) Moderate 04/18/2017 Patient Education: Patient [...] care surrogate. 12/06/2016 Appointment: Melissa Johnson WPtel: [address] [place], [place] [address] [facility] - Annual Wellness Visit 12/06/2016 Patient Education: Patient Medication Summary Completed 12/06/2016 Visit Plan: Izpmhzqg-wrlgjuf-hrzyel lorazepam for prn use History of exposure to heavy metals-possible slight yellowing of the eyes- intermittent RUQ pain-will check labs -consider hepatitis panel/liver/gallbladd er ultrasound if symptoms persist or worsen 12/04/2016 Appointment: Kathie Oconnell [facility]el[phone] [place] (30 min) Complex 12/04/2016 Patient Education: Patient Medication Summary Completed 12/04/2016 Appointment: Gloria Mendoza WPtel: [address] [place], [place] [address] (15 min) Moderate 11/08/2016 Visit Plan: Right inguinal pain - p ost hernia repair - will order US - pt is to notify clinic if symptoms change, or with any acute concerns. 06/07/2016 Appointment: Melissa Johnson WPtel: [facility] [place] (30 min) Complex 06/07/2016 Patient Education: [...] refilled cialis 03/23/2016 Appointment: Gloria Mendoza WPtel: [facility] [place] (15 min) Moderate 03/23/2016 Appointment: Gloria Mendoza WPtel: [address] [place], [place] [id number] [place] (15 min) Moderate 03/23/2016 Patient Education: [...] or requip. 03/06/2016 Appointment: Melissa Johnson WPtel: [facility] [place] ([facility] min) Complex 03/06/2016 Patient Education: Patient Medication Summary Completed 03/06/2016 Visit Plan: Inguinal hernia-refer t josé miguel Esteban for evaluation 10/04/2015 Appointment: Kathie Oconnell WPtel: [phone] [phone] (30 min) Complex 10/04/2015 Patient Education: Patient Medication Summary Completed 10/04/2015 Care Plan: Referral Order SNOMED-CT : [id number] Pending 10/04/2015 Referral: Tremaine Hernandez [facility]el[facility] [id number] [id number] Initiated 06/28/2015 Visit Plan: Insomnia - [...] medications. 06/16/2015 Appointment: Kathie Oconnell WPtel: [phone] [phone] (30 min) Complex 06/16/2015 Patient Education: Patient Medication Summary Completed 06/16/2015 Care Plan: Referral Order SNOMED-CT : [id number] Pending 06/16/2015 Visit Plan: Insomnia - Pt [...] Completed 02/23/2014 Appointment: Gloria Mendoza WPtel: [phone] [facility] [id number] [facility] Draw 09/02/2013 Patient Education: [...] 5pm. Daytime napping worsens night time insomnia. Anybac-vsxgbyqc-pxmuodowc removal if becomes irritated 09/01/2013 Appointment: New [...] 5pm. Daytime napping worsens night time insomnia. Oyajxi-xtqeljfi-kukplokga removal if becomes irritated Refer to Dr [...] of afib while in the hospital in [place] - continue with amiodarone at this time. [...] change, or with any acute concerns. . Ticxgrcf-xdbtrlf-u efill lorazepam for prn use History of exposure to heavy metals-possible slight yellowing of the eyes- intermittent RUQ pain-will check labs -consider hepatitis panel/liver/gallbladder ultrasound if symptoms persist or worsen
--- OUTSIDE RECORDS SUMMARY | 2019-09-25 10:19 | XMS REPORT | Continuity of Care Document ---
Author Organization Unknown Address Unknown Phone Unavailable Allergies Active Description Code Type Severity Reaction Onset Reported/Identified Relationship to Patient Clinical Status Yes Penicillins [id number] Drug Aller gy Unknown EXTREME FEVER 10/06/2015 Yes Penicillins [id number] Drug Aller gy Moderate EXTREME FEVER 09/18/2019 Medications There is no data. Problems Date Dx Coded Attending Type Code Diagnosis Diagnosed By 03/26/2014 ARUNA OCONNELL Ot 719.45 04/19/2015 ARUNA OCONNELL Ot 719.45 04/26/2015 ARUNA OCONNELL Ot 719.45 04/26/2015 JANET HERNANDEZ, YESIKA Haro Ot Z01.818 04/26/2015 ARUNA OCONNELL Ot 719.45 04/26/2015 JANET HERNANDEZ, YESIKA Haro Ot Z01.818 04/26/2015 JANET HERNANDEZ, YESIKA Haro Ot K57.90 DVRTCLOS OF INTEST, PART UNSP, W/O PERF 04/26/2015 JANET HERNANDEZ, YESIKA Haro Ot Z12.11 ENCOUNTER FOR SCREENING FOR MALIGNANT NE 10/06/2015 JORGE BAILEY DO Ot K40. 90 UNIL INGUINAL HERNIA, W/O OBST OR GANGR, 10/06/2015 JORGE BAILEY DO Ot Z01.818 ENCOUNTER FOR OTHER PREPROCEDURAL EXAMIN 10/06/2015 JORGE BAILEY DO Ot Z11. 2 ENCOUNTER FOR SCREENING FOR OTHER BACTER 10/07/2015 JORGE BAILEY DO Ot K40. 90 UNIL INGUINAL HERNIA, W/O OBST OR GANGR, 10/07/2015 JORGE BAILEY DO Ot Z01.818 ENCOUNTER FOR OTHER PREPROCEDURAL EXAMIN 10/07/2015 JORGE BAILEY DO Ot Z11. 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 90 UNIL INGUINAL HERNIA, W/O OBST OR GANGR, 05/04/2016 MEME ARAUJO MD Ot I10 ESSENTIAL (PRIMARY) HYPERTENSION 05/04/2016 MEME ARAUJO MD Ot N52. 9 MALE ERECTILE DYSFUNCTION, UNSPECIFIED 05/04/2016 MEME ARAUJO MD Ot R94. 31 ABNORMAL ELECTROCARDIOGRAM [ECG] [EKG] 05/04/2016 MEME ARAUJO MD Ot Z82. 49 FAMILY HX OF [place] HEART DIS AND OTH DI 05/04/2016 MEME ARAUJO MD Ot Z87.891 PERSONAL HISTORY OF NICOTINE DEPENDENCE 05/05/2016 MEME ARAUJO MD Ot I10 ESSENTIAL (PRIMARY) HYPERTENSION 05/05/2016 MEME ARAUJO MD Ot N52. 9 MALE ERECTILE DYSFUNCTION, UNSPECIFIED 05/05/2016 MEME ARAUJO MD Ot R94. 31 ABNORMAL ELECTROCARDIOGRAM [ECG] [EKG] 05/05/2016 MEME ARAUJO MD Ot Z82. 49 FAMILY HX OF [place] HEART DIS AND OTH DI 05/05/2016 MEME ARAUJO MD Ot Z87.891 PERSONAL HISTORY OF NICOTINE DEPENDENCE 05/05/2016 MEME ARAUJO MD Ot I10 ESSENTIAL (PRIMARY) HYPERTENSION 05/05/2016 MEME ARAUJO MD Ot N52. 9 MALE ERECTILE DYSFUNCTION, UNSPECIFIED 05/05/2016 MEME ARAUJO MD Ot R94. 31 ABNORMAL ELECTROCARDIOGRAM [ECG] [EKG] 05/05/2016 MEME ARAUJO MD Ot Z82. 49 FAMILY HX OF [place] HEART DIS AND OTH DI 05/05/2016 MEME ARAUJO MD Ot Z87.891 PERSONAL HISTORY OF NICOTINE DEPENDENCE 05/24/2016 MEME ARAUJO MD Ot I10 ESSENTIAL (PRIMARY) HYPERTENSION 05/24/2016 MEME ARAUJO MD Ot N52. 9 MALE ERECTILE DYSFUNCTION, UNSPECIFIED 05/24/2016 MEME ARAUJO MD Ot R94. 31 ABNORMAL ELECTROCARDIOGRAM [ECG] [EKG] 05/24/2016 MEME ARAUJO MD Ot Z82. 49 FAMILY HX OF [place] HEART DIS AND OTH DI 05/24/2016 MEME ARAUJO MD Ot Z87.891 PERSONAL HISTORY OF NICOTINE DEPENDENCE 06/08/2016 ARUNA OCONNELL CARDIO CLINICIAN Ot 719.45 JOINT PAIN-PELVIS 06/08/2016 JANET HERNANDEZ, YESIKA Haro Ot Z01.818 ENCOUNTER FOR OTHER PREPROCEDURAL EXAMIN 06/08/2016 MEME ARAUJO MD Ot I10 ESSENTIAL (PRIMARY) HYPERTENSION 06/08/2016 MEME ARAUJO MD Ot N52. 9 MALE ERECTILE DYSFUNCTION, UNSPECIFIED 06/08/2016 MEME ARAUJO MD Ot R94. 31 ABNORMAL ELECTROCARDIOGRAM [ECG] [EKG] 06/08/2016 MEME ARAUJO MD Ot Z82. 49 FAMILY HX OF [place]HE[place] HEART DIS AND OTH DI 06/08/2016 MEME ARAUJO MD, Ot Z87.891 PERSONAL HISTORY OF NICOTINE DEPENDENCE 06/13/2016 GIANLUCA SCHWARTZ INSPECTOR [employer] DETAIL Ot R10.9 UNSPECIFIED ABDOMINAL PAIN 06/26/2016 SHAMA DUNBAR DO Ot S61.411A LACERATION WITHOUT FOREIGN BODY OF RIGHT 06/26/2016 SHAMA DUNBAR DO Ot W45.0XXA NAIL ENTERING THROUGH SKIN, INITIAL ENCO 06/26/2016 SHAMA DUNBAR DO Ot Y99.8 OTHER EXTERNAL CAUSE STATUS 06/26/2016 SHAMA DUNBAR DO Ot Z2 3 ENCOUNTER FOR IMMUNIZATION 06/27/2016 SHAMA DUNBAR DO Ot S61.411A LACERATION WITHOUT FOREIGN BODY OF RIGHT 06/27/2016 SHAMA DUNBAR DO Ot W45.0XXA NAIL ENTERING THROUGH SKIN, INITIAL ENCO 06/27/2016 SHAMA DUNBAR DO Ot Y99.8 OTHER EXTERNAL CAUSE STATUS 06/27/2016 SHAMA DUNBAR DO Ot Z2 3 ENCOUNTER FOR IMMUNIZATION 07/05/2016 GIANLUCA SCHWARTZ INSPECTOR [employer] DETAIL Ot R10.9 UNSPECIFIED ABDOMINAL PAIN 07/07/2016 KENY HERNANDEZ, ARNOLD Pisano Ot R07.89 OTHER CHEST PAIN 07/07/2016 KENY HERNANDEZ, ARNOLD T Ot R07.9 CHEST PAIN, UNSPECIFIED 07/07/2016 KENY HERNANDEZ, ARNOLD Pisano Ot Z87.891 PERSONAL HISTORY OF NICOTINE DEPENDENCE 04/18/2017 ARUNA OCONNELL CARDIO CLINICIAN Ot 719.45 JOINT PAIN-PELVIS 04/18/2017 JANET HERNANDEZ, YESIKA Haro Ot Z01.818 ENCOUNTER FOR OTHER PREPROCEDURAL EXAMIN 04/18/2017 MEME ARAUJO MD Ot I10 ESSENTIAL (PRIMARY) HYPERTENSION 04/18/2017 MEME ARAUJO MD, Ot N52. 9 MALE ERECTILE DYSFUNCTION, UNSPECIFIED 04/18/2017 MEME ARAUJO MD, Ot R94. 31 ABNORMAL ELECTROCARDIOGRAM [ECG] [EKG] 04/18/2017 MEME ARAUJO MD, Ot Z82. 49 FAMILY HX OF [place] HEART DIS AND OTH DI 04/18/2017 MEME ARAUJO MD, Ot Z87.891 PERSONAL HISTORY OF NICOTINE DEPENDENCE 04/18/2017 GIANLUCA SCHWARTZ APRN Ot R10.9 UNSPECIFIED ABDOMINAL PAIN 05/01/2017 GIANLUCA SCHWARTZ APRN Ot M67.813 OTHER SPECIFIED DISORDERS OF TENDON, RIG 05/01/2017 GIANLUCA SCHWARTZ APRN Ot M75.111 INCOMPLETE ROTATR-CUFF TEAR/RUPTR OF R S 05/02/2017 GIANLUCA SCHWARTZ APRN Ot M25.511 PAIN IN RIGHT SHOULDER 05/18/2017 GIANLUCA SCHWARTZ APRN Ot M67.813 OTHER SPECIFIED DISORDERS OF TENDON, RIG 05/18/2017 GIANLUCA SCHWARTZ APRN Ot M75.111 INCOMPLETE ROTATR-CUFF TEAR/RUPTR OF R S 09/03/2017 GIANLUCA SCHWARTZ APRN Ot M25.511 PAIN IN RIGHT SHOULDER 09/03/2017 GIANLUCA SCHWARTZ APRN Ot M67.813 OTHER SPECIFIED DISORDERS OF TENDON, RIG 09/03/2017 GIANLUCA SCHWARTZ APRN Ot M75.111 INCOMPLETE ROTATR-CUFF TEAR/RUPTR OF R S 11/28/2017 KEN DELEON MD Ot E78.5 HYPERLIPIDEMIA, UNSPECIFIED 11/28/2017 KEN DELEON MD Ot F41.9 ANXIETY DISORDER, UNSPECIFIED 11/28/2017 KEN DELEON MD Ot G25.81 RESTLESS LEGS SYNDROME 11/28/2017 KEN DELEON MD Ot G47.00 INSOMNIA, UNSPECIFIED 11/28/2017 KEN DELEON MD Ot I16.0 HYPERTENSIVE URGENCY 11/28/2017 KEN DELEON MD Ot I25.110 ATHSCL HEART DISEASE OF [place] COR ART W 11/28/2017 KEN DELEON MD Ot N40.0 BENIGN PROSTATIC HYPERPLASIA WITHOUT LOW 11/28/2017 KEN DELEON MD Ot R00.2 PALPITATIONS 11/28/2017 KEN DELEON MD Ot Z82.49 FAMILY HX OF [place] HEART DIS AND OTH DI 11/28/2017 KEN DELEON MD Ot Z87.891 PERSONAL HISTORY OF NICOTINE DEPENDENCE 01/16/2018 ARUNA OCONNELL CARDIO CLINICIAN Ot 719.45 JOINT PAIN-PELVIS 01/16/2018 JANET HERNANDEZ, YESIKA Haro Ot Z01.818 ENCOUNTER FOR OTHER PREPROCEDURAL EXAMIN 01/16/2018 MEME ARAUJO MD Ot I10 ESSENTIAL (PRIMARY) HYPERTENSION 01/16/2018 MEME ARAUJO MD Ot N52. 9 MALE ERECTILE DYSFUNCTION, UNSPECIFIED 01/16/2018 MEME ARAUJO MD Ot R94. 31 ABNORMAL ELECTROCARDIOGRAM [ECG] [EKG] 01/16/2018 MEME ARAUJO MD Ot Z82. 49 FAMILY HX OF [place] HEART DIS AND OTH DI 01/16/2018 MEME ARAUJO MD Ot Z87.891 PERSONAL HISTORY OF NICOTINE DEPENDENCE 01/16/2018 GIANLUCA SCHWARTZ INSPECTOR [employer] DETAIL Ot R10.9 UNSPECIFIED ABDOMINAL PAIN 01/16/2018 GIANLUCA SCHWARTZ INSPECTOR [employer] DETAIL Ot M25.511 PAIN IN RIGHT SHOULDER 01/16/2018 GIANLUCA SCHWARTZ INSPECTOR [employer] DETAIL Ot M67.813 OTHER SPECIFIED DISORDERS OF TENDON, RIG 01/16/2018 GIANLUCA SCHWARTZ INSPECTOR [employer] DETAIL Ot M75.111 INCOMPLETE ROTATR-CUFF TEAR/RUPTR OF R S 02/22/2018 MEME ARAUJO MD Ot Z48.812 ENCNTR FOR SURGICAL AFTCR FOLLOWING SURG 02/22/2018 MEME ARAUJO MD Ot Z95. 1 PRESENCE OF AORTOCORONARY BYPASS GRAFT 04/16/2018 MEME ARAUJO MD Ot Z48.812 ENCNTR FOR SURGICAL AFTCR FOLLOWING SURG 04/16/2018 MEME ARAUJO MD Ot Z95. 1 PRESENCE OF AORTOCORONARY BYPASS GRAFT 05/01/2018 MEME ARAUJO MD Ot Z48.812 ENCNTR FOR SURGICAL AFTCR FOLLOWING SURG 05/01/2018 MEME ARAUJO MD Ot Z95. 1 PRESENCE OF AORTOCORONARY BYPASS GRAFT 05/17/2018 MEME ARAUJO MD Ot Z48.812 ENCNTR FOR SURGICAL AFTCR FOLLOWING SURG 05/17/2018 MEME ARAUJO MD Ot Z95. 1 PRESENCE OF AORTOCORONARY BYPASS GRAFT 07/16/2018 MEME ARAUJO MD Ot Z48.812 ENCNTR FOR SURGICAL AFTCR FOLLOWING SURG 07/16/2018 MEME ARAUJO MD Ot Z95. 1 PRESENCE OF AORTOCORONARY BYPASS GRAFT 07/19/2018 MEME ARAUJO MD Ot Z48.812 ENCNTR FOR SURGICAL AFTCR FOLLOWING SURG 07/19/2018 MEME ARAUJO MD Ot Z95. 1 PRESENCE OF AORTOCORONARY BYPASS GRAFT 01/07/2019 KEN DELEON MD Ot M19.012 PRIMARY OSTEOARTHRITIS, LEFT SHOULDER 01/07/2019 KEN DELEON MD Ot M67.814 OTHER SPECIFIED DISORDERS OF TENDON, LEF 01/07/2019 KEN DELEON MD, Ot M75.112 INCOMPLETE ROTATR-CUFF TEAR/RUPTR OF L S 01/21/2019 JAMILA SOLORZANO Ot E78.2 MIXED HYPERLIPIDEMIA 01/21/2019 JAMILA SOLORZANO Ot I10 ESSENTIAL (PRIMARY) HYPERTENSION 01/21/2019 JAMILA SOLORZANO Ot I25.10 ATHSCL HEART DISEASE OF [place] CORONARY 01/21/2019 JAMILA SOLORZANO Ot R00.2 PALPITATIONS 01/28/2019 KEN DELEON MD, Ot M19.012 PRIMARY OSTEOARTHRITIS, LEFT SHOULDER 01/28/2019 KEN DELEON MD Ot M67.814 OTHER SPECIFIED DISORDERS OF TENDON, LEF 01/28/2019 KEN DELEON MD Ot M75.112 INCOMPLETE ROTATR-CUFF TEAR/RUPTR OF L S 09/11/2019 W K40.90 Rig ht inguinal hernia Aruna Oconnell 09/12/2019 W K40.90 Rig ht inguinal hernia Aruna Oconnell 09/17/2019 JANET HERNANDEZ, YESIKA Haro Ot Z01.818 ENCOUNTER FOR OTHER PREPROCEDURAL EXAMIN 09/17/2019 MEME ARAUJO MD Ot I10 ESSENTIAL (PRIMARY) HYPERTENSION 09/17/2019 MEME ARAUJO MD, Ot N52. 9 MALE ERECTILE DYSFUNCTION, UNSPECIFIED 09/17/2019 MEME ARAUJO MD, Ot R94. 31 ABNORMAL ELECTROCARDIOGRAM [ECG] [EKG] 09/17/2019 MEME ARAUJO MD, Ot Z82. 49 FAMILY HX OF [place] HEART DIS AND OTH DI 09/17/2019 MEME ARAUJO MD, Ot Z87.891 PERSONAL HISTORY OF NICOTINE DEPENDENCE 09/17/2019 GIANLUCA SCHWARTZ APRN Ot R10.9 UNSPECIFIED ABDOMINAL PAIN 09/17/2019 GIANLUCA SCHWARTZ APRN Ot M25.511 PAIN IN RIGHT SHOULDER 09/17/2019 GIANLUCA SCHWARTZ APRN Ot M67.813 OTHER SPECIFIED DISORDERS OF TENDON, RIG 09/17/2019 GIANLUCA SCHWARTZ APRN Ot M75.111 INCOMPLETE ROTATR-CUFF TEAR/RUPTR OF R S 09/17/2019 MEME ARAUJO MD, Ot Z48.812 ENCNTR FOR SURGICAL AFTCR FOLLOWING SURG 09/17/2019 MEME ARAUJO MD, Ot Z95. 1 PRESENCE OF AORTOCORONARY BYPASS GRAFT 09/17/2019 JAMILA SOLORZANO Ot E78.2 MIXED HYPERLIPIDEMIA 09/17/2019 JAMILA SOLORZANO Ot I10 ESSENTIAL (PRIMARY) HYPERTENSION 09/17/2019 JAMILA SOLORZANO Ot I25.10 ATHSCL HEART DISEASE OF [place] CORONARY 09/17/2019 JAMILA SOLORZANO Ot R00.2 PALPITATIONS 09/17/2019 KEN DELEON MD Ot M19.012 PRIMARY OSTEOARTHRITIS, LEFT SHOULDER 09/17/2019 KEN DELEON MD, Ot M67.814 OTHER SPECIFIED DISORDERS OF TENDON, LEF 09/17/2019 KEN DELEON MD Ot M75.112 INCOMPLETE ROTATR-CUFF TEAR/RUPTR OF L S 09/18/2019 MEME ARAUJO MD, Ot Z48.812 ENCNTR FOR SURGICAL AFTCR FOLLOWING SURG 09/18/2019 MEME ARAUJO MD Ot Z95. 1 PRESENCE OF AORTOCORONARY BYPASS GRAFT Procedures There is no data. Results Test Result Range Methicillin resistant Staphylococcus aur eus (MRSA) screening culture - 10/06/15 12:00 Methicillin resistant Staphylococcus aureus (MRSA) scr eening culture NEG NRG Complete blood count (CBC) with automate d white blood cell (WBC) differential - 07/07/16 00:50 Blood leukocytes automated count (number/volume) 7.0 10*3/uL 4.3-11.0 Blood erythrocytes automated count (number/volume) 4.43 10*6/uL 4.35-5.85 Venous blood hemoglobin measurement (mass/volume) 13.9 g/dL 13.3-17.7 Blood hematocrit (volume fraction) 43 % 40-54 Automated erythrocyte mean corpuscular volume 97 [ foz_us] 80-99 Automated erythrocyte mean corpuscular h emoglobin (mass per erythrocyte) 31 pg 25-34 Automated erythrocyte mean corpuscular h emoglobin concentration measurement (mass/volume) 32 g/dL 32-36 Automated erythrocyte distribution width ratio 13. 1 % 10.0- 14.5 Automated blood platelet count (count/volume) 184 10*3/uL 130-400 Automated blood platelet mean volume measurement 9.3 [foz_us] 7.4-10.4 Automated blood neutrophils/100 leukocytes 78 % 42-75 Automated blood lymphocytes/100 leukocytes 10 % 12-44 Blood monocytes/100 leukocytes 10 % 0-12 Automated blood eosinophils/100 leukocytes 2 % 0-10 Automated blood basophils/100 leukocytes 0 % 0-10 Blood neutrophils automated count (number/volume) 5.5 10*3 1.8-7.8 Blood lymphocytes automated count (number/volume) 0.7 10*3 1.0-4.0 Blood monocytes automated count (number/volume) 0. 7 10*3 0.0-1.0 Automated eosinophil count 0.1 10*3/uL 0 .0-0.3 Automated blood basophil count (count/volume) 0.0 10*3/uL 0.0-0.1 Activated partial thromboplastin time (a PTT) in platelet poor plasma bycoagulation assay - 07/07/16 00:50 Activated partial thromboplastin time (a PTT) in platelet poor plasma bycoagulation assay 33 s 24-35 PT panel in platelet poor plasma by coag ulation assay - 07/07/16 00:50 Prothrombin time (PT) in platelet poor plasma by coagu lation assay 14.2 s 12.2-14.7 INR in platelet poor plasma or blood by coagulation as say 1.1 0.8-1.4 Activated partial thromboplastin time (a PTT) in platelet poor plasma bycoagulation assay - 07/07/16 00:50 Activated partial thromboplastin time (a PTT) in platelet poor plasma bycoagulation assay 33 s 24-35 Comprehensive metabolic panel - 07/07/16 00:50 Serum or plasma sodium measurement (moles/volume) 144 mmol/L 135-145 Serum or plasma potassium measurement (moles/volume) 3.4 mmol/L 3.6-5.0 Serum or plasma chloride measurement (moles/volume) 109 mmol/L 98-107 Carbon dioxide 26 mmol/L 21-32 Serum or plasma anion gap determination (moles/volume) 9 mmol/L 5-14 Serum or plasma urea nitrogen measurement (mass/volume ) 21 mg/dL 7-18 Serum or plasma creatinine measurement (mass/volume) 0.93 mg/dL 0.60-1.30 Serum or plasma urea nitrogen/creatinine mass ratio 23 NRG Serum or plasma creatinine measurement w ith calculation of estimated glomerular filtration rate > NRG Serum or plasma glucose measurement (mass/volume) 106 mg/dL 70-105 Serum or plasma calcium measurement (mass/volume) 8.5 mg/dL 8.5-10.1 Serum or plasma total bilirubin measurement (mass/volu me) 1.3 mg/dL 0.1-1.0 Serum or plasma alkaline phosphatase марина surement (enzymatic activity/volume) 47 U/L 40-136 Serum or plasma aspartate aminotransfera se measurement (enzymatic activity/volume) 12 U/L 5-34 Serum or plasma alanine aminotransferase measurement (enzymatic activity/volume) 10 U/L 0-55 Serum or plasma protein measurement (mass/volume) 5.9 g/dL 6.4-8.2 Serum or plasma albumin measurement (mass/volume) 3.8 g/dL 3.2-4.5 Magnesium - 07/07/16 00:50 Magnesium 2.3 mg/dL 1.8-2.4 Serum or plasma troponin i.cardiac measu rement (mass/volume) - 07/07/16 00:50 Serum or plasma troponin i.cardiac measurement (mass/v olume) < ng/mL <0.30 Myoglobin, serum - 07/07/16 00:50 Myoglobin, serum 42.6 ng/mL 10.0-92.0 Serum or plasma troponin i.cardiac measu rement (mass/volume) - 07/07/16 04:45 Serum or plasma troponin i.cardiac measurement (mass/v olume) < ng/mL <0.30 Complete blood count (CBC) with automate d white blood cell (WBC) differential - 11/27/17 23:26 Blood leukocytes automated count (number/volume) 7.6 10*3/uL 4.3-11.0 Blood erythrocytes automated count (number/volume) 4.40 10*6/uL 4.35-5.85 Venous blood hemoglobin measurement (mass/volume) 13.9 g/dL 13.3-17.7 Blood hematocrit (volume fraction) 41 % 40-54 Automated erythrocyte mean corpuscular volume 93 [ foz_us] 80-99 Automated erythrocyte mean corpuscular h emoglobin (mass per erythrocyte) 32 pg 25-34 Automated erythrocyte mean corpuscular h emoglobin concentration measurement (mass/volume) 34 g/dL 32-36 Automated erythrocyte distribution width ratio 13. 5 % 10.0- 14.5 Automated blood platelet count (count/volume) 262 10*3/uL 130-400 Automated blood platelet mean volume measurement 9.2 [foz_us] 7.4-10.4 Automated blood neutrophils/100 leukocytes 62 % 42-75 Automated blood lymphocytes/100 leukocytes 25 % 12-44 Blood monocytes/100 leukocytes 9 % 0-12 Automated blood eosinophils/100 leukocytes 4 % 0-10 Automated blood basophils/100 leukocytes 1 % 0-10 Blood neutrophils automated count (number/volume) 4.7 10*3 1.8-7.8 Blood lymphocytes automated count (number/volume) 1.9 10*3 1.0-4.0 Blood monocytes automated count (number/volume) 0. 7 10*3 0.0-1.0 Automated eosinophil count 0.3 10*3/uL 0 .0-0.3 Automated blood basophil count (count/volume) 0.0 10*3/uL 0.0-0.1 PT panel in platelet poor plasma by coag ulation assay - 11/27/17 23:26 Prothrombin time (PT) in platelet poor plasma by coagu lation assay 12.4 s 12.2-14.7 INR in platelet poor plasma or blood by coagulation as say 0.9 0.8-1.4 Activated partial thromboplastin time (a PTT) in platelet poor plasma bycoagulation assay - 11/27/17 23:26 Activated partial thromboplastin time (a PTT) in platelet poor plasma bycoagulation assay 34 s 24-35 Comprehensive metabolic panel - 11/27/17 23:26 Serum or plasma sodium measurement (moles/volume) 142 mmol/L 135-145 Serum or plasma potassium measurement (moles/volume) 3.9 mmol/L 3.6-5.0 Serum or plasma chloride measurement (moles/volume) 111 mmol/L 98-107 Carbon dioxide 21 mmol/L 21-32 Serum or plasma anion gap determination (moles/volume) 10 mmol/L 5-14 Serum or plasma urea nitrogen measurement (mass/volume ) 23 mg/dL 7-18 Serum or plasma creatinine measurement (mass/volume) 0.91 mg/dL 0.60-1.30 Serum or plasma urea nitrogen/creatinine mass ratio 25 NRG Serum or plasma creatinine measurement w ith calculation of estimated glomerular filtration rate > NRG Serum or plasma glucose measurement (mass/volume) 113 mg/dL 70-105 Serum or plasma calcium measurement (mass/volume) 9.0 mg/dL 8.5-10.1 Serum or plasma total bilirubin measurement (mass/volu me) 0.5 mg/dL 0.1-1.0 Serum or plasma alkaline phosphatase марина surement (enzymatic activity/volume) 66 U/L 40-136 Serum or plasma aspartate aminotransfera se measurement (enzymatic activity/volume) 13 U/L 5-34 Serum or plasma alanine aminotransferase measurement (enzymatic activity/volume) 11 U/L 0-55 Serum or plasma protein measurement (mass/volume) 6.6 g/dL 6.4-8.2 Serum or plasma albumin measurement (mass/volume) 4.0 g/dL 3.2-4.5 CALCIUM CORRECTED 9.0 mg/dL 8.5-10.1 Magnesium - 11/27/17 23:26 Magnesium 2.2 mg/dL 1.8-2.4 Serum or plasma troponin i.cardiac measu rement (mass/volume) - 11/27/17 23:26 Serum or plasma troponin i.cardiac measurement (mass/v olume) < ng/mL <0.30 Myoglobin, serum - 11/27/17 23:26 Myoglobin, serum 48.3 ng/mL 10.0-92.0 Fibrin D-dimer FEU measurement in platel et poor plasma (mass/volume) - 11/27/17 23:26 Fibrin D-dimer FEU measurement in platelet poor plasma (mass/volume) 0.32 ug/mL 0.00-0.49 Complete blood count (CBC) with automate d white blood cell (WBC) differential - 11/28/17 05:25 Blood leukocytes automated count (number/volume) 9.4 10*3/uL 4.3-11.0 Blood erythrocytes automated count (number/volume) 4.19 10*6/uL 4.35-5.85 Venous blood hemoglobin measurement (mass/volume) 12.9 g/dL 13.3-17.7 Blood hematocrit (volume fraction) 39 % 40-54 Automated erythrocyte mean corpuscular volume 93 [ foz_us] 80-99 Automated erythrocyte mean corpuscular h emoglobin (mass per erythrocyte) 31 pg 25-34 Automated erythrocyte mean corpuscular h emoglobin concentration measurement (mass/volume) 33 g/dL 32-36 Automated erythrocyte distribution width ratio 13. 4 % 10.0- 14.5 Automated blood platelet count (count/volume) 234 10*3/uL 130-400 Automated blood platelet mean volume measurement 9.3 [foz_us] 7.4-10.4 Automated blood neutrophils/100 leukocytes 73 % 42-75 Automated blood lymphocytes/100 leukocytes 18 % 12-44 Blood monocytes/100 leukocytes 6 % 0-12 Automated blood eosinophils/100 leukocytes 4 % 0-10 Automated blood basophils/100 leukocytes 0 % 0-10 Blood neutrophils automated count (number/volume) 6.8 10*3 1.8-7.8 Blood lymphocytes automated count (number/volume) 1.6 10*3 1.0-4.0 Blood monocytes automated count (number/volume) 0. 6 10*3 0.0-1.0 Automated eosinophil count 0.3 10*3/uL 0 .0-0.3 Automated blood basophil count (count/volume) 0.0 10*3/uL 0.0-0.1 Comprehensive metabolic panel - 11/28/17 05:25 Serum or plasma sodium measurement (moles/volume) 141 mmol/L 135-145 Serum or plasma potassium measurement (moles/volume) 4.0 mmol/L 3.6-5.0 Serum or plasma chloride measurement (moles/volume) 112 mmol/L 98-107 Carbon dioxide 20 mmol/L 21-32 Serum or plasma anion gap determination (moles/volume) 9 mmol/L 5-14 Serum or plasma urea nitrogen measurement (mass/volume ) 20 mg/dL 7-18 Serum or plasma creatinine measurement (mass/volume) 0.80 mg/dL 0.60-1.30 Serum or plasma urea nitrogen/creatinine mass ratio 25 NRG Serum or plasma creatinine measurement w ith calculation of estimated glomerular filtration rate > NRG Serum or plasma glucose measurement (mass/volume) 114 mg/dL 70-105 Serum or plasma calcium measurement (mass/volume) 8.9 mg/dL 8.5-10.1 Serum or plasma total bilirubin measurement (mass/volu me) 0.8 mg/dL 0.1-1.0 Serum or plasma alkaline phosphatase марина surement (enzymatic activity/volume) 49 U/L 40-136 Serum or plasma aspartate aminotransfera se measurement (enzymatic activity/volume) 13 U/L 5-34 Serum or plasma alanine aminotransferase measurement (enzymatic activity/volume) 9 U/L 0-55 Serum or plasma protein measurement (mass/volume) 5.9 g/dL 6.4-8.2 Serum or plasma albumin measurement (mass/volume) 3.7 g/dL 3.2-4.5 CALCIUM CORRECTED 9.1 mg/dL 8.5-10.1 Serum or plasma troponin i.cardiac measu rement (mass/volume) - 11/28/17 05:25 Serum or plasma troponin i.cardiac measurement (mass/v olume) < ng/mL <0.30 Myoglobin, serum - 11/28/17 05:25 Myoglobin, serum 48.7 ng/mL 10.0-92.0 Lipid 1996 panel - 11/28/17 05:25 Serum or plasma triglyceride measurement (mass/volume) 94 mg/dL <150 Serum or plasma cholesterol measurement (mass/volume) 187 mg/dL < 200 Serum or plasma cholesterol in HDL measurement (mass/v olume) 44 mg/dL 40-60 Cholesterol in LDL [mass/volume] in serum or plasma by direct assay 133 mg/dL 1-129 Serum or plasma cholesterol in VLDL measurement (mass/ volume) 19 mg/dL 5-40 Encounters ACCT No. Visit Date/Time Discharge Status Pt. Type Provider Facility Loc./Unit Complaint [id number] 12/05/2016 23:42:21 12/05/2016 23:59:5 9 CLS Outpatient [id number] 09/22/2019 05:34:00 10:23:00 DIS Outpatient JOHNIE DAVIS MD [facility] PREOP RIGHT INGUINAL HERNIA [id number] 01/03/2019 13:05:00 23:59:59 CLS Outpatient KEN DELEON MD [facility] RAD L SHOULDER PAIN [id number] 12/30/2018 11:30:00 23:59:59 CLS Preadmit JAMILA SOLORZANO [facility] CARD CAD [id number] 12/30/2018 07:17:00 23:59:59 CLS Outpatient PENG SOLORZANO [facility] CARD CAD [id number] 07/17/2018 10:00:00 23:59:59 CLS Preadmit MEME ARAUJO MD [facility] CR STATUS POST ACB [id number] 05/03/2018 10:13:00 00:01:00 DIS Outpatient MEME ARAUJO MD [facility] CR STATUS POST ACB [id number] 04/15/2018 10:33:00 00:01:00 DIS Outpatient MEME ARAUJO MD [facility] CR STATUS POST ACB [id number] 11/27/2017 23:18:00 14:42:00 DIS Inpatient KEN DELEON MD [facility] 4TH CHEST PAIN [id number] 04/27/2017 10:40:00 23:59:59 CLS Outpatient GIANLUCA SCHWARTZ APRN [facility] RAD RT SHOULDER PAIN [id number] 04/18/2017 11:47:00 018 23:59:59 CLS Outpatient GIANLUCA SCHWARTZ APRN [facility] RAD SHOULDER PAIN [id number] 07/07/2016 00:45:00 017 05:54:00 DIS Emergency ARNOLD BUSTILLO MD [facility] ER CHEST PAIN [id number] 06/26/2016 17:48:00 017 18:58:00 DIS Emergency BETTINA SHAMA [facility] ER R HAND INJ [id number] 06/08/2016 14:02:00 23:59:59 CLS Outpatient GIANLUCA SCHWARTZ APRN [facility] RAD RIGHT INGUINAL PAIN [id number] 05/03/2016 10:03:00 017 23:59:59 CLS Outpatient GAYLE HERNANDEZ, MEME [place] [facility] CARD HTN,ABNORMAL ECG [id number] 10/07/2015 10:30:00 016 16:25:00 DIS Outpatient JORGE BAILEY DO [facility] RIGHT INGUINAL HERNIA [id number] 10/06/2015 12:36:00 016 13:13:00 DIS Outpatient JORGE BAILEY DO [facility] [place] PREOP RIGHT INGUINAL HERNIA [id number] 04/26/2015 07:01:00 016 10:30:00 DIS Outpatient YESIKA GONZALES MD Via [facility] [place] SDC SCREENING [id number] 04/22/2015 05:44:00 016 23:59:59 CLS Outpatient YESIKA GONZALES MD [facility] [place] PREOP SCREENING [id number] 02/23/2014 12:13:00 014 23:59:59 CLS Outpatient ARUNA OCONNELL [facility] [place] RAD R HIP PAIN [id number] 09/25/2019 09:15:00 P JOHNIE Greenberg MD Via [facility] SDC RIGHT INGUINAL HERNIA
[2019-09-25] MEDS ORDERED: ATROPINE INJ 0.4 MG/ML SDV ONE (10:47)
[2019-09-25] MEDS ORDERED: HYDROmorphone 2 MG/ML VIAL (DILAUDID) ONE ×2 (11:01→11:45)
--- NOTE | 2019-09-25 11:35 | Progress Note-Post Operative ---
Post-Operative Progess Note Surgeon (s)/Pesticide Use Medical Coordinator (s) Surgeon JOHNIE DAVIS MD Pesticide Use Medical Coordinator: maty tavarez PRIOR AUTHORIZATION TECHNICIAN Pre-Operative Diagnosis recurrent right inguinal hernia Post-Operative Diagnosis recurrent right direct inguinal hernia Procedure & Operative Findings Date of Procedure 09/25/19 Procedure Performed/Findings laparoscopic right inguinal hernia repair with mesh. Anesthesia Type get Estimated Blood Loss Estimated blood loss (mL): minimal Specimens/Packing Specimens Removed none JOHNIE DAVIS MD Sep 25, 2019 11:35
[2019-09-25] MEDS ORDERED: HYDROmorphone 2 MG/ML VIAL (DILAUDID) IV ONE (11:45)
--- NOTE | 2019-09-25 13:00 | Anesthesia-General Post-Op ---
General Patient Condition Mental Status/LOC: Same as Preop Cardiovascular: Satisfactory Nausea/Vomiting: Absent Respiratory: Satisfactory Pain: Controlled Complications: Absent Post Op Complications Complications None Follow Up Care/Instructions Patient Instructions None needed. Anesthesia/Patient Condition Patient Condition Patient is doing well, no complaints, stable vital signs, no apparent adverse anesthesia problems. No complications reported per nursing. [place] [facility]: Yes ALYSSA ESCALANTE CRNA Sep 25, 2019 13:00
--- NOTE | 2019-09-25 15:42 | OPERATIVE REPORT ---
DATE OF SERVICE: 09/25/2019 ATTENDING PRIMARY CARE PHYSICIAN: Gloria Mendoza MD PREOPERATIVE DIAGNOSIS: Recurrent right inguinal hernia. POSTOPERATIVE DIAGNOSIS: Recurrent right direct inguinal hernia. PROCEDURE PERFORMED: Laparoscopic right inguinal hernia repair with mesh. SURGEON: Johnie Davis MD. DIRECTOR VISUAL: Jose Alfredo Caceres APRN. ANESTHESIA: General endotracheal. ESTIMATED BLOOD LOSS: Minimal. FINDINGS: Reducible right direct inguinal hernia. DISPOSITION: The patient tolerated the procedure well. INDICATIONS FOR PROCEDURE: The patient is a 68-year-old male, who has developed pain and a palpable bulge in the right inguinal region. He noticed this approximately six weeks ago. He did have original bilateral inguinal hernias, which were repaired by open technique in 1977. He had a recurrent right inguinal hernia, which was repaired by open technique in 2016; however, has redeveloped pain and swelling consistent with a recurrent right inguinal hernia. He is otherwise eating well and having normal bowel movements. DESCRIPTION OF PROCEDURE: The patient was brought to the operating room. After adequate IV pain and sedative medications and general endotracheal intubation, the abdomen was prepped and draped in a standard surgical fashion. A 0.5% Marcaine with epinephrine was used to anesthetize the overlying skin in the infraumbilical rim and a transverse skin incision was made using 15 blade. A sharp towel clamp was used to retract the abdominal wall anteriorly and a Veress needle was inserted with a low opening pressure of 0 mmHg and the abdomen was then insufflated to 15 mmHg pressure. The Veress needle was removed and a 10 mm XL trocar placed followed by a 10 mm 45-degree angle laparoscope visualizing the peritoneal cavity. A four-quadrant abdominal exploration was performed. The previous left inguinal hernia repair was intact. There was a recurrent right direct inguinal hernia. There was no indirect inguinal hernia component. Under direct visualization, we then proceeded to place bilateral 5 mm ports after the skin and peritoneal lining were anesthetized using 0.5% Marcaine with epinephrine and transverse skin incision was made using a 15 blade. The patient was then placed in a Trendelenburg position. An opening was then created into the peritoneal lining starting laterally towards the conjoint tendon and inguinal ligament laterally. We then proceeded medially towards Ridge's ligament. We then proceeded with our inferior dissection encompassing the entire hernia sac using the Sonicision as well as blunt dissection. The cord and its surrounding contents were identified and spared throughout the process. Good hemostasis was observed. A medium sized 3DMax polypropylene mesh was then placed through the 10 mm port site and tacked to the Ridge's ligament medially and the conjoint tendon laterally using absorbable tacks. The peritoneal lining was then placed over the mesh and a few tacks placed to hold this in place with visualization of good hemostasis. The 10 mm port site fascia and peritoneum were then closed under direct visualization using a Rangel-Millie device and a 0 Vicryl suture. The abdomen was desufflated and the remaining ports removed. All skin incisions were closed using 4-0 Monocryl running subcuticular sutures. Wounds were then cleaned and covered with Dermabond. The patient tolerated the procedure well. We will start IV normal pain medication as well as a clear liquid diet. Once he is tolerating clears, has good pain control with oral pain medications, ambulating well, we will discharge him home. Due to his recurrent nature of hernias, we will recommend no heavy lifting or exertion for at least eight weeks. Job ID: [id number] DocumentID: [id number] Dictated Date: 09/25/2019 11:31:13 Senior Software Manager Date: 09/25/2019 15:41:56 Dictated By: JOHNIE DAVIS MD MTDD
== END 2019-09-25 13:35 | disposition home or self-care (01) ==
LOC: SDC 08:38
PROVIDERS: ATTEND Surgery
DX: K40.91 Unilateral inguinal hernia, without obstruction or gangrene, recurrent (principal); Z11.2 Encounter for screening for other bacterial diseases; I25.10 Atherosclerotic heart disease of native coronary artery without angina pectoris; I10 Essential (primary) hypertension; G47.00 Insomnia, unspecified; M06.9 Rheumatoid arthritis, unspecified; Z95.1 Presence of aortocoronary bypass graft; Z79.82 Long term (current) use of aspirin; Z79.899 Other long term (current) drug therapy
CPT/HCPCS: 49651; 85025; 87081; C1781; 36415

== ENCOUNTER 2019-09-26 15:27 | Emergency (ER) | payer MEDICARE, OTHER ==
[~2019-09-26] VITALS: Ht 187.9 cm; Wt 80.7 kg
[~2019-09-26 15:27] MED LIST changes: +HYDR-3817 PO
[2019-09-26 16:06] VITALS: BP 185/86
[2019-09-26] MEDS ORDERED: LIDOCAINE UROJET 2% GEL 10 ML PKG TOP ONE (16:15)
[2019-09-26 16:20] LABS: BASOPHILS % (AUTO) 0 % (0-10); EOSINOPHILS % (AUTO) 0 % (0-10); HEMATOCRIT 46 % (40-54); HEMOGLOBIN 15.6 G/DL (13.3-17.7); LYMPHOCYTES # (AUTO) 1.6 X 10^3 (1.0-4.0); LYMPHOCYTES % (AUTO) 13 % (12-44); MEAN CORPUSCULAR HEMOGLOBIN 32 PG (25-34); MEAN CORPUSCULAR HGB CONC 34 G/DL (32-36); MEAN CORPUSCULAR VOLUME 94 FL (80-99); MEAN PLATELET VOLUME 9.4 FL (7.4-10.4); MONOCYTES # (AUTO) 1.2 X 10^3 (0.0-1.0); MONOCYTES % (AUTO) 9 % (0-12); NEUTROPHILS # (AUTO) 9.8 X 10^3 (1.8-7.8); NEUTROPHILS % (AUTO) 78 % (42-75); PLATELET COUNT 246 10^3/uL (130-400); RED CELL DISTRIBUTION WIDTH 13.1 % (10.0-14.5); WHITE BLOOD COUNT 12.6 10^3/uL (4.3-11.0)
[2019-09-26 16:20] LABS: BILIRUBIN,URINE NEGATIVE (NEGATIVE); CLARITY,URINE CLEAR; COLOR,URINE YELLOW; GLUCOSE, URINE (UA) NEGATIVE (NEGATIVE); KETONES,URINE NEGATIVE (NEGATIVE); LEUKOCYTE ESTERASE ,URINE TRACE (NEGATIVE); NITRITE,URINE NEGATIVE (NEGATIVE); PH,URINE 6.5 (5-9); PROTEIN,URINE NEGATIVE (NEGATIVE)
--- NOTE | 2019-09-26 16:20 | ED GU-Female ---
General Chief Complaint: - Urinary Stated Complaint: S/P INGUINAL HERNIA SX PAIN Nursing Triage Note: Pt reports having inginual hernia surgery yesterday and has been having difficulty urinating ever since. Nursing Sepsis Screen: No Definite Risk Source: patient Exam Limitations: no limitations History of Present Illness Date Seen by Provider: Sep 26, 2019 Time Seen by Provider: 16:17 Initial Comments To ER with reports of inability to urinate anything more than a dribble. He had laparoscopic inguinal hernia repair yesterday. Timing/Duration: this morning Severity/Quality: moderate Location: suprapubic Radiation: none Activities at Onset: none Associated Symptoms: denies symptoms Allergies and Home Medications Allergies Coded Allergies: Penicillins (Verified Allergy, Intermediate, EXTREME FEVER, 09/18/19) Home Medications Aspirin 81 Mg Tablet.dr, 81 MG PO DAILY, (Reported) Hydrocodone/Acetaminophen 1 Each Tablet, 1 EACH PO Q4H Prescribed by: JOHNIE DAVIS on 09/25/19 0935 Lisinopril 2.5 Mg Tablet, 2.5 MG PO DAILY, (Reported) Lorazepam 2 Mg Tablet, 2 MG PO HS, (Reported) Metoprolol Tartrate 100 Mg Tablet, 100 MG PO DAILY, (Reported) Patient Home Medication List Home Medication List Reviewed: Yes Review of Systems Review of Systems Constitutional: see HPI EENTM: see HPI Respiratory: no symptoms reported Cardiovascular: no symptoms reported Genitourinary: see HPI Musculoskeletal: no symptoms reported Skin: no symptoms reported Psychiatric/Neurological: No Symptoms Reported Endocrine: No Symptoms Reported Past Fqxkiig-Xpwigf-Sncnhv Hx Patient Social History Alcohol Use: Occasionally Uses Number of Drinks Today: AA Alcohol Beverage of Choice: Beer Recreational Drug Use: No Smoking Status: Former Smoker Type Used: Cigarettes Former Smoker, Quit: Feb 26, 1971 2nd Hand Smoke Exposure: No Recent Foreign Travel: No Contact w/Someone Who Travel: No Recent Infectious Disease Expo: No Recent Hopitalizations: No Immunizations Up To Date Tetanus Booster (TDap): More than 5yrs Seasonal Allergies Seasonal Allergies: Yes Past Medical History Surgeries: Yes (L ING HERNIA, R ING HERNIA X2, CYSTS REMOVED, LEONARDO ROTAR CUFF, CATARACTS) Abdominal, CABG, Tonsillectomy Respiratory: No Currently Using CPAP: No Currently Using BIPAP: No Cardiac: Yes Coronary Artery Disease, Hypertension Neurological: No Sexually Transmitted Disease: No HIV/AIDS: No Genitourinary: Yes Benign Prostatic Hyperpl, Prostate Problems Gastrointestinal: Yes (INGUINAL HERNIA) Musculoskeletal: Yes Arthritis Endocrine: No HEENT: Yes (READING GLASSES) Loss of Vision: Denies Hearing Impairment: Hard of Hearing Cancer: No Psychosocial: Yes (INSOMNIA) Sleep Difficulties Integumentary: No Blood Disorders: No Adverse Reaction/Blood Tranf: No (N/A) Family Medical History Hypertension Physical Exam Vital Signs Capillary Refill : Less Than 3 Seconds Height, Weight, BMI Height: 6'2.00" Weight: 181lbs. 0.0oz. 82.979588pi; 22.00 BMI Method:Stated General Appearance: WD/WN, no apparent distress Neck: non-tender, full range of motion Cardiovascular: regular rate, rhythm, no murmur Respiratory: no respiratory distress, no accessory muscle use Gastrointestinal: normal bowel sounds, soft, tenderness (suprapubic) Neurologic/Psychiatric: alert, normal mood/affect, oriented x 3 Skin: normal color, warm/dry Procedures/Interventions Suture Size: 4-0 Progress/Results/Core Measures Suspected Sepsis Recent Fever Within 48 Hours: No Infection Criteria Present: None New/Unexplained Altered Menta: No Sepsis Screen: No Definite Risk SIRS Temperature: Pulse: 58 Respiratory Rate: 18 Laboratory Tests 09/26/19 16:10: Blood Pressure 185 /86 Mean: 119 Laboratory Tests 09/26/19 16:10: Results/Orders Lab Results Laboratory Tests Test 09/26/19 15:30 09/26/19 16:10 Range/Units My Orders Orders - NORBERTO NO APRN Cbc With Automated Diff (09/26/19 16:14) Basic Metabolic Panel (09/26/19 16:14) Ua Culture If Indicated (09/26/19 16:14) Lidocaine 2% (Urojet) (Xylocaine Urojet) (09/26/19 16:15) Brock Cath (09/26/19 16:14) Vital Signs/I&O Capillary Refill : Less Than 3 Seconds Blood Pressure Mean: 119 Departure Communication (Admissions) Because of the urinary retention postoperatively, we'll start a Brock catheter, leave this in place attached to a leg bag and he can return tomorrow to have this removed is likely a side effect of anesthesia from yesterday. I'm afraid if I don't leave the catheter in place he'll go home and return with recurrent symptoms Impression Primary Impression: Postoperative urinary retention Disposition: 01 HOME, SELF-CARE Condition: Stable Departure-Patient Inst. Decision time for Depature: 16:20 Referrals: KEN DELEON MD (PCP/Family) Primary Care Physician Patient Instructions: Urinary Retention (DC) Add. Discharge Instructions: 1. Return to ER tomorrow afternoon or evening to have the catheter removed. Return to ER before then for any concerns. All discharge instructions reviewed with patient and/or family. Voiced un derstanding. NORBERTO NO INDUSTRY CONSULTANT Sep 26, 2019 16:20
[2019-09-26 16:31] LABS: CHLORIDE 109 MMOL/L (98-107); POTASSIUM 3.9 MMOL/L (3.6-5.0); SODIUM 143 MMOL/L (135-145)
[2019-09-26 16:32] LABS: CALCIUM 9.7 MG/DL (8.5-10.1)
[2019-09-26 16:33] LABS: GLUCOSE 89 MG/DL (70-105)
[2019-09-26 16:34] LABS: CARBON DIOXIDE 23 MMOL/L (21-32)
[2019-09-26 16:36] LABS: CREATININE SERUM 1.11 MG/DL (0.60-1.30); GFR ESTIMATED > 60
[2019-09-26 16:37] LABS: BUN/CREATININE RATIO 18
[2019-09-26 16:38] LABS: BACTERIA,URINE TRACE /HPF; RBC,URINE RARE /HPF; SQUAMOUS EPITHELIAL CELL,UR RARE /HPF; WBC,URINE 0-2 /HPF
== END 2019-09-26 17:05 | disposition home or self-care (01) ==
LOC: EDUNIT# 15:27 → ER 15:28
DX: N99.89 Other postprocedural complications and disorders of genitourinary system (principal); R33.8 Other retention of urine; I10 Essential (primary) hypertension; I25.10 Atherosclerotic heart disease of native coronary artery without angina pectoris; Z98.890 Other specified postprocedural states; Z88.0 Allergy status to penicillin; Z79.82 Long term (current) use of aspirin; Z87.891 Personal history of nicotine dependence; Z95.1 Presence of aortocoronary bypass graft; Z82.49 Family history of ischemic heart disease and other diseases of the circulatory system
CPT/HCPCS: 36415; 51702; 80048; 81000; 85025

== ENCOUNTER 2019-09-27 16:23 | Emergency (ER) | payer MEDICARE, OTHER ==
[~2019-09-27] VITALS: Ht 187 cm; Wt 80.7 kg
--- NOTE | 2019-09-27 16:33 | ED GU-Male ---
General Stated Complaint: CATHETER REMOVAL PLACED ON 09/26/2019 Source: patient Exam Limitations: no limitations History of Present Illness Date Seen by Provider: Sep 27, 2019 Time Seen by Provider: 16:38 Initial Comments Seen yesterday urinary retention postoperatively. He had a laparoscopic inguinal hernia repair 2 days ago. Only catheter was inserted with immediate improvement in his symptoms. He was sent home with this and instructed to come back today for removal. Timing/Duration: yesterday Severity/Quality: other (no symptoms) Location: unknown Activities at Onset: none Prior Genitourinary Problems: none Associated Symptoms: denies symptoms Allergies and Home Medications Allergies Coded Allergies: Penicillins (Verified Allergy, Intermediate, EXTREME FEVER, 09/18/19) Home Medications Aspirin 81 Mg Tablet.dr, 81 MG PO DAILY, (Reported) Hydrocodone/Acetaminophen 1 Each Tablet, 1 EACH PO Q4H Prescribed by: JOHNIE DAVIS on 09/25/19 0935 Lisinopril 2.5 Mg Tablet, 2.5 MG PO DAILY, (Reported) Lorazepam 2 Mg Tablet, 2 MG PO HS, (Reported) Metoprolol Tartrate 100 Mg Tablet, 100 MG PO DAILY, (Reported) Patient Home Medication List Home Medication List Reviewed: Yes Review of Systems Review of Systems Constitutional: see HPI EENTM: see HPI Respiratory: no symptoms reported Cardiovascular: no symptoms reported Genitourinary: no symptoms reported Musculoskeletal: no symptoms reported Skin: no symptoms reported Psychiatric/Neurological: No Symptoms Reported Endocrine: No Symptoms Reported Past Vudxqju-Riovcf-Tepylm Hx Patient Social History Alcohol Beverage of Choice: Beer Type Used: Cigarettes Former Smoker, Quit: Feb 26, 1971 2nd Hand Smoke Exposure: No Recent Foreign Travel: No Contact w/Someone Who Travel: No Recent Hopitalizations: No Immunizations Up To Date Tetanus Booster (TDap): More than 5yrs Seasonal Allergies Seasonal Allergies: Yes Past Medical History Surgeries: Yes (L ING HERNIA, R ING HERNIA X2, CYSTS REMOVED, LEONARDO ROTAR CUFF, CATARACTS) Abdominal, CABG, Tonsillectomy Respiratory: No Currently Using CPAP: No Currently Using BIPAP: No Cardiac: Yes Coronary Artery Disease, Hypertension Neurological: No Sexually Transmitted Disease: No HIV/AIDS: No Genitourinary: Yes Benign Prostatic Hyperpl, Prostate Problems Gastrointestinal: Yes (INGUINAL HERNIA) Musculoskeletal: Yes Arthritis Endocrine: No HEENT: Yes (READING GLASSES) Loss of Vision: Denies Hearing Impairment: Hard of Hearing Cancer: No Psychosocial: Yes (INSOMNIA) Sleep Difficulties Integumentary: No Blood Disorders: No Adverse Reaction/Blood Tranf: No (N/A) Family Medical History Hypertension Physical Exam Vital Signs Capillary Refill : Height, Weight, BMI Height: 6'2.00" Weight: 181lbs. 0.0oz. 82.795378eb; 22.00 BMI Method:Stated General Appearance: WD/WN, no apparent distress HEENT: PERRL/EOMI, normal ENT inspection Respiratory: lungs clear, normal breath sounds, no respiratory distress, no accessory muscle use Gastrointestinal: normal bowel sounds, non tender Extremities: normal range of motion, non-tender Neurologic/Psychiatric: alert, normal mood/affect, oriented x 3 Skin: normal color, warm/dry Procedures/Interventions Suture Size: 4-0 Progress/Results/Core Measures Suspected Sepsis SIRS Temperature: Pulse: Respiratory Rate: Blood Pressure / Mean: Results/Orders Vital Signs/I&O Capillary Refill : Departure Communication (Admissions) REMOVED, WILL OBSERVE AND MAKE SURE HE CAN PRODUCE URINE AND GO HOME Impression Primary Impression: Postoperative urinary retention Disposition: 01 HOME, SELF-CARE Condition: Stable Departure-Patient Inst. Decision time for Depature: 16:32 Referrals: KEN DELEON MD (PCP/Family) Primary Care Physician Patient Instructions: Urinary Retention Add. Discharge Instructions: 1. Return to ER for any concerns. Drink plenty of fluids. NORBERTO NO ENVIRONMENTAL SYSTEMS COORDINATOR Sep 27, 2019 16:33
--- OUTSIDE RECORDS SUMMARY | 2019-09-27 16:36 | XMS REPORT | Continuity of Care Document ---
Author Organization Unknown Address Unknown Phone Unavailable Allergies Active Description Code Type Severity Reaction Onset Reported/Identified Relationship to Patient Clinical Status Yes Penicillins [id number] Drug Aller gy Unknown EXTREME FEVER 10/06/2015 Yes Penicillins [id number] Drug Aller gy Moderate EXTREME FEVER 09/18/2019 [...] HISTORY OF NICOTINE DEPENDENCE 06/08/2016 ARUNA OCONNELL DIE STAMPING PRESS OPERATOR Ot 719.45 JOINT PAIN-PELVIS 06/08/2016 JANET HERNANDEZ, [...] HISTORY OF NICOTINE DEPENDENCE 06/13/2016 GIANLUCA SCHWARTZ HEALTH INFORMATION PROVIDER Ot R10.9 UNSPECIFIED ABDOMINAL PAIN 06/26/2016 SHAMA [...] 3 ENCOUNTER FOR IMMUNIZATION 07/05/2016 GIANLUCA SCHWARTZ HEALTH INFORMATION PROVIDER Ot R10.9 UNSPECIFIED ABDOMINAL PAIN 07/07/2016 KENY HERNANDEZ, ARNOLD Pisano Ot R07.89 OTHER CHEST PAIN 07/07/2016 KENY HERNANDEZ, ARNOLD T Ot R07.9 CHEST PAIN, UNSPECIFIED 07/07/2016 KENY HERNANDEZ, ARNOLD Pisano Ot Z87.891 PERSONAL HISTORY OF NICOTINE DEPENDENCE 04/18/2017 ARUNA OCONNELL DIE STAMPING PRESS OPERATOR Ot 719.45 JOINT PAIN-PELVIS 04/18/2017 JANET HERNANDEZ, YESIKA Haro Ot Z01.818 ENCOUNTER FOR OTHER PREPROCEDURAL EXAMIN 04/18/2017 MEME ARAUJO MD Ot I10 ESSENTIAL (PRIMARY) HYPERTENSION 04/18/2017 MEME ARAUJO MD, Ot N52. 9 MALE ERECTILE DYSFUNCTION, UNSPECIFIED 04/18/2017 MEME ARAUJO MD, Ot R94. 31 ABNORMAL ELECTROCARDIOGRAM [ECG] [EKG] 04/18/2017 MEME AARUJO MD, Ot Z82. 49 FAMILY HX OF [...] MD Ot I25.110 ATHSCL HEART DISEASE OF [place] COR ART W 11/28/2017 KEN DELEON MD Ot N40.0 BENIGN PROSTATIC HYPERPLASIA WITHOUT LOW 11/28/2017 KEN DELEON MD Ot R00.2 PALPITATIONS 11/28/2017 KEN DELEON MD Ot Z82.49 FAMILY HX OF ISCHEM HEART DIS AND OTH DI 11/28/2017 KEN DELEON MD Ot Z87.891 PERSONAL HISTORY OF NICOTINE DEPENDENCE 01/16/2018 ARUNA OCONNELL DIE STAMPING PRESS OPERATOR Ot 719.45 JOINT PAIN-PELVIS 01/16/2018 JANET HERNANDEZ, [...] HISTORY OF NICOTINE DEPENDENCE 01/16/2018 GIANLUCA SCHWARTZ HEALTH INFORMATION PROVIDER Ot R10.9 UNSPECIFIED ABDOMINAL PAIN 01/16/2018 GIANLUCA SCHWARTZ HEALTH INFORMATION PROVIDER Ot M25.511 PAIN IN RIGHT SHOULDER 01/16/2018 GIANLUCA SCHWARTZ HEALTH INFORMATION PROVIDER Ot M67.813 OTHER SPECIFIED DISORDERS OF TENDON, RIG 01/16/2018 GIANLUCA SCHWARTZ HEALTH INFORMATION PROVIDER Ot M75.111 INCOMPLETE ROTATR-CUFF TEAR/RUPTR OF R [...] SOLORZANO Ot I25.10 ATHSCL HEART DISEASE OF [place] CORONARY 01/21/2019 JAMILA SOLORZANO Ot R00.2 PALPITATIONS [...] SOLORZANO Ot I25.10 ATHSCL HEART DISEASE OF [place] CORONARY 09/17/2019 JAMILA SOLORZANO Ot R00.2 PALPITATIONS 09/17/2019 KEN DELEON MD Ot M19.012 PRIMARY OSTEOARTHRITIS, LEFT SHOULDER 09/17/2019 KEN DELEON MD Ot M67.814 OTHER SPECIFIED DISORDERS OF TENDON, LEF 09/17/2019 KEN DELEON MD Ot M75.112 INCOMPLETE ROTATR-CUFF TEAR/RUPTR OF L S 09/18/2019 MEME ARAUJO MD, Ot Z48.812 ENCNTR FOR SURGICAL AFTCR FOLLOWING SURG 09/18/2019 MEME ARAUJO MD Ot Z95. 1 PRESENCE OF AORTOCORONARY BYPASS GRAFT 09/26/2019 JOHNIE DAVIS MD Ot G47.00 INSOMNIA, UNSPECIFIED 09/26/2019 JOHNIE DAVIS MD Ot I10 ESSENTIAL (PRIMARY) HYPERTENSION 09/26/2019 JOHNIE DAVIS MD, Ot I25.10 ATHSCL HEART DISEASE OF [place] CORONARY 09/26/2019 JOHNIE DAVIS MD, Ot K40.91 UNILATERAL INGUINAL HERNIA, W/O OBST OR 09/26/2019 JOHNIE DAVIS MD, Ot M06.9 RHEUMATOID ARTHRITIS, UNSPECIFIED 09/26/2019 JOHNIE DAVIS MD, Ot Z11.2 ENCOUNTER FOR SCREENING FOR OTHER BACTER 09/26/2019 JOHNIE DAVIS MD, Ot Z79.82 [facility] (CURRENT) USE OF ASPIRIN 09/26/2019 JOHNIE DAVIS MD, Ot Z79.89 9 OTHER [facility] (CURRENT) DRUG THERAPY 09/26/2019 JOHNIE DAVIS MD, Ot Z95.1 PRESENCE OF AORTOCORONARY BYPASS GRAFT Procedures There [...] VLDL measurement (mass/ volume) 19 mg/dL 5-40 Coronavirus SARS-CoV-2 SO 2019 - 0 08:02 Coronavirus Ab [Units/volume] in Serum Negative Negative Complete blood count (CBC) with automate d white blood cell (WBC) differential - 09/25/19 09:00 Blood leukocytes automated count (number/volume) 6.7 10*3/uL 4.3-11.0 Blood erythrocytes automated count (number/volume) 4.65 10*6/uL 4.35-5.85 Venous blood hemoglobin measurement (mass/volume) 14.7 g/dL 13.3-17.7 Blood hematocrit (volume fraction) 44 % 40-54 Automated erythrocyte mean corpuscular volume 94 [ foz_us] 80-99 Automated erythrocyte mean corpuscular h emoglobin (mass per erythrocyte) 32 pg 25-34 Automated erythrocyte mean corpuscular h emoglobin concentration measurement (mass/volume) 34 g/dL 32-36 Automated erythrocyte distribution width ratio 12. 9 % 10.0- 14.5 Automated blood platelet count (count/volume) 210 10*3/uL 130-400 Automated blood platelet mean volume measurement 9.9 [foz_us] 7.4-10.4 Automated blood neutrophils/100 leukocytes 68 % 42-75 Automated blood lymphocytes/100 leukocytes 21 % 12-44 Blood monocytes/100 leukocytes 8 % 0-12 Automated blood eosinophils/100 leukocytes 3 % 0-10 Automated blood basophils/100 leukocytes 0 % 0-10 Blood neutrophils automated count (number/volume) 4.5 10*3 1.8-7.8 Blood lymphocytes automated count (number/volume) 1.4 10*3 1.0-4.0 Blood monocytes automated count (number/volume) 0. 5 10*3 0.0-1.0 Automated eosinophil count 0.2 10*3/uL 0 .0-0.3 Automated blood basophil count (count/volume) 0.0 10*3/uL 0.0-0.1 Methicillin resistant Staphylococcus aur eus (MRSA) screening culture - 09/25/19 09:00 Methicillin resistant Staphylococcus aureus (MRSA) scr eening culture NEG NRG Complete urinalysis with reflex to cultu re - 09/26/19 15:30 Urine color determination YELLOW NRG Urine clarity determination CLEAR NR G Urine pH measurement by test strip 6.5 5-9 Specific gravity of urine by test strip <= 1.016-1.022 Urine protein assay by test strip, semi-quantitative NEGATIVE NEGATIVE Urine glucose detection by automated test strip NE GATIVE NEGATIVE Erythrocytes detection in urine sediment by light micr oscopy TRACE-I NEGATIVE Urine ketones detection by automated test strip NE GATIVE NEGATIVE Urine nitrite detection by test strip NEGATIVE NEGATIVE Urine total bilirubin detection by test strip NEGA TIVE NEGATIVE Urine urobilinogen measurement by automated test strip (mass/volume) 0.2 mg/dL < = 1.0 Urine leukocyte esterase detection by dipstick TRA CE NEGATIVE Automated urine sediment erythrocyte cou nt by microscopy (number/high power field) RARE NRG Automated urine sediment leukocyte count by microscopy (number/high power field) [HPF] NRG Bacteria detection in urine sediment by light microsco py TRACE NRG Squamous epithelial cells detection in u rine sediment by light microscopy RARE NRG Crystals detection in urine sediment by light microsco py NONE NRG Casts detection in urine sediment by light microscopy NONE NRG Mucus detection in urine sediment by light microscopy NEGATIVE NRG Complete urinalysis with reflex to culture NO NRG Complete blood count (CBC) with automate d white blood cell (WBC) differential - 09/26/19 16:10 Blood leukocytes automated count (number/volume) 12.6 10*3/uL 4.3-11.0 Blood erythrocytes automated count (number/volume) 4.92 10*6/uL 4.35-5.85 Venous blood hemoglobin measurement (mass/volume) 15.6 g/dL 13.3-17.7 Blood hematocrit (volume fraction) 46 % 40-54 Automated erythrocyte mean corpuscular volume 94 [ foz_us] 80-99 Automated erythrocyte mean corpuscular h emoglobin (mass per erythrocyte) 32 pg 25-34 Automated erythrocyte mean corpuscular h emoglobin concentration measurement (mass/volume) 34 g/dL 32-36 Automated erythrocyte distribution width ratio 13. 1 % 10.0- 14.5 Automated blood platelet count (count/volume) 246 10*3/uL 130-400 Automated blood platelet mean volume measurement 9.4 [foz_us] 7.4-10.4 Automated blood neutrophils/100 leukocytes 78 % 42-75 Automated blood lymphocytes/100 leukocytes 13 % 12-44 Blood monocytes/100 leukocytes 9 % 0-12 Automated blood eosinophils/100 leukocytes 0 % 0-10 Automated blood basophils/100 leukocytes 0 % 0-10 Blood neutrophils automated count (number/volume) 9.8 10*3 1.8-7.8 Blood lymphocytes automated count (number/volume) 1.6 10*3 1.0-4.0 Blood monocytes automated count (number/volume) 1. 2 10*3 0.0-1.0 Automated eosinophil count 0.0 10*3/uL 0 .0-0.3 Automated blood basophil count (count/volume) 0.0 10*3/uL 0.0-0.1 Whole blood basic metabolic panel - 08/28 03/17 16:10 Serum or plasma sodium measurement (moles/volume) 143 mmol/L 135-145 Serum or plasma potassium measurement (moles/volume) 3.9 mmol/L 3.6-5.0 Serum or plasma chloride measurement (moles/volume) 109 mmol/L 98-107 Carbon dioxide 23 mmol/L 21-32 Serum or plasma anion gap determination (moles/volume) 11 mmol/L 5-14 Serum or plasma urea nitrogen measurement (mass/volume ) 20 mg/dL 7-18 Serum or plasma creatinine measurement (mass/volume) 1.11 mg/dL 0.60-1.30 Serum or plasma urea nitrogen/creatinine mass ratio 18 NRG Serum or plasma creatinine measurement w ith calculation of estimated glomerular filtration rate > NRG Serum or plasma glucose measurement (mass/volume) 89 mg/dL 70-105 Serum or plasma calcium measurement (mass/volume) 9.7 mg/dL 8.5-10.1 Encounters ACCT No. Visit Date/Time Discharge Status Pt. Type Provider Facility Loc./Unit Complaint [id number] 12/05/2016 23:42:21 12/05/2016 23:59:5 9 CLS Outpatient [id number] 09/26/2019 15:28:00 17:05:00 DIS Emergency NORBERTO NO APRN [facility] ER S/P INGUINAL HERNIA SX PAIN [id number] 09/25/2019 08:38:00 13:35:00 DIS Outpatient JOHNIE DAVIS MD [facility] SDC RIGHT INGUINAL HERNIA [id number] 09/22/2019 05:34:00 10:23:00 DIS Outpatient JOHNIE DAVIS MD [facility] PREOP RIGHT INGUINAL HERNIA [id number] 01/03/2019 13:05:00 23:59:59 CLS Outpatient KEN DELEON MD [facility] RAD L SHOULDER PAIN [id number] 12/30/2018 11:30:00 23:59:59 CLS Preadmit JAMILA SOLORZANO [facility] CARD CAD [id number] 12/30/2018 07:17:00 23:59:59 CLS Outpatient PENG SOLORZANO [facility] CARD CAD [id number] 07/17/2018 10:00:00 23:59:59 CLS Preadmit MEME ARAUJO MD [facility] CR STATUS POST ACB [id number] 05/03/2018 10:13:00 00:01:00 DIS Outpatient MEME ARAUJO MD [facility] CR STATUS POST ACB [id number] 04/15/2018 10:33:00 019 00:01:00 DIS Outpatient MEME ARAUJO MD [facility] CR STATUS POST ACB [id number] 11/27/2017 23:18:00 018 14:42:00 DIS Inpatient KEN DELEON MD [facility] 4TH CHEST PAIN [id number] 04/27/2017 10:40:00 018 23:59:59 CLS Outpatient GIANLUCA SCHWARTZ APRN [facility] RAD RT SHOULDER PAIN [id number] 04/18/2017 11:47:00 018 23:59:59 CLS Outpatient GIANLUCA SCHWARTZ APRN [facility] RAD SHOULDER PAIN [id number] 07/07/2016 00:45:00 017 05:54:00 DIS Emergency KENY HERNANDEZ, ARNOLD Pisano [facility] ER CHEST PAIN [id number] 06/26/2016 17:48:00 017 18:58:00 DIS Emergency SHAMA DUNBAR DO [facility] ER R HAND INJ [id number] 06/08/2016 14:02:00 017 23:59:59 CLS Outpatient GIANLUCA SCHAWRTZ APRN [facility] RAD RIGHT INGUINAL PAIN [id number] 05/03/2016 10:03:00 017 23:59:59 CLS Outpatient MEME ARAUJO MD [facility] CARD HTN,ABNORMAL ECG [id number] 10/07/2015 10:30:00 016 16:25:00 DIS [facility] [id number] 10/06/2015 12:36:00 016 13:13:00 DIS Outpatient JORGE BAILEY DO [facility] PREOP RIGHT INGUINAL HERNIA [id number] 04/26/2015 07:01:00 10:30:00 DIS Outpatient YESIKA GONZALES MD [facility] SDC SCREENING [id number] 04/22/2015 05:44:00 23:59:59 CLS Outpatient YESIKA GONZALES MD [facility] PREOP SCREENING [id number] 02/23/2014 12:13:00 23:59:59 CLS Outpatient ARUNA OCONNELL [facility] RAD R HIP PAIN
[2019-09-27 17:48] VITALS: BP 127/70
[2019-09-28] MEDS ORDERED: TMSL.4C PO (05:31)
== END 2019-09-27 17:48 | disposition home or self-care (01) ==
LOC: EDUNIT# 16:23 → ER 16:26
DX: Z46.6 Encounter for fitting and adjustment of urinary device (principal); R33.8 Other retention of urine; I25.10 Atherosclerotic heart disease of native coronary artery without angina pectoris; I10 Essential (primary) hypertension; N40.0 Benign prostatic hyperplasia without lower urinary tract symptoms; H91.90 Unspecified hearing loss, unspecified ear; G47.00 Insomnia, unspecified; Z95.1 Presence of aortocoronary bypass graft; Z87.891 Personal history of nicotine dependence; Z79.82 Long term (current) use of aspirin; Z79.899 Other long term (current) drug therapy
CPT/HCPCS: 99282

== ENCOUNTER 2019-09-28 04:49 | Emergency (ER) | payer MEDICARE, OTHER ==
[~2019-09-28] VITALS: Ht 187 cm; Wt 80.7 kg
[2019-09-28 05:00] VITALS: BP 142/107
--- NOTE | 2019-09-28 05:15 | NUR ---
PT UNABLE TO VOID. BLADDER SCAN REVEALS 500+. DR. BUSTILLO NOTIFIED.
[2019-09-28 05:24] LABS: BILIRUBIN,URINE NEGATIVE (NEGATIVE); CLARITY,URINE CLEAR; COLOR,URINE YELLOW; GLUCOSE, URINE (UA) NEGATIVE (NEGATIVE); KETONES,URINE NEGATIVE (NEGATIVE); LEUKOCYTE ESTERASE ,URINE TRACE (NEGATIVE); NITRITE,URINE NEGATIVE (NEGATIVE); PROTEIN,URINE NEGATIVE (NEGATIVE)
[2019-09-28] MEDS ORDERED: LIDOCAINE UROJET 2% GEL 10 ML PKG TOP ONE (05:30)
--- NOTE | 2019-09-28 05:30 | ED GU-Male ---
General Chief Complaint: - Urinary Stated Complaint: BLADDER NOT DRAINING,HERNIA SURGERY ON 09.25.19 Nursing Triage Note: TO ED VIA POV AND AMBULATORY TO ROOM 5 STATING HE HAD HERNIA REPAIR SX THIS PAST SUNDAY AND HAD POST OP URINARY RETENTION SO CATHETER WAS PLACED AND REMOVED YESTERDAY AFTERNOON IN THIS ER. STATES SINCE LEFT HE HAS ONLY URINATED "A LITTLE" BUT "FEELS FULL" WITH PRESSURE AND PAIN. Source: patient Exam Limitations: no limitations History of Present Illness Date Seen by Provider: Sep 28, 2019 Time Seen by Provider: 04:55 Initial Comments This 68-year-old gentleman presents to the emergency room with urinary retention. He had surgery on and had a Brock placed on Sunday due to retention. He then had the Brock removed yesterday (Sunday). He has not been able to empty his bladder and tonight developed pain. He has only been able to dribble out urine. He feels extremely urgency to go. He reports prior prostate problems. He is not presently taking any prostate medications. He had seen Dr. Terry in the remote past. Allergies and Home Medications Allergies Coded Allergies: Penicillins (Verified Allergy, Intermediate, EXTREME FEVER, 09/18/19) Home Medications Aspirin 81 Mg Tablet.dr, 81 MG PO DAILY, (Reported) Hydrocodone/Acetaminophen 1 Each Tablet, 1 EACH PO Q4H Prescribed by: JOHNIE DAVIS on 09/25/19 0935 Lisinopril 2.5 Mg Tablet, 2.5 MG PO DAILY, (Reported) Lorazepam 2 Mg Tablet, 2 MG PO HS, (Reported) Metoprolol Tartrate 100 Mg Tablet, 100 MG PO DAILY, (Reported) Tamsulosin HCl 0.4 Mg Cap, 0.4 MG PO DAILY Prescribed by: ARNOLD COMER on 09/28/19 0531 Patient Home Medication List Home Medication List Reviewed: Yes Review of Systems Review of Systems Constitutional: no symptoms reported EENTM: no symptoms reported Respiratory: no symptoms reported Cardiovascular: no symptoms reported Gastrointestinal: see HPI Genitourinary: see HPI Musculoskeletal: no symptoms reported Skin: no symptoms reported Psychiatric/Neurological: No Symptoms Reported Endocrine: No Symptoms Reported Past Bihtdky-Ukxqsz-Gzngfo Hx Past Med/Social Hx: Reviewed Nursing Past Med/Soc Hx Patient Social History Alcohol Use: Occasionally Uses Number of Drinks Today: AA Alcohol Beverage of Choice: Beer Recreational Drug Use: No Smoking Status: Former Smoker Type Used: Cigarettes Former Smoker, Quit: Feb 26, 1971 2nd Hand Smoke Exposure: No Recent Foreign Travel: No Contact w/Someone Who Travel: No Recent Infectious Disease Expo: No Recent Hopitalizations: Yes Physical Abuse: No Sexual Abuse: No Mistreated: No Fear: No Immunizations Up To Date Tetanus Booster (TDap): More than 5yrs Seasonal Allergies Seasonal Allergies: Yes Past Medical History Surgeries: Yes (L ING HERNIA, R ING HERNIA X2, CYSTS REMOVED, LEONARDO ROTAR CUFF, CATARACTS) Abdominal, CABG, Tonsillectomy Respiratory: No Currently Using CPAP: No Currently Using BIPAP: No Cardiac: Yes Coronary Artery Disease, Hypertension Neurological: No Sexually Transmitted Disease: No HIV/AIDS: No Genitourinary: Yes Benign Prostatic Hyperpl, Prostate Problems Gastrointestinal: Yes (INGUINAL HERNIA) Musculoskeletal: Yes Arthritis Endocrine: No HEENT: Yes ([place] GLASSES) Loss of Vision: Denies Hearing Impairment: Hard of Hearing Cancer: No Psychosocial: Yes (INSOMNIA) Sleep Difficulties Integumentary: No Blood Disorders: No Adverse Reaction/Blood Tranf: No (N/A) Family Medical History Hypertension Physical Exam Vital Signs Vital Signs - First Documented 09/28/19 05:00 Pulse 63 Resp 16 B/P (MAP) 142/107 (119) O2 Delivery Room Air Capillary Refill : Less Than 3 Seconds Height, Weight, BMI Height: 6'2.00" Weight: 181lbs. 0.0oz. 82.891434nu; 23.00 BMI Method:Stated General Appearance: WD/WN, mild distress HEENT: normal ENT inspection Respiratory: lungs clear, normal breath sounds, no respiratory distress Gastrointestinal: normal bowel sounds, non tender, soft, other (Tenderness res olved after placement of Brock catheter) Neurologic/Psychiatric: alert, oriented x 3 Skin: normal color, warm/dry Procedures/Interventions Suture Size: 4-0 Progress/Results/Core Measures Suspected Sepsis Recent Fever Within 48 Hours: No Infection Criteria Present: Suspected New Infection New/Unexplained Altered Menta: No Sepsis Screen: No Definite Risk SIRS Temperature: Pulse: 63 Respiratory Rate: 16 Blood Pressure 142 /107 Mean: 119 Results/Orders Lab Results Laboratory Tests Test 09/28/19 05:15 Range/Units Urine Color YELLOW Urine Clarity CLEAR Urine pH 7.0 5-9 Urine Specific [place] 1.015 L 1.016-1.022 Urine Protein NEGATIVE NEGATIVE Urine Glucose (UA) NEGATIVE NEGATIVE Urine Ketones NEGATIVE NEGATIVE Urine Nitrite NEGATIVE NEGATIVE Urine Bilirubin NEGATIVE NEGATIVE Urine Urobilinogen 0.2 < = 1.0 MG/DL Urine Leukocyte Esterase TRACE H NEGATIVE Urine RBC (Auto) TRACE-L NEGATIVE Urine RBC NONE /HPF Urine WBC 0-2 /HPF Urine Squamous Epithelial Cells RARE /HPF Urine Crystals NONE /LPF Urine Bacteria TRACE /HPF Urine Casts NONE /LPF Urine Mucus NEGATIVE /LPF Urine Culture Indicated NO My Orders Orders - ARNOLD BUSTILLO MD Ua Culture If Indicated (09/28/19 04:55) Bladder Scan (09/28/19 04:55) Lidocaine 2% (Urojet) (Xylocaine Urojet) (09/28/19 05:30) Brock Cath (09/28/19 05:38) Medications Given in ED Current Medications Medications Dose Ordered Sig/Lenin Route Start Time Stop Time Status Last Admin Dose Admin Lidocaine HCl 10 ml ONCE ONCE TOP 09/28/19 05:30 09/28/19 05:31 DC 09/28/19 05:32 10 ML Vital Signs/I&O 09/28/19 05:00 Pulse 63 Resp 16 B/P (MAP) 142/107 (119) O2 Delivery Room Air Capillary Refill : Less Than 3 Seconds Blood Pressure Mean: 119 Progress Note : Progress Note Brock catheter was placed with immediate relief. Prescription for Flomax was provided. Patient states he previously was using homeopathic treatments with success for treatment of prostate problems. Departure Impression Primary Impression: Urinary retention Disposition: HOME, SELF-CARE Condition: Improved Departure-Patient Inst. Decision time for Depature: 05:29 Referrals: KEN DELEON MD (PCP/Family) Primary Care Physician JESSY TERRY MD Patient Instructions: Brock Catheter, Male, Urinary Retention Add. Discharge Instructions: Start Flomax as prescribed. Empty your Brock bag often and keep the bag below the level of your bladder is much as possible. Contact Dr. Terry's office tomorrow for follow-up. Return to care if you have any worsening of symptoms. All discharge instructions reviewed with patient and/or family. Voiced understanding. Scripts Tamsulosin HCl (Flomax) 0.4 Mg Cap 0.4 MG PO DAILY, #30 CAP Prov: ARNOLD BUSTILLO MD 09/28/19 Copy Copies To 1: JESSY TERRY MD Copies To 2: KEN DELEON MD, JOSHUA T MD Sep 28, 2019 05:30
[2019-09-28] MEDS ORDERED: TMSL.4C PO (05:31)
[2019-09-28 05:32] LABS: BACTERIA,URINE TRACE /HPF; SQUAMOUS EPITHELIAL CELL,UR RARE /HPF; WBC,URINE 0-2 /HPF
== END 2019-09-28 05:41 | disposition home or self-care (01) ==
LOC: EDUNIT# 04:49 → ER 04:52
DX: N40.1 Benign prostatic hyperplasia with lower urinary tract symptoms (principal); R33.8 Other retention of urine; I25.10 Atherosclerotic heart disease of native coronary artery without angina pectoris; I10 Essential (primary) hypertension; M19.90 Unspecified osteoarthritis, unspecified site; G47.00 Insomnia, unspecified; H91.90 Unspecified hearing loss, unspecified ear; Z87.891 Personal history of nicotine dependence; Z79.899 Other long term (current) drug therapy; Z79.82 Long term (current) use of aspirin; Z98.890 Other specified postprocedural states; Z95.1 Presence of aortocoronary bypass graft; Z88.0 Allergy status to penicillin
CPT/HCPCS: 51702; 81000

== ENCOUNTER → 2021-04-13 | Outpatient (CLI) | payer MEDICARE, OTHER ==
[~2021-04-13] MED LIST changes: -LISI2.5T PO; +LISI2.5T13 PO; +TMSL.4C PO
[2021-04-13 12:50] VITALS: BP 141/70
--- NOTE | 2021-04-14 08:01 | Cardiology Stress Test Report ---
Stress Test Report Date of Procedure/Referring: Date of Procedure: Apr 13, 2021 Gali Sarmiento Admitting Physician Gloria Mendoza MD Indications: HTN Baseline Heart Rate: 52 Baseline Blood Pressure: Blood Pressure Systolic: 141 Blood Pressure Diastolic: 70 Vital Signs Date Time Temp Pulse Resp B/P (MAP) Pulse Ox O2 Delivery O2 Flow Rate FiO2 04/13/21 12:50 63 18 141/70 (93) Room Air Baseline Vital Signs Vital Signs Date Time Temp Pulse Resp B/P (MAP) Pulse Ox O2 Delivery O2 Flow Rate FiO2 04/13/21 12:50 63 18 141/70 (93) Room Air Baseline EKG: Baseline EKG: NSR Summary: After explaining the procedure and details to the patient, he signed the consent and was brought to the stress nuclear laboratory. Patient exercised on standard Jimi protocol, EKG, heart rate and blood pressure were monitored continuously, resting and stress doses of radio tracer were injected, imaging was acquired and reviewed in the short axis, horizontal long axis and vertical long axis views Patient was able to exercise for a total of 8 minutes on Jimi protocol, METs 9.7 Maximum heart rate 137 Maximum blood pressure 221/66 Stress EKG, Minimal nondiagnostic changes Recovery EKG, Return to baseline TID: 0.94 SSS: 13 SDS: 0 EF: 53 Conclusion: 1. Good exercise tolerance for a total of 8 minutes on standard Jimi protocol, 9.7 METS achieving 91% of maximal expected heart rate 2. Frequent PVCs and ventricular bigeminy noted during exercise resolved in recovery with nondiagnostic EKG changes 3. Severe hypertensive response to exercise with peak blood pressure 221/66 return to baseline during recovery 4. Diaphragmatic attenuation with fixed defect involving the whole inferior wall and inferolateral wall with no reversibility 5. Normal left ventricular size with mild hypokinesia of the inferior wall, ejection fraction 53% MEME ARAUJO MD Apr 14, 2021 08:01
== END ==
LOC: CARD 11:00
PROVIDERS: ATTEND Physician Assistant
DX: I10 Essential (primary) hypertension (principal)
CPT/HCPCS: 78452; 93017; 93306; A9502

== ENCOUNTER → 2021-08-19 | Outpatient (CLI) | payer MEDICARE, OTHER ==
--- NOTE | 2021-08-19 15:04 | Diagnostic Imaging Report ---
INDICATION: Right breast pain. No prior mammograms are available for comparison. 2-D and 3-D bilateral diagnostic mammography was performed with CAD. There are intraparenchymal lymph nodes in the outer portions of both breasts. There is some fibroglandular tissue in the retroareolar right breast consistent with gynecomastia. No spiculated mass or malignant-appearing microcalcifications are seen. IMPRESSION: Findings most suggestive of gynecomastia on the right. Even so, directed sonographic interrogation of the retroareolar right breast is recommended and will be performed today. ACR BI-RADS Category 0: Incomplete. (Needs additional imaging evaluation). Result letter will be mailed to the patient. Note: At least 10% of breast cancer is not imaged by mammography. BI-RADS 0 Dictated by: Dictated on workstation # [id number]
--- NOTE | 2021-08-19 16:49 | Diagnostic Imaging Report ---
INDICATION: Right breast pain. CORRELATION is made with diagnostic mammogram earlier the same day. Sonographic interrogation of the retroareolar right breast was performed. There is an area of hypoechogenicity in the retroareolar right breast most suggestive of gynecomastia. No discrete mass is seen. No fluid collection is seen. IMPRESSION: BI-RADS Category 2 Findings most suggestive of gynecomastia. ACR BI-RADS Category 2: Benign findings. Result letter will be mailed to the patient. Note: At least 10% of breast cancer is not imaged by mammography. Dictated by: Dictated on workstation # [id number]
== END ==
LOC: RAD 13:32
PROVIDERS: ATTEND Nurse Practitioner Family
DX: N64.4 Mastodynia (principal)
CPT/HCPCS: 76642; 77066; G0279; 77062

== ENCOUNTER 2021-11-10 15:37 | Observation (INO) | payer MEDICARE, OTHER ==
[~2021-11-10] VITALS: Ht 188 cm; Wt 85.1 kg
[2021-11-10 16:13] LABS: BASOPHILS % (AUTO) 0 % (0-10); EOSINOPHILS # (AUTO) 0.2 10^3/uL (0.0-0.3); EOSINOPHILS % (AUTO) 3 % (0-10); HEMATOCRIT 41 % (40-54); HEMOGLOBIN 13.9 g/dL (13.3-17.7); LYMPHOCYTES # (AUTO) 1.3 10^3/uL (1.0-4.0); LYMPHOCYTES % (AUTO) 15 % (12-44); MEAN CORPUSCULAR HEMOGLOBIN 32 pg (25-34); MEAN CORPUSCULAR HGB CONC 34 g/dL (32-36); MEAN CORPUSCULAR VOLUME 93 fL (80-99); MEAN PLATELET VOLUME 9.9 fL (9.0-12.2); MONOCYTES # (AUTO) 0.5 10^3/uL (0.0-1.0); MONOCYTES % (AUTO) 6 % (0-12); NEUTROPHILS # (AUTO) 6.8 10^3/uL (1.8-7.8); NEUTROPHILS % (AUTO) 76 % (42-75); PLATELET COUNT 212 10^3/uL (130-400)
[2021-11-10] MEDS ORDERED: ASPIRIN 81 MG CHEW (CHILDREN'S ASA) PO STA (16:15)
--- NOTE | 2021-11-10 16:15 | ED Chest Pain ---
General Chief Complaint: Chest Pain Stated Complaint: CP, L ARM PAIN Nursing Triage Note: PT CO OF INTERMITTENT CHEST PAIN FOR PAST 2 DAYS, DENIES SOA, SWEATING. PT HELPING DAUGHTER BUILD A HOME Source: patient Exam Limitations: no limitations History of Present Illness Date Seen by Provider: Nov 10, 2021 Time Seen by Provider: 15:41 Initial Comments Here with report of intermittent chest pain over the last 2 days that seems to be worse with activity and better with rest. He did take a baby aspirin today. Reports chest pain is gone now. Describes it as an ache in the center of his chest to the left armpit. Does have significant cardiac history with CABG 5 [address] ago[address] Milligan and Dr. Mendoza. Did have some shortness of air with the episodes and feels like he is getting a little bit more short of air than typical but he is doing a little harder work with his kid who is building his house. He does walk half mile daily. Timing/Duration: intermittent, 1-2 days Severity/Quality: aching Location: central Radiation: arms (Left) Activities at Onset: activity, rest Prior CP/Workup: cardiac cath, heart attack, stress test ASA po OPERATIONS ADMINISTRATOR: Yes NTG SL OPERATIONS ADMINISTRATOR: No Associated Symptoms: No back pain, No diaphoresis, No dizziness, No fever/chills, No nausea/vomiting; shortness of breath; No weakness Allergies and Home Medications Allergies Coded Allergies: Penicillins (Verified Allergy, Intermediate, EXTREME FEVER, 09/18/19) Patient Home Medication List Home Medication List Reviewed: Yes Aspirin (Aspir 81) 81 Mg Tablet., 81 MG PO DAILY, (Reported) Entered as Reported by: MARISEL POLLACK on 09/18/19 1011 Hydrocodone/Acetaminophen (Hydrocodone-Acetamin 7.5-325) 1 Each Tablet, 1 EACH PO Q4H Prescribed by: JOHNIE DAVIS on 09/25/19 0935 Lisinopril (Lisinopril) 2.5 Mg Tablet, 2.5 MG PO DAILY, (Reported) Entered as Reported by: MARISEL POLLACK on 09/18/19 1011 Lorazepam (Ativan) 2 Mg Tablet, 2 MG PO HS, (Reported) Entered as Reported by: MARISEL POLLACK on 09/18/19 1011 Metoprolol Tartrate (Metoprolol Tartrate) 100 Mg Tablet, 100 MG PO DAILY, (Reported) Entered as Reported by: MARISEL POLLACK on 09/18/19 1011 Tamsulosin HCl (Flomax) 0.4 Mg Cap, 0.4 MG PO DAILY Prescribed by: ARNOLD COMER on 09/28/19 0531 Review of Systems Review of Systems Constitutional: see HPI; No chills, No fever EENTM: No Nose Congestion, No Throat Pain Respiratory: Denies Cough; Shortness of Air, SOA With Exertion Cardiovascular: Chest Pain; Denies Edema, Denies Irregular Heart Rate Gastrointestinal: Denies Nausea, Denies Vomiting Genitourinary: No Symptoms Reported Musculoskeletal: no symptoms reported Skin: no symptoms reported Psychiatric/Neurological: No Symptoms Reported All Other Systems Reviewed Negative Unless Noted: Yes Past Jxmwiqb-Hfdaok-Dgneee Hx Patient Social History Tobacco Use?: No Substance use?: No Alcohol Use?: No Pt feels they are or have been: No Immunizations Up To Date Tetanus Booster (TDap): More than 5yrs Seasonal Allergies Seasonal Allergies: Yes Past Medical History Surgery/Hospitalization HX: CABG, NM Surgeries: Yes (L ING HERNIA, R ING HERNIA X2, CYSTS REMOVED, LEONARDO ROTAR CUFF, CATARACTS) Abdominal, CABG, Tonsillectomy Respiratory: No Currently Using CPAP: No Currently Using BIPAP: No Cardiac: Yes Coronary Artery Disease, Hypertension Neurological: No Sexually Transmitted Disease: No HIV/AIDS: No Genitourinary: Yes Benign Prostatic Hyperpl, Prostate Problems Gastrointestinal: Yes (INGUINAL HERNIA) Musculoskeletal: Yes Arthritis Endocrine: No HEENT: Yes (READING GLASSES) Loss of Vision: Denies Hearing Impairment: Hard of Hearing Cancer: No Psychosocial: Yes (INSOMNIA) Sleep Difficulties Integumentary: No Blood Disorders: No Adverse Reaction/Blood Tranf: No (N/A) Family Medical History Reviewed Nursing Family Hx Hypertension Physical Exam Vital Signs Vital Signs - First Documented 11/10/21 15:40 Temp 36.8 Pulse 60 Resp 18 B/P (MAP) 149/76 (100) Pulse Ox 95 Capillary Refill : Less Than 3 Seconds Height, Weight, BMI Height: 6'2.00" Weight: 181lbs. 0.0oz. 82.169763mx; 24.00 BMI Method:Stated General Appearance: No Apparent Distress, WD/WN HEENT: PERRL/EOMI, Pharynx Normal Neck: Non Tender, Supple Respiratory: Lungs Clear, Normal Breath Sounds Cardiovascular: Regular Rate, Rhythm, No Murmur Gastrointestinal: Non Tender, Soft Neurologic/Psychiatric: Alert, Oriented x3, No Motor/Sensory Deficits Skin: Normal Color, Warm/Dry Procedures/Interventions Suture Size: 4-0 Progress/Results/Core Measures Results/Orders Lab Results Laboratory Tests Test 11/10/21 15:40 Range/Units White Blood Count 9.0 4.3-11.0 10^3/uL Red Blood Count 4.38 4.30-5.52 10^6/uL Hemoglobin 13.9 13.3-17.7 g/dL Hematocrit 41 40-54 % Mean Corpuscular Volume 93 80-99 fL Mean Corpuscular Hemoglobin 32 25-34 pg Mean Corpuscular Hemoglobin Concent 34 32-36 g/dL Red Cell Distribution Width 13.0 10.0-14.5 % Platelet Count 212 130-400 10^3/uL Mean Platelet Volume 9.9 9.0-12.2 fL Immature Granulocyte % (Auto) 0 % Neutrophils (%) (Auto) 76 H 42-75 % Lymphocytes (%) (Auto) 15 12-44 % Monocytes (%) (Auto) 6 0-12 % Eosinophils (%) (Auto) 3 0-10 % Basophils (%) (Auto) 0 0-10 % Neutrophils # (Auto) 6.8 1.8-7.8 10^3/uL Lymphocytes # (Auto) 1.3 1.0-4.0 10^3/uL Monocytes # (Auto) 0.5 0.0-1.0 10^3/uL Eosinophils # (Auto) 0.2 0.0-0.3 10^3/uL Basophils # (Auto) 0.0 0.0-0.1 10^3/uL Immature Granulocyte # (Auto) 0.0 0.0-0.1 10^3/uL Prothrombin Time 13.0 12.2-14.7 SEC INR Comment 0.9 0.8-1.4 Activated Partial Thromboplast Time 37 H 24-35 SEC Sodium Level 146 H 135-145 MMOL/L Potassium Level 3.8 3.6-5.0 MMOL/L Chloride Level 111 H 98-107 MMOL/L Carbon Dioxide Level 21 21-32 MMOL/L Anion Gap 14 5-14 MMOL/L Blood Urea Nitrogen 27 H 7-18 MG/DL Creatinine 0.95 0.60-1.30 MG/DL Estimat Glomerular Filtration Rate 86 BUN/Creatinine Ratio 28 Glucose Level 126 H 70-105 MG/DL Calcium Level 9.6 8.5-10.1 MG/DL Corrected Calcium 9.5 8.5-10.1 MG/DL Magnesium Level 1.9 1.6-2.4 MG/DL Total Bilirubin 0.9 0.1-1.0 MG/DL Aspartate Amino Transf (AST/SGOT) 23 5-34 U/L Alanine Aminotransferase (ALT/SGPT) 20 0-55 U/L Alkaline Phosphatase 62 40-136 U/L Myoglobin 94.4 H 10.0-92.0 NG/ML Troponin I 0.042 H <0.028 NG/ML Total Protein 6.5 6.4-8.2 GM/DL Albumin 4.1 3.2-4.5 GM/DL My Orders Orders - VICKI LE MD Ekg Tracing (11/10/21 15:41) Cbc With Automated Diff (11/10/21 16:02) Magnesium (11/10/21 16:02) Chest 1 View, Ap/Pa Only (11/10/21 16:02) Comprehensive Metabolic Panel (11/10/21 16:02) Myoglobin Serum (11/10/21 16:02) Protime With Inr (11/10/21 16:02) Partial Thromboplastin Time (11/10/21 16:02) O2 (11/10/21 16:02) Monitor-Rhythm Ecg Trace Only (11/10/21 16:02) Lipid Panel (11/11/21 06:00) Ed Iv/Invasive Line Start (11/10/21 16:02) Troponin I Andrew (11/10/21 16:02) Aspirin Chewable Tablet (Baby Aspirin Ch (11/10/21 16:15) Clopidogrel Tablet (Plavix Tablet) (11/10/21 17:00) Vital Signs/I&O 11/10/21 15:40 Temp 36.8 Pulse 60 Resp 18 B/P (MAP) 149/76 (100) Pulse Ox 95 Blood Pressure Mean: 100 Progress Progress Note : Progress Note Seen and evaluated. IV, labs, EKG and chest x-ray ordered. ASA 243 mg p.o. He is chest pain-free right now so no nitro. Monitor patient. 1655: Patient remains chest pain-free. Troponin is slightly elevated. Given his history, patient will require admission for further evaluation. I did discuss the case with a steward/stewardess third class. He is recommending Plavix 300 mg p.o. now and continue Lo venox for DVT prophylaxis as well as Plavix 75 mg p.o. daily. This was ordered on bridge orders. I did discuss the case with Dr. Mendoza who accepts patient for admission, observation status. Patient agrees with plan. Initial ECG Impression Date: Nov 10, 2021 Initial ECG Impression Time: 15:45 Initial ECG Rate: 63 Initial ECG Rhythm: Normal Sinus Comment Sinus rhythm with normal axis. No evidence of ST elevation NM. Inferior Q waves new from previous of 11/28/2017 but has interval acute NM with CABG x4 vessels. Interpreted by me. Diagnostic Imaging Diagonstic Imaging: Xray Plain Films/CT/US/NM/MRI: chest Comments [facility] [place], [place] NAME: CAROL CALI [facility] REC#: [id number] PT STATUS: REG ER : 1950 PHYSICIAN: VICKI LE MD ADMIT DATE: 11/10/21/ER Draft Date of Exam:11/10/21 CHEST 1 VIEW, AP/PA ONLY INDICATION: Chest pain COMPARISON: 11/27/2017. FINDINGS: Single frontal view of the chest demonstrates normal heart size and pulmonary vascularity. The lungs are well aerated and clear. No large pleural effusion or pneumothorax is seen. The visualized osseous structures show no acute abnormalities. Sternotomy wires are noted. IMPRESSION: 1. No acute cardiopulmonary process. Dictated on workstation # [id number] Dict: 11/10/21 1631 Trans: 11/10/21 1633 [id number] [id number] Interpreted by: KHANH GARCIA MD Electronically signed by: Departure Communication (Admissions) Time/Spoke to Admitting Phy: 17:00 Time/Spoke to Consulting Phy: 16:55 Impression Primary Impression: Chest pain Qualified Codes: R07.9 - Chest pain, unspecified Additional Impression: Elevated troponin Disposition: ADMITTED INPATIENT Condition: Stable Admissions Decision to Admit Reason: Admit from ER (General) Decision to Admit/Date: Nov 10, 2021 Time/Decision to Admit Time: 16:55 Departure-Patient Inst. Referrals: KEN MENDOZA MD (PCP/Family) Primary Care Physician VICKI LE MD Nov 10, 2021 16:15
[2021-11-10 16:17] LABS: ALBUMIN 4.1 GM/DL (3.2-4.5); POTASSIUM 3.8 MMOL/L (3.6-5.0)
[2021-11-10 16:18] LABS: CALCIUM 9.6 MG/DL (8.5-10.1)
[2021-11-10 16:19] LABS: INR 0.9 (0.8-1.4)
[2021-11-10 16:20] LABS: TOTAL PROTEIN 6.5 GM/DL (6.4-8.2)
[2021-11-10 16:21] LABS: BILIRUBIN,TOTAL 0.9 MG/DL (0.1-1.0)
[2021-11-10 16:23] LABS: CREATININE SERUM 0.95 MG/DL (0.60-1.30)
[2021-11-10 16:26] LABS: MAGNESIUM 1.9 MG/DL (1.6-2.4)
--- NOTE | 2021-11-10 16:34 | Diagnostic Imaging Report ---
INDICATION: Chest pain COMPARISON: 11/27/2017. FINDINGS: Single frontal view of the chest demonstrates normal heart size and pulmonary vascularity. The lungs are well aerated and clear. No large pleural effusion or pneumothorax is seen. The visualized osseous structures show no acute abnormalities. Sternotomy wires are noted. IMPRESSION: 1. No acute cardiopulmonary process. Dictated by: Dictated on workstation # [id number]
[2021-11-10] MEDS ORDERED: CLOPIDOGREL 300 MG (PLAVIX) TABLET PO ONE (17:00)
[2021-11-10] MEDS ORDERED: CATHETER FLUSH 10 ML SYR IVP PRN (18:30)
[2021-11-10] MEDS ORDERED: ONDANSETRON 4 MG/2 ML (SDV) Z0FRAN IV PRN (18:30)
[2021-11-10] MEDS: ENOXAPARIN 40 MG/0.4 ML (LOVENOX) SYR SC SCH (18:32)
[2021-11-10 20:00] VITALS: BP 110/55
--- NOTE | 2021-11-10 20:06 | History & Physical ---
History of Present Illness History of Present Illness Reason for visit/HPI Pt is a 70 y/o male who is known to me from clinic. He presented to the hospital with complaint of chest pain. He states that his pain has been intermittent for several months - he has talked to Dr. Milligan- was told that unless it got worse, he did not have to go to the ER. Today he started to have more intensive pain from left chest down to upper arm on left side. He reports that the pain is about a 2-3/10, but due to the type of pain change, he thought it was best to have the pain evaluated for potential cardiac source. In the ER he was found to have slightly elevated troponin. He was admitted to the hospital for acute evaluation. Date of Admission Nov 10, 2021 at 17:01 Date Seen by a Provider: Nov 10, 2021 Time Seen by a Provider: 17:20 I consulted on this patient on 11/10/21 20:00 Attending Physician Ken Mendoza MD Admitting Physician Admitting Physician: Ken Mendoza MD Attending Physician: Ken Mendoza MD Consult dr. ibrahim - cardiology Allergies and Home Medications Allergies Coded Allergies: Penicillins (Verified Allergy, Intermediate, EXTREME FEVER, 09/18/19) Patient Home Medication List Home Medication List Reviewed: Yes Aspirin (Aspir 81) 81 Mg Tablet.dr, 81 MG PO DAILY, (Reported) Entered as Reported by: MARISEL POLLACK on 09/18/19 1011 Last Action: Reviewed Lisinopril (Lisinopril) 2.5 Mg Tablet, 2.5 MG PO DAILY, (Reported) Entered as Reported by: MARISEL POLLACK on 09/18/19 1011 Last Action: Reviewed Lorazepam (Ativan) 2 Mg Tablet, 2 MG PO HS, (Reported) Entered as Reported by: MARISEL POLLACK on 09/18/19 1011 Last Action: Converted Metoprolol Tartrate (Metoprolol Tartrate) 100 Mg Tablet, 100 MG PO DAILY, (Reported) Entered as Reported by: MARISEL POLLACK on 09/18/19 1011 Last Action: Reviewed Tamsulosin HCl (Flomax) 0.4 Mg Cap, 0.4 MG PO DAILY Prescribed by: ARNOLD COMER on 09/28/19 0531 Last Action: Continued Discontinued Medications Hydrocodone/Acetaminophen (Hydrocodone-Acetamin 7.5-325) 1 Each Tablet, 1 EACH PO Q4H Prescribed by: JOHNIE DAVIS on 09/25/1996 Last Action: Discontinued Past Bemjndd-Nducqu-Reubuj Hx Patient Social History Living Status: [place] Employed/Student: retired Tobacco Use?: No Use of E-Cig and/or Vaping dev: No Substance use?: No Alcohol Use?: Yes Alcohol Frequency: Once in a while Pt feels they are or have been: No Seasonal Allergies Seasonal Allergies: Yes Current Status Advance Directives: No Communicates: Verbally Primary Language: [place] Citizen Preferred Spoken Language: [place] Citizen Is interpretation needed?: No Implanted or Applied Medical D: None Past Medical History Surgeries: Abdominal, CABG, Tonsillectomy Currently Using CPAP: No Currently Using BIPAP: No Coronary Artery Disease, Hypertension Sexually Transmitted Disease: No HIV/AIDS: No Benign Prostatic Hyperpl, Prostate Problems Arthritis Loss of Vision: Denies Hearing Impairment: Hard of Hearing Sleep Difficulties Blood Disorders: No Adverse Reaction/Blood Tranf: No (N/A) Family Medical History Reviewed and Corrections made Heart Disease, Hypertension Review of Systems Constitutional: No chills, No diaphoresis, No dizziness, No fever, No malaise, No weakness EENTM: No hoarseness, No throat pain Respiratory: No cough, No dyspnea on exertion, No short of breath Cardiovascular: chest pain (left chest to left upper arm); No edema; Hx of Intervention; No palpitations Gastrointestinal: No abdominal pain, No constipation, No diarrhea, No nausea, No vomiting Genitourinary: no symptoms reported Musculoskeletal: No back pain, No muscle pain, No muscle weakness Skin: No lesions, No rash Psychiatric/Neurological: Denies Anxiety, Denies Depressed, Denies Headache, Denies Weakness All Other Systems Reviewed Negative Unless Noted: Yes Physical Exam Vital Signs Vital Signs - First Documented 11/10/21 11/10/21 15:40 18:00 Temp 36.8 Pulse 60 Resp 18 B/P (MAP) 149/76 (100) Pulse Ox 95 O2 Delivery Room Air Capillary Refill : Less Than 3 Seconds Height, Weight, BMI Height: 6'2.00" Weight: 181lbs. 0.0oz. 82.468903eg; 24.38 BMI Method:Stated General Appearance: No Apparent Distress, WD/WN HEENT: PERRL/EOMI, Pharynx Normal Neck: Full Range of Motion, Non Tender, Supple Respiratory: Chest Non Tender, Lungs Clear, Normal Breath Sounds, No Accessory Muscle Use, No Respiratory Distress Cardiovascular: Regular Rate, Rhythm, No Edema, No Murmur, Normal Peripheral Pulses Gastrointestinal: Normal Bowel Sounds, No Organomegaly, No Pulsatile Mass, Non Tender, Soft Rectal: Deferred Back: Normal Inspection, No CVA Tenderness, No Vertebral Tenderness Extremity: Normal Capillary Refill, Normal Range of Motion, Non Tender, No Calf Tenderness, No Pedal Edema Neurologic/Psychiatric: Alert, Oriented x3, No Motor/Sensory Deficits, Normal Mood/Affect, building trades instructor II-XII Norm as Tested Skin: Normal Color, Warm/Dry Lymphatic: No Adenopathy Assessment/Plan Assessment and Plan Chest pain Elevated troponin and Myoglobin Hypertension CAD Mild Hypernatremia BPH Insomnia Chest pain with Elevated troponin and Myoglobin and Hx of CAD - Consult to Cardiology - Dr. Ibrahim - plavix, aspirin started in ER - plan on eval tomorrow for possible stress test or heart cath. Hypertension - monitor blood pressure closely - will restart home regimen pending his bp readings Mild Hypernatremia - anticipate improvement with fluids BPH restart tamsulosin Insomnia - restart Ativan - pt has been on for years to aide his sleep. dvt prophylaxis with scd's, lovenox gi prophylaxis with ppi therapy Admission Diagnosis Chest pain Elevated troponin and Myoglobin Hypertension CAD Mild Hypernatremia BPH Insomnia Admission Status: Observation Clinical Quality Measures AMI/AHF: ASA po Prior to arrival: Yes KEN MENDOZA MD Nov 10, 2021 20:06
[2021-11-10] MEDS ORDERED: TAMSULOSIN 0.4 MG (FLOMAX) CAP PO SCH (21:00)
[2021-11-10] MEDS: PANTOPRAZOLE 40 MG (PROTONIX) TAB PO SCH (22:00)
[2021-11-10] MEDS: CATHETER FLUSH 10 ML SYR IVP SCH (22:00)
[2021-11-11] VITALS (12 sets, daily range): BP systolic 119–155; BP diastolic 62–87
[2021-11-11] MEDS: LORazepam 1 MG (ATIVAN) TAB PO PRN (01:59)
[2021-11-11 04:18] LABS: BASOPHILS % (AUTO) 1 % (0-10); EOSINOPHILS # (AUTO) 0.3 10^3/uL (0.0-0.3); EOSINOPHILS % (AUTO) 5 % (0-10); HEMATOCRIT 37 % (40-54); HEMOGLOBIN 12.2 g/dL (13.3-17.7); LYMPHOCYTES # (AUTO) 1.5 10^3/uL (1.0-4.0); LYMPHOCYTES % (AUTO) 23 % (12-44); MEAN CORPUSCULAR HEMOGLOBIN 31 pg (25-34); MEAN CORPUSCULAR HGB CONC 33 g/dL (32-36); MEAN CORPUSCULAR VOLUME 94 fL (80-99); MEAN PLATELET VOLUME 9.5 fL (9.0-12.2); MONOCYTES # (AUTO) 0.6 10^3/uL (0.0-1.0); MONOCYTES % (AUTO) 9 % (0-12); NEUTROPHILS # (AUTO) 4.2 10^3/uL (1.8-7.8); NEUTROPHILS % (AUTO) 63 % (42-75); PLATELET COUNT 167 10^3/uL (130-400); WHITE BLOOD COUNT 6.6 10^3/uL (4.3-11.0)
[2021-11-11 04:38] LABS: CALCIUM 8.4 MG/DL (8.5-10.1); CREATININE SERUM 0.83 MG/DL (0.60-1.30); POTASSIUM 3.8 MMOL/L (3.6-5.0)
[2021-11-11] MEDS: CATHETER FLUSH 10 ML SYR IVP SCH ×3 (06:02→22:01)
--- NOTE | 2021-11-11 08:03 | Consultation-Cardiology ---
HPI-Cardiology Cardiology Consultation: Date of Consultation 11/11/21 Time Seen by a Provider: 09:00 Date of Admission 11-10-21 Attending Physician Gloria Mendoza MD Admitting Physician Admitting Physician: Gloria Mendoza MD Attending Physician: Gloria Mendoza MD Consulting Physician EL SANTOYO HPI: Chief Complaint: Angina NSTEMI Mr. Cali is a 70 yr old male admitted to [facility] from the ED with c/o left sided chest pain with radiation to his left upper arm. He reports for the last week he has had some 'mild chest pressure" with exertion that would resolve with rest. He states he typically walks a mile nearly daily and during his walks recently he has felt that something was "not right". He reports yesterday he was cutting lumber when he developed left sided chest pain which he describes as an ache, mod in intensity. The discomfort radiated into his left upper arm; he states before his bypass surgery he did have left arm pain. He reports some SOB. He states the discomfort would last for several minutes and resolve with rest. He denies any diaphoresis, palpitations, syncope or near syncope. He has chronic RLE following his CABG, which has not changed. No c/o n/v/d. No c/o fever or chills. Review of Systems-Cardiology Review of Systems Constitutional: No chills, No fever, No malaise Eyes: No vision change Ears/Nose/Throat: No epistaxis, No recent hearing loss Respiratory: As described under HPI Cardiovascular: As described under HPI Gastrointestinal: No constipation, No diarrhea, No nausea, No vomiting Genitourinary: No dysuria, No hematuria Musculoskeletal: no symptoms reported Skin: No rash on exposed areas, No ulcerations on exposed areas Psychiatric/Neurological: No anxiety, No depression, No seizure, No focal weakness, No syncope Hematologic: No bleeding abnormalities All Other Systems Reviewed Negative Unless Noted: Yes GNP-Gtqauv-Enizea Hx Patient Social History Living Status: lives in [place] Employed/Student: retired [employer] Smoke Exposure: No Have you traveled recently?: No Alcohol Use?: Yes Pt feels they are or have been: No Immunizations Up To Date Tetanus Booster (TDap): More than 5yrs Past Medical History PMH As described under Assessment. Family Medical History Family Medical History: He reports a family h/o CAD in his father Allergies and Home Medications Allergies Coded Allergies: Penicillins (Verified Allergy, Intermediate, EXTREME FEVER, 09/18/19) Patient Home Medication List Acetaminophen (Tylenol Extra Strength) 500 Mg Tablet, 500-1,000 MG PO Q8H PRN for PAIN-MILD (1-4), (Reported) Entered as Reported by: ZHANG VAZQUEZ on 11/11/211034 Last Action: Reviewed Ascorbate Calcium (Vitamin C) 500 Mg Tablet, 500 MG PO DAILY, (Reported) Entered as Reported by: ZHANG VAZQUEZ on 11/11/211034 Last Action: Converted Aspirin (Aspirin EC) 81 Mg Tablet.dr, 81 MG PO DAILY, (Reported) Entered as Reported by: ZHANG VAZQUEZ on 11/11/211034 Last Action: Reviewed Calcium Lactate (Calcium Lactate) 100 Mg Calcium Tablet, 100 MG PO DAILY, (Reported) Entered as Reported by: ZHANG VAZQUEZ on 11/11/211034 Last Action: Converted Chlorpheniramine/Phenylephrine (Eql Sinus-Allergy PE Tablet) 4 Mg-10 Mg Tablet, 1-2 EACH PO DAILY PRN for ALLERGY SYMPTOMS, (Reported) Entered as Reported by: ZHANG VAZQUEZ on 11/11/211034 Last Action: Reviewed Cholecalciferol (Vitamin D3) (Vitamin D3) 50 Mcg (2000 Unit) Capsule, 50 MCG PO DAILY, (Reported) Entered as Reported by: ZHANG VAZQUEZ on 11/11/211034 Last Action: Converted Finasteride (Finasteride) 5 Mg Tablet, 5 MG PO DAILY, (Reported) Entered as Reported by: ZHANG VAZQUEZ on 11/11/211034 Last Action: Continued Hydroxychloroquine Sulfate (Hydroxychloroquine Sulfate) 200 Mg Tablet, 200 MG PO WED @HS, (Reported) Entered as Reported by: ZHANG VAZQUEZ on 11/11/211034 Last Action: Continued Lisinopril (Lisinopril) 2.5 Mg Tablet, 2.5 MG PO DAILY, (Reported) Entered as Reported by: MARISEL POLLACK on 09/18/19 101 Last Action: Reviewed Lorazepam (Ativan) 2 Mg Tablet, 2 MG PO HS, (Reported) Entered as Reported by: MARISEL POLLACK on 09/18/19 1011 Last Action: Reviewed Metoprolol Succinate (Metoprolol Succinate) 100 Mg Tab.er.24h, 100 MG PO DAILY, (Reported) Entered as Reported by: ZHANG VAZQUEZ on 11/11/21 103 Last Action: Reviewed Rosuvastatin Calcium (Rosuvastatin Calcium) 5 Mg Tablet, 5 MG PO DAILY, (Reported) Entered as Reported by: ZHANG VAZQUEZ on 11/11/211034 Last Action: Continued Tadalafil (Tadalafil) 5 Mg Tablet, 5 MG PO HS, (Reported) Entered as Reported by: ZHANG VAZQUEZ on 11/11/211034 Last Action: Converted Tamsulosin HCl (Flomax) 0.4 Mg Cap, 0.4 MG PO BID, (Reported) Entered as Reported by: ZHANG VAZQUEZ on 11/11/211034 Last Action: Continued Vitamin E Mixed (Vitamin E) 100 Unit Tablet, 100 UNIT PO DAILY, (Reported) Entered as Reported by: ZHANG VAZQUEZ on 11/11/211034 Last Action: Converted Vitamin K2 (Vitamin K2) 100 Mcg Capsule, 100 MCG PO DAILY, (Reported) Entered as Reported by: ZHANG VAZQUEZ on 11/11/211034 Last Action: Converted Discontinued Medications Hydrocodone/Acetaminophen (Hydrocodone-Acetamin 7.5-325) 1 Each Tablet, 1 EACH PO Q4H Prescribed by: JOHNIE DAVIS on 09/25/19 0935 Last Action: Discontinued Metoprolol Tartrate (Metoprolol Tartrate) 100 Mg Tablet, 100 MG PO DAILY, (Reported) Discontinued Reason: Duplicate Order Entered as Reported by: MARISEL POLLACK on 09/18/19 1011 Last Action: Discontinued Tamsulosin HCl (Flomax) 0.4 Mg Cap, 0.4 MG PO DAILY Discontinued Reason: No Longer Taking Prescribed by: ARNOLD COMER on 09/28/19 0531 Last Action: Discontinued Physical Exam-Cardiology Physical Exam Vital Signs/I&O 11/11/21 11/11/21 11/11/21 11/11/21 04:00 04:00 07:00 08:00 Temp 36.8 Pulse 45 47 49 Resp 24 12 B/P (MAP) 144/64 (90) 146/75 (98) Pulse Ox 95 95 O2 Delivery Room Air Room Air 11/11/21 11/11/21 11/11/21 11/11/21 08:46 09:00 11:01 13:00 Temp 36.4 36.8 Pulse 51 O2 Delivery Room Air 11/11/21 00:00 Intake Total 500 ml Balance 500 ml Capillary Refill : Less Than 3 Seconds Constitutional: AAO x 3, well-developed, well-nourished HEENT: PERRL, hearing is well preserved, oral hygience is good Neck: No carotid bruit; carotid pulses are 2 + bilaterally Respiratory: No accessory muscle use, No respiratory distress; chest expansion is symmetric, chest is bilaterally symmetric, lungs clear to auscultation Cardiovascular: regular rate-rhythm; No JVD; S1 and S2 Gastrointestinal: No tender; soft, round, audible bowel sounds Extremities: no lower extremity edema bilateral Neurologic/Psychiatric: grossly intact (moves all extremities) Skin: No rash on exposed areas, No ulcerations on exposed areas Data Review Labs Laboratory Tests 11/10/21 15:40: White Blood Count 9.0, Red Blood Count 4.38, Hemoglobin 13.9, Hematocrit 41, Mean Corpuscular Volume 93, Mean Corpuscular Hemoglobin 32, Mean Corpuscular Hemoglobin Concent 34, Red Cell Distribution Width 13.0, Platelet Count 212, Mean Platelet Volume 9.9, Immature Granulocyte % (Auto) 0, Neutrophils (%) (Auto) 76H, Lymphocytes (%) (Auto) 15, Monocytes (%) (Auto) 6, Eosinophils (%) (Auto) 3, Basophils (%) (Auto) 0, Neutrophils # (Auto) 6.8, Lymphocytes # (Auto) 1.3, Monocytes # (Auto) 0.5, Eosinophils # (Auto) 0.2, Basophils # (Auto) 0.0, Immature Granulocyte # (Auto) 0.0, Prothrombin Time 13.0, INR Comment 0.9, Activated Partial Thromboplast Time 37H, Sodium Level 146H, Potassium Level 3.8, Chloride Level 111H, Carbon Dioxide Level 21, Anion Gap 14, Blood Urea Nitrogen 27H, Creatinine 0.95, Estimat Glomerular Filtration Rate 86, BUN/Creatinine Ratio 28, Glucose Level 126H, Calcium Level 9.6, Corrected Calcium 9.5, Magnesium Level 1.9, Total Bilirubin 0.9, Aspartate Amino Transf (AST/SGOT) 23, Alanine Aminotransferase (ALT/SGPT) 20, Alkaline Phosphatase 62, Myoglobin 94.4H , Troponin I 0.042H, Total Protein 6.5, Albumin 4.1 11/10/21 18:30: Troponin I 0.028 11/10/21 22:00: Troponin I 0.043H 11/11/21 04:00: White Blood Count 6.6, Red Blood Count 3.94L, Hemoglobin 12.2L, Hematocrit 37L, Mean Corpuscular Volume 94, Mean Corpuscular Hemoglobin 31, Mean Corpuscular Hemoglobin Concent 33, Red Cell Distribution Width 13.1, Platelet Count 167, Mean Platelet Volume 9.5, Immature Granulocyte % (Auto) 0, Neutrophils (%) (Auto) 63, Lymphocytes (%) (Auto) 23, Monocytes (%) (Auto) 9, Eosinophils (%) (Auto) 5, Basophils (%) (Auto) 1, Neutrophils # (Auto) 4.2, Lymphocytes # (Auto) 1.5, Monocytes # (Auto) 0.6, Eosinophils # (Auto) 0.3, Basophils # (Auto) 0.0, Immature Granulocyte # (Auto) 0.0, Sodium Level 144, Potassium Level 3.8, Chloride Level 114H, Carbon Dioxide Level 19L, Anion Gap 11, Blood Urea Nitrogen 25H, Creatinine 0.83, Estimat Glomerular Filtration Rate 94, BUN/Creatinine Ratio 30, Glucose Level 90, Calcium Level 8.4L, Troponin I 0.068H, Triglycerides Level 142, Cholesterol Level 181, LDL Cholesterol Direct 123, VLDL Cholesterol 28, HDL Cholesterol 33L Radiology NAME: [facility] REC#: [id number] PT STATUS: REG ER : 1950 PHYSICIAN: VICKI LE MD ADMIT DATE: 11/10/21/ER Signed Date of Exam:11/10/21 CHEST 1 VIEW, AP/PA ONLY INDICATION: Chest pain COMPARISON: 11/27/2017. FINDINGS: Single frontal view of the chest demonstrates normal heart size and pulmonary vascularity. The lungs are well aerated and clear. No large pleural effusion or pneumothorax is seen. The visualized osseous structures show no acute abnormalities. Sternotomy wires are noted. IMPRESSION: 1. No acute cardiopulmonary process. Dictated by: Dictated on workstation # [id number] Dict: 11/10/21 1631 Trans: 11/10/21 1656 [id number] Interpreted by: KHANH GARCIA MD Electronically signed by: KHANH GARCIA MD 11/10/21 1650 ECG Impression ECG Initial ECG Rhythm: Normal Sinus A/P-Cardiology Assessment/Admission Diagnosis NSTEMI with stable angina Coronary artery disease, - Cardiac catheterization was done on November 28, 2017 showing severe multivessel coronary artery disease, had CABG [address] Irvin Martinez on November 29, 2017 using SCHULTZ to LAD, vein graft to diagonal, first obtuse marginal, second obtuse marginal and posterior descending branch of the right coronary artery - Stress test done on April 14, [address] Milligan: Showing good exercise tolerance for repeat of 8 minutes on Jimi protocol with frequent PVCs, ventricular bigeminy noted during exercise and resolved in recovery, severe hypertensive response to exercise with peak blood pressure 221/66, diaphragmatic attenuation with fixed defect involving the whole inferior wall and inferolateral wall with no reversibility, stress score 13, SDS 0, EF 53% Stress test done in March 2021 showing fixed defect involving the whole inferior wall, stress score 13, did not change compared to the study of December 2018 - 2D echo was done in March 2021 showing normal LV size, EF 50 to 55%, grade 2 diastolic dysfunction, mild MR, PA pressure 40 mmHg. Transient atrial fibrillation post bypass surgery - no re-occurrence Hypertension Carotid artery stenosis - previously monitored by [facility] - Mild bilateral carotid stenosis, ultrasound done in January [address] Milligan Palpitation - h/o frequent PVCs noted on stress test in 2016 Restless leg syndrome - managed by primary care physician - had a sleep study in the remote past and reported no sleep apnea. Hyperlipidemia - statin tx Family history of heart disease History of elevated PSA level - enlarged prostate, seen by Dr. Hernandez, did not want to have a biopsy, treated conservatively and reporting improvement in PSA level. Discussion and Recomendations NSTEMI with stable angina - h/o CAD with CABG in the past - advise cardiac cath with possible PCI. We have discussed the procedure, risks, benefits and potential complications of cardiac cath with possible ad hoc coronary intervention. He provides informed consent. - Continue ASA and Plavix Continue statin and BB Further recs will be based on his hospital course We would like to thank Dr. Mendoza for this consult Clinical Quality Measures AMI/AHF: ASA po Prior to arrival: Yes EL KELLY Nov 11, 2021 08:03
[2021-11-11] MEDS: ASPIRIN E.C. 81 MG (ECOTRIN) TAB PO SCH (08:44)
[2021-11-11] MEDS: CLOPIDOGREL 75 MG (PLAVIX) TABLET PO SCH (08:44)
[2021-11-11] MEDS ORDERED: ACET-2267 PO (10:35)
[2021-11-11] MEDS ORDERED: MTP100TCR PO (10:35)
[2021-11-11] MEDS ORDERED: VITA100T8 PO (10:35)
[2021-11-11] MEDS ORDERED: ROSU5TAB13 PO (10:35)
[2021-11-11] MEDS ORDERED: TMSL.4C PO (10:35)
[2021-11-11] MEDS ORDERED: CHLO1TAB94 PO (10:35)
[2021-11-11] MEDS ORDERED: ASCO-262 PO (10:35)
[2021-11-11] MEDS ORDERED: HYDR200T46 PO (10:35)
[2021-11-11] MEDS ORDERED: VITA100C23 PO (10:35)
[2021-11-11] MEDS ORDERED: TADA5TAB13 PO (10:35)
[2021-11-11] MEDS ORDERED: CHOL20002 PO (10:35)
[2021-11-11] MEDS ORDERED: CALC100T2 PO (10:35)
[2021-11-11] MEDS ORDERED: ASPI-1238 PO (10:35)
[2021-11-11] MEDS ORDERED: FINA5TAB6 PO (10:35)
[2021-11-11] MEDS: NS IV 1000 ML 1,000 ML IV SCH ×3 (10:51→16:06)
[2021-11-11] MEDS ORDERED: PATIENT MAY USE OWN MEDS, ALL MC SCH (11:00)
[2021-11-11] MEDS: CALCIUM LACTATE 100 MG PO SCH (11:38)
[2021-11-11] MEDS: VITAMIN E MIXED 100 UNIT PO SCH (11:39)
[2021-11-11] MEDS: FINASTERIDE (PROSCAR) 5 MG TAB PO SCH (11:39)
[2021-11-11] MEDS: VITAMIN K2 100 MCG PO SCH (11:39)
[2021-11-11] MEDS: ROSUVASTATIN 5 MG (CRESTOR) TABLET PO SCH (11:39)
--- NOTE | 2021-11-11 12:06 | Consultation-Cardiology ---
HPI-Cardiology Cardiology Consultation: Date of Consultation 11/11/21 Time Seen by a Provider: 09:45 Date of Admission Attending Physician Gloria Mendoza MD Admitting Physician Admitting Physician: Gloria Mendoza MD Attending Physician: Gloria Mendoza MD Consulting Physician CHEL CORONADO MD, MA, FACP, FACC, [facility], CCDS HPI: Chief Complaint: Reason for Card consult: Angina, NSTEMI Mr. Hagen is a 70 yr old male admitted to [facility] from the ED with c/o left sided chest pain with radiation to his left upper arm. He reports for the last week he has had some 'mild chest pressure" with exertion that would resolve with rest. He states he typically walks a mile nearly daily and during his walks recently he has felt that something was "not right". He reports yesterday he was cutting lumber when he developed left sided chest pain which he describes as an ache, mod in intensity. The discomfort radiated into his left upper arm; he states before his bypass surgery he did have left arm pain. He reports some SOB. He states the discomfort would last for several minutes and resolve with rest. He denies any diaphoresis, palpitations, syncope or near syncope. He has chronic RLE following his CABG, which has not changed. No c/o n/v/d. No c/o fever or chills. Review of Systems-Cardiology Review of Systems Constitutional: No chills, No fever, No malaise Eyes: No vision change Ears/Nose/Throat: No epistaxis, No recent hearing loss Respiratory: As described under HPI Cardiovascular: As described under HPI Gastrointestinal: No constipation, No diarrhea, No nausea, No vomiting Genitourinary: No dysuria, No hematuria Musculoskeletal: no symptoms reported Skin: No rash on exposed areas, No ulcerations on exposed areas Psychiatric/Neurological: No anxiety, No depression, No seizure, No focal weakness, No syncope Hematologic: No bleeding abnormalities All Other Systems Reviewed Negative Unless Noted: Yes HZS-Suxyia-Qifyhb Hx Patient Social History Living Status: lives in [place] Employed/Student: retired [employer] Smoke Exposure: No Have you traveled recently?: No Alcohol Use?: Yes Pt feels they are or have been: No Immunizations Up To Date Tetanus Booster (TDap): More than 5yrs Past Medical History PMH As described under Assessment. Family Medical History Family Medical History: He reports a family h/o CAD in his father Allergies and Home Medications Allergies Coded Allergies: Penicillins (Verified Allergy, Intermediate, EXTREME FEVER, 09/18/19) Patient Home Medication List Home Medication List Reviewed: Yes Acetaminophen (Tylenol Extra Strength) 500 Mg Tablet, 500-1,000 MG PO Q8H PRN for PAIN-MILD (1-4), (Reported) Entered as Reported by: ZHANG VAZQUEZ on 11/11/211034 Last Action: Reviewed Ascorbate Calcium (Vitamin C) 500 Mg Tablet, 500 MG PO DAILY, (Reported) Entered as Reported by: ZHANG VAZQUEZ on 11/11/211034 Last Action: Converted Aspirin (Aspirin EC) 81 Mg Tablet.dr, 81 MG PO DAILY, (Reported) Entered as Reported by: ZHANG VAZQUEZ on 11/11/211034 Last Action: Reviewed Calcium Lactate (Calcium Lactate) 100 Mg Calcium Tablet, 100 MG PO DAILY, (Reported) Entered as Reported by: ZHANG VAZQUEZ on 11/11/211034 Last Action: Converted Chlorpheniramine/Phenylephrine (Eql Sinus-Allergy PE Tablet) 4 Mg-10 Mg Tablet, 1-2 EACH PO DAILY PRN for ALLERGY SYMPTOMS, (Reported) Entered as Reported by: ZHANG VAZQUEZ on 11/11/211034 Last Action: Reviewed Cholecalciferol (Vitamin D3) (Vitamin D3) 50 Mcg (2000 Unit) Capsule, 50 MCG PO DAILY, (Reported) Entered as Reported by: ZHANG VAZQUEZ on 11/11/211034 Last Action: Converted Finasteride (Finasteride) 5 Mg Tablet, 5 MG PO DAILY, (Reported) Entered as Reported by: ZHANG VAZQUEZ on 11/11/211034 Last Action: Continued Hydroxychloroquine Sulfate (Hydroxychloroquine Sulfate) 200 Mg Tablet, 200 MG PO WED @HS, (Reported) Entered as Reported by: ZHANG VAZQUEZ on 11/11/211034 Last Action: Continued Lisinopril (Lisinopril) 2.5 Mg Tablet, 2.5 MG PO DAILY, (Reported) Entered as Reported by: MARISEL POLLACK on 09/18/19 1011 Last Action: Reviewed Lorazepam (Ativan) 2 Mg Tablet, 2 MG PO HS, (Reported) Entered as Reported by: MARISEL POLLACK on 09/18/19 1011 Last Action: Reviewed Metoprolol Succinate (Metoprolol Succinate) 100 Mg Tab.er.24h, 100 MG PO DAILY, (Reported) Entered as Reported by: ZHANG VAZQUEZ on 11/11/211034 Last Action: Reviewed Rosuvastatin Calcium (Rosuvastatin Calcium) 5 Mg Tablet, 5 MG PO DAILY, (Reported) Entered as Reported by: ZHANG VAZQUEZ on 11/11/211034 Last Action: Continued Tadalafil (Tadalafil) 5 Mg Tablet, 5 MG PO HS, (Reported) Entered as Reported by: ZHANG VAZQUEZ on 11/11/211034 Last Action: Converted Tamsulosin HCl (Flomax) 0.4 Mg Cap, 0.4 MG PO BID, (Reported) Entered as Reported by: ZHANG VAZQUEZ on 11/11/211034 Last Action: Continued Vitamin E Mixed (Vitamin E) 100 Unit Tablet, 100 UNIT PO DAILY, (Reported) Entered as Reported by: ZHANG VAZQUEZ on 11/11/211034 Last Action: Converted Vitamin K2 (Vitamin K2) 100 Mcg Capsule, 100 MCG PO DAILY, (Reported) Entered as Reported by: ZHANG VAZQUEZ on 11/11/211034 Last Action: Converted Discontinued Medications Hydrocodone/Acetaminophen (Hydrocodone-Acetamin 7.5-325) 1 Each Tablet, 1 EACH PO Q4H Prescribed by: JOHNIE DAVIS on 09/25/19 0935 Last Action: Discontinued Metoprolol Tartrate (Metoprolol Tartrate) 100 Mg Tablet, 100 MG PO DAILY, (Reported) Discontinued Reason: Duplicate Order Entered as Reported by: MARISEL POLLACK on 09/18/19 1011 Last Action: Discontinued Tamsulosin HCl (Flomax) 0.4 Mg Cap, 0.4 MG PO DAILY Discontinued Reason: No Longer Taking Prescribed by: ARNOLD COMER on 09/28/19 7448 Last Action: Discontinued Physical Exam-Cardiology Physical Exam Vital Signs/I&O 11/11/21 11/11/21 11/11/21 11/11/21 01:00 02:00 04:00 04:00 Temp 36.8 Pulse 44 45 Resp 24 B/P (MAP) 144/64 (90) Pulse Ox 96 95 O2 Delivery Room Air Room Air 11/11/21 11/11/21 11/11/21 11/11/21 07:00 08:00 08:46 09:00 Temp 36.4 Pulse 47 49 Resp 12 B/P (MAP) 146/75 (98) Pulse Ox 95 O2 Delivery Room Air Room Air 11/11/21 11:01 Temp 36.8 11/11/21 00:00 Intake Total 500 ml Balance 500 ml Capillary Refill : Less Than 3 Seconds Constitutional: AAO x 3, well-developed, well-nourished HEENT: PERRL, hearing is well preserved, oral hygience is good Neck: No carotid bruit; carotid pulses are 2 + bilaterally Respiratory: No accessory muscle use, No respiratory distress; chest expansion is symmetric, chest is bilaterally symmetric, lungs clear to auscultation Cardiovascular: regular rate-rhythm; No JVD; S1 and S2 Gastrointestinal: No tender; soft, round, audible bowel sounds Extremities: no lower extremity edema bilateral Neurologic/Psychiatric: grossly intact (moves all extremities) Skin: No rash on exposed areas, No ulcerations on exposed areas Data Review Labs Laboratory Tests 11/10/21 15:40: White Blood Count 9.0, Red Blood Count 4.38, Hemoglobin 13.9, Hematocrit 41, Mean Corpuscular Volume 93, Mean Corpuscular Hemoglobin 32, Mean Corpuscular Hemoglobin Concent 34, Red Cell Distribution Width 13.0, Platelet Count 212, Mean Platelet Volume 9.9, Immature Granulocyte % (Auto) 0, Neutrophils (%) (Auto) 76H, Lymphocytes (%) (Auto) 15, Monocytes (%) (Auto) 6, Eosinophils (%) (Auto) 3, Basophils (%) (Auto) 0, Neutrophils # (Auto) 6.8, Lymphocytes # (Auto) 1.3, Monocytes # (Auto) 0.5, Eosinophils # (Auto) 0.2, Basophils # (Auto) 0.0, Immature Granulocyte # (Auto) 0.0, Prothrombin Time 13.0, INR Comment 0.9, Activated Partial Thromboplast Time 37H, Sodium Level 146H, Potassium Level 3.8, Chloride Level 111H, Carbon Dioxide Level 21, Anion Gap 14, Blood Urea Nitrogen 27H, Creatinine 0.95, Estimat Glomerular Filtration Rate 86, BUN/Creatinine Ratio 28, Glucose Level 126H, Calcium Level 9.6, Corrected Calcium 9.5, Magnesium Level 1.9, Total Bilirubin 0.9, Aspartate Amino Transf (AST/SGOT) 23, Alanine Aminotransferase (ALT/SGPT) 20, Alkaline Phosphatase 62, Myoglobin 94.4H , Troponin I 0.042H, Total Protein 6.5, Albumin 4.1 11/10/21 18:30: Troponin I 0.028 11/10/21 22:00: Troponin I 0.043H 11/11/21 04:00: White Blood Count 6.6, Red Blood Count 3.94L, Hemoglobin 12.2L, Hematocrit 37L, Mean Corpuscular Volume 94, Mean Corpuscular Hemoglobin 31, Mean Corpuscular Hemoglobin Concent 33, Red Cell Distribution Width 13.1, Platelet Count 167, Mean Platelet Volume 9.5, Immature Granulocyte % (Auto) 0, Neutrophils (%) (Auto) 63, Lymphocytes (%) (Auto) 23, Monocytes (%) (Auto) 9, Eosinophils (%) (Auto) 5, Basophils (%) (Auto) 1, Neutrophils # (Auto) 4.2, Lymphocytes # (Auto) 1.5, Monocytes # (Auto) 0.6, Eosinophils # (Auto) 0.3, Basophils # (Auto) 0.0, Immature Granulocyte # (Auto) 0.0, Sodium Level 144, Potassium Level 3.8, Chlo ride Level 114H, Carbon Dioxide Level 19L, Anion Gap 11, Blood Urea Nitrogen 25H , Creatinine 0.83, Estimat Glomerular Filtration Rate 94, BUN/Creatinine Ratio 30, Glucose Level 90, Calcium Level 8.4L, Troponin I 0.068H, Triglycerides Level 142, Cholesterol Level 181, LDL Cholesterol Direct 123, VLDL Cholesterol 28, HDL Cholesterol 33L A/P-Cardiology Assessment/Admission Diagnosis NSTEMI with stable angina Coronary artery disease, - Cardiac catheterization was done on November 28, 2017 showing severe multivessel coronary artery disease, had CABG [address] Irvin Martinez on November 29, 2017 using SCHULTZ to LAD, vein graft to diagonal, first obtuse marginal, second obtuse marginal and posterior descending branch of the right coronary artery - Stress test done on April 14, [address] Milligan: Showing good exercise tolerance for repeat of 8 minutes on Jimi protocol with frequent PVCs, ventricular bigeminy noted during exercise and resolved in recovery, severe hypertensive response to exercise with peak blood pressure 221/66, diaphragmatic attenuation with fixed defect involving the whole inferior wall and inferolateral wall with no reversibility, stress score 13, SDS 0, EF 53% Stress test done in March 2021 showing fixed defect involving the whole inferior wall, stress score 13, did not change compared to the study of December 2018 - 2D echo was done in March 2021 showing normal LV size, EF 50 to 55%, grade 2 diastolic dysfunction, mild MR, PA pressure 40 mmHg. Transient atrial fibrillation post bypass surgery - no reccurrence Hypertension Carotid artery stenosis - previously monitored by [facility] - Mild bilateral carotid stenosis, ultrasound done in January [address] Milligan Palpitation - h/o frequent PVCs noted on stress test in 2016 Restless leg syndrome - managed by primary care physician - had a sleep study in the remote past and reported no sleep apnea. Hyperlipidemia - statin tx Family history of heart disease History of elevated PSA level - enlarged prostate, seen by Dr. Hernandez, did not want to have a biopsy, treated conservatively and reporting improvement in PSA level. Discussion and Recomendations NSTEMI with stable angina - h/o CAD with CABG in the past - advise cardiac cath with possible PCI. We have discussed the procedure, risks, benefits and potential complications of cardiac cath with possible ad hoc coronary intervention. He provides informed c onsent. - Continue ASA and Plavix - I discussed the rationale, procedure, risks, benefits, potential complications, and alternatives with Mr Hagen. He understands and provides informed consent Continue statin and BB Further recs will be based on his hospital course We would like to thank Dr. Mendoza for this consult Clinical Quality Measures AMI/AHF: ASA po Prior to arrival: Yes CHEL CORONADO MD FACP FAC CCDS Nov 11, 2021 12:06
[2021-11-11] MEDS ORDERED: LIDOCAINE 1% INJ 20 ML VIAL ONE (13:00)
[2021-11-11] MEDS ORDERED: HEParin (CATH LAB) 2,000 ML IV ONE (13:00)
[2021-11-11] MEDS ORDERED: NS IV 1000 ML 1,000 ML ONE (13:00)
[2021-11-11] MEDS ORDERED: MIDAZOLAM 2 MG/2 ML (VERSED) VIAL ONE (13:27)
[2021-11-11] MEDS ORDERED: fentaNYL INJ 100 MCG/2 ML AMP ONE (13:27)
[2021-11-11] MEDS ORDERED: NITRO DRIP 25000 MCG/D5W 250 ML IV ONE (14:31)
[2021-11-11] MEDS ORDERED: EPTIFIBATIDE BOLUS 20 ML IV ONE (14:31)
[2021-11-11] MEDS ORDERED: HEParin 1000 UNIT/ML (10ML VIAL) FOR BOLUS ONE (14:31)
[2021-11-11] MEDS ORDERED: ATROPINE INJECTION 1 MG/10 ML SYR (ABBOTT) ONE (14:46)
[2021-11-11] MEDS ORDERED: diphenhydrAMINE 50 MG/ML INJ (BENADRYL) ONE (14:56)
[2021-11-11] MEDS ORDERED: morphine INJ 4 MG/ML 1 ML (VIAL/SYRINGE) ONE (14:56)
[2021-11-11] MEDS ORDERED: CLOPIDOGREL 300 MG (PLAVIX) TABLET PO ONE (15:17)
[2021-11-11] MEDS ORDERED: ASPIRIN 81 MG CHEW (CHILDREN'S ASA) ONE (15:18)
--- NOTE | 2021-11-11 15:21 | Cardiac Procedure Note-CS/ASA ---
Pre-Procedure Note Pre-Op Procedure Note Date of Available H&P: Nov 11, 2021 Date H&P Reviewed: Nov 11, 2021 Time H&P Reviewed: 10:15 History & Physical: H&P Reviewed, No changes noted Conscious Sedation Pre-Proced Time 10:15 ASA Score 3 For ASA 3 and 4: Consider anesthesia and medical clearance. Also, for patients with a history of failed moderate sedation consider anesthesia. Airway Lungs Heart ASA score ASA 1: a normal healthy patient ASA 2: a patient with a mild systemic disease (mid diabetes, controlled hypertension, obesity ASA 3: a patient with a severe systemic disease that limits activity (angina, COPD, prior Myocardial infarction) ASA 4: a patient with an incapacitating disease that is a constant threat to life (CHF, renal failure) ASA 5: a moribund patient not expected to survive 24 hrs. (ruptured aneurysm) ASA 6: a declared brain- patient whose organs are being harvested. For emergent operations, add the letter E after the classification Mallampati Classification Grade 2 Sedation Plan Analgesia, Amnesia, Plan communicated to team members, Discussed options with patient/fam, Discussed risks with patient/fam The patient is an appropriate candidate to undergo the planned procedure, sedation, and anesthesia. The patient immediately re-assessed prior to indication. CHEL CORONADO MD FACP FAC CCDS Nov 11, 2021 15:21
[2021-11-11] MEDS ORDERED: PATIENT MAY USE OWN MEDS, ALL PO SCH (15:30)
[2021-11-11] MEDS: ENOXAPARIN 40 MG/0.4 ML (LOVENOX) SYR SC SCH (16:06)
--- NOTE | 2021-11-11 16:36 | Progress Note ---
Subjective Subjective Date Seen by Provider: Nov 11, 2021 Time Seen by Provider: 08:20 Pt sleeping - he reports that he had a rough night due to noise and not being in his own bed. He denies chest pain at this time, denies arm pain on the right or left side. He states that he is anxious to find out what Dr. Ibrahim has planned for today. Review of Systems General: No Chills, No Night Sweats, No Fatigue, No Malaise HEENT: No Head Aches, No Dysphasia, No Sinus Congestion Pulmonary: No Dyspnea, No Cough Cardiovascular: Chest Pain Gastrointestinal: Constipation; No: Nausea, Vomiting, Abdominal Pain, Diarrhea, Melena Genitourinary: No Dysuria, No Frequency, No Incontinence Musculoskeletal: arm pain (on admission - now resolved); No: other, shoulder pain Neurological: No: Weakness, Confusion All Other Systems Reviewed All Other Systems Reviewed: Yes Objective Exam Vital Signs Vital Signs Date Time Temp Pulse Resp B/P (MAP) Pulse Ox O2 Delivery O2 Flow Rate FiO2 11/11/21 16:05 36.3 11/11/21 13:00 51 11/11/21 11:01 36.8 11/11/21 09:00 Room Air 11/11/21 08:46 36.4 11/11/21 08:00 49 12 146/75 (98) 95 Room Air 11/11/21 07:00 47 11/11/21 04:00 36.8 11/11/21 04:00 45 24 144/64 (90) 95 Room Air 11/11/21 02:00 96 Room Air 11/11/21 01:00 44 11/11/21 00:00 36.8 42 14 96 Room Air 11/11/21 00:00 44 20 135/67 (89) 97 Room Air 11/10/21 22:49 Room Air 11/10/21 22:00 96 Room Air 11/10/21 20:00 56 21 110/55 (73) 95 Room Air 11/10/21 18:30 52 11/10/21 18:00 96 Room Air 11/10/21 17:13 53 18 137/83 96 I & O 11/11/21 07:00 Intake Total 500 ml Balance 500 ml General Appearance: No Apparent Distress, WD/WN HEENT: PERRL/EOMI, Pharynx Normal Neck: Full Range of Motion, Non Tender, Supple Respiratory: Chest Non Tender, Lungs Clear, Normal Breath Sounds, No Accessory Muscle Use, No Respiratory Distress Cardiovascular: Regular Rate, Rhythm, No Edema, No Murmur, Normal Peripheral Pulses Gastrointestinal: Normal Bowel Sounds, No Organomegaly, No Pulsatile Mass, Non Tender, Soft Extremity: Normal Capillary Refill, Non Tender, No Pedal Edema Neurologic/Psychiatric: Alert, Oriented x3 Skin: Normal Color, Warm/Dry Results Lab Laboratory Tests 11/10/21 18:30: Troponin I 0.028 11/10/21 22:00: Troponin I 0.043H 11/11/21 04:00: Troponin I 0.068H, White Blood Count 6.6, Red Blood Count 3.94L, Hemoglobin 12.2L, Hematocrit 37L, Mean Corpuscular Volume 94, Mean Corpuscular Hemoglobin 31, Mean Corpuscular Hemoglobin Concent 33, Red Cell Distribution Width 13.1, Platelet Count 167, Mean Platelet Volume 9.5, Immature Granulocyte % (Auto) 0, Neutrophils (%) (Auto) 63, Lymphocytes (%) (Auto) 23, Monocytes (%) (Auto) 9, Eo sinophils (%) (Auto) 5, Basophils (%) (Auto) 1, Neutrophils # (Auto) 4.2, Lymphocytes # (Auto) 1.5, Monocytes # (Auto) 0.6, Eosinophils # (Auto) 0.3, Basophils # (Auto) 0.0, Immature Granulocyte # (Auto) 0.0, Sodium Level 144, Potassium Level 3.8, Chloride Level 114H, Carbon Dioxide Level 19L, Anion Gap 11, Blood Urea Nitrogen 25H, Creatinine 0.83, Estimat Glomerular Filtration Rate 94, BUN/Creatinine Ratio 30, Glucose Level 90, Calcium Level 8.4L, Triglycerides Level 142, Cholesterol Level 181, LDL Cholesterol Direct 123, VLDL Cholesterol 28, HDL Cholesterol 33L Assessment/Plan Assessment/Plan Admission Dx Chest pain Elevated troponin and Myoglobin Hypertension CAD Mild Hypernatremia BPH Insomnia Assessment and Plan Chest pain Elevated troponin and Myoglobin Hypertension CAD Mild Hypernatremia BPH Insomnia Chest pain with Elevated troponin and Myoglobin and Hx of CAD - Consult to Cardiology - Dr. Ibrahim - plavix, aspirin started in ER - plan on heart cath today with Dr. Patrice Hypertension - monitor blood pressure closely - defer to Dr. Ibrahim Mild Hypernatremia - anticipate improvement with fluids BPH restart tamsulosin Insomnia - restart Ativan - pt has been on for years to aide his sleep. dvt prophylaxis with scd's, lovenox gi prophylaxis with ppi therapy Admission Dx Chest pain Elevated troponin and Myoglobin Hypertension CAD Mild Hypernatremia BPH Insomnia Clinical Quality Measures Admission Status Admission Dx Chest pain Elevated troponin and Myoglobin Hypertension CAD Mild Hypernatremia BPH Insomnia AMI/AHF: ASA po Prior to arrival: Yes KEN DELEON MD Nov 11, 2021 16:36
[2021-11-11] MEDS ORDERED: ATROPINE INJ 0.4 MG/ML SDV ONE (17:41)
--- NOTE | 2021-11-11 18:48 | CARDIAC CATHETERIZATION ---
DATE OF SERVICE: 11/11/2021 CARDIAC CATHETERIZATION AND CORONARY INTERVENTION REPORT INDICATION FOR PROCEDURE: The patient is a 70-year-old gentleman, who has a history of coronary artery disease and has had coronary artery bypass surgery. He presented with unstable angina and a small non-ST elevation myocardial infarction. Cardiac catheterization was carried out after having obtained an informed consent. DESCRIPTION OF PROCEDURE: He was brought to the cardiac catheterization laboratory. The right groin was prepared and draped in the usual sterile fashion. Lidocaine 1% was used for local anesthesia. Modified Seldinger technique was used to advance a 5-Tuvaluan sheath in the right femoral artery, 5-Tuvaluan JR4 catheter was used for left coronary angiography, 5-Tuvaluan JR4 catheter was used for right coronary angiography, 5-Tuvaluan pigtail catheter was used for left heart catheterization and left ventricular angiography. Pigtail was pulled back and aortic arch angiography was performed. Aortic arch angiography was performed because the right coronary artery graft could not be cannulated and we wanted to be sure that it was not open. Following completion of the diagnostic procedure, we proceeded with the percutaneous intervention to the right coronary to which the saphenous vein graft was found to be occluded. PERCUTANEOUS INTERVENTION TO THE RIGHT CORONARY ARTERY: We exchanged the 5-Tuvaluan sheath over a wire for a 6-Tuvaluan sheath. We gave 5000 units of intravenous heparin. We gave a double bolus of Integrilin during the procedure. We used a 6-Tuvaluan JR4 guide catheter to engage the right coronary artery. We advanced a BMW wire across the lesions and the lesions in the right coronary artery. The tip of the vessel was placed in the distal part of the posterior descending branch of the right coronary artery. We carried out balloon angioplasty of the distal right coronary artery with a 2.0 x 30 mm balloon. Multiple balloon inflations were carried out. We carried out balloon angioplasty and stenting of the mid right coronary artery. We used a Skypoint 3.0 x 33 mm stent for the mid right coronary artery and it was deployed at 16 atmospheres. The proximal two thirds of the standard segment were dilated with a 3.0 x 33 mm balloon at 18 atmospheres. Subsequent angiography revealed 0% residual stenosis in the mid right coronary artery and approximately 40% stenosis in the distal right coronary artery. We did not stent the distal right coronary artery because this is a bifurcation lesion and we wanted to save both the posterior descending and the distal posterolateral branch of the right coronary artery. Both lesions (mid vessel and distal) were 90% prior to the intervention). He tolerated the procedure well. The angioplasty equipment was removed. Sheath was sutured in place and the patient was transferred to the floor for manual sheath removal. HEMODYNAMICS: Left ventricular end-diastolic pressure following coronary angiography was 21 mmHg. There was no significant pressure gradient on pullback across the aortic valve. The ascending aortic pressure was 153/65 with a mean of 86 mmHg. CORONARY ANGIOGRAPHY: Coronary calcification is seen. Left main coronary artery has approximately 40% distal stenosis. The left anterior descending artery has approximately 40% ostial and 60% to 70% mid vessel stenosis. The left circumflex artery has 80% ostial and proximal stenosis and 95% to 99% stenosis in both subbranches of a large bifurcating obtuse marginal. The right coronary artery had long up to 90% mid vessel and another long up to 90% distal vessel stenosis. The mid vessel stenosis in the right coronary artery was stented with Skypoint 3.0 x 33 mm stent with reduction of stenosis to 0% residual. The distal stenosis underwent balloon angioplasty with reduction of stenosis to less than 40% residual. LEFT INTERNAL MAMMARY GRAFT ANGIOGRAPHY: Left internal mammary artery graft to the distal left anterior descending artery is patent and does not exhibit significant disease. AORTOCORONARY GRAFT: The most cephalic aortocoronary graft is a patent saphenous vein graft to an obtuse marginal. It does not exhibit significant disease. The left caudal graft is a patent saphenous vein graft to a diagonal of the left anterior descending artery. This is patent and does not exhibit significant disease. The most caudal graft is a graft to the right coronary and it is occluded at its ostium. LEFT VENTRICULAR ANGIOGRAPHY: Left ventricular angiography was carried out in the right anterior oblique projection. Global left ventricular systolic function is fairly well preserved. Left ventricular ejection fraction is approximately 50%. There is localized inferior wall akinesis. AORTIC ARCH ANGIOGRAPHY: Aortic arch angiography did not indicate any significant thoracic aortic aneurysm or dissection. It confirmed that the aortocoronary graft to the right coronary artery was occluded. Neck vessels, to the extent seen, do not exhibit significant disease. CONCLUSIONS: 1. Multivessel yuhaaviatam coronary artery disease including 60% to 70% proximal and mid vessel stenosis of the left anterior descending with a patent left internal mammary artery graft to the distal left anterior descending and a patent aortocoronary graft to a diagonal. The left circumflex artery has severe proximal and mid vessel disease and there is a patent aortocoronary graft to an obtuse marginal. The right coronary artery had 90% mid vessel and distal stenoses, which were successfully intervened on. The mid vessel lesion received a Skypoint 3.0 x 33 mm stent and successful balloon angioplasty was carried out to the distal right coronary artery lesion. 2. Localized inferior wall akinesis. 3. Well preserved global left ventricular systolic function with ejection fraction approximately 50%. 4. Elevated left ventricular end-diastolic pressure (21 mmHg). DISCUSSION AND RECOMMENDATIONS: Dual antiplatelet therapy is being continued. Risk factor modification is being continued. Job ID: [id number] DocumentID: [id number] Dictated Date: 11/11/2021 15:52:10 System Development Manager Date: 11/11/2021 18:47:26 Dictated By: CHEL CORONADO MD, MA, FACP, FACC,
[2021-11-11] MEDS: PANTOPRAZOLE 40 MG (PROTONIX) TAB PO SCH (20:46)
[2021-11-11] MEDS: TAMSULOSIN 0.4 MG (FLOMAX) CAP PO SCH (20:46)
[2021-11-11] MEDS ORDERED: NON-FORMULARY MEDICATION 1 EA EA (Tadalafil 5 MG) PO SCH (21:00)
[2021-11-12] VITALS (9 sets, daily range): BP systolic 114–146; BP diastolic 45–76
[2021-11-12] MEDS: LORazepam 1 MG (ATIVAN) TAB PO PRN (00:11)
[2021-11-12] MEDS: NS IV 1000 ML 1,000 ML IV SCH ×4 (00:27→08:20)
[2021-11-12] MEDS: CATHETER FLUSH 10 ML SYR IVP SCH (05:28)
[2021-11-12 05:37] LABS: BASOPHILS % (AUTO) 0 % (0-10); EOSINOPHILS # (AUTO) 0.2 10^3/uL (0.0-0.3); EOSINOPHILS % (AUTO) 4 % (0-10); HEMATOCRIT 36 % (40-54); LYMPHOCYTES # (AUTO) 1.3 10^3/uL (1.0-4.0); LYMPHOCYTES % (AUTO) 21 % (12-44); MEAN CORPUSCULAR HEMOGLOBIN 31 pg (25-34); MEAN CORPUSCULAR HGB CONC 33 g/dL (32-36); MEAN CORPUSCULAR VOLUME 93 fL (80-99); MEAN PLATELET VOLUME 9.5 fL (9.0-12.2); MONOCYTES # (AUTO) 0.6 10^3/uL (0.0-1.0); MONOCYTES % (AUTO) 9 % (0-12); NEUTROPHILS # (AUTO) 4.2 10^3/uL (1.8-7.8); NEUTROPHILS % (AUTO) 66 % (42-75); PLATELET COUNT 157 10^3/uL (130-400); WHITE BLOOD COUNT 6.4 10^3/uL (4.3-11.0)
[2021-11-12 06:02] LABS: CALCIUM 8.1 MG/DL (8.5-10.1); CREATININE SERUM 0.8 MG/DL (0.60-1.30); MAGNESIUM 1.8 MG/DL (1.6-2.4); POTASSIUM 3.8 MMOL/L (3.6-5.0)
[2021-11-12] MEDS: ASPIRIN E.C. 81 MG (ECOTRIN) TAB PO SCH (08:34)
[2021-11-12] MEDS: VITAMIN E MIXED 100 UNIT PO SCH (08:34)
[2021-11-12] MEDS: TAMSULOSIN 0.4 MG (FLOMAX) CAP PO SCH (08:34)
[2021-11-12] MEDS: CLOPIDOGREL 75 MG (PLAVIX) TABLET PO SCH (08:34)
[2021-11-12] MEDS: FINASTERIDE (PROSCAR) 5 MG TAB PO SCH (08:34)
[2021-11-12] MEDS: VITAMIN K2 100 MCG PO SCH (08:34)
[2021-11-12] MEDS: ROSUVASTATIN 5 MG (CRESTOR) TABLET PO SCH (08:34)
[2021-11-12] MEDS: CALCIUM LACTATE 100 MG PO SCH (08:34)
[2021-11-12] MEDS ORDERED: ASCORBIC ACID (VIT C) 500 MG TABLET PO SCH (09:00)
[2021-11-12] MEDS ORDERED: VITAMIN D3 25 MCG (1,000 UNITS) TABLET PO SCH (09:00)
[2021-11-12] MEDS ORDERED: CLOP75TA28 PO (10:00)
--- NOTE | 2021-11-12 13:42 | Progress Note - Cardiology ---
Cardiology SOAP Progress Note Subjective: Has been up and walking No groin or leg discomfort No cp or palp or syncope or shortness of breath No n/v No focal weakness Wishes to go home Objective: I&O/Vital Signs 11/12/21 11/12/21 11/12/21 11/12/21 02:00 03:00 04:00 04:00 Temp 36.6 Pulse 50 46 48 Resp 21 20 15 B/P (MAP) 114/45 (68) 122/50 (74) 144/62 (89) Pulse Ox 97 96 95 O2 Delivery Room Air Room Air Room Air 11/12/21 11/12/21 11/12/21 11/12/21 05:00 06:00 07:00 07:00 Pulse 46 67 55 49 Resp 18 15 14 B/P (MAP) 117/49 (71) 146/76 (99) 142/68 (92) Pulse Ox 94 98 93 O2 Delivery Room Air Room Air Room Air 11/12/21 11/12/21 11/12/21 11/12/21 07:36 08:00 09:00 12:00 Temp 36.6 Pulse 57 53 Resp 11 16 B/P (MAP) 130/63 (85) Pulse Ox 97 O2 Delivery Room Air Room Air Room Air 11/12/21 12:20 Pulse 58 11/12/21 00:00 Intake Total 1140 ml Output Total 1000 ml Balance 140 ml Weight (Pounds): 181 Weight (Ounces): 0.0 Weight (Calculated Kilograms): 82.035841 Bruising: mild bruising Constitutional: AAO x 3, well-developed, well-nourished Respiratory: No accessory muscle use, No respiratory distress; chest expansion is symmetric, chest is bilaterally symmetric, lungs clear to auscultation Cardiovascular: regular rate-rhythm; No JVD; S1 and S2 Gastrointestional: No tender; soft, round, audible bowel sounds Extremities: no lower extremity edema bilateral Neurologic/Psychiatric: other (moves all limbs equally) Skin: No rash on exposed areas, No ulcerations on exposed areas Results/Procedures: Labs Laboratory Tests 11/12/21 05:23: White Blood Count 6.4, Red Blood Count 3.88L, Hemoglobin 12.0L, Hematocrit 36L, Mean Corpuscular Volume 93, Mean Corpuscular Hemoglobin 31, Mean Corpuscular Hemoglobin Concent 33, Red Cell Distribution Width 13.1, Platelet Count 157, Mean Platelet Volume 9.5, Immature Granulocyte % (Auto) 1, Neutrophils (%) (Auto) 66, Lymphocytes (%) (Auto) 21, Monocytes (%) (Auto) 9, Eosinophils (%) (Auto) 4, Basophils (%) (Auto) 0, Neutrophils # (Auto) 4.2, Lymphocytes # (Auto) 1.3, Monocytes # (Auto) 0.6, Eosinophils # (Auto) 0.2, Basophils # (Auto) 0.0, Immature Granulocyte # (Auto) 0.0, Sodium Level 142, Potassium Level 3.8, Chloride Level 112H, Carbon Dioxide Level 21, Anion Gap 9, Blood Urea Nitrogen 17, Creatinine 0.80, Estimat Glomerular Filtration Rate 95, BUN/Creatinine Ratio 21, Glucose Level 85, Calcium Level 8.1L, Magnesium Level 1.8 A/P: Assessment: NSTEMI with stable angina on 11/10/21 - see cath results below Coronary artery disease, h/o CABG in 2018 (Dr Martinez, [place]) - Echo March 2021 showing normal LV size, EF 50 to 55%, grade 2 diastolic dysfunction, mild MR, PA pressure 40 mmHg - Cath on 11/11/21: LMCA Ok, mod prox and mid-vessel disease of LAD, severe mid vessel disease of LCX (95-99%), severe mid (90%) and distal (90%) disease of RCA. Patent SCHULTZ to LAD, patent SVG to Diag, patent SVG to OM, occluded SVG to RCA. LVEF 50%. Localized inf wall akinesis. LVEDP elevated. Underwent PCI to RCA on 11/11/21 (Skypoint 3.0x33 stent to mid RCA, balloon angioplasty to distal RCA) Transient atrial fibrillation post bypass surgery - no reccurrence Hypertension Carotid artery stenosis - previously monitored by [facility] - Mild bilateral carotid stenosis, ultrasound done in January [address] Milligan Palpitation - h/o frequent PVCs noted on stress test in 2017 Restless leg syndrome - managed by primary care physician - had a sleep study in the remote past and reported no sleep apnea. Hyperlipidemia - statin tx Family history of heart disease History of elevated PSA level - enlarged prostate, seen by Dr. Hernandez, did not want to have a biopsy, treated conservatively and reporting improvement in PSA level. Plan: * DAPT * Continue beta-silva and STEPHY-inhib and statin * Discussed his CV issues with him in detail and answered question in detail * Advised return to ER in case of recurrent symptoms or new symptoms * Advised f/u with Dr Milligan in 2 weeks (or earlier if needed) Clinical Quality Measures AMI/AHF: ASA po Prior to arrival: Yes CHEL CORONADO MD FACP FAC CCDS Nov 12, 2021 13:42
--- NOTE | 2021-11-12 20:17 | Discharge Summary ---
Discharge Summary Hospital Course Was the Problem List Reviewed?: Yes Problems/Dx: (1) NSTEMI (non-ST elevation myocardial infarction) Status: Acute (2) CAD (coronary artery disease) Status: Acute (3) HTN (hypertension) Status: Chronic (4) HLD (hyperlipidemia) Status: Chronic Hospital Course Date of Admission: Nov 10, 2021 at 17:01 Admission Diagnosis : Chest pain Family Physician/Provider: Ken Mendoza MD Date of Discharge: 11/12/21 Discharge Diagnosis: NSTEMI Hospital Course: Demetri Hagen is a 70 year old male with PMH HTN, HLD, CAD s/p CABG, who presented with chest pain and was admitted with NSTEMI. Cardiology was consulted and assisted with his care. He underwent left heart catheterization and coronary stenting to the RCA. His chest pain resolved. He was started on Plavix. He was continued on Aspirin, Lisinopril, Metoprolol, and Crestor. He will follow up with his PCP, Dr. Mendoza, and Cardiology as scheduled. He was discharged home in stable condition. Labs and Pending Lab Test: Laboratory Tests 11/12/21 05:23: White Blood Count 6.4, Red Blood Count 3.88L, Hemoglobin 12.0L, Hematocrit 36L, Mean Corpuscular Volume 93, Mean Corpuscular Hemoglobin 31, Mean Corpuscular Hemoglobin Concent 33, Red Cell Distribution Width 13.1, Platelet Count 157, Mean Platelet Volume 9.5, Immature Granulocyte % (Auto) 1, Neutrophils (%) (Auto) 66, Lymphocytes (%) (Auto) 21, Monocytes (%) (Auto) 9, Eosinophils (%) (Auto) 4, Basophils (%) (Auto) 0, Neutrophils # (Auto) 4.2, Lymphocytes # (Auto) 1.3, Monocytes # (Auto) 0.6, Eosinophils # (Auto) 0.2, Basophils # (Auto) 0.0, Immature Granulocyte # (Auto) 0.0, Sodium Level 142, Potassium Level 3.8, Chloride Level 112H, Carbon Dioxide Level 21, Anion Gap 9, Blood Urea Nitrogen 17, Creatinine 0.80, Estimat Glomerular Filtration Rate 95, BUN/Creatinine Ratio 21, Glucose Level 85, Calcium Level 8.1L, Magnesium Level 1.8 Home Meds Active Clopidogrel (Clopidogrel Bisulfate) 75 Mg Tablet 75 Mg PO DAILY 90 Days Reported Eql Sinus-Allergy PE Tablet (Chlorpheniramine/Phenylephrine) 4 Mg-10 Mg Tablet 1-2 Each PO DAILY PRN Tylenol Extra Strength (Acetaminophen) 500 Mg Tablet 500-1,000 Mg PO Q8H PRN Calcium Lactate 100 Mg Calcium Tablet 100 Mg PO DAILY Vitamin K2 100 Mcg Capsule 100 Mcg PO DAILY Vitamin E (Vitamin E Mixed) 100 Unit Tablet 100 Unit PO DAILY Vitamin D3 (Cholecalciferol (Vitamin D3)) 50 Mcg (2000 Unit) Capsule 50 Mcg PO DAILY Vitamin C (Ascorbate Calcium) 500 Mg Tablet 500 Mg PO DAILY Flomax (Tamsulosin HCl) 0.4 Mg Cap 0.4 Mg PO BID Hydroxychloroquine Sulfate 200 Mg Tablet 200 Mg PO WED @HS Metoprolol Succinate 100 Mg Tab.er.24h 100 Mg PO DAILY Tadalafil 5 Mg Tablet 5 Mg PO HS Finasteride 5 Mg Tablet 5 Mg PO DAILY Rosuvastatin Calcium 5 Mg Tablet 5 Mg PO DAILY Aspirin EC (Aspirin) 81 Mg Tablet.dr 81 Mg PO DAILY Ativan (Lorazepam) 2 Mg Tablet 2 Mg PO HS Lisinopril 2.5 Mg Tablet 2.5 Mg PO DAILY Assessment/Pt Instructions See instructions Discharge Planning: >30 minutes discharge planning Discharge Instructions Discharge Diet: Low Sodium Diet Activity as Tolerated: Yes Consultations Cardiology Discharge Physical Examination Vital Signs Vital Signs Date Time Temp Pulse Resp B/P (MAP) Pulse Ox O2 Delivery O2 Flow Rate FiO2 11/12/21 12:20 58 11/12/21 12:00 16 Room Air 11/12/21 08:00 97 11/12/21 07:36 36.6 General Appearance: No Apparent Distress, WD/WN Respiratory: Lungs Clear, No Respiratory Distress Cardiovascular: Regular Rate, Rhythm, No Murmur Gastrointestinal: Normal Bowel Sounds, Soft Extremity: Normal Inspection, No Pedal Edema Skin: Normal Color, Warm/Dry Neurologic/Psychiatric: Alert, No Motor/Sensory Deficits Allergies: Coded Allergies: Penicillins (Verified Allergy, Intermediate, EXTREME FEVER, 09/18/19) Copy Copies To 1: KEN MENDOZA MD Discharge Summary Date of Admission Nov 10, 2021 at 17:01 Date of Discharge Nov 12, 2021 at 13:15 Discharge Date: Nov 12, 2021 Discharge Time: 13:15 Admission Diagnosis Chest pain Consults/Procedures Consulations Cardiology Procedures NSTEMI Discharge Diagnosis (1) NSTEMI (non-ST elevation myocardial infarction) Status: Acute (2) CAD (coronary artery disease) Status: Acute (3) HTN (hypertension) Status: Chronic (4) HLD (hyperlipidemia) Status: Chronic Clinical Quality Measures AMI/AHF: ASA po Prior to arrival: Yes ЕЛЕНА JULIO MD Nov 12, 2021 20:17
[2021-11-16] MEDS ORDERED: HYDROXYCHLOROQUINE 200 MG (PLAQUENIL) TAB PO SCH (21:00)
== END 2021-11-12 09:59 | disposition home or self-care (01) ==
LOC: EDUNIT# 15:37 → ER 15:38 → CSD 17:01 → INTOOBSV 17:01 → UNDOADMOB 17:01 → CSD 17:50 → ICU 11-11 15:48 → CSD 11-11 16:46 → UNDODISOB 11-12 09:59
PROVIDERS: ADMIT Family Medicine; ATTEND Internal Medicine
DX: I25.10 Atherosclerotic heart disease of native coronary artery without angina pectoris (principal); Z79.82 Long term (current) use of aspirin; I10 Essential (primary) hypertension; E87.0 Hyperosmolality and hypernatremia; N40.0 Benign prostatic hyperplasia without lower urinary tract symptoms; G47.00 Insomnia, unspecified; Z79.899 Other long term (current) drug therapy
CPT/HCPCS: 36221; 71045; 80048 ×2; 80053; 80061; 83735 ×2; 83874; 84484 ×2; 85025 ×3; 85610; 85730; 93005 ×2; 93041; 93458; 96361; 96372 ×3; 99284; C1725; C1769; C1874; C1894 ×2; C9600; G0378; 36415

== ENCOUNTER 2021-11-28 10:38 | Outpatient (CLI) | payer MEDICARE, OTHER ==
[~2021-11-28 10:38] MED LIST changes: +ACET-2267 PO; +ASCO-262 PO; +ASPI-1238 PO; +CALC100T2 PO; +CHLO1TAB94 PO; +CHOL20002 PO; +CLOP75TA28 PO; +FINA5TAB6 PO; +HYDR200T46 PO; +MTP100TCR PO; +ROSU5TAB13 PO; +TADA5TAB13 PO; +VITA100C23 PO; +VITA100T8 PO
== END 2021-11-28 11:00 ==
LOC: SLEEP 10:38
PROVIDERS: ATTEND Nurse Practitioner Family
DX: G47.10 Hypersomnia, unspecified (principal)
CPT/HCPCS: G0399

== ENCOUNTER → 2021-12-15 | Outpatient (CLI) | payer MEDICARE, OTHER ==
--- NOTE | 2021-12-15 16:59 | Diagnostic Imaging Report ---
INDICATION: Hip pain. 2 views were obtained. FINDINGS: The alignment is normal. There is no fracture or dislocation. Soft tissues are unremarkable. IMPRESSION: No acute fracture or dislocation. Dictated by: Dictated on workstation # [id number]
== END ==
LOC: RAD 15:18
PROVIDERS: ATTEND Nurse Practitioner Family
DX: M25.551 Pain in right hip (principal)
CPT/HCPCS: 73502

== ENCOUNTER 2022-01-24 14:00 | Outpatient (RCR) | payer MEDICARE, OTHER | END 2022-01-25 | disposition home or self-care (01) | PROVIDERS: ATTEND Nurse Practitioner Family | DX: M25.551 Pain in right hip (principal) ==

== ENCOUNTER 2022-02-24 11:20 | Outpatient (RCR) | payer MEDICARE, OTHER | END 2022-02-25 | disposition home or self-care (01) | PROVIDERS: ATTEND Nurse Practitioner Family | DX: M25.551 Pain in right hip (principal) ==

== ENCOUNTER 2022-03-23 12:55 | Outpatient (RCR) | payer MEDICARE, OTHER | END 2022-03-28 | disposition home or self-care (01) | PROVIDERS: ATTEND Nurse Practitioner Family | DX: M25.551 Pain in right hip (principal); R53.1 Weakness ==

== ENCOUNTER 2022-04-13 13:09 | Outpatient (RCR) | payer MEDICARE, OTHER | END 2022-04-25 | disposition home or self-care (01) | PROVIDERS: ATTEND Nurse Practitioner Family | DX: M25.551 Pain in right hip (principal) ==

== ENCOUNTER 2022-04-27 12:45 | Outpatient (RCR) | payer MEDICARE, OTHER | END 2022-05-18 08:51 | disposition home or self-care (01) | PROVIDERS: ATTEND Nurse Practitioner Family | DX: M25.551 Pain in right hip (principal) ==